=== PATIENT | female | born 1990 | race Caucasian/White ===

== ENCOUNTER 2024-09-01 20:01 | Outpatient (REF) | payer BC, SELFPAY | END 2024-09-01 20:02 | disposition home or self-care (01) | LOC: LAB 20:01 | PROVIDERS: Visit Provider Physician Assistant | DX: Z01.419 Encounter for gynecological examination (general) (routine) without abnormal findings (principal) | CPT/HCPCS: 87624; 88175 ==

== ENCOUNTER 2024-11-20 11:49 | Outpatient (OUT) | payer BC, SELFPAY ==
--- OUTSIDE RECORDS SUMMARY | 2024-11-18 12:20 | XMS_ITS | CCD ---
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 [address] [place] [address] Dr. Isabel Cornelius Covid-19 PCR ([facility])on 07-28 SARS-CoV-2 (COVID-19) RNA KINSEY+probe Ql (Unsp spec) Not detected Normal NOT DETECTED [facility] Comment on above: Result Comment: This test is not yet approved or cleared by the [place] FDA. When there are no FDA-approved or cleared tests available, and other criteria are met, FDA can make tests available under an emergency access mechanism called an Emergency Use Authorization (EUA). The EUA for this test is supported by the [place] of Health and Human Service's (HHS's) declaration that circumstances exist to justify the emergency use of in vitro diagnostics for the detection and/or diagnosis of the virus that causes COVID-19. This EUA will remain in effect (meaning this test can be used) for the duration of the COVID-19 declaration justifying emergency of IVDs, unless it is terminated or revoked by FDA (after which the test may no longer be used). When diagnostic testing is negative, the possibility of a false negative should be considered in the context of a patient's recent exposures and the presence of clinical signs and symptoms consistent with SARS-CoV-2. Performed By: #### C VDTBH #### [facility] [address] [place] [address] [id number] [address] Isabel Cornelius PREG GROWTHon 08-14-2022 US PREG GROWTH EXAMINATION: US PREG GROWTH HISTORY: Large for gestation age fetus COMPARISON: Ultrasound anatomy 04/16/2022 FINDINGS: Heart Rate: 130.0 bpm Number: 1.0 Position: Cephalic Amniotic Fluid Volume: 15.5 cm Maximum Vertical Pocket: 5.2 cm BIOMETRY: BPD: 9.1 cm cm; 37 weeks 0 days HC: 34.6 cmcm; 40 weeks 1 day AC: 36.0 cm cm; 40 weeks 0 days FL: 7.19 cm cm; 36 weeks 6 days EFW: 3626.2 grams; 93% by LMP, 74% by ultrasound FL/AC: 0.2 FL/BPD: 0.8 HC/AC: 1.0 GESTATIONAL AGE: Age by EDC: 37 weeks 1 day DREW by EDC: 09/03/2022 Age by US: 37 weeks 1 day DREW by US: 08/24/2022 IMPRESSION: 1. Single live intrauterine with growth detailed above. 2. Abdominal circumference is greater than 98th percentile Electronically authenticated by: ERMA GARCIA Date: 2022-08-14 19:49 Normal [facility] GROUP B STREP CULTUREon 07-27 S. agalactiae Ag Ql (Unsp spec) Culture Observations: NEGATIVE FOR GROUP B STREPTOCOCCUS. Normal [facility] Comment on above: Performed By: #### G BSCX #### [facility] [address] [place] [address] [id number] [address] Isabel Cornelius GTT 3 HR PREGon 06-22-2022 Glucose [Mass/Vol] 95 mg/dL Normal 74-106 [facility] Comment on above: Performed By: #### G LU1HR #### [facility] [address] [address] [address] Isabel Cornelius Glucose [Mass/Vol] 183 mg/dL Normal [facility] Comment on above: Performed By: #### G LU1HR #### [facility] [address] [place] [address] Dr. Isabel Corneilus Glucose [Mass/Vol] 124 mg/dL Normal [facility] Comment on above: Performed By: #### G LU1HR #### [facility] [address] [place] [address] Dr. Isabel Cornelius Glucose [Mass/Vol] 141 mg/dL Normal [facility] Comment on above: Performed By: #### G LU1HR #### [facility] [address] [place] [address] Dr. Isabel Cornelius GLUCOSE - 1HRon 06-08-2022 Glucose [Mass/Vol] 144 mg/dL Critically high 74-106 [facility] Comment on above: Performed By: #### G LU1HR #### [facility] [address] [place] [address] Dr. Isabel Cornelius HEMOGRAM AND PLATELon 2021 Hematocrit (Bld) [Volume fraction] 35.3 % Critically low 36.0-48.0 [facility] Comment on above: Performed By: #### G LU1HR #### [facility] [address] [place] [address] Dr. Isabel Cornelius Hemoglobin (Bld) [Mass/Vol] 11.0 g/dL Critically low 12.0-16.0 [facility] Comment on above: Performed By: #### G LU1HR #### [facility] [address] [place] [address] Dr. Isabel Cornelius MCH (RBC) [Entitic mass] 27.0 pg Normal 26.7-34.0 [facility] Comment on above: Performed By: #### G LU1HR #### [facility] [address] [place] [address] Dr. Isabel Cornelius MCHC (RBC) [Mass/Vol] 31.2 g/dL Normal 29.9-35.2 [facility] Comment on above: Performed By: #### G LU1HR #### [facility] [address] [place] [address] Dr. Isabel Cornelius MCV (RBC) [Entitic vol] 86.7 fL Normal 81.0-99.0 [facility] Comment on above: Performed By: #### G LU1HR #### [facility] [address] [place] [address] Dr. Isabel Cornelius PLT 297 103/ul Normal 150-450 [facility] Comment on above: Performed By: #### G LU1HR #### [facility] [address] [place] [address] Dr. Isabel Cornelius RBC 4.07 106/ul Critically low 4.20-5.40 [facility] Comment on above: Performed By: #### G LU1HR #### [facility] [address] [place] [address] Dr. Isabel Cornelius WBC 10.2 103/ul Normal 4.0-11.0 [facility] Comment on above: Performed By: #### G LU1HR #### [facility] [address] [place] [address] Dr. Isabel Cornelius CULTURE URINEon 05-24-2022 CULTURE URINE Isolate 1 Escherichia coli >100,000 cfu/mL of ORGANISM 1 Escherichia coli ANTIBIOTIC M.I.C RX STATUS Ampicillin >=32 R F Ampicillin/Sulbactam 16 I F Piperacillin/Tazobactam <=4 S F Cefazolin <=4 S F Ceftazidime <=1 S F Ceftriaxone <=1 S F Ertapenem <=0.5 S F Imipenem <=0.25 S F Amikacin <=2 S F Gentamicin <=1 S F Tobramycin <=1 S F Ciprofloxacin <=0.25 S F Levofloxacin <=0.12 S F Nitrofurantoin <=16 S F Trimethoprim/Sulfametho xazole <=20 S F Normal [facility] Comment on above: Performed By: #### U RCX #### [facility] [address] [place] [address] Dr. Isabel Cornelius UA RANDOM W/MICROSCOPICon BACTERIA LARGE Abnormal NONE SEEN [facility] Comment on above: Performed By: #### A 1C #### [facility] [address] [place] [address] Dr. Isabel Cornelius Bilirubin Ql (U) Negative Normal NEGATIVE [facility] Comment on above: Performed By: #### A 1C #### [facility] [address] [place] [address] Dr. Isabel Cornelius CAST NONE SEEN Normal NONE SEEN [facility] Comment on above: Performed By: #### A 1C #### [facility] [address] [place] [address] Dr. Isabel Cornelius Clarity (U) CLEAR Normal CLEAR [facility] Comment on above: Performed By: #### A 1C #### [facility] [address] [place] [address] Dr. Isabel Cornelius Color (U) LT. YELLOW Normal YELLOW [facility] Comment on above: Performed By: #### A 1C #### [facility] [address] [place] [address] Dr. Isabel Cornelius Crystals LM Nom (Urine sed) NONE SEEN Normal NONE SEEN [facility] Comment on above: Performed By: #### A 1C #### [facility] [address] [place] [address] Dr. Isabel Cornelius Epithelial cells LM Ql (Urine sed) FEW Abnormal NONE SEEN /RARE [facility] Comment on above: Performed By: #### A 1C #### [facility] [address] [place] [address] Dr. Isabel Cornelius Glucose Ql (U) Negative Normal NEGATIVE [facility] Comment on above: Performed By: #### A 1C #### [facility] [address] [place] [address] Dr. Isabel Cornelius Hemoglobin Ql (U) TRACE-INTACT Abnormal NEGATIVE [facility] Comment on above: Performed By: #### A 1C #### [facility] [address] [place] [address] Dr. Isabel Cornelius Ketones Ql (U) Negative Normal NEGATIVE [facility] Comment on above: Performed By: #### A 1C #### [facility] [address] [place] [address] Dr. Isabel Cornelius LEUKOCYTES SMALL Abnormal NEGATIVE [facility] Comment on above: Performed By: #### A 1C #### [facility] [address] [place] [address] Dr. Isabel Cornelius MUCOUS TRACE Abnormal NONE SEEN [facility] Comment on above: Performed By: #### A 1C #### [facility] [address] [place] [address] Dr. Isabel Cornelius Nitrite Ql (U) Positive Abnormal NEGATIVE [facility] Comment on above: Performed By: #### A 1C #### [facility] [address] [place] [address] Dr. Isabel Cornelius pH (U) 6.5 [pH] Normal 5-9 [facility] Comment on above: Performed By: #### A 1C #### [facility] [address] [place] [address] Dr. Isabel Cornelius RBC 2-5 Abnormal 0-2 [facility] Comment on above: Performed By: #### A 1C #### [facility] [address] [place] [address] Dr. Isabel Cornelius SPEC GRAVITY 1.015 Normal 1.005-<=1.025 [facility] Comment on above: Performed By: #### A 1C #### [facility] [address] [place] [address] Dr. Isabel Cornelius UA PROTEIN Negative Normal NEGATIVE/ TRACE [facility] Comment on above: Performed By: #### A 1C #### [facility] [address] [place] [address] Dr. Isabel Cornelius Urobilinogen Qn (U) 0.2 {Radha'U}/dL Normal 0.2 - 1. 0 [facility] Comment on above: Performed By: #### A 1C #### [facility] [address] [place] [address] Dr. Isabel Cornelius WBC 10-20 Abnormal NONE SEEN [facility] Comment on above: Performed By: #### A 1C #### [facility] [address] [place], [place] [address] Dr. Isabel Cornelius PREG INCOMPLETE ANATOMYon 05-15-2022 US PREG INCOMPLETE ANATOMY EXAMINATION: US PREG INCOMPLETE ANATOMY HISTORY: screening COMPARISON: Ultrasound anatomy 04/16/2022 FINDINGS: Heart rate: 133 bpm Anatomy: Spine, cardiac outflow tracts, nose-lips visualized. GA: 24 weeks, 0 days DREW: 09/03/2022 IMPRESSION: 1. Single live intrauterine . 2. No appreciable abnormality of the spine, cardiac outflow tracts, and hard palate. Examination is limited by patient body evidence. Electronically authenticated by: ERMA GARCIA Date: 2022-05-14 22:11 Normal [facility] AFP MATERNAL FOR SPINA BIFID Aon 04-25-2022 AFP MoM 1.28 Normal [facility] Comment on above: Performed By: #### G LU1HR #### [facility] [address] [address] [address] Isabel Cornelius AFP Value 43.3 ng/mL Normal [facility] Comment on above: Performed By: #### G LU1HR #### [facility] [address] [address] [address] Isabel Cornelius AFP, Serum for Spina Bifida Report Normal [facility] Comment on above: Performed By: #### G LU1HR #### [facility] [address] [place], [place] [address] Dr. Isabel Cornelius Comment Comment Normal [facility] Comment on above: Result Comment: Ela Deras, Ph.D., [facility] Director . References: Available Upon Request. . Multiples Of Median Cutoffs For AFP Elevations Reyes 2.5 Black 2.8 IDD 2.0 Twins 4.5 Abbreviation Definitions IDD - Insulin Dep Diabetes OSBR - Open Spina Bifida Risk . For further inquiries contact [facility] at [phone]. Performed By: #### G LU1HR #### [facility] [address] [address] [address] Isabel Cornelius Gest Age Collection Date 18.4 weeks Normal [facility] Comment on above: Performed By: #### G LU1HR #### [facility] [address] [address] [address] Isabel Cornelius Gestat, Age Based on DREW Normal [facility] Comment on above: Result Comment: 05/2022 Recalculations are not recommended when gestational dating by LMP and ultrasound are within 10 days. Performed By: #### G LU1HR #### [facility] [address] [address] [address] Isabel Cornelius Insulin Dep Diabetes No Normal [facility] Comment on above: Performed By: #### G LU1HR #### [facility] [address] [address] [address] Isabel Cornelius Interpretation Comment Normal [facility] Comment on above: Result Comment: Inte rpretation: Screen Negative . This result is screen negative for OSB. The AFP MoM calculated is based on the gestational age provided. MS-AFP can identify up to 80% of open neural tube defects. Closed neural tube defects and some open defects may not be detected by this test. This test does not screen for Down Syndrome or Trisomy 18. If screening for Down Syndrome or Trisomy 18 is desired, contact [facility] to discuss available options. The [employer] recommends amniocentesis be offered to women age 35 and older. Performed By: #### G LU1HR #### [facility] [address] [place] [address] Dr. Isabel Cornelius [age] Normal [facility] Comment on above: Performed By: #### G LU1HR #### [facility] [address] [place] [address] Dr. Isabel Cornelius Multiple Gestation No Normal [facility] Comment on above: Performed By: #### G LU1HR #### [facility] [address] [place] [address] Dr. Isabel Cornelius OSBR Risk 1 IN 5096 Normal [facility] Comment on above: Performed By: #### G LU1HR #### [facility] [address] [place] [address] Dr. Isabel Cornelius PDF . Normal [facility] Comment on above: Performed By: #### G LU1HR #### [facility] [address] [address] [address] Isabel Cornelius Race Normal [facility] Comment on above: Performed By: #### G LU1HR #### [facility] [address] [address] [address] Isabel Cornelius Test Results: Negative Normal [facility] Comment on above: Performed By: #### G LU1HR #### [facility] [address] [address] [address] Isabel Cornelius US PREG ANATOMY SINGLEon US PREG ANATOMY SINGLE EXAMINATION: US PREG ANATOMY SINGLE HISTORY: anatomy study COMPARISON: No relevant comparison available. TECHNIQUE: Transabdominal sonographic examination was performed for obstetrical and evaluation. FINDINGS: Number: 1 Heart Rate: 138.0 bpm H.B. /min Amniotic Fluid Volume: Subjectively normal position: Cephalic presentation, longitudinal lie Placental Location: Anterior, grade 0. Placental edge 5 cm from the cervical os Cervix Length: 4.7 cm. Minimal amount of fluid in the endocervical canal measuring up to 2 mm Normal structures: Cerebellum. Choroid plexus. Cisterna magna. Lateral cerebral ventricles. Orbits. Midline falx. 4-chamber heart. Stomach. Kidneys. Bladder. Umbilical cord insertion into abdomen. 3 vessel cord. Right upper extremity. Left upper extremity. Right lower extremity. Left lower extremity. Suboptimally seen: Nose, lips, ventricular outflow tracts, spine. Abnormalities/Other: None BIOMETRY: BPD: 4.8 cm 20 weeks 3 days , 69% HC: 18.1 cm 20 weeks 4 days, 67% AC: 15.2 cm 20 weeks 3 days, 58% FL: 3.5 cm 21 weeks 0 days, 78% EFW:369.3 grams; 13 ounces, 82% FL/AC: 23.1 FL/BPD: 73.2 HC/AC: 1.2 GESTATIONAL AGE: Age by EDC: 20 weeks 0 days DREW by EDC: 09/03/2022 Age by current US: 20 weeks 4 days DREW by current US: 08/30/2022 IMPRESSION: Limited visualization as detailed above Minimal dilation of the endocervical canal *Reference: AIUM Practice Guideline for the performance of Obstetric Ultrasound Examinations, July 27, 2007. Electronically authenticated by: HELEN VERA Date: 2022-04-16 16:21 Normal [facility] PAP ACOG PANEL 2: 21 to 29on 04-03-2022 . . Normal [facility] Comment on above: Performed By: #### G LU1HR #### [facility] [address] [place] [address] Dr. Isabel Cornelius Age Gdln ACOG Testing - [facility] Comment on above: Performed By: #### G LU1HR #### [facility] [address] [place] [address] Dr. Isabel Cornelius DIAGNOSIS: Comment [facility] Comment on above: Result Comment: NEGA TIVE FOR INTRAEPITHELIAL LESION OR MALIGNANCY. THIS SPECIMEN WAS RESCREENED PART OF OUR FREIGHT DISPATCHER PROGRAM. Performed By: #### G LU1HR #### [facility] [address] [place] [address] Dr. Isabel Cornelius Methodology: Comment [facility] Comment on above: Result Comment: This liquid based ThinPrep(R) pap test was screened with the use of an image guided system. Performed By: #### G LU1HR #### [facility] [address] [place] [address] Dr. Isabel Cornelius Note: Comment [facility] Comment on above: Result Comment: The Pap smear is a screening test designed to aid in the detection of premalignant and malignant conditions of the uterine cervix. It is not a diagnostic procedure and should not be used as the sole means of detecting cervical cancer. Both false-positive and false-negative reports do occur. . Performed By: #### G LU1HR #### [facility] [address] [place] [address] Dr. Isabel Cornelius Performed by: Comment Normal [facility] Comment on above: Result Comment: Zheng Lacey, Plan Rep (ASCP) Performed By: #### G LU1HR #### [facility] [address] [place] [address] Dr. Isabel Cornelius QC reviewed by: Comment Normal [facility] Comment on above: Result Comment: Dai Wooten, Supervisory Plan Rep (ASCP) Performed By: #### G LU1HR #### [facility] [address] [place] [address] Dr. Isabel Cornelius Reflex Criteria: Comment Normal [facility] Comment on above: Result Comment: The HPV DNA reflex criteria were not met with this specimen result therefore, no HPV testing was performed. . Performed By: #### G LU1HR #### [facility] [address] [address] [address] Isabel Cornelius Specimen adequacy: Comment Normal [facility] Comment on above: Result Comment: Sati sfactory for evaluation. Endocervical and/or squamous metaplastic cells (endocervical component) are present. Performed By: #### G LU1HR #### [facility] [address] [place] [address] Dr. Isabel Cornelius CHLAMYDIA/GONOCOCCUS KINSEY ( AB/URINE/PAPon 03-31-2022 Chlamydia trachomatis, KINSEY Negative Normal Negative [facility] Comment on above: Performed By: #### A 1C #### [facility] [address] [place] [address] Dr. Isabel Cornelius Neisseria gonorrhoeae, KINSEY Negative Normal Negative [facility] Comment on above: Performed By: #### A 1C #### [facility] [address] [place] [address] Dr. Isabel Cornelius CULTURE URINEon 03-15-2022 CULTURE URINE Isolate 1 Escherichia coli >100,000 cfu/mL of ORGANISM 1 Escherichia coli ANTIBIOTIC M.I.C RX STATUS Ampicillin >=32 R F Ampicillin/Sulbactam 16 I F Piperacillin/Tazobactam <=4 S F Cefazolin <=4 S F Ceftazidime <=1 S F Ceftriaxone <=1 S F Ertapenem <=0.5 S F Imipenem <=0.25 S F Amikacin <=2 S F Gentamicin <=1 S F Tobramycin <=1 S F Ciprofloxacin <=0.25 S F Levofloxacin <=0.12 S F Nitrofurantoin <=16 S F Trimethoprim/Sulfametho xazole <=20 S F Normal [facility] Comment on above: Performed By: #### U RCX #### [facility] [address] [place] [address] Dr. Isabel Cornelius CULTURE URINEon 02-28-2022 CULTURE URINE Isolate 1 Escherichia coli >100,000 cfu/ml of ORGANISM 1 Escherichia coli ANTIBIOTIC M.I.C RX STATUS Ampicillin >=32 R F Ampicillin/Sulbactam >=32 R F Piperacillin/Tazobactam 8 S F Cefazolin 8 S F Ceftazidime <=1 S F Ceftriaxone <=1 S F Ertapenem <=0.5 S F Imipenem <=0.25 S F Amikacin <=2 S F Gentamicin <=1 S F Tobramycin <=1 S F Ciprofloxacin <=0.25 S F Levofloxacin <=0.12 S F Nitrofurantoin <=16 S F Trimethoprim/Sulfametho xazole <=20 S F Normal [facility] Comment on above: Performed By: #### A 1C #### [facility] [address] [place] [address] Dr. Isabel Cornelius HEP B SURFACE ANTIGEN SCREEN on 02-27-2022 HBsAg Screen Negative Normal Negative [facility] Comment on above: Performed By: #### G LU1HR #### [facility] [address] [place] [address] Dr. Isabel Cornelius HEPATITIS C VIRUS AB W/ REFL EX QUANTon 02-27-2022 HCV AB 0.1 s/co ratio Normal 0.0-0.9 [facility] Comment on above: Performed By: #### G LU1HR #### [facility] [address] [place] [address] Dr. Isabel Cornelius Interpretation: Comment Normal [facility] Comment on above: Result Comment: Nega tive Not infected with HCV, unless recent infection is suspected or other evidence exists to indicate HCV infection. Performed By: #### G LU1HR #### [facility] [address] [place] [address] Dr. Isabel Cornelius HIV 1 AND 2 WITH REFLEXon HIV Screen 4th Generation wRfx Non-Reactive Normal Non Reactive [facility] Comment on above: Result Comment: HIV Negative HIV-1/HIV-2 antibodies and HIV-1 p24 antigen were NOT detected. There is no laboratory evidence of HIV infection. Performed By: #### G LU1HR #### [facility] [address] [place] [address] Dr. Isabel Cornelius RPR QUANTon 02-27-2022 Rapid Plasma Reagin, Quant Non-Reactive Normal NonRea<1:1 [facility] Comment on above: Result Comment: Plea se Note: This test does not meet current guidelines for screening and diagnosis of syphilis. This test is intended for following treatment response in patients being treated for syphilis infection. To screen for syphilis infection, a reflex cascade that includes both RPR and a treponema-specific assay should be utilized, such as Treponema pallidum (Syphilis) Screening Christine (115847) or Rapid Plasma Reagin (RPR) Test With Reflex to Quantitative RPR and Confirmatory Treponema pallidum Antibodies (220667). Performed By: #### A 1C #### [facility] [address] [place] [address] Dr. Isabel Cornelius RUBELLA AB IGGon 02-27-2022 Rubella Antibodies, IgG 14.20 index Normal Immune >0.99 [facility] Comment on above: Result Comment: Non- immune <0.90 Equivocal 0.90 - 0.99 Immune >0.99 Performed By: #### G LU1HR #### [facility] [address] [place] [address] Dr. Isabel Cornelius CBC AUTO DIFFon 02-26-2022 BASO # 0.1 103/ul Normal 0.0-0.1 [facility] Comment on above: Performed By: #### C BC #### [facility] [address] [place] [address] Dr. Isabel Cornelius Basophils/100 WBC (Bld) 0.5 % Normal 0.2-2.0 [facility] Comment on above: Performed By: #### C BC #### [facility] [address] [place] [address] Dr. Isabel Cornelius EO # 0.1 103/ul Normal 0.0-0.7 [facility] Comment on above: Performed By: #### C BC #### [facility] [address] [place] [address] Dr. Isabel Cornelius Eosinophils/100 WBC (Bld) 0.8 % Critically low 0.9-7.0 [facility] Comment on above: Performed By: #### C BC #### [facility] [address] [place] [address] Dr. Isabel Cornelius Erythrocyte distribution width (RBC) [Ratio] 14.2 % Normal 11.0-15.0 [facility] Comment on above: Performed By: #### C BC #### [facility] [address] [place] [address] Dr. Isabel Cornelius Hematocrit (Bld) [Volume fraction] 41.7 % Normal 36.0-48.0 [facility] Comment on above: Performed By: #### C BC #### [facility] [address] [place] [address] Dr. Isabel Cornelius Hemoglobin (Bld) [Mass/Vol] 13.5 g/dL Normal 12.0-16.0 [facility] Comment on above: Performed By: #### C BC #### [facility] [address] [place] [address] Dr. Isabel Cornelius IG # 0.09 10e3/ul Critically high 0.00-0.03 [facility] Comment on above: Performed By: #### C BC #### [facility] [address] [place] [address] Dr. Isabel Cornelius IG % 0.7 % Critically high 0.0-0.5 [facility] Comment on above: Performed By: #### C BC #### [facility] [address] [place] [address] Dr. Isabel Cornelius LYMPH # 2.0 103/ul Normal 1.2-3.8 [facility] Comment on above: Performed By: #### C BC #### [facility] [address] [place] [address] Dr. Isabel Cornelius Lymphocytes/100 WBC (Bld) 14.8 % Critically low 20.5-60.0 [facility] Comment on above: Performed By: #### C BC #### [facility] [address] [place] [address] Dr. Isabel Cornelius MANUAL DIFF REQ NO Normal [facility] Comment on above: Performed By: #### C BC #### [facility] [address] [place] [address] Dr. Isabel Cornelius MCH (RBC) [Entitic mass] 27.0 pg Normal 26.7-34.0 [facility] Comment on above: Performed By: #### C BC #### [facility] [address] [place] [address] Dr. Isabel Cornelius MCHC (RBC) [Mass/Vol] 32.4 g/dL Normal 29.9-35.2 [facility] Comment on above: Performed By: #### C BC #### [facility] [address] [place] [address] Dr. Isabel Cornelius MCV (RBC) [Entitic vol] 83.4 fL Normal 81.0-99.0 [facility] Comment on above: Performed By: #### C BC #### [facility] [address] [place] [address] Dr. Isabel Cornelius MONO # 0.6 103/ul Normal 0.3-0.8 [facility] Comment on above: Performed By: #### C BC #### [facility] [address] [place] [address] Dr. Isabel Cornelius Monocytes/100 WBC (Bld) 4.6 % Normal 1.7-12.0 [facility] Comment on above: Performed By: #### C BC #### [facility] [address] [place] [address] Dr. Isabel Cornelius NEUT # 10.4 103/ul Critically high 1.4-6.5 [facility] Comment on above: Performed By: #### C BC #### [facility] [address] [place] [address] Dr. Isabel Cornelius Neutrophils/100 WBC (Bld) 78.6 % Critically high 43.0-75.0 [facility] Comment on above: Performed By: #### C BC #### [facility] [address] [address] [address] Isabel Cornelius Platelet mean volume (Bld) [Entitic vol] 9.7 fL Normal 9.5-13.5 [facility] Comment on above: Performed By: #### C BC #### [facility] [address] [address] [address] Isabel Cornelius PLT 395 103/ul Normal 150-450 [facility] Comment on above: Performed By: #### C BC #### [facility] [address] [place] [address] Dr. Isabel Cornelius RBC 5.00 106/ul Normal 4.20-5.40 [facility] Comment on above: Performed By: #### C BC #### [facility] [address] [place] [address] Dr. Isabel Cornelius WBC 13.2 103/ul Critically high 4.0-11.0 [facility] Comment on above: Performed By: #### C BC #### [facility] [address] [place] [address] Dr. Isabel Cornelius GLYCOHEMOGLOBIN A1Con 2021 ADA RECOMMENDATION SEE BELOW Normal [facility] Comment on above: Result Comment: ADA RECOMMENDED LIMIT 4.0 - 6.0 ADA THERAPEUTIC TARGET < 7.0 ACTION SUGGESTED > 7.0 Performed By: #### A 1C #### [facility] [address] [place] [address] Dr. Isabel Cornelius Glucose [Mass/Vol] 105 mg/dL Normal [facility] Comment on above: Performed By: #### A 1C #### [facility] [address] [place] [address] Dr. Isabel Cornelius HbA1c (Bld) [Mass fraction] 5.3 % Normal 4.5-6.2 [facility] Comment on above: Performed By: #### A 1C #### [facility] [address] [place] [address] Dr. Isabel Cornelius DYAN BOX TEST PT SEND OUTo n 02-26-2022 SENT TO REF LAB 02/26/2022 Normal [facility] Comment on above: Performed By: #### G LU1HR #### [facility] [address] [address] [address] Isabel Cornelius TYPE AND SCREENon 02-26-2022 TYPE AND SCREEN Negative Normal [facility] Comment on above: Performed By: #### A 1C #### [facility] [address] [place], [place] [address] Dr. Isabel Cornelius US PREG TVon 02-25-2022 US PREG TV EXAMINATION: US PREG TV HISTORY: Missed period COMPARISON: No relevant comparison available. FINDINGS: GESTATIONAL SAC: Present and normal appearing. POLE: Present and normal appearing. YOLK SAC: Present. CARDIAC: Present. UTERUS: Normal size and appearance. OVARIES: Right: Not seen. Left: Not seen. CERVIX: 4.9 cm in length and closed. CUL-DE-SAC: Normal. OTHER: None. AGE BY LMP: Unknown. DREW BY LMP: AGE BY US CRL: 12 weeks, 6 days DREW BY US CRL: 09/03/2022 IMPRESSION: 1. Single live intrauterine 12 weeks, 6 days. Electronically authenticated by: ERMA GARCIA Date: 2022-02-25 11:58 Normal [facility] CBC with Diffon 01-05-2019 Abs. Basophil 0.04 k/uL Normal 0.00-0.20 [facility] Comment on above: Performed By: #### C DP #### [facility] [employer] [facility] [place] [address] Bar Staff: Og Rothman MD Abs.Imm.Granulocyte 0.07 k/uL Normal 0.00-0.30 [facility] Comment on above: Performed By: #### C DP #### [facility] [employer] [address] [place] [address] Bar Staff: Og Rothman MD Abs.Neutrophil (Seg) 7.45 k/uL Normal 1.50-8.10 [facility] Comment on above: Performed By: #### C DP #### [facility] [address] [place] [address] Bar Staff: Og Rothman MD Basophils/100 WBC (Bld) 0 % Normal 0-2 [facility] Comment on above: Performed By: #### C DP #### [address] [address] Bar Staff: Og Rothman MD Eosinophils #/vol (Bld) 0.14 10*3/uL Normal 0.00-0.44 [facility] Comment on above: Performed By: #### C DP #### [address] [address] Bar Staff: Og Rothman MD Eosinophils/100 WBC (Bld) 1 % Normal 1-4 [facility] Comment on above: Performed By: #### C DP #### [place] [address] Bar Staff: Og Rothman MD Erythrocyte distribution width Ratio (RBC) 15.1 % High 11.8-14.4 [facility] Comment on above: Performed By: #### C DP #### [address] [address] Bar Staff: Og Rothman MD Hematocrit Volume Fraction (Bld) 29.9 % Low 36.3-47.1 [facility] Comment on above: Performed By: #### C DP #### [address] [address] Bar Staff: Og Rothman MD Hemoglobin mass conc (Bld) 9.3 g/dL Low 11.9-15.1 [facility] Comment on above: Performed By: #### C DP #### [address] [address] Bar Staff: Og Rothman MD Immature granulocytes #/vol (Bld) 1 % High 0 [facility] Comment on above: Performed By: #### C DP #### [address] [address] Bar Staff: Og Rothman MD Lymphocytes #/vol (Bld) 1.37 10*3/uL Normal 1.10-3.70 [facility] Comment on above: Performed By: #### C DP #### [address] [address] Bar Staff: Og Rothman MD Lymphocytes/100 WBC (Bld) 14 % Low 24-43 [facility] Comment on above: Performed By: #### C DP #### [address] [address] Bar Staff: Og Rothman MD MCH Entitic mass (RBC) 27.8 pg Normal 25.2-33.5 [facility] Comment on above: Performed By: #### C DP #### [address] [address] Bar Staff: Og Rothman MD MCHC mass conc (RBC) 31.1 g/dL Normal 28.4-34.8 [facility] Comment on above: Performed By: #### C DP #### [address] [address] Bar Staff: Og Rothman MD MCV Entitic volume (RBC) 89.3 fL Normal 82.6-102.9 [facility] Comment on above: Performed By: #### C DP #### [address] [address] Bar Staff: Og Rothman MD Monocytes #/vol (Bld) 0.91 10*3/uL Normal 0.10-1.20 [facility] Comment on above: Performed By: #### C DP #### [address] [address] Bar Staff: Og Rothman MD Monocytes/100 WBC (Bld) 9 % Normal 3-12 [facility] Comment on above: Performed By: #### C DP #### [address] [address] Bar Staff: Og Rothman MD Neutrophil (Seg) 75 % High 36-65 [facility] Comment on above: Performed By: #### C DP #### [address] [address] Bar Staff: Og Rtohman MD NRBC Automated 0.0 per 100 WBC Normal 0.0 [facility] Comment on above: Performed By: #### C DP #### [address] [address] Bar Staff: Og Rothman MD Platelet mean volume Entitic volume (Bld) 11.0 fL Normal 8.1-13.5 [facility] Comment on above: Performed By: #### C DP #### [address] [address] Bar Staff: Og Rothman MD Platelets #/vol (Bld) 218 10*3/uL Normal 138-453 [facility] Comment on above: Performed By: #### C DP #### [address] [address] Bar Staff: Og Rothman MD RBC #/vol (Bld) 3.35 10*6/uL Low 3.95-5.11 [facility] Comment on above: Performed By: #### C DP #### [address] [address] Bar Staff: Og Rothman MD RBC morphology finding Nom (Bld) ANISOCYTOSIS PRESENT Normal [facility] Comment on above: Performed By: #### C DP #### [address] [address] Bar Staff: Og Rothman MD WBC #/vol (Bld) 10.0 10*3/uL Normal 3.5-11.3 [facility] Comment on above: Performed By: #### C DP #### [address] [address] Bar Staff: Og Rothman MD Auto Diff Performed NOT REPORTED Normal [facility] Comment on above: Performed By: #### C DP #### [address] [address] Bar Staff: Og Rothman MD Platelets #/vol (Bld) NOT REPORTED Normal [facility] Comment on above: Performed By: #### C DP #### [address] [address] Bar Staff: Og Rothman MD WBC Morphology NOT REPORTED Normal [facility] Comment on above: Performed By: #### C DP #### [address] [address] Bar Staff: Og Rothman MD Surgical Pathologyon 019 Surgical Pathology (NOTE) [id number] [facility] CONSULTING PATHOLOGISTS [facility] ANATOMIC PATHOLOG[facility] [address] [place] [id number] SURGICAL PATHOLOGY CONSULTATION Patient Name: FLORA RICHARDSON [facility] Rec: [id number] Path Number: [id number] Collected: 01/04/2019 Received: 01/05/2019 Reported: 01/06/2019 17:00 -- Diagnosis -- PLACENTA, 39 1/7 WEEKS: TERM PLACENTA WITH UNREMARKABLE MEMBRANES AND THREE-VESSEL UMBILICAL CORD. Yonas Kaur Electronically Signed Out reji/01/06/2019 Clinical Information Pre-op Diagnosis: 28 Y/O, IUP @ 39 W, 1 D, NON-REASSURING FHT'S, PROTEINURIA, POLYHYDRAMNIOS, MARGINAL PLACENTA, FHX CONGENITAL HEART DEFECT, FHX T2DM, BMI 51.7 Operative Findings: PLTCS, M, AP/9, WT: 6#, 7 OZ, PLACENTA, CORD AND MEMBRANES Source of Specimen 1: PLACENTA, CORD AND MEMBRANES Gross Description FLORA RICHARDSON, PLACENTA Placenta with attached membranes and umbilical cord. UMBILICAL CORD Length: 17.5 cm Diameter: 1.4 cm True knots: No Number of vessels: 3 Spiraling: Hypospiraled Insertion into surface: Eccentric, 1.5 cm from the margin MEMBRANES Color: Alvarado-price, focally opacified Meconium staining: No SURFACE Color: Purple-alvarado, with a normal array of surface vessels Subchorionic fibrin: Patchy and marginal and involves approximately 10% of the disc MATERNAL SURFACE Cotyledons: -All present and intact: Yes -Focal lesions: No Placental size: 16.5 x 15.5 x 3.0 cm Shape: Ovoid Weight: 376 grams Number of cassettes: 3cs tm Microscopic Description Umbilical cord: Negative for funisitis Membranes: Negative for chorioamnionitis Meconium staining: No Infarcts: No Intervillous thrombi: No Subchorionic fibrin: Slight increase Villous maturation: Mature Nucleated erythrocytes in villous capillaries: Rare Other: Few microcalcifications Normal [facility] Comment on above: Performed By: #### P PPVS #### [email or web address] [address] [place] [address] Bar Staff: Og Rothman MD CBC with Diffon 01-03-2019 Abs. Basophil 0.04 k/uL Normal 0.00-0.20 [facility] Comment on above: Performed By: #### C DP, TREP #### [email or web address] [address] [place] [address] Bar Staff: Og Rothman MD Abs.Imm.Granulocyte 0.11 k/uL Normal 0.00-0.30 [facility] Comment on above: Performed By: #### C DP, TREP #### [email or web address] [address] [place] [address] Bar Staff: Og Rothman MD Abs.Neutrophil (Seg) 8.13 k/uL High 1.50-8.10 [facility] Comment on above: Performed By: #### C DP, TREP #### [facility] [employer] [address] [place] [address] Bar Staff: Og Rothman MD Basophils/100 WBC (Bld) 0 % Normal 0-2 [facility] Comment on above: Performed By: #### C DP, TREP #### [facility] [employer] [address] [place] [address] Bar Staff: Og Rothman MD Eosinophils #/vol (Bld) 0.13 10*3/uL Normal 0.00-0.44 [facility] Comment on above: Performed By: #### C DP, TREP #### [facility] [employer] [address] [place] [address] Bar Staff: Og Rothman MD Eosinophils/100 WBC (Bld) 1 % Normal 1-4 [facility] Comment on above: Performed By: #### C DP, TREP #### [place] [address] Bar Staff: Og Rothman MD Erythrocyte distribution width Ratio (RBC) 15.0 % High 11.8-14.4 [facility] Comment on above: Performed By: #### C DP, TREP #### [facility] [employer] [address] [place] [address] Bar Staff: Og Rothman MD Hematocrit Volume Fraction (Bld) 36.5 % Normal 36.3-47.1 [facility] Comment on above: Performed By: #### C DP, TREP #### [facility] [address] [place] [address] Bar Staff: Og Rothman MD Hemoglobin mass conc (Bld) 11.6 g/dL Low 11.9-15.1 [facility] Comment on above: Performed By: #### C DP, TREP #### [address] [address] Bar Staff: Og Rothman MD Immature granulocytes #/vol (Bld) 1 % High 0 [facility] Comment on above: Performed By: #### C DP, TREP #### [address] [address] Bar Staff: Og Rothman MD Lymphocytes #/vol (Bld) 1.40 10*3/uL Normal 1.10-3.70 [facility] Comment on above: Performed By: #### C DP, TREP #### [address] [address] Bar Staff: Og Rothman MD Lymphocytes/100 WBC (Bld) 13 % Low 24-43 [facility] Comment on above: Performed By: #### C DP, TREP #### [address] [address] Bar Staff: Og Rothman MD MCH Entitic mass (RBC) 27.5 pg Normal 25.2-33.5 [facility] Comment on above: Performed By: #### C DP, TREP #### [address] [address] Bar Staff: Og Rothman MD MCHC mass conc (RBC) 31.8 g/dL Normal 28.4-34.8 [facility] Comment on above: Performed By: #### C DP, TREP #### [address] [address] Bar Staff: Og Rothman MD MCV Entitic volume (RBC) 86.5 fL Normal 82.6-102.9 [facility] Comment on above: Performed By: #### C DP, TREP #### [address] [address] Bar Staff: Og Rothman MD Monocytes #/vol (Bld) 0.80 10*3/uL Normal 0.10-1.20 [facility] Comment on above: Performed By: #### C DP, TREP #### [address] [address] Bar Staff: Og Rothman MD Monocytes/100 WBC (Bld) 8 % Normal 3-12 [facility] Comment on above: Performed By: #### C DP, TREP #### [address] [address] Bar Staff: Og Rothman MD Neutrophil (Seg) 77 % High 36-65 [facility] Comment on above: Performed By: #### C DP, TREP #### [address] [address] Bar Staff: Og Rothman MD NRBC Automated 0.0 per 100 WBC Normal 0.0 [facility] Comment on above: Performed By: #### C DP, TREP #### [address] [address] Bar Staff: Og Rothman MD Platelet mean volume Entitic volume (Bld) 10.5 fL Normal 8.1-13.5 [facility] Comment on above: Performed By: #### C DP, TREP #### [address] [address] Bar Staff: Og Rothman MD Platelets #/vol (Bld) 301 10*3/uL Normal 138-453 [facility] Comment on above: Performed By: #### C DP, TREP #### [address] [address] Bar Staff: Og Rothman MD RBC #/vol (Bld) 4.22 10*6/uL Normal 3.95-5.11 [facility] Comment on above: Performed By: #### C DP, TREP #### [address] [address] Bar Staff: Og Rothman MD RBC morphology finding Nom (Bld) ANISOCYTOSIS PRESENT Normal [facility] Comment on above: Performed By: #### C DP, TREP #### [address] [address] Bar Staff: Og Rothman MD WBC #/vol (Bld) 10.6 10*3/uL Normal 3.5-11.3 [facility] Comment on above: Performed By: #### C DP, TREP #### [address] [address] Bar Staff: Og Rothman MD Auto Diff Performed NOT REPORTED Normal [facility] Comment on above: Performed By: #### C DP, TREP #### [address] [address] Bar Staff: Og Rothman MD Platelets #/vol (Bld) NOT REPORTED Normal [facility] Comment on above: Performed By: #### C DP, TREP #### [address] [address] Bar Staff: Og Rothman MD WBC Morphology NOT REPORTED Normal [facility] Comment on above: Performed By: #### C DP, TREP #### [address] [address] Bar Staff: Og Rothman MD Drug Scr, Abuse, Uron 2018 Amphetamine(s),Ur Negative Normal NEG [facility] Comment on above: Result Comment: (Positive cutoff 1000 ng/mL) Performed By: #### D AU #### [address] [address] Bar Staff: Og Rothman MD Barbiturate(s),Ur Negative Normal NEG [facility] Comment on above: Result Comment: (Positive cutoff 200 ng/mL) Performed By: #### D AU #### [address] [address] Bar Staff: Og Rothman MD Base excess Calculated molar conc (Bld) Negative Normal NEG [facility] Comment on above: Result Comment: (Positive cutoff 300 ng/mL) Performed By: #### D AU #### [address] [address] Bar Staff: Og Rothman MD Benzodiazepine(s) Negative Normal NEG [facility] Comment on above: Result Comment: (Positive cutoff 200 ng/mL) Performed By: #### D AU #### [address] [address] Bar Staff: Og Rothman MD Cannabinoid(s),Ur Negative Normal NEG [facility] Comment on above: Result Comment: (Positive cutoff 50 ng/mL) Performed By: #### D AU #### [address] [address] Bar Staff: Og Rothman MD Interpretive Info Assay provides medic al screening only. The absence of expected drug(s) and/or Normal [facility] Comment on above: Result Comment: meta bolite(s) may indicate diluted or adulterated urine, limitations of testing or timing of collection. Testing for legal purposes should be confirmed by another method. To request confirmation of test result, please call the lab within 7 days of sample submission. Performed By: #### D AU #### [address] [address] Bar Staff: Og Rothman MD Methadone Ql (U) Negative Normal NEG [facility] Comment on above: Result Comment: (Positive cutoff 300 ng/mL) Performed By: #### D AU #### [address] [place] [address] Bar Staff: Og Rothman MD Opiate(s), Ur Negative Normal NEG [facility] Comment on above: Result Comment: (Positive cutoff 300 ng/mL) Performed By: #### D AU #### [address] [address] Bar Staff: Og Rothman MD Oxycodone, Urine Negative Normal NEG [facility] Comment on above: Result Comment: (Positive cutoff 100 ng/mL) Performed By: #### D AU #### [address] [address] Bar Staff: Og Rothman MD Phencyclidine, Ur Negative Normal NEG [facility] Comment on above: Result Comment: (Positive cutoff 25 ng/mL) Performed By: #### D AU #### [address] [address] Bar Staff: Og Rothman MD Buprenorphrine, Ur NOT REPORTED Normal NEG [facility] Comment on above: Performed By: #### D AU #### [address] [address] Bar Staff: Og Rothman MD MDMA, Urine NOT REPORTED Normal NEG [facility] Comment on above: Performed By: #### D AU #### [facility] [employer] [address] [place] [id number] Bar Staff: Og Rothman MD Methamphetamine, Ur NOT REPORTED Normal NEG [facility] Comment on above: Performed By: #### D AU #### [facility] [employer] [address] [place] [id number] Bar Staff: Og Rothman MD Protein mass conc (U) NOT REPORTED Normal NEG [facility] Comment on above: Performed By: #### D AU #### [facility] [employer] [address] [place] [address] [id number] Bar Staff: Og Rothman MD Tricyclic antidepressants Screen Ql (U) NOT REPORTED Normal NEG [facility] Comment on above: Performed By: #### D AU #### [facility] [employer] [address] [place] [address] [phone] Bar Staff: Og Rothman MD T.pallidum Ab Screenon 01-03 T.pallidum Ab Screen NONREACTIVE Normal NR [facility] Comment on above: Result Comment: T. pallidum antibodies are not detected. There is no serological evidence of infection with T. pallidum (early primary syphilis cannot be excluded). Retest in 2-4 weeks if syphilis is clinically suspect. Performed By: #### C DP, TREP #### [facility] [employer] [address] [place] [address] [phone] Bar Staff: Og Rothman MD Type + Screenon 01-03-2019 Type + Screen Sample Expiration 01/06/2019 Arm Band Number [id number] ABO/Rh(D) A POSITIVE Antibody Screen NEGATIVE Normal [facility] Comment on above: Performed By: #### T YS #### [facility] [employer] [address] [place] [address] [phone] Bar Staff: Og Rothman MD Vital Signs Date Time Vital Sign Value Performing Clinician Facility 10-26-2024 09:37-0500 Body mass index (BMI) [Ratio] 46.41 kg/m2 [facility] Nurse [facility] 10-26-2024 09:37-0500 Body weight 118.84 kg [facility] Nurse [facility] 10-26-2024 09:37-0500 Diastolic blood pressure 74 mm[Hg] [facility] Nurse [facility] 10-26-2024 09:37-0500 Systolic blood pressure 122 mm[Hg] [facility] Nurse [facility] 09-01-2024 10:07-0500 Body height 160 cm Cristina ALVARENGA Work Phone: [facility] 09-01-2024 10:07-0500 Body mass index (BMI) [Ratio] 46.08 kg/m2 Cristina ALVARENGA Work Phone: [facility] 09-01-2024 10:07-0500 Body weight 117.99 kg Cristina ALVARENGA Work Phone: [facility] 09-01-2024 10:07-0500 Diastolic blood pressure 70 mm[Hg] Cristina ALVARENGA Work Phone: [facility] 09-01-2024 10:07-0500 Systolic blood pressure 120 mm[Hg] Cristina ALVARENGA Work Phone: [facility] 04-25-2022 18:08-0400 Body weight 125.[address] EVAN CASTRO [facility] Comment on above: Performed By: #### [id number] #### [facility] [address] [place] [address] Dr. Isabel Cornelius Encounters Encounter Date Encounter Type Care Provider Facility Start: 10-26-2024 End: 10-26-2024 [facility]ulatory [facility] Nurse [facility] Comment on above: GA: 11w2d Start: 09-01-2024 End: 09-01-2024 Bamboo flowsheet Cristina ALVARENGA Work Phone: [facility] Start: 09-01-2024 End: 09-13-2024 Bamboo flowsheet Cristina ALVARENGA Work Phone: [facility] Start: 09-01-2024 End: 09-13-2024 Clinisync Result Encounter Cristina ALVARENGA Work Phone: [facility] External Department Unsolicited Start: 09-01-2024 End: 09-01-2024 Patient encounter procedure Cristina ALVARENGA Work Phone: [facility] Work Phone: Start: 09-01-2024 End: 09-01-2024 Periodic preventive med est patient 18-39 yrs Cristina ALVARENGA Work Phone: [facility] Comment on above: Well woman exam with routine gynecological exam Start: 09-01-2024 End: 09-01-2024 ambulatory CRISTINA ONEILL Not Available Start: 09-03-2022 End: 09-03-[address] GRACIELA STANFORD Facility:[facility] Start: 08-27-2022 End: 08-30-2022 Evaluation and management of inpatient DR EVAN CASTRO Facility:[facility] Start: 08-24-2022 End: 08-25-[address] EVAN CASTRO Facility:[facility] Start: 08-14-2022 End: 08-15-[address] EVAN CASTRO Facility:[facility] Start: 08-10-2022 End: 08-10-[address] EVAN CASTRO Facility:[facility] Start: 08-06-2022 End: 08-06-[address] EVAN CASTRO Facility:[facility] Start: 06-22-2022 End: 06-23-[address] EVAN CASTRO Facility:[facility] Start: 06-08-2022 End: 06-09-[address] EVAN CASTRO Facility:[facility] Start: 05-21-2022 End: 05-21-[address] EVAN CASTRO Facility:[facility] Start: 05-14-2022 End: 05-15-[address] EVAN CASTRO Facility:[facility] Start: 04-16-2022 End: 04-17-[address] EVAN CASTRO Facility:[facility] Start: 04-05-2022 End: 04-06-[address] EVAN CASTRO Facility:[facility] Start: 03-28-2022 End: 03-28-[address] EVAN CASTRO Facility:[facility] Start: 03-12-2022 End: 03-12-[address] EVAN CASTRO Facility:[facility] Start: 02-26-2022 End: 02-27-[address] EVAN CASTRO Facility:[facility] Start: 02-25-2022 End: 02-26-[address] EVAN CASTRO Facility:[facility] Start: 01-03-2019 End: 01-08-2019 Evaluation and management of inpatient ANDREW Cart[facility]a [facility] Procedures Date Procedure Procedure Detail Performing Clinician Start: 10-26-2024 End: 10-26-2024 Urnls dip stick/tablet rgnt non-auto w/o micrscp Parker Viji DO Work Phone: Start: 09-01-2024 IGP,APTIMA HPV,AGE GDLN Cristina ALVARENGA Work Phone: Start: 09-01-2024 Microscopic observat ion [Identifier] in Cervix by Cyto stain Cristina ALVARENGA Work Phone: Start: 08-27-2022 Extraction of Produc ts of Conception, Low Cervical, Open Approach DR EVAN CASTRO Start: 01-08-2019 INCENTIVE SPIROMETRY RT ANDREW JUSTINO Start: 01-08-2019 INCENTIVE SPIROMETRY RT ANDREW JUSTINO Start: 01-08-2019 INITIATE OXYGEN THER APY PROTOCOL ANDREW JUSTINO Start: 01-08-2019 DISCHARGE PATIENT PABLO BADILLO Start: 01-08-2019 INCENTIVE SPIROMETRY RT ANDREW JUSTINO Start: 01-08-2019 INCENTIVE SPIROMETRY RT ANDREW JUSTINO Start: 01-07-2019 INCENTIVE SPIROMETRY RT ANDREW JUSTINO Start: 01-07-2019 INCENTIVE SPIROMETRY RT ANDREW JUSTINO Start: 01-07-2019 INCENTIVE SPIROMETRY RT ANDREW JUSTINO Start: 01-07-2019 INCENTIVE SPIROMETRY RT ANDREW JUSTINO Start: 01-07-2019 INCENTIVE SPIROMETRY RT ANDREW JUSTINO Start: 01-07-2019 INCENTIVE SPIROMETRY RT ANDREW JUSTINO Start: 01-07-2019 INCENTIVE SPIROMETRY RT ANDREW JUSTINO Start: 01-07-2019 INITIATE OXYGEN THER APY PROTOCOL ANDREW JUSTINO Start: 01-07-2019 INCENTIVE SPIROMETRY RT ANDREW JUSTINO Start: 01-07-2019 INCENTIVE SPIROMETRY RT ANDREW JUSTINO Start: 01-06-2019 INCENTIVE SPIROMETRY RT ANDREW JUSTINO Start: 01-06-2019 INCENTIVE SPIROMETRY RT ANDREW JUSTINO Start: 01-06-2019 INCENTIVE SPIROMETRY RT ANDREW JUSTINO Start: 01-06-2019 INCENTIVE SPIROMETRY RT ANDREW JUSTINO Start: 01-06-2019 INCENTIVE SPIROMETRY RT ANDREW JUSTINO Start: 01-06-2019 INCENTIVE SPIROMETRY RT ANDREW JUSTINO Start: 01-06-2019 INCENTIVE SPIROMETRY RT ANDREW JUSTINO Start: 01-06-2019 INITIATE OXYGEN THER APY PROTOCOL ANDREW JUSTINO Start: 01-06-2019 INCENTIVE SPIROMETRY RT ANDREW JUSTINO Start: 01-06-2019 INCENTIVE SPIROMETRY RT ANDREW JUSTINO Start: 01-05-2019 INCENTIVE SPIROMETRY RT ANDREW JUSTINO Start: 01-05-2019 INCENTIVE SPIROMETRY RT ANDREW JUSTINO Start: 01-05-2019 INCENTIVE SPIROMETRY RT ANDREW JUSTINO Start: 01-05-2019 INCENTIVE SPIROMETRY RT ANDREW JUSTINO Start: 01-05-2019 INCENTIVE SPIROMETRY RT ANDREW BADILLO Start: 01-05-2019 INCENTIVE SPIROMETRY RT ANDREW BADILLO Start: 01-05-2019 INCENTIVE SPIROMETRY RT ANDREW BADILLO Start: 01-05-2019 INITIATE OXYGEN THER APY PROTOCOL ANDREW BADILLO Start: 01-05-2019 Blood count complete auto&auto difrntl wbc ANDREW BADILLO Start: 01-05-2019 INCENTIVE SPIROMETRY RT ANDREW BADILLO Start: 01-05-2019 CATHETER REMOVAL ANDREW BADILLO Start: 01-05-2019 SALINE LOCK IV ANDREW Alexander JAMIR Start: 01-05-2019 INCENTIVE SPIROMETRY RT ANDREW BADILLO Start: 01-04-2019 INCENTIVE SPIROMETRY RT ANDREW BADILLO Start: 01-04-2019 INCENTIVE SPIROMETRY RT ANDREW BADILLO Start: 01-04-2019 INCENTIVE SPIROMETRY RT ANDREW BADILLO Start: 01-04-2019 CATHETER REMOVAL ANDREW BADILLO Start: 01-04-2019 INCENTIVE SPIROMETRY RT ANDREW BADILLO Start: 01-04-2019 INITIATE OXYGEN THER APY PROTOCOL ANDREW BADILLO Start: 01-04-2019 INTAKE AND OUTPUT PABLO BADILLO Start: 01-04-2019 IP CONSULT TO ANDREW BADILLO Start: 01-04-2019 MISCELLANEOUS NURSIN G CARE ORDER (SPECIFY) ANDREW BADILLO Start: 01-04-2019 REASON FOR NO CHEMIC AL VTE PROPHYLAXIS ANDREW BADILLO Start: 01-04-2019 STRAIGHT CATH ANDREW AL ANNA Start: 01-04-2019 WOUND CARE ANDREW ALL EN Start: 01-04-2019 AMBULATE PATIENT ANDREW BADILLO Start: 01-04-2019 TRANSFER PATIENT ANDREW BADILLO Start: 01-04-2019 VITAL SIGNS ANDREWARCELIA BURROUGHS EN Start: 01-04-2019 Level iv surg pathol ogy gross&microscopic exam ANDREW BADILLO Start: 01-04-2019 DIET GENERAL ANDREW ALL EN Start: 01-04-2019 FULL CODE ANDREW ALL EN Start: 01-04-2019 NOTIFY PHYSICIAN (SPECIFY) ANDREW BADILLO Start: 01-04-2019 PLACE INTERMITTENT PNEUMATIC COMPRESSION DEVICE ANDREW BADILLO Start: 01-03-2019 Drug screen class list a ANDREW BADILLO Start: 01-03-2019 Glucose blood reagent strip ANDREW BADILLO Start: 01-03-2019 Antibody treponema pallidum ANDREW BADILLO Start: 01-03-2019 Blood count complete auto&auto difrntl wbc ANDREW BADILLO Start: 01-03-2019 TYPE AND SCREEN ANDREW BADILLO Start: 01-03-2019 PATIENT STATUS (DIRECT) ANDREW BADILLO Plan of Treatment Date Care Activity Detail Author Start: 09-01-2029 Screening for malign ant neoplasm of cervix [facility] Start: 11-25-2024 End: 11-25-2024 Patient encounter procedure 11/25/2024 10:20 AM EST Routine [facility] [address] [place] [phone] Parker Hallman DO [address] [place] [address] [facility] Start: 10-26-2024 End: 10-26-2025 ABO/Rh ABO/Rh Lab Routine Missed menses , unspecified gestational age Expected: 10/26/2024 (Approximate), Expires: 10/26/2025 [facility] Comment on above: Expected: 10/26/2024 (Approximate), Expires: 10/26/2025 Start: 10-26-2024 End: 10-26-2025 Blood type and Indirect antibody screen panel - Blood Type and screen Lab Routine Missed menses , unspecified gestational age Expected: 10/26/2024 (Approximate), Expires: 10/26/2025 [facility] Work Phone: Comment on above: Expected: 10/26/2024 (Approximate), Expires: 10/26/2025 Start: 10-26-2024 End: 10-26-2025 Drugs of abuse panel - Urine by Screen method Rapid drug screen, urine Lab Routine , unspecified gestational age Encounter for supervision of normal first in first trimester Expected: 10/26/2024 (Approximate), Expires: 10/26/2025 [facility] Comment on above: Expected: 10/26/2024 (Approximate), Expires: 10/26/2025 Start: 09-01-2024 End: 09-01-2024 Patient encounter procedure 09/01/2024 10:00 AM EST Office Visit [facility] [address] [place] [phone] Cristina Oneill PA [address] [place] [address] Arrived [facility] Comment on above: Arrived Start: 06-27-2024 Influenza vaccination Influenza Vacc ine (#1) [facility] Start: 2022 Screening for malign ant neoplasm of cervix [facility] Start: 2013 Screening for malign ant neoplasm of cervix Pap Smear [facility] Bacteria identified in Urine by Culture Urine culture Microbiology Routine Missed menses Ordered: 10/26/2024 [facility] Comment on above: Ordered: 10/26/2024 CBC W Auto Different ial panel - Blood CBC and differential Lab Routine Missed menses , unspecified gestational age Ordered: 10/26/2024 [facility] Comment on above: Ordered: 10/26/2024 Cytology Cervical or vaginal smear or scraping study Pap Smear Pathology and Cytology Routine Well woman exam with routine gynecological exam Ordered: 09/01/2024 [facility] Work Phone: Comment on above: Ordered: 09/01/2024 Hemoglobin A1c/Hemoglobin.total in Blood Hemoglobin A1c Lab Routine Missed menses , unspecified gestational age Ordered: 10/26/2024 [facility] Comment on above: Ordered: 10/26/2024 Hepatitis B virus surface Ag [Presence] in Serum or Plasma by Immunoassay Hepatitis B surface antigen Lab Routine Missed menses , unspecified gestational age Ordered: 10/26/2024 [facility] Comment on above: Ordered: 10/26/2024 Hepatitis C virus Ab [Presence] in Serum or Plasma by Immunoassay Hepatitis C antibody Lab Routine Missed menses , unspecified gestational age Ordered: 10/26/2024 [facility] Comment on above: Ordered: 10/26/2024 HIV-1/HIV-2 antigen/antibody combination immunoassay HIV-1 and HIV-2 antibodies Lab Routine Missed menses , unspecified gestational age Ordered: 10/26/2024 [facility] Comment on above: Ordered: 10/26/2024 Human papilloma viru s DNA [Presence] in Unspecified specimen by Probe with amplification HPV DNA probe, amplified Microbiology Routine Well woman exam with routine gynecological exam Ordered: 09/01/2024 [facility] Comment on above: Ordered: 09/01/2024 Reagin Ab [Presence] in Serum by RPR RPR Lab Routine Missed menses , unspecified gestational age Ordered: 10/26/2024 [facility] Comment on above: Ordered: 10/26/2024 Rubella antibody, IgG Rubella an tibody, IgG Lab Routine Missed menses , unspecified gestational age Ordered: 10/26/2024 [facility] Comment on above: Ordered: 10/26/2024 Immunizations Immunization Date Immunization Notes Care Provider Caroline lorenzo 08-30-2022 influenza virus vacc ine, unspecified formulation Cristina ALVARENGA Work Phone: [facility] Payers Date Payer Category Payer [facility] [id number] 2023 Unknown [id number] 2018 Medicaid [id number] 1992 Unknown [id number] 2.840.1.279347.3.579. 2.175 1992 Unknown [id number] 2.840.1.425885.3.579. 2.593 1992 Unknown [id number] 2.840.1.432259.3.579. 2.593 1992 Unknown [id number] 2.16840.1.827492.3.579. 2.593 1992 Unknown [id number] 2.16840.1.159152.3.579. 2.593 1992 Unknown [id number] 2.16840.1.924451.3.579. 2.593 1992 Unknown [id number] 2.16.840.1.117469.3.579. 2.593 1992 Unknown [id number] 2.16.840.1.831403.3.579. 2.593 1992 Unknown [id number] 2.16.840.1.018632.3.579. 2.593 1992 Unknown [id number] 2.16.840.1.164602.3.579. 2.59 1992 Unknown [id number] 2.16.840.1.267586.3.579. 2.593 1992 Unknown [id number] 2.16.840.1.974174.3.579. 2.59 1992 Unknown [id number] 2.16.840.1.222825.3.579. 2.59 1992 Unknown [id number] 2.16.840.1.744923.3.579. 2.59 1992 Unknown [id number] 2.16.840.1.889107.3.579. 2.593 1992 Unknown [id number] 2.16.840.1.483253.3.579. 2.593 1992 Unknown [id number] 2.16.840.1.193461.3.579. 2.593 1992 Unknown [id number] 2.16.840.1.237695.3.579. 2.593 1992 Unknown [id number] 2.16.840.1.464734.3.579. 2.1259 1992 Unknown [id number] 2.16.840.1.826473.3.579. 2.1259 1992 Unknown [id number] 2.16.840.1.330385.3.579. 2.1259 1959 Unknown [id number] Unknown Unknown [id number] 2.16.840.1.279341.3.579. 2.593 Social History Date Type Detail Facility Start[facility] Start: 03-31-2023 End: 10-26-2024 Alcoholic beverage intake Lifetime non-drinker (finding) [facility] Start: 03-31-2023 End: 09-01-2024 History of Social function [facility] Start: 03-31-2023 End: 09-01-2024 Tobacco use panel [facility] Start: 1990 Sex assigned at Not on file [facility] Start: 08-22-2024 [facility] History of Present illness Narrative 10-26-2024 Suzy Garcia MA - 10/26/2024 9:00 AM EST Note Date & Type Note Facility 10-26-2024 History of Presen t illness Narrative Reason for Appointment: Patient ID: Flora Bunch is a 34 y.o. female who presents for Amenorrhea Patient presents today for a Nurse OB Intake appointment. Patient is 11w2d with a Estimated Date of Delivery: 05/15/25 OB History Para Term AB Living 1 SAB IAB Ectopic Multiple Live Births # Outcome Date GA Lbr Anna/2nd Weight Sex Type Anes PTL Lv 1 Current Current Medications: currently has no medications in their medication list. Medical History: Active Ambulatory Problems Diagnosis Date Noted No Active Ambulatory Problems Resolved Ambulatory Problems Diagnosis Date Noted No Resolved Ambulatory Problems Past Medical History: Diagnosis Date Acid reflux History of History of gestational diabetes Nonsmoker Family History Problem Relation Name Age of Onset Asthma Father Clotting disorder Father Bleedign disorder Hypertension Father Diabetes Father Thyroid disease Other Diabetes Other Hypertension Other Social History Tobacco Use Smoking status: Never Smokeless tobacco: Not on file Substance Use Topics Alcohol use: Never Drug use: Never Past Surgical History: Procedure Laterality Date SECTION, CLASSIC 01/04/2019 SECTION, CLASSIC DILATION AND CURETTAGE 08/28/2021 due to missed AB WISDOM TOOTH EXTRACTION No Known Allergies Vitals: Estimated body mass index is 46.41 kg/m as calculated from the following: Height as of 09/01/24: 5' 3 . Weight as of this encounter: 262 lb. BP: 122/74 Patient's last menstrual period was 08/08/2024. Assessment/Plan Diagnoses and all orders for this visit: Missed menses - Type and screen; Future - ABO/Rh; Future - CBC and differential - Hemoglobin A1c - RPR - Rubella antibody, IgG - Hepatitis B surface antigen - Hepatitis C antibody - HIV-1 and HIV-2 antibodies - Urine culture - POCT , urine manually resulted - POCT urinalysis dipstick manually resulted 11 weeks gestation of , unspecified gestational age - Type and screen; Future - ABO/Rh; Future - CBC and differential - Hemoglobin A1c - RPR - Rubella antibody, IgG - Hepatitis B surface antigen - Hepatitis C antibody - HIV-1 and HIV-2 antibodies - Rapid drug screen, urine; Future Encounter for supervision of normal first in first trimester - Rapid drug screen, urine; Future Nurse Note: OB Intake: Patient presents today for first OB visit. Patients history has been reviewed in great detail including any potential risks. Patient signed consent forms and patient desires testing in both trimesters. Patient currently has no complaints and has been advised to drink 6-8 glasses of water a day, eat no raw or undercooked meat, and stay away from [facility]. Patient has also been advised to not change litter boxes and eat 6 small meals a day. Patient has been consulted regarding the do's and don'ts of . Patient was given labs and all questions and concerns were answered. Follow Up: Patient is to return in 4 weeks for routine OB appointment. Follow Up: Patient is to have labs drawn at directed and return to office for initial OB appointment with provider. Patient may call office as needed with any concerns or questions. Nurse Visit Completed by: Suzy Garcia MA documented in this encounter [facility] History of Present illness Narrative 09-01-2024 LYLE Jones - 09/01/2024 10:00 AM EST Note Date & Type Note Facility 09-01-2024 History of Presen t illness Narrative Reason for Appointment: Patient ID: Flora Bunch is a 34 y.o. female who presents for Well Women Visit Patient presents today for Annual Exam. MEDICATIONS No current outpatient medications ALLERGIES No Known Allergies PROBLEMS Active Ambulatory Problems Diagnosis Date Noted No Active Ambulatory Problems Resolved Ambulatory Problems Diagnosis Date Noted No Resolved Ambulatory Problems Past Medical History: Diagnosis Date Acid reflux History of History of gestational diabetes Nonsmoker HISTORY PAST MEDICAL HISTORY SOCIAL HISTORY Past Medical History: Diagnosis Date Acid reflux History of History of gestational diabetes Nonsmoker Social History Tobacco Use Smoking status: Never Smokeless tobacco: Not on file Substance Use Topics Alcohol use: Never Drug use: Never FAMILY HISTORY Family History Problem Relation Name Age of Onset Asthma Father Clotting disorder Father Bleedign disorder Hypertension Father Diabetes Father Thyroid disease Other Diabetes Other Hypertension Other SURGICAL HISTORY Past Surgical History: Procedure Laterality Date SECTION, CLASSIC 01/04/2019 SECTION, CLASSIC DILATION AND CURETTAGE 08/28/2021 due to missed AB WISDOM TOOTH EXTRACTION REVIEW OF SYSTEMS Review of Systems: Review of Systems Constitutional: Negative. HENT: Negative. Eyes: Negative. Respiratory: Negative. Cardiovascular: Negative. Gastrointestinal: Negative. Genitourinary: Negative. Musculoskeletal: Negative. Skin: Negative. Neurological: Negative. All other systems reviewed and are negative. Hematological: Negative. Endocrine: Negative. Allergic/Immunologic: Negative. OBJECTIVE Objective: Physical Exam Constitutional: Appearance: Normal appearance. Genitourinary: Right Adnexa: not tender and no mass present. Left Adnexa: not tender and no mass present. No cervical discharge. Breasts: Breasts are soft. Right: Normal. Left: Normal. HENT: Head: Normocephalic. Nose: Nose normal. Mouth/Throat: Mouth: Mucous membranes are moist. Cardiovascular: Rate and Rhythm: Normal rate. Pulmonary: Effort: Pulmonary effort is normal. Abdominal: General: Bowel sounds are normal. Palpations: Abdomen is soft. Musculoskeletal: General: Normal range of motion. Cervical back: Normal range of motion. Neurological: General: No focal deficit present. Mental Status: She is alert. Skin: General: Skin is warm and dry. Psychiatric: Mood and Affect: Mood normal. Vitals and nursing note reviewed. Exam conducted with a forensic toxicologist present. Vitals: Estimated body mass index is 46.08 kg/m as calculated from the following: Height as of this encounter: 5' 3 . Weight as of this encounter: 260 lb 1.9 oz. BP: 120/70 Patient's last menstrual period was 08/07/2024. ASSESSMENT & PLAN ICD-10-CM 1. Well woman exam with routine gynecological exam Z01.419 Pap Smear HPV DNA probe, amplified Annual Exam: Patient presents today for an annual exam. Patient states she is doing well and has no complaints. Pap was obtained without difficulty. Orders Placed This Encounter Procedures HPV DNA probe, amplified Follow Up: Patient is to return in one year for annual unless needed otherwise. Documented by LYLE Jones on behalf of: LYLE Jones documented in this encounter [facility] Evaluation note Note Date & Type Note Facility Evaluation note Diagnosis Well woman exam with routine gynecological exam Routine gynecological examination documented in this encounter [facility] Evaluation note Note Date & Type Note Facility Evaluation note Diagnosis Missed menses 11 weeks gestation of , unspecified gestational age Encounter for supervision of normal first in first trimester documented in this encounter [facility] Healthcare Summary Purpose Family History No Family History Records FoundNo Family History Records FoundNo Family History Records Found Advance Directives No Advanced Directives Records FoundNo Advanced Directives Records FoundNo Advanced Directives Records Found Additional Source Comments INFORMATION SOURCE (unrecogn ized section and content) DATE CREATED AUTHOR 01/12/2019 [facility] DATE CREATED AUTHOR AUTHOR'S ORGANIZ ATION 09/16/2022 [facility] DATE CREATED AUTHOR AUTHOR'S ORGANIZ ATION 11/04/2024 [facility] EPIC Reason for Visit (unrecogniz ed section and content) Reason Comments Well Women Visit Reason Comments Amenorrhea FOR RECORDS PERTAINING TO PATIENTS WHO ARE OR HAVE BEEN ENROLLED IN A CHEMICAL DEPENDENCY/SUBSTANCEABUSE PROGRAM, SOME INFORMATION MAY BE OMITTED. This clinical summary was aggregated from multiple sources. Caution should be exercised in using it in the provision of clinical care. This summary normalizes information from multiple sources, and as a consequence, information in this document may materially change the coding, format and clinical context of patient data. In addition, data may be omitted in some cases. CLINICAL DECISIONS SHOULD BE BASED ON THE PRIMARY CLINICAL RECORDS. [facility] [employer] provides no warranty or guarantee of the accuracy or completeness of information in this document.
--- OUTSIDE RECORDS SUMMARY | 2024-11-20 11:51 | XMS_ITS | CCD ---
Author Organization [facility] CliniSyde Care Team Providers Care Ordained Minister Name Role Phone ANDREW BADILLO Admitting Unavailable [...] KARASIK, DR GORDON Admitting Unavailable KARASIK, DR OGRDON Consulting Unavailable REQUEST, DR NONE LISTED Primary [...] Attending Unavailable KARASIK, DR GORDON Admitting Unavailable Unavailable Primary Care Provider UnavailCRISTINA [...] [facility] Preg Test, Ur Positive Negative [facility] OB TRANSVAGINALon 024 US OB TRANSVAGINAL TITLE [...] x 6.4 cm (10 weeks, 1 day). [place] rump length is 3.9 to 4.0 cm [...] UA Negative Negative - 4(70) +++ mg/dL [facility] Blood, UA Negative Negative - 50 Carlos/mcL [facility] Clarity, UA Clear [facility] Color, UA Yellow [facility] Glucose, UA Negative Negative - 1999(110) ++++ mg/dL [facility] Interpretation and review of laboratory results Normal [facility] Ketones, UA Negative Negative - 160(16) ++++ mg/dL [facility] Leukocytes, UA Negative Negative - 500+++ Katie/mcL [facility] Nitrite, UA Negative Negative - Positive [facility] pH, UA 6 5 - 9 [facility] Protein, UA Negative Negative - 1999(20) ++++ mg/dL [facility] Spec Grav, UA 1.025 1 - 1.03 [facility] Urobilinogen, UA 0.2 0.2 - 12 mg/dL [facility] IGP,APTIMA HPV,AGE GDLNon AGE GDLN ACOG TESTING Note . [facility] Comment on above: TESTS RESULT FLAG UN ITS REF RANGE LAB Clinician Provided Cytology Information Source.............Cervix;Endocervix No. of containers..01 ThinPrep Vial Age Algo ACOG Zita... FLAG LEGEND: L-Low Normal,H-High Normal,LL-Alert Low,HH-Alert High <-Panic Low,>-Panic High,A-Abnormal,AA-Critical Abnormal Performed at: 01 =[address] [id number] Cheri Randhawa MD, HPV APTIMA Negative Negative [facility] Comment on above: This nucleic acid am plification test detects fourteen high- risk HPV types (16,18,31,33,35,39,45,51,52,56,58,59,66,68) without differentiation. Performed at: =[address] [id number] Cloth Measurer: Cheri Randhawa MD, Phone: [phone] Performed at: [address] [id number] Cloth Measurer: Cheri Randhawa MD, Phone: [phone] IGP, APTIMA HPV, RFX 16/18,45 Note . [facility] Comment on above: TESTS RESULT FLAG UN ITS REF RANGE LAB DIAGNOSIS: 02 NEGATIVE FOR INTRAEPITHELIAL LESION OR MALIGNANCY. THIS SPECIMEN WAS RESCREENED PART OF OUR CYCLE COUNTER PROGRAM. Specimen adequacy: 02 Satisfactory for evaluation. No endocervical component is identified. Performed by: Nasir Humphrey, Fuel Cell Battery Technician (ASC) QC reviewed by: Nasir Wheat, Fuel Cell Battery Technician (ASCP) . 02 Note: Note 02 The [...] Low,>-Panic High,A-Abnormal,AA-Critical Abnormal Performed at: [address] [address] Cheri Randhawa MD, BRUSH-SPATULA CERVIX ENDOCERVIX [facility] CBC AUTO DIFFon 08-28-2022 BASO # 0.0 103/ul Normal 0.0-0.1 [facility] Comment on above: Performed By: #### G LU1HR #### [facility] [address] [place] [address] Dr. Isabel Cornelius Basophils/100 WBC (Bld) 0.3 % Normal 0.2-2.0 [facility] Comment on above: Performed By: #### G LU1HR #### [facility] [address] [address] [address] Isabel Cornelius EO # 0.0 103/ul Normal 0.0-0.7 [facility] Comment on above: Performed By: #### G LU1HR #### [facility] [address] [place] [address] Dr. Isabel Cornelius Eosinophils/100 WBC (Bld) 0.2 % Critically low 0.9-7.0 [facility] Comment on above: Performed By: #### G LU1HR #### [facility] [address] [place] [address] Dr. Isabel Cornelius Erythrocyte distribution width (RBC) [Ratio] 14.6 % Normal 11.0-15.0 [facility] Comment on above: Performed By: #### G LU1HR #### [facility] [address] [place] [address] Dr. Isabel Cornelius Hematocrit (Bld) [Volume fraction] 25.3 % Critically low 36.0-48.0 [facility] Comment on above: Performed By: #### G LU1HR #### [facility] [address] [place] [address] Dr. Isabel Cornelius Hemoglobin (Bld) [Mass/Vol] 8.1 g/dL Critically low 12.0-16.0 [facility] Comment on above: Performed By: #### G LU1HR #### [facility] [address] [place] [address] Dr. Isabel Cornelius IG # 0.06 10e3/ul Critically high 0.00-0.03 [facility] Comment on above: Performed By: #### G LU1HR #### [facility] [address] [place] [address] Dr. Isabel Cornelius IG % 0.6 % Critically high 0.0-0.5 [facility] Comment on above: Performed By: #### G LU1HR #### [facility] [address] [place] [address] Dr. Isabel Cornelius LYMPH # 1.6 103/ul Normal 1.2-3.8 [facility] Comment on above: Performed By: #### G LU1HR #### [facility] [address] [place] [address] Dr. Isabel Cornelius Lymphocytes/100 WBC (Bld) 16.5 % Critically low 20.5-60.0 [facility] Comment on above: Performed By: #### G LU1HR #### [facility] [address] [place] [address] Dr. Isabel Cornelius MANUAL DIFF REQ NO Normal [facility] Comment on above: Performed By: #### G LU1HR #### [facility] [address] [place] [address] Dr. Isabel Cornelius MCH (RBC) [Entitic mass] 26.3 pg Critically low 26.7-34.0 [facility] Comment on above: Performed By: #### G LU1HR #### [facility] [address] [place] [address] Dr. Isabel Cornelius MCHC (RBC) [Mass/Vol] 32.0 g/dL Normal 29.9-35.2 [facility] Comment on above: Performed By: #### G LU1HR #### [facility] [address] [place] [address] Dr. Isabel Cornelius MCV (RBC) [Entitic vol] 82.1 fL Normal 81.0-99.0 [facility] Comment on above: Performed By: #### G LU1HR #### [facility] [address] [place] [address] Dr. Isabel Cornelius MONO # 0.6 103/ul Normal 0.3-0.8 [facility] Comment on above: Performed By: #### G LU1HR #### [facility] [address] [place] [address] Dr. Isabel Cornelius Monocytes/100 WBC (Bld) 6.4 % Normal 1.7-12.0 [facility] Comment on above: Performed By: #### G LU1HR #### [facility] [address] [place] [address] Dr. Isabel Cornelius NEUT # 7.3 103/ul Critically high 1.4-6.5 [facility] Comment on above: Performed By: #### G LU1HR #### [facility] [address] [place] [address] Dr. Isabel Cornelius Neutrophils/100 WBC (Bld) 76.0 % Critically high 43.0-75.0 [facility] Comment on above: Performed By: #### G LU1HR #### [facility] [address] [place] [address] Dr. Isabel Cornelius Platelet mean volume (Bld) [Entitic vol] 9.8 fL Normal 9.5-13.5 [facility] Comment on above: Performed By: #### G LU1HR #### [facility] [address] [place] [address] Dr. Isabel Cornelius PLT 253 103/ul Normal 150-450 [facility] Comment on above: Performed By: #### G LU1HR #### [facility] [address] [place] [address] Dr. Isabel Cornelius RBC 3.08 106/ul Critically low 4.20-5.40 [facility] Comment on above: Performed By: #### G LU1HR #### [facility] [address] [place] [address] Dr. Isabel Cornelius WBC 9.6 103/ul Normal 4.0-11.0 [facility] Comment on above: Performed By: #### G LU1HR #### [facility] [address] [place] [address] Dr. Isabel Cornelius CBC AUTO DIFFon 08-27-2022 BASO # 0.0 103/ul Normal 0.0-0.1 [facility] Comment on above: Performed By: #### C BC #### [facility] [address] [place] [address] Dr. Isabel Cornelius Basophils/100 WBC (Bld) 0.4 % Normal 0.2-2.0 [facility] Comment on above: Performed By: #### C BC #### [facility] [address] [place] [address] Dr. Isabel Cornelius EO # 0.1 103/ul Normal 0.0-0.7 [facility] Comment on above: Performed By: #### C BC #### [facility] [address] [place] [address] Dr. Isabel Cornelius Eosinophils/100 WBC (Bld) 0.8 % Critically low 0.9-7.0 [facility] Comment on above: Performed By: #### C BC #### [facility] [address] [place] [address] Dr. Isabel Cornelius Erythrocyte distribution width (RBC) [Ratio] 14.3 % Normal 11.0-15.0 [facility] Comment on above: Performed By: #### C BC #### [facility] [address] [place] [address] Dr. Isabel Cornelius Hematocrit (Bld) [Volume fraction] 32.6 % Critically low 36.0-48.0 [facility] Comment on above: Performed By: #### C BC #### [facility] [address] [place] [address] Dr. Isabel Cornelius Hemoglobin (Bld) [Mass/Vol] 10.5 g/dL Critically low 12.0-16.0 [facility] Comment on above: Performed By: #### C BC #### [facility] [address] [place] [address] Dr. Isabel Cornelius IG # 0.07 10e3/ul Critically high 0.00-0.03 [facility] Comment on above: Performed By: #### C BC #### [facility] [address] [place] [address] Dr. Isabel Cornelius IG % 0.7 % Critically high 0.0-0.5 [facility] Comment on above: Performed By: #### C BC #### [facility] [address] [place] [address] Dr. Isabel Cornelius LYMPH # 1.6 103/ul Normal 1.2-3.8 [facility] Comment on above: Performed By: #### C BC #### [facility] [address] [place] [address] Dr. Isabel Cornelius Lymphocytes/100 WBC (Bld) 15.7 % Critically low 20.5-60.0 [facility] Comment on above: Performed By: #### C BC #### [facility] [address] [place] [address] Dr. Isabel Cornelius MANUAL DIFF REQ NO Normal [facility] Comment on above: Performed By: #### C BC #### [facility] [address] [place] [address] Dr. Isabel Cornelius MCH (RBC) [Entitic mass] 26.0 pg Critically low 26.7-34.0 [facility] Comment on above: Performed By: #### C BC #### [facility] [address] [place] [address] Dr. Isabel Cornelius MCHC (RBC) [Mass/Vol] 32.2 g/dL Normal 29.9-35.2 [facility] Comment on above: Performed By: #### C BC #### [facility] [address] [place] [address] Dr. Isabel Cornelius MCV (RBC) [Entitic vol] 80.7 fL Critically low 81.0-99.0 [facility] Comment on above: Performed By: #### C BC #### [facility] [address] [place] [address] Dr. Isabel Cornelius MONO # 0.7 103/ul Normal 0.3-0.8 [facility] Comment on above: Performed By: #### C BC #### [facility] [address] [place] [address] Dr. Isabel Cornelius Monocytes/100 WBC (Bld) 6.6 % Normal 1.7-12.0 [facility] Comment on above: Performed By: #### C BC #### [facility] [address] [place] [address] Dr. Isabel Cornelius NEUT # 7.5 103/ul Critically high 1.4-6.5 [facility] Comment on above: Performed By: #### C BC #### [facility] [address] [place] [address] Dr. Isabel Cornelius Neutrophils/100 WBC (Bld) 75.8 % Critically high 43.0-75.0 [facility] Comment on above: Performed By: #### C BC #### [facility] [address] [place] [address] Dr. Isabel Cornelius Platelet mean volume (Bld) [Entitic vol] 10.3 fL Normal 9.5-13.5 [facility] Comment on above: Performed By: #### C BC #### [facility] [address] [place] [address] Dr. Isabel Cornelius PLT 327 103/ul Normal 150-450 [facility] Comment on above: Performed By: #### C BC #### [facility] [address] [address] [address] Isabel Cornelius RBC 4.04 106/ul Critically low 4.20-5.40 [facility] Comment on above: Performed By: #### C BC #### [facility] [address] [place] [address] Dr. Isabel Cornelius WBC 9.9 103/ul Normal 4.0-11.0 [facility] Comment on above: Performed By: #### C BC #### [facility] [address] [place] [address] Dr. Isabel Cornelius DRUG SCREEN RAPID (URINE)on 08-27-2022 AMP Negative Normal NEGATIVE [facility] Comment on above: Performed By: #### A 1C #### [facility] [address] [place] [address] Dr. Isabel Cornelius BAR Negative Normal NEGATIVE [facility] Comment on above: Performed By: #### A 1C #### [facility] [address] [place] [address] Dr. Isabel Cornelius BUP Negative Normal NEGATIVE [facility] Comment on above: Performed By: #### A 1C #### [facility] [address] [place] [address] Dr. Isabel Cornelius BZO Negative Normal NEGATIVE [facility] Comment on above: Performed By: #### A 1C #### [facility] [address] [place] [address] Dr. Isabel Cornelius DORENE Negative Normal NEGATIVE [facility] Comment on above: Performed By: #### A 1C #### [facility] [address] [place] [address] Dr. Isabel Cornelius CUT-OFFS SEE BELOW Normal [facility] Comment on above: Result Comment: AMP (Amphetamine): 500ng/mL, BAR (Barbituates): 200 ng/mL, BZO (Benzodiazepines): 150 ng/mL, BUP (Buprenorphine): 10 ng/mL, DORENE (Cocaine): 150 ng/mL, mAMP (Methamphetamine): 500 ng/mL, MTD (Methadone): 200 ng/mL, OPI (Opiates): 100 ng/mL, OXY (Oxycodone): 100 ng/mL, PCP (Phencyclidine): 25 ng/mL, PPX (Propoxyphene): 300 ng/mL, THC (Cannabinoids): 50 ng/mL, TCA (Trycyclic Antidepressants): 300 ng/mL Performed By: #### A 1C #### [facility] [address] [place] [address] Dr. Isabel Cornelius DRUG CUT HEADER DRUG CLASS TEST SYST EM CUT-OFF CONCENTRATIONS ARE FOLLOWS: Normal [facility] Comment on above: Performed By: #### A 1C #### [facility] [address] [place] [address] Dr. Isabel Cornelius mAMP Negative Normal NEGATIVE [facility] Comment on above: Performed By: #### A 1C #### [facility] [address] [place] [address] Dr. Isabel Cornelius MTD Negative Normal NEGATIVE [facility] Comment on above: Performed By: #### A 1C #### [facility] [address] [place] [address] Dr. Isabel Cornelius OPI Negative Normal NEGATIVE [facility] Comment on above: Performed By: #### A 1C #### [facility] [address] [place] [address] Dr. Isabel Cornelius OXY Negative Normal NEGATIVE [facility] Comment on above: Performed By: #### A 1C #### [facility] [address] [place] [address] Dr. Isabel Cornelius PCP Negative Normal NEGATIVE [facility] Comment on above: Performed By: #### A 1C #### [facility] [address] [place] [address] Dr. Isabel Cornelius PPX Negative Normal NEGATIVE [facility] Comment on above: Performed By: #### A 1C #### [facility] [address] [place] [address] Dr. Isabel Cornelius TCA Negative Normal NEGATIVE [facility] Comment on above: Performed By: #### A 1C #### [facility] [address] [place] [address] Dr. Isabel Cornelius THC Negative Normal NEGATIVE [facility] Comment on above: Performed By: #### A 1C #### [facility] [address] [place] [address] Dr. Isabel Cornelius TYPE AND SCREENon 08-27-2022 TYPE AND SCREEN Negative Normal [facility] Comment on above: Performed By: #### T NS #### [facility] [address] [place] [address] Dr. Isabel Cornelius UA (CLEAN/CATCH) SIZING SPRAYER/MICRO I F IND.on 08-27-2022 Bilirubin Ql (U) Negative Normal NEGATIVE [facility] Comment on above: Performed By: #### U ACSIND #### [facility] [address] [place] [address] Dr. Isabel Cornelius Clarity (U) CLEAR Normal CLEAR [facility] Comment on above: Performed By: #### U ACSIND #### [facility] [address] [place] [address] Dr. Isabel Cornelius Color (U) YELLOW Normal YELLOW [facility] Comment on above: Performed By: #### U ACSIND #### [facility] [address] [place] [address] Dr. Isabel Cornelius Glucose Ql (U) Negative Normal NEGATIVE [facility] Comment on above: Performed By: #### U ACSIND #### [facility] [address] [place] [address] Dr. Isabel Cornelius Hemoglobin Ql (U) Negative Normal NEGATIVE [facility] Comment on above: Performed By: #### U ACSIND #### [facility] [address] [place] [address] Dr. Isabel Cornelius Ketones Ql (U) Negative Normal NEGATIVE [facility] Comment on above: Performed By: #### U ACSIND #### [facility] [address] [place] [address] Dr. Isabel Cornelius LEUKOCYTES Negative Normal NEGATIVE [facility] Comment on above: Performed By: #### U ACSIND #### [facility] [address] [place] [address] Dr. Isabel Cornelius Nitrite Ql (U) Negative Normal NEGATIVE [facility] Comment on above: Performed By: #### U ACSIND #### [facility] [address] [place] [address] Dr. Isabel Cornelius pH (U) 6.0 [pH] Normal 5-9 [facility] Comment on above: Performed By: #### U ACSIND #### [facility] [address] [place] [address] Dr. Isabel Cornelius SPEC GRAVITY >=1.030 Abnormal 1.005-<=1.025 [facility] Comment on above: Performed By: #### U ACSIND #### [facility] [address] [place] [address] Dr. Isabel Cornelius UA PROTEIN TRACE Normal NEGATIVE/ TRACE [facility] Comment on above: Performed By: #### U ACSIND #### [facility] [address] [place] [address] Dr. Isabel Cornelius UR MICRO IND NOT INDICATED Normal [facility] Comment on above: Performed By: #### U ACSIND #### [facility] [address] [place] [address] Dr. Isabel Cornelius Urobilinogen Qn (U) 0.2 {Radha'U}/dL Normal 0.2 - 1. 0 [facility] Comment on above: Performed By: #### U ACSIND #### [facility] [address] [place] [address] Dr. Isabel Cornelius Covid-19 PCR ([facility])on 07-28 SARS-CoV-2 (COVID-19) RNA KINSEY+probe Ql (Unsp spec) Not detected Normal NOT DETECTED [facility] Comment on above: Result Comment: This test is not yet approved or cleared by the [place] FDA. When there are no FDA-approved or cleared tests available, and other criteria are met, FDA can make tests available under an emergency access mechanism called an Emergency Use Authorization (EUA). The EUA for this test is supported by the [place] of Health and Human Service's (HHS's) declaration [...] SARS-CoV-2. Performed By: #### C VDTBH #### [facility] [address] [place] [address] [id number] [address] Isabel Cornelius PREG GROWTHon 08-14-2022 [place] [...] ERMA GARCIA Date: 2022-08-14 19:49 Normal [facility] GROUP B STREP CULTUREon 07-27 S. agalactiae Ag Ql (Unsp spec) Culture Observations: NEGATIVE FOR GROUP B STREPTOCOCCUS. Normal [facility] Comment on above: Performed By: #### G BSCX #### [facility] [address] [place] [address] [address] [address] Isabel Cornelius GTT 3 HR PREGon 06-22-2022 Glucose [Mass/Vol] 95 mg/dL Normal 74-106 [facility] Comment on above: Performed By: #### G LU1HR #### [facility] [address] [address] [address] Isabel Cornelius Glucose [Mass/Vol] 183 mg/dL Normal [facility] Comment on above: Performed By: #### G LU1HR #### [facility] [address] [place] [address] Dr. Isabel Cornelius Glucose [Mass/Vol] 124 mg/dL Normal [facility] Comment on above: Performed By: #### G LU1HR #### [facility] [address] [place] [address] Dr. Isabel Cornelius Glucose [Mass/Vol] 141 mg/dL Normal [facility] Comment on above: Performed By: #### G LU1HR #### [facility] [address] [place] [address] Dr. Isabel Cornelius GLUCOSE - 1HRon 06-08-2022 Glucose [Mass/Vol] 144 mg/dL Critically high 74-106 [facility] Comment on above: Performed By: #### G LU1HR #### [facility] [address] [place] [address] Dr. Isabel Cornelius HEMOGRAM AND PLATELon 2021 Hematocrit (Bld) [Volume fraction] 35.3 % Critically low 36.0-48.0 [facility] Comment on above: Performed By: #### G LU1HR #### [facility] [address] [place] [address] Dr. Isabel Cornelius Hemoglobin (Bld) [Mass/Vol] 11.0 g/dL Critically low 12.0-16.0 [facility] Comment on above: Performed By: #### G LU1HR #### [facility] [address] [place] [address] Dr. Isabel Cornelius MCH (RBC) [Entitic mass] 27.0 pg Normal 26.7-34.0 [facility] Comment on above: Performed By: #### G LU1HR #### [facility] [address] [place] [address] Dr. Isabel Cornelius MCHC (RBC) [Mass/Vol] 31.2 g/dL Normal 29.9-35.2 [facility] Comment on above: Performed By: #### G LU1HR #### [facility] [address] [place] [address] Dr. Isabel Cornelius MCV (RBC) [Entitic vol] 86.7 fL Normal 81.0-99.0 [facility] Comment on above: Performed By: #### G LU1HR #### [facility] [address] [place] [address] Dr. Isabel Cornelius PLT 297 103/ul Normal 150-450 [facility] Comment on above: Performed By: #### G LU1HR #### [facility] [address] [place] [address] Dr. Isabel Cornelius RBC 4.07 106/ul Critically low 4.20-5.40 [facility] System Comment on above: Performed By: #### G LU1HR #### [facility] [address] [place] [address] Dr. Isabel Cornelius WBC 10.2 103/ul Normal 4.0-11.0 [facility] Comment on above: Performed By: #### G LU1HR #### [facility] [address] [place] [address] Dr. Isabel Cornelius CULTURE URINEon 05-24-2022 CULTURE [...] Trimethoprim/Sulfametho xazole <=20 S F Normal [facility] Comment on above: Performed By: #### U RCX #### [facility] [address] [place] [address] Dr. Isabel Cornelius UA RANDOM W/MICROSCOPICon BACTERIA LARGE Abnormal NONE SEEN [facility] Comment on above: Performed By: #### A 1C #### [facility] [address] [place] [address] Dr. Isabel Cornelius Bilirubin Ql (U) Negative Normal NEGATIVE [facility] Comment on above: Performed By: #### A 1C #### [facility] [address] [place] [address] Dr. Isabel Cornelius CAST NONE SEEN Normal NONE SEEN [facility] Comment on above: Performed By: #### A 1C #### [facility] [address] [place] [address] Dr. Isabel Cornelius Clarity (U) CLEAR Normal CLEAR [facility] Comment on above: Performed By: #### A 1C #### [facility] [address] [place] [address] Dr. Isabel Cornelius Color (U) LT. YELLOW Normal YELLOW [facility] Comment on above: Performed By: #### A 1C #### [facility] [address] [place] [address] Dr. Isabel Cornelius Crystals LM Nom (Urine sed) NONE SEEN Normal NONE SEEN [facility] Comment on above: Performed By: #### A 1C #### [facility] [address] [place] [address] Dr. Isabel Cornelius Epithelial cells LM Ql (Urine sed) FEW Abnormal NONE SEEN /RARE [facility] Comment on above: Performed By: #### A 1C #### [facility] [address] [place] [address] Dr. Isabel Cornelius Glucose Ql (U) Negative Normal NEGATIVE The [facility] Comment on above: Performed By: #### A 1C #### [facility] [address] [place] [address] Dr. Isabel Cornelius Hemoglobin Ql (U) TRACE-INTACT Abnormal NEGATIVE [facility] Comment on above: Performed By: #### A 1C #### [facility] [address] [place] [address] Dr. Isabel Cornelius Ketones Ql (U) Negative Normal NEGATIVE [facility] Comment on above: Performed By: #### A 1C #### [facility] [address] [place] [address] Dr. Isabel Cornelius LEUKOCYTES SMALL Abnormal NEGATIVE [facility] Comment on above: Performed By: #### A 1C #### [facility] [address] [place] [address] Dr. Isabel Cornelius MUCOUS TRACE Abnormal NONE SEEN [facility] Comment on above: Performed By: #### A 1C #### [facility] [address] [place] [address] Dr. Isabel Cornelius Nitrite Ql (U) Positive Abnormal NEGATIVE The [facility] Comment on above: Performed By: #### A 1C #### [facility] [address] [place] [address] Dr. Isabel Cornelius pH (U) 6.5 [pH] Normal 5-9 [facility] Comment on above: Performed By: #### A 1C #### [facility] [address] [place] [address] Dr. Isabel Cornelius RBC 2-5 Abnormal 0-2 [facility] Comment on above: Performed By: #### A 1C #### [facility] [address] [place] [address] Dr. Isabel Cornelius SPEC GRAVITY 1.015 Normal 1.005-<=1.025 [facility] Comment on above: Performed By: #### A 1C #### [facility] [address] [place] [address] Dr. Isabel Cornelius UA PROTEIN Negative Normal NEGATIVE/ TRACE [facility] Comment on above: Performed By: #### A 1C #### [facility] [address] [place] [address] Dr. Isabel Cornelius Urobilinogen Qn (U) 0.2 {Radha'U}/dL Normal 0.2 - 1. 0 [facility] Comment on above: Performed By: #### A 1C #### [facility] [address] [place] [address] Dr. Isabel Cornelius WBC 10-20 Abnormal NONE SEEN [facility] Comment on above: Performed By: #### A 1C #### [facility] [address] [place], [place] [address] Dr. Isabel Cornelius PREG INCOMPLETE ANATOMYon 05-15-2022 [...] ERMA GARCIA Date: 2022-05-14 22:11 Normal [facility] AFP MATERNAL FOR SPINA BIFID Aon 04-25-2022 AFP MoM 1.28 Normal [facility] Comment on above: Performed By: #### G LU1HR #### [facility] [address] [place] [address] [address] Isabel Cornelius AFP Value 43.3 ng/mL Normal [facility] Comment on above: Performed By: #### G LU1HR #### [facility] [address] [address] [address] Isabel Cornelius AFP, Serum for Spina Bifida Report Normal [facility] Comment on above: Performed By: #### G LU1HR #### [facility] [address] [place], [place] [address] Dr. Isabel Cornelius Comment Comment Normal [facility] Comment on above: Result Comment: Ela Deras, Ph.D., [facility] Director . References: Available Upon Request. . Multiples Of Median Cutoffs For AFP Elevations Reyes 2.5 Black 2.8 IDD 2.0 Twins 4.5 Abbreviation Definitions IDD - Insulin Dep Diabetes OSBR - Open Spina Bifida Risk . For further inquiries contact [employer] [facility] at [phone]. Performed By: #### G LU1HR #### [facility] [address] [address] [address] Isabel Cornelius Gest Age Collection Date 18.4 weeks Normal [facility] Comment on above: Performed By: #### G LU1HR #### [facility] [address] [address] [address] Isabel Cornelius Gestat, Age Based on DREW Normal [facility] Comment on above: Result Comment: 05/2022 Recalculations are not recommended when gestational dating by LMP and ultrasound are within 10 days. Performed By: #### G LU1HR #### [facility] [address] [address] [address] Isabel Cornelius Insulin Dep Diabetes No Normal [facility] Comment on above: Performed By: #### G LU1HR #### [facility] [address] [address] [address] Isabel Cornelius Interpretation Comment Normal [facility] Comment on above: Result Comment: Inte rpretation: [...] Customer Services to discuss available options. The [employer] recommends amniocentesis be offered to women age 35 and older. Performed By: #### G LU1HR #### [facility] [address] [place] [address] Dr. Isabel Cornelius [age] Normal [facility] Comment on above: Performed By: #### G LU1HR #### [facility] [address] [place] [address] Dr. Isabel Cornelius Multiple Gestation No Normal [facility] Comment on above: Performed By: #### G LU1HR #### [facility] [address] [place] [address] Dr. Isabel Cornelius OSBR Risk 1 [place] 5096 Normal [facility] Comment on above: Performed By: #### G LU1HR #### [facility] [address] [place] [address] Dr. Isabel Cornelius PDF . Normal [facility] Comment on above: Performed By: #### G LU1HR #### [facility] [address] [address] [address] Isabel Cornelius Race Normal [facility] Comment on above: Performed By: #### G LU1HR #### [facility] [address] [address] [address] Isabel Cornelius Test Results: Negative Normal [facility] Comment on above: Performed By: #### G LU1HR #### [facility] [address] [address] [address] Isabel Cornelius US PREG ANATOMY SINGLEon [...] by: HELEN VERA Date: 2022-04-16 16:21 Normal [facility] PAP ACOG PANEL 2: 21 to 29on 04-03-2022 . . Normal [facility] Comment on above: Performed By: #### G LU1HR #### [facility] [address] [place] [address] Dr. Isabel Cornelius Age Gdln ACOG Testing - [facility] Comment on above: Performed By: #### G LU1HR #### [facility] [address] [place] [address] Dr. Isabel Cornelius DIAGNOSIS: Comment [facility] Comment on above: Result Comment: NEGA TIVE FOR INTRAEPITHELIAL LESION OR MALIGNANCY. THIS SPECIMEN WAS RESCREENED PART OF OUR CYCLE COUNTER PROGRAM. Performed By: #### G LU1HR #### [facility] [address] [place] [address] Dr. Isabel Cornelius Methodology: Comment [facility] Comment on above: Result Comment: This liquid based ThinPrep(R) pap test was screened with the use of an image guided system. Performed By: #### G LU1HR #### [facility] [address] [place] [address] Dr. Isabel Cornelius Note: Comment [facility] Comment on above: Result Comment: The Pap smear is a screening test designed to aid in the detection of premalignant and malignant conditions of the uterine cervix. It is not a diagnostic procedure and should not be used as the sole means of detecting cervical cancer. Both false-positive and false-negative reports do occur. . Performed By: #### G LU1HR #### [facility] [address] [place] [address] Dr. Isabel Cornelius Performed by: Comment Normal [facility] Comment on above: Result Comment: Zheng Lacey, [employer] Technician (ASCP) Performed By: #### G LU1HR #### [facility] [address] [place] [address] Dr. Isabel Cornelius QC reviewed by: Comment Normal [facility] Comment on above: Result Comment: Dai Wooten, Supervisory [employer] Technician (ASCP) Performed By: #### G LU1HR #### [facility] [address] [place] [address] Dr. Isabel Cornelius Reflex Criteria: Comment Normal [facility] Comment on above: Result Comment: The HPV DNA reflex criteria were not met with this specimen result therefore, no HPV testing was performed. . Performed By: #### G LU1HR #### [facility] [address] [address] [address] Isabel Cornelius Specimen adequacy: Comment Normal [facility] Comment on above: Result Comment: Sati sfactory for evaluation. Endocervical and/or squamous metaplastic cells (endocervical component) are present. Performed By: #### G LU1HR #### [facility] [address] [place] [address] Dr. Isabel Cornelius CHLAMYDIA/GONOCOCCUS KINSEY ( AB/URINE/PAPon 03-31-2022 Chlamydia trachomatis, KINSEY Negative Normal Negative [facility] Comment on above: Performed By: #### A 1C #### [facility] [address] [place] [address] Dr. Isabel Cornelius Neisseria gonorrhoeae, KINSEY Negative Normal Negative [facility] Comment on above: Performed By: #### A 1C #### [facility] [address] [place] [address] Dr. Isabel Cornelius CULTURE URINEon 03-15-2022 CULTURE [...] F Trimethoprim/Sulfametho xazole <=20 S F Normal [facility] Comment on above: Performed By: #### U RCX #### [facility] [address] [place] [address] Dr. Isabel Cornelius CULTURE URINEon 02-28-2022 CULTURE [...] F Trimethoprim/Sulfametho xazole <=20 S F Normal [facility] Comment on above: Performed By: #### A 1C #### [facility] [address] [place] [address] Dr. Isabel Cornelius HEP B SURFACE ANTIGEN SCREEN on 02-27-2022 HBsAg Screen Negative Normal Negative [facility] Comment on above: Performed By: #### G LU1HR #### [facility] [address] [place] [address] Dr. Isabel Cornelius HEPATITIS C VIRUS AB W/ REFL EX QUANTon 02-27-2022 HCV AB 0.1 s/co ratio Normal 0.0-0.9 [facility] Comment on above: Performed By: #### G LU1HR #### [facility] [address] [place] [address] Dr. Isabel Cornelius Interpretation: Comment Normal [facility] Comment on above: Result Comment: Nega tive Not infected with HCV, unless recent infection is suspected or other evidence exists to indicate HCV infection. Performed By: #### G LU1HR #### [facility] [address] [place] [address] Dr. Isabel Cornelius HIV 1 AND 2 WITH REFLEXon HIV Screen 4th Generation wRfx Non-Reactive Normal Non Reactive [facility] Comment on above: Result Comment: HIV Negative HIV-1/HIV-2 antibodies and HIV-1 p24 antigen were NOT detected. There is no laboratory evidence of HIV infection. Performed By: #### G LU1HR #### [facility] [address] [place] [address] Dr. Isabel Cornelius RPR QUANTon 02-27-2022 Rapid Plasma Reagin, Quant Non-Reactive Normal NonRea<1:1 [facility] Comment on above: Result Comment: Plea se Note: This test does not meet current guidelines for screening and diagnosis of syphilis. This test is intended for following treatment response in patients being treated for syphilis infection. To screen for syphilis infection, a reflex cascade that includes both RPR and a treponema-specific assay should be utilized, such as Treponema pallidum (Syphilis) Screening [place] (971191) or Rapid Plasma Reagin (RPR) Test With Reflex to Quantitative RPR and Confirmatory Treponema pallidum Antibodies (736353). Performed By: #### A 1C #### [facility] [address] [place] [address] Dr. Isabel Cornelius RUBELLA AB IGGon 02-27-2022 Rubella Antibodies, IgG 14.20 index Normal Immune >0.99 [facility] Comment on above: Result Comment: Non- immune <0.90 Equivocal 0.90 - 0.99 Immune >0.99 Performed By: #### G LU1HR #### [facility] [address] [place] [address] Dr. Isabel Cornelius CBC AUTO DIFFon 02-26-2022 BASO # 0.1 103/ul Normal 0.0-0.1 [facility] Comment on above: Performed By: #### C BC #### [facility] [address] [place] [address] Dr. Isabel Cornelius Basophils/100 WBC (Bld) 0.5 % Normal 0.2-2.0 [facility] Comment on above: Performed By: #### C BC #### [facility] [address] [place] [address] Dr. Isabel Cornelius EO # 0.1 103/ul Normal 0.0-0.7 [facility] Comment on above: Performed By: #### C BC #### [facility] [address] [place] [address] Dr. Isabel Cornelius Eosinophils/100 WBC (Bld) 0.8 % Critically low 0.9-7.0 [facility] Comment on above: Performed By: #### C BC #### [facility] [address] [place] [address] Dr. Isabel Cornelius Erythrocyte distribution width (RBC) [Ratio] 14.2 % Normal 11.0-15.0 [facility] Comment on above: Performed By: #### C BC #### [facility] [address] [place] [address] Dr. Isabel Cornelius Hematocrit (Bld) [Volume fraction] 41.7 % Normal 36.0-48.0 [facility] Comment on above: Performed By: #### C BC #### [facility] [address] [place] [address] Dr. Isabel Cornelius Hemoglobin (Bld) [Mass/Vol] 13.5 g/dL Normal 12.0-16.0 [facility] Comment on above: Performed By: #### C BC #### [facility] [address] [place] [address] Dr. Isabel Cornelius IG # 0.09 10e3/ul Critically high 0.00-0.03 [facility] Comment on above: Performed By: #### C BC #### [facility] [address] [place] [address] Dr. Isabel Cornelius IG % 0.7 % Critically high 0.0-0.5 [facility] Comment on above: Performed By: #### C BC #### [facility] [address] [place] [address] Dr. Isabel Cornelius LYMPH # 2.0 103/ul Normal 1.2-3.8 [facility] Comment on above: Performed By: #### C BC #### [facility] [address] [place] [address] Dr. Isabel Cornelius Lymphocytes/100 WBC (Bld) 14.8 % Critically low 20.5-60.0 [facility] Comment on above: Performed By: #### C BC #### [facility] [address] [place] [address] Dr. Isabel Cornelius MANUAL DIFF REQ NO Normal [facility] Comment on above: Performed By: #### C BC #### [facility] [address] [place] [address] Dr. Isabel Cornelius MCH (RBC) [Entitic mass] 27.0 pg Normal 26.7-34.0 [facility] Comment on above: Performed By: #### C BC #### [facility] [address] [place] [address] Dr. Isabel Cornelius MCHC (RBC) [Mass/Vol] 32.4 g/dL Normal 29.9-35.2 [facility] Comment on above: Performed By: #### C BC #### [facility] [address] [place] [address] Dr. Isabel Cornleius MCV (RBC) [Entitic vol] 83.4 fL Normal 81.0-99.0 [facility] Comment on above: Performed By: #### C BC #### [facility] [address] [place] [address] Dr. Isabel Cornelius MONO # 0.6 103/ul Normal 0.3-0.8 [facility] Comment on above: Performed By: #### C BC #### [facility] [address] [place] [address] Dr. Isabel Cornelius Monocytes/100 WBC (Bld) 4.6 % Normal 1.7-12.0 [facility] Comment on above: Performed By: #### C BC #### [facility] [address] [place] [address] Dr. Isabel Cornelius NEUT # 10.4 103/ul Critically high 1.4-6.5 [facility] Comment on above: Performed By: #### C BC #### [facility] [address] [place] [address] Dr. Isabel Cornelius Neutrophils/100 WBC (Bld) 78.6 % Critically high 43.0-75.0 [facility] Comment on above: Performed By: #### C BC #### [facility] [address] [address] [address] Isabel Cornelius Platelet mean volume (Bld) [Entitic vol] 9.7 fL Normal 9.5-13.5 [facility] Comment on above: Performed By: #### C BC #### [facility] [address] [address] [address] Isabel Cornelius PLT 395 103/ul Normal 150-450 [facility] Comment on above: Performed By: #### C BC #### [facility] [address] [place] [address] Dr. Isabel Cornelius RBC 5.00 106/ul Normal 4.20-5.40 [facility] Comment on above: Performed By: #### C BC #### [facility] [address] [place] [address] Dr. Isabel Cornelius WBC 13.2 103/ul Critically high 4.0-11.0 [facility] Comment on above: Performed By: #### C BC #### [facility] [address] [place] [address] Dr. Isabel Cornelius GLYCOHEMOGLOBIN A1Con 2021 ADA RECOMMENDATION SEE BELOW Normal [facility] Comment on above: Result Comment: ADA RECOMMENDED LIMIT 4.0 - 6.0 ADA THERAPEUTIC TARGET < 7.0 ACTION SUGGESTED > 7.0 Performed By: #### A 1C #### [facility] [address] [place] [address] Dr. Isabel Cornelius Glucose [Mass/Vol] 105 mg/dL Normal [facility] Comment on above: Performed By: #### A 1C #### [facility] [address] [place] [address] Dr. Isabel Cornelius HbA1c (Bld) [Mass fraction] 5.3 % Normal 4.5-6.2 [facility] Comment on above: Performed By: #### A 1C #### [facility] [address] [place] [address] Dr. Isabel Cornelius DYAN BOX TEST PT SEND OUTo n 02-26-2022 SENT TO REF LAB 02/26/2022 Normal [facility] [place] Comment on above: Performed By: #### G LU1HR #### [facility] [address] [address] [address] Isabel Cornelius TYPE AND SCREENon 02-26-2022 TYPE AND SCREEN Negative Normal [facility] [place] Comment on above: Performed By: #### A 1C #### [facility] [address] [place], [place] [address] Dr. Isabel Cornelius US PREG TVon 02-25-2022 [...] ERMA GARCIA Date: 2022-02-25 11:58 Normal [facility] CBC with Diffon 01-05-2019 Abs. Basophil 0.04 k/uL Normal 0.00-0.20 [facility] Comment on above: Performed By: #### C DP #### [facility] [employer] [facility] [place] [address] Cloth Measurer: Og Rothman MD Abs.Imm.Granulocyte 0.07 k/uL Normal 0.00-0.30 [facility] Comment on above: Performed By: #### C DP #### [facility] [employer] [address] [place] [address] [employer] Measurer: Og Rothman MD Abs.Neutrophil (Seg) 7.45 k/uL Normal 1.50-8.10 [facility] Comment on above: Performed By: #### C DP #### [facility] [employer] [address] [place] [id number] [employer] Measurer: Og Rothman MD Basophils/100 WBC (Bld) 0 % Normal 0-2 [facility] Comment on above: Performed By: #### C DP #### [address] [address] [employer] Measurer: Og Rothman MD Eosinophils #/vol (Bld) 0.14 10*3/uL Normal 0.00-0.44 [facility] Comment on above: Performed By: #### C DP #### [address] [address] [employer] Measurer: Og Rothman MD Eosinophils/100 WBC (Bld) 1 % Normal 1-4 [facility] Comment on above: Performed By: #### C DP #### [place] [address] [employer] Measurer: Og Rothman MD Erythrocyte distribution width Ratio (RBC) 15.1 % High 11.8-14.4 [facility] Comment on above: Performed By: #### C DP #### [address] [address] [employer]r: Og Rothman MD Hematocrit Volume Fraction (Bld) 29.9 % Low 36.3-47.1 [facility] Comment on above: Performed By: #### C DP #### [address] [address] [employer] Measurer: Og Rothman MD Hemoglobin mass conc (Bld) 9.3 g/dL Low 11.9-15.1 [facility] Comment on above: Performed By: #### C DP #### [address] [address] [employer] Measurer: Og Rothman MD Immature granulocytes #/vol (Bld) 1 % High 0 [facility] Comment on above: Performed By: #### C DP #### [address] [address] [employer] Measurer: Og Rothman MD Lymphocytes #/vol (Bld) 1.37 10*3/uL Normal 1.10-3.70 [facility] Comment on above: Performed By: #### C DP #### [address] [address] [employer] Measurer: Og Rothman MD Lymphocytes/100 WBC (Bld) 14 % Low 24-43 [facility] Comment on above: Performed By: #### C DP #### [address] [address] [employer] Measurer: Og Rothman MD MCH Entitic mass (RBC) 27.8 pg Normal 25.2-33.5 [facility] Comment on above: Performed By: #### C DP #### [address] [address] [employer] Measurer: Og Rothman MD MCHC mass conc (RBC) 31.1 g/dL Normal 28.4-34.8 [facility] Comment on above: Performed By: #### C DP #### [address] [address] [employer] Measurer: Og Rothman MD MCV Entitic volume (RBC) 89.3 fL Normal 82.6-102.9 [facility] Comment on above: Performed By: #### C DP #### [address] [address] Cloth Measurer: Og Rothman MD Monocytes #/vol (Bld) 0.91 10*3/uL Normal 0.10-1.20 [facility] Comment on above: Performed By: #### C DP #### [address] [address] Cloth Measurer: Og Rothman MD Monocytes/100 WBC (Bld) 9 % Normal 3-12 [facility] Comment on above: Performed By: #### C DP #### [address] [address] Cloth Measurer: Og Rothman MD Neutrophil (Seg) 75 % High 36-65 [facility] Comment on above: Performed By: #### C DP #### [address] [address] Cloth Measurer: Og Rothman MD NRBC Automated 0.0 per 100 WBC Normal 0.0 [facility] Comment on above: Performed By: #### C DP #### [address] [address] Cloth Measurer: Og Rothman MD Platelet mean volume Entitic volume (Bld) 11.0 fL Normal 8.1-13.5 [facility] Comment on above: Performed By: #### C DP #### [address] [address] Cloth Measurer: Og Rothman MD Platelets #/vol (Bld) 218 10*3/uL Normal 138-453 [facility] Comment on above: Performed By: #### C DP #### [address] [address] Cloth Measurer: Og Rothman MD RBC #/vol (Bld) 3.35 10*6/uL Low 3.95-5.11 [facility] Comment on above: Performed By: #### C DP #### [address] [address] Cloth Measurer: Og Rothman MD RBC morphology finding Nom (Bld) ANISOCYTOSIS PRESENT Normal [facility] Comment on above: Performed By: #### C DP #### [address] [address] Cloth Measurer: Og Rothman MD WBC #/vol (Bld) 10.0 10*3/uL Normal 3.5-11.3 [facility] Comment on above: Performed By: #### C DP #### [address] [address] Cloth Measurer: Og Rothman MD Auto Diff Performed NOT REPORTED Normal [facility] Comment on above: Performed By: #### C DP #### [address] [address] Cloth Measurer: Og Rothman MD Platelets #/vol (Bld) NOT REPORTED Normal [facility] Comment on above: Performed By: #### C DP #### [address] [address] Cloth Measurer: Og Rothman MD WBC Morphology NOT REPORTED Normal [facility] Comment on above: Performed By: #### C DP #### [address] [address] Cloth Measurer: Og Rothman MD Surgical Pathologyon 019 Surgical Pathology (NOTE) [id number] [facility] CONSULTING PATHOLOGISTS [facility] ANATOMIC PATHOLOGY [address] [place] [id number] SURGICAL PATHOLOGY CONSULTATION Patient Name: FLORA RICHARDSON [facility] Rec: [id number] Path Number: [id number] Collected: 01/04/2019 Received: 01/05/2019 Reported: 01/06/2019 17:00 [...] villous capillaries: Rare Other: Few microcalcifications Normal [facility] Comment on above: Performed By: #### P PPVS #### [address] [place] [address] Cloth Measurer: Og Rothman MD CBC with Diffon 01-03-2019 Abs. Basophil 0.04 k/uL Normal 0.00-0.20 [facility] Comment on above: Performed By: #### C DP, TREP #### [address] [place] [address] Cloth Measurer: Og Rothman MD Abs.Imm.Granulocyte 0.11 k/uL Normal 0.00-0.30 [facility] Comment on above: Performed By: #### C DP, TREP #### [address] [place] [address] Cloth Measurer: Og Rothman MD Abs.Neutrophil (Seg) 8.13 k/uL High 1.50-8.10 [facility] Comment on above: Performed By: #### C DP, TREP #### [facility] [employer] [address] [place] [address] Cloth Measurer: Og Rothman MD Basophils/100 WBC (Bld) 0 % Normal 0-2 [facility] Comment on above: Performed By: #### C DP, TREP #### [facility] [employer] [address] [place] [address] Cloth Measurer: Og Rothman MD Eosinophils #/vol (Bld) 0.13 10*3/uL Normal 0.00-0.44 [facility] Comment on above: Performed By: #### C DP, TREP #### [facility] [employer] [address] [place] [address] Cloth Measurer: Og Rothman MD Eosinophils/100 WBC (Bld) 1 % Normal 1-4 [facility] Comment on above: Performed By: #### C DP, TREP #### [place] [address] Cloth Measurer: Og Rothman MD Erythrocyte distribution width Ratio (RBC) 15.0 % High 11.8-14.4 [facility] Comment on above: Performed By: #### C DP, TREP #### [facility] [employer] [address] [place] [address] Cloth Measurer: Og Rothman MD Hematocrit Volume Fraction (Bld) 36.5 % Normal 36.3-47.1 [facility] Comment on above: Performed By: #### C DP, TREP #### [facility] [employer] [address] [place] [address] Cloth Measurer: Og Rothman MD Hemoglobin mass conc (Bld) 11.6 g/dL Low 11.9-15.1 [facility] Comment on above: Performed By: #### C DP, TREP #### [address] [address] Cloth Measurer: Og Rothman MD Immature granulocytes #/vol (Bld) 1 % High 0 [facility] Comment on above: Performed By: #### C DP, TREP #### [address] [address] Cloth Measurer: Og Rothman MD Lymphocytes #/vol (Bld) 1.40 10*3/uL Normal 1.10-3.70 [facility] Comment on above: Performed By: #### C DP, TREP #### [address] [address] Cloth Measurer: Og Rothman MD Lymphocytes/100 WBC (Bld) 13 % Low 24-43 [facility] Comment on above: Performed By: #### C DP, TREP #### [address] [address] Cloth Measurer: Og Rothman MD MCH Entitic mass (RBC) 27.5 pg Normal 25.2-33.5 [facility] Comment on above: Performed By: #### C DP, TREP #### [address] [address] Cloth Measurer: Og Rothman MD MCHC mass conc (RBC) 31.8 g/dL Normal 28.4-34.8 [facility] Comment on above: Performed By: #### C DP, TREP #### [address] [address] Cloth Measurer: Og Rothmna MD MCV Entitic volume (RBC) 86.5 fL Normal 82.6-102.9 [facility] Comment on above: Performed By: #### C DP, TREP #### [address] [address] Cloth Measurer: Og Rothman MD Monocytes #/vol (Bld) 0.80 10*3/uL Normal 0.10-1.20 [facility] Comment on above: Performed By: #### C DP, TREP #### [address] [address] Cloth Measurer: Og Rothman MD Monocytes/100 WBC (Bld) 8 % Normal 3-12 [facility] Comment on above: Performed By: #### C DP, TREP #### [address] [address] Cloth Measurer: Og Rothman MD Neutrophil (Seg) 77 % High 36-65 [facility] Comment on above: Performed By: #### C DP, TREP #### [address] [address] Cloth Measurer: Og Rothman MD NRBC Automated 0.0 per 100 WBC Normal 0.0 [facility] Comment on above: Performed By: #### C DP, TREP #### [address] [address] Cloth Measurer: Og Rothman MD Platelet mean volume Entitic volume (Bld) 10.5 fL Normal 8.1-13.5 [facility] Comment on above: Performed By: #### C DP, TREP #### [address] [address] Cloth Measurer: Og Rothman MD Platelets #/vol (Bld) 301 10*3/uL Normal 138-453 [facility] Comment on above: Performed By: #### C DP, TREP #### [address] [address] Cloth Measurer: Og Rothman MD RBC #/vol (Bld) 4.22 10*6/uL Normal 3.95-5.11 [facility] Comment on above: Performed By: #### C DP, TREP #### [address] [address] Cloth Measurer: Og Rothman MD RBC morphology finding Nom (Bld) ANISOCYTOSIS PRESENT Normal [facility] Comment on above: Performed By: #### C DP, TREP #### [address] [address] Cloth Measurer: Og Rothman MD WBC #/vol (Bld) 10.6 10*3/uL Normal 3.5-11.3 [facility] Comment on above: Performed By: #### C DP, TREP #### [address] [address] Cloth Measurer: Og Rothman MD Auto Diff Performed NOT REPORTED Normal [facility] Comment on above: Performed By: #### C DP, TREP #### [address] [address] Cloth Measurer: Og Rothman MD Platelets #/vol (Bld) NOT REPORTED Normal [facility] Comment on above: Performed By: #### C DP, TREP #### [address] [address] Cloth Measurer: Og Rothman MD WBC Morphology NOT REPORTED Normal [facility] Comment on above: Performed By: #### C DP, TREP #### [address] [address] Cloth Measurer: Og Rothman MD Drug Scr, Abuse, Uron 2018 Amphetamine(s),Ur Negative Normal NEG [facility] Comment on above: Result Comment: (Positive cutoff 1000 ng/mL) Performed By: #### D AU #### [address] [address] Cloth Measurer: Og Rothman MD Barbiturate(s),Ur Negative Normal NEG [facility] Comment on above: Result Comment: (Positive cutoff 200 ng/mL) Performed By: #### D AU #### [address] [address] Cloth Measurer: Og Rothman MD Base excess Calculated molar conc (Bld) Negative Normal NEG [facility] Comment on above: Result Comment: (Positive cutoff 300 ng/mL) Performed By: #### D AU #### [address] [address] Cloth Measurer: Og Rothman MD Benzodiazepine(s) Negative Normal NEG [facility] Comment on above: Result Comment: (Positive cutoff 200 ng/mL) Performed By: #### D AU #### [address] [address] Cloth Measurer: Og Rothman MD Cannabinoid(s),Ur Negative Normal [facility]G [facility] Comment on above: Result Comment: (Positive cutoff 50 ng/mL) Performed By: #### D AU #### [address] [address] Cloth Measurer: Og Rothman MD Interpretive Info Assay provides medic al screening only. The absence of expected drug(s) and/or Normal [facility] Comment on above: Result Comment: meta bolite(s) may indicate diluted or adulterated urine, limitations of testing or timing of collection. Testing for legal purposes should be confirmed by another method. To request confirmation of test result, please call the lab within 7 days of sample submission. Performed By: #### D AU #### [address] [address] Cloth Measurer: Og Rothman MD Methadone Ql (U) Negative Normal NEG [facility] Comment on above: Result Comment: (Positive cutoff 300 ng/mL) Performed By: #### D AU #### [address] [place] [address] Cloth Measurer: Og Rothman MD Opiate(s), Ur Negative Normal NEG [facility] Comment on above: Result Comment: (Positive cutoff 300 ng/mL) Performed By: #### D AU #### [address] [address] Cloth Measurer: Og Rothman MD Oxycodone, Urine Negative Normal NEG [facility] Comment on above: Result Comment: (Positive cutoff 100 ng/mL) Performed By: #### D AU #### [address] [address] Cloth Measurer: Og Rothman MD Phencyclidine, Ur Negative Normal [facility]G [facility] Comment on above: Result Comment: (Positive cutoff 25 ng/mL) Performed By: #### D AU #### [address] [address] Cloth Measurer: Og Rothman MD Buprenorphrine, Ur NOT REPORTED Normal NEG [facility] Comment on above: Performed By: #### D AU #### [address] [address] Cloth Measurer: Og Rothman MD MDMA, Urine NOT REPORTED Normal NEG [facility] Comment on above: Performed By: #### D AU #### [facility] [employer] [address] [place] [address] Cloth Measurer: Og Rothman MD Methamphetamine, Ur NOT REPORTED Normal NEG [facility] Comment on above: Performed By: #### D AU #### [facility] [employer] [address] [place] [address] Cloth Measurer: Og Rothman MD Protein mass conc (U) NOT REPORTED Normal NEG [facility] Comment on above: Performed By: #### D AU #### [facility] [employer] [address] [place] [phone] Cloth Measurer: Og Rothman MD Tricyclic antidepressants Screen Ql (U) NOT REPORTED Normal NEG [facility] Comment on above: Performed By: #### D AU #### [facility] [employer] [address] [place] [phone] Cloth Measurer: Og Rothman MD T.pallidum Ab Screenon 01-03 T.pallidum Ab Screen NONREACTIVE Normal NR [facility] Comment on above: Result Comment: T. pallidum antibodies are not detected. There is no serological evidence of infection with T. pallidum (early primary syphilis cannot be excluded). Retest in 2-4 weeks if syphilis is clinically suspect. Performed By: #### C DP, TREP #### [facility] [employer] [address] [place] [phone] Cloth Measurer: Og Rothman MD Type + Screenon 01-03-2019 Type + Screen Sample Expiration 01/06/2019 Arm Band Number [id number] ABO/Rh(D) A POSITIVE Antibody Screen NEGATIVE Normal [facility] Comment on above: Performed By: #### T YS #### [facility] [employer] [address] [place] [phone] Cloth Measurer: Og Rothman MD Vital Signs Date Time Vital Sign Value Performing Clinician Facility 10-26-2024 09:37-0500 Body mass index (BMI) [Ratio] 46.41 kg/m2 [facility] Nurse [facility] 10-26-2024 09:37-0500 Body weight 118.84 kg [facility] Nurse [facility] 10-26-2024 09:37-0500 Diastolic blood pressure 74 mm[Hg] [facility] Nurse [facility] 10-26-2024 09:37-0500 Systolic blood pressure 122 mm[Hg] [facility] Nurse [facility] 09-01-2024 10:07-0500 Body height 160 cm Cristina ALVARENGA Work Phone: [facility] 09-01-2024 10:07-0500 Body mass index (BMI) [Ratio] 46.08 kg/m2 Cristina ALVARENGA Work Phone: [facility] 09-01-2024 10:07-0500 Body weight 117.99 kg Cristina ALVARENGA Work Phone: [facility] 09-01-2024 10:07-0500 Diastolic blood pressure 70 mm[Hg] Cristina ALVARENGA Work Phone: [facility] 09-01-2024 10:07-0500 Systolic blood pressure 120 mm[Hg] Cristina ALVARENGA Work Phone: [facility] 04-25-2022 18:08-0400 Body weight 125.[address] EVAN CASTRO [facility] Comment on above: Performed By: #### [id number] #### [facility] [address] [place] [address] Dr. Isabel Cornelius Encounters Encounter Date Encounter [...] Clinisync Result Encounter Cristina ALVARENGA Work Phone: [facility] External Department Unsolicited Start: 09-01-2024 End: 09-01-2024 Patient encounter procedure Cristina ALVARENGA Work Phone: [facility] Healthcare Work Phone: Start: 09-01-2024 End: 09-01-2024 [...] Evaluation and management of inpatient ANDREW [facility] Procedures Date Procedure Procedure Detail Performing [...] Screening for malign ant neoplasm of cervix [facility] Healthcare Start: 11-25-2024 End: 11-25-2024 Patient encounter procedure 11/25/2024 10:20 AM EST Routine [facility] [address] [id number] Parker Hallman DO [address] [place] [address] [facility] Start: 10-26-2024 End: 10-26-2025 ABO/Rh ABO/Rh Lab Routine Missed menses , unspecified gestational age Expected: 10/26/2024 (Approximate), Expires: 10/26/2025 [facility] Comment on above: Expected: 10/26/2024 (Approximate), Expires: 10/26/2025 Start: 10-26-2024 End: 10-26-2025 Blood type and Indirect antibody screen panel - Blood Type and screen Lab Routine Missed menses , unspecified gestational age Expected: 10/26/2024 (Approximate), Expires: 10/26/2025 [facility] Healthcare Work Phone: Comment on above: Expected: 10/26/2024 (Approximate), Expires: 10/26/2025 Start: 10-26-2024 End: 10-26-2025 Drugs of abuse panel - Urine by Screen method Rapid drug screen, urine Lab Routine , unspecified gestational age Encounter for supervision of normal first in first trimester Expected: 10/26/2024 (Approximate), Expires: 10/26/2025 [facility] Comment on above: Expected: 10/26/2024 (Approximate), Expires: 10/26/2025 Start: 09-01-2024 End: 09-01-2024 Patient encounter procedure 09/01/2024 10:00 AM EST Office Visit [facility] [address] [place] [id number] Cristina Oneill PA [address] [address] Arrived [facility] Comment on above: Arrived Start: 06-27-2024 Influenza vaccination Influenza Vacc ine (#1) [facility] Start: 2022 Screening for malign ant neoplasm of cervix [facility] Start: 2013 Screening for malign ant neoplasm of cervix Pap Smear [facility] Bacteria identified in Urine by Culture Urine culture Microbiology Routine Missed menses Ordered: 10/26/2024 [facility] Comment on above: Ordered: 10/26/2024 CBC W Auto Different ial panel - Blood CBC and differential Lab Routine Missed menses , unspecified gestational age Ordered: 10/26/2024 [facility] Comment on above: Ordered: 10/26/2024 Cytology Cervical or vaginal smear or scraping study Pap Smear Pathology and Cytology Routine Well woman exam with routine gynecological exam Ordered: 09/01/2024 [facility] Work Phone: Comment on above: Ordered: 09/01/2024 Hemoglobin A1c/Hemoglobin.total in Blood Hemoglobin A1c Lab Routine Missed menses , unspecified gestational age Ordered: 10/26/2024 [facility] Comment on above: Ordered: 10/26/2024 Hepatitis B virus surface Ag [Presence] in Serum or Plasma by Immunoassay Hepatitis B surface antigen Lab Routine Missed menses , unspecified gestational age Ordered: 10/26/2024 [facility] Comment on above: Ordered: 10/26/2024 Hepatitis C virus Ab [Presence] in Serum or Plasma by Immunoassay Hepatitis C antibody Lab Routine Missed menses , unspecified gestational age Ordered: 10/26/2024 [facility] Comment on above: Ordered: 10/26/2024 HIV-1/HIV-2 antigen/antibody combination immunoassay HIV-1 and HIV-2 antibodies Lab Routine Missed menses , unspecified gestational age Ordered: 10/26/2024 [facility] Comment on above: Ordered: 10/26/2024 Human papilloma viru s DNA [Presence] in Unspecified specimen by Probe with amplification HPV DNA probe, amplified Microbiology Routine Well woman exam with routine gynecological exam Ordered: 09/01/2024 [facility] Comment on above: Ordered: 09/01/2024 Reagin Ab [Presence] in Serum by RPR RPR Lab Routine Missed menses , unspecified gestational age Ordered: 10/26/2024 [facility] Comment on above: Ordered: 10/26/2024 Rubella antibody, IgG Rubella an tibody, IgG Lab Routine Missed menses , unspecified gestational age Ordered: 10/26/2024 [facility] Healthcare Comment on above: Ordered: 10/26/2024 Immunizations Immunization Date Immunization Notes Care Provider Caroline lorenzo 08-30-2022 influenza virus vacc ine, unspecified formulation Cristina ALVARENGA Work Phone: [facility] Healthcare Payers Date Payer Category Payer [facility] [id number] 2023 Unknown [id number] 2018 Medicaid [id number] 1992 Unknown [id number] 2.840.1.231873.3.579. 2.175 1992 Unknown [id number] 2.840.1.192766.3.579. 2.593 1992 Unknown [id number] 2.840.1.574736.3.579. 2.593 1992 Unknown [id number] 2.16840.1.898629.3.579. 2.593 1992 Unknown [id number] 2.16840.1.477865.3.579. 2.593 1992 Unknown [id number] 2.16840.1.204711.3.579. 2.593 1992 Unknown [id number] 2.16.840.1.289095.3.579. 2.593 1992 Unknown [id number] 2.16.840.1.548410.3.579. 2.593 1992 Unknown [id number] 2.16.840.1.585040.3.579. 2.593 1992 Unknown [id number] 2.16.840.1.288616.3.579. 2.59 1992 Unknown [id number] 2.16.840.1.725481.3.579. 2.593 1992 Unknown [id number] 2.16.840.1.000030.3.579. 2.59 1992 Unknown [id number] 2.16.840.1.579643.3.579. 2.59 1992 Unknown [id number] 2.16.840.1.798179.3.579. 2.59 1992 Unknown [id number] 2.16.840.1.086573.3.579. 2.593 1992 Unknown [id number] 2.16.840.1.272926.3.579. 2.593 1992 Unknown [id number] 2.16.840.1.610667.3.579. 2.593 1992 Unknown [id number] 2.16.840.1.626765.3.579. 2.593 1992 Unknown [id number] 2.16.840.1.693356.3.579. 2.1259 1992 Unknown [id number] 2.16.840.1.418589.3.579. 2.1259 1992 Unknown [id number] 2.16.840.1.468131.3.579. 2.1259 1959 Unknown [id number] Unknown Unknown [id number] 2.16.840.1.362694.3.579. 2.593 Social History Date Type Detail Facility [facility]: [facility]23 [facility] Start: [...] or undercooked meat, and stay away from [facility]. Patient has also been advised to [...] nursing note reviewed. Exam conducted with a advertising sales manager present. Vitals: Estimated body mass index is [...] of: LYLE Jones documented in this encounter [facility] Healthcare Evaluation note Note Date & Type Note Facility Evaluation note Diagnosis Well woman exam with routine gynecological exam Routine gynecological examination documented in this encounter [facility] Evaluation note Note Date & Type Note Facility Evaluation note Diagnosis Missed menses 11 weeks gestation of , unspecified gestational age Encounter for supervision of normal first in first trimester documented in this encounter [facility] Healthcare Summary Purpose Family History No Family History Records FoundNo Family History Records FoundNo Family History Records Found Advance Directives No Advanced Directives Records FoundNo Advanced Directives Records FoundNo Advanced Directives Records Found Additional Source Comments INFORMATION SOURCE (unrecogn ized section and content) DATE CREATED AUTHOR 01/12/2019 [facility] DATE CREATED AUTHOR AUTHOR'S ORGANIZ ATION 09/16/2022 [facility] DATE CREATED AUTHOR AUTHOR'S ORGANIZ ATION 11/04/2024 [facility] EPIC Reason for Visit (unrecogniz ed [...] BE BASED ON THE PRIMARY CLINICAL RECORDS. [facility] [employer] provides no warranty or guarantee of the accuracy or completeness of information in this document.
[2024-11-20 12:38] LABS: Basophils Absolute Auto 0.1 10^3/uL (0.0-0.1); Basophils Percent Auto 0.5 % (0.2-2.0); Eosinophils Absolute Auto 0.3 10^3/uL (0.0-0.7); Eosinophils Percent Auto 3.1 % (0.9-7.0); Hematocrit 41.5 % (36.0-48.0); Hemoglobin 13.7 g/dL (12.0-16.0); Immature Granulocytes Abs Auto 0.04 10^3/uL (0.00-0.03); Immature Granulocytes Pct Auto 0.4 % (0.0-0.5); Lymphocytes Absolute Auto 1.6 10^3/uL (1.2-3.8); Lymphocytes Percent Auto 16.7 % (20.5-60.0); Mean Corpuscular Hemoglobin 27.4 pg (26.7-34.0); Mean Platelet Volume 9.6 fL (9.5-13.5); Monocytes Absolute Auto 0.4 10^3/uL (0.3-0.8); Monocytes Percent Auto 4.6 % (1.7-12.0); Neutrophils Absolute Auto 7.2 10^3/uL (1.4-6.5); Neutrophils Percent Auto 74.7 % (43.0-75.0); Platelet Count 351 10^3/uL (150-450); Red Cell Distribution Width 13.7 % (11.0-15.0); White Blood Count 9.6 10^3/uL (4.0-11.0)
[2024-11-20 13:55] LABS: BOX Test Reference Lab UNITY; BOX Test Sent Out UNITY
[2024-11-20 14:43] LABS: Amphetamine Screen Urine NEGATIVE (NEGATIVE); Barbiturates Screen Urine NEGATIVE (NEGATIVE); Benzodiazepines Screen Urine NEGATIVE (NEGATIVE); Buprenorphine Screen Urine NEGATIVE (NEGATIVE); Cannabinoid Screen Urine NEGATIVE (NEGATIVE); Cocaine Screen Urine NEGATIVE (NEGATIVE); Methadone Screen Urine NEGATIVE (NEGATIVE); Methamphetamines Screen Urine NEGATIVE (NEGATIVE); Opiate Screen Urine NEGATIVE (NEGATIVE); Oxycodone Screen Urine NEGATIVE (NEGATIVE); Phencyclidine Screen Urine NEGATIVE (NEGATIVE); Tricyclic Antidepressant Urine NEGATIVE (NEGATIVE)
[2024-11-20 17:35] LABS: Estimated Average Glucose 100 mg/dL; Glycohemoglobin A1C 5.1 % (4.5-6.2)
[2024-11-22 08:07] LABS: Rubella Antibodies, IgG 5.76 index (Immune >0.99)
[2024-11-22 11:08] LABS: HBsAg Screen Negative (Negative); HCV Ab Non Reactive (Non Reactive); HIV Ab/p24 Ag Screen Non Reactive (Non Reactive)
[2024-11-23 12:08] LABS: Rapid Plasma Reagin, Quant Non Reactive titer (NonRea<1:1)
== END 2024-11-20 11:50 | disposition home or self-care (01) ==
LOC: LAB 11:49
PROVIDERS: Visit Provider Obstetrics & Gynecology
DX: Z34.01 Encounter for supervision of normal first pregnancy, first trimester (principal); Z36.0 Encounter for antenatal screening for chromosomal anomalies; N92.6 Irregular menstruation, unspecified
CPT/HCPCS: 36415; 80307; 83036; 85025; 86592; 86762; 86803; 86850; 86900; 86901; 87086; 87150; 87186; 87340; 87389

== ENCOUNTER 2024-12-04 10:44 | Outpatient (OUT) | payer BC, SELFPAY ==
--- OUTSIDE RECORDS SUMMARY | 2024-12-04 10:47 | XMS_ITS | CCD ---
Author Organization [facility] CliniSyct Care Team Providers Care Strategy Analyst Name Role Phone ANDREW BADILLO Admitting Unavailable [...] KARASIK, DR GORDON Attending Unavailable KARASIK, DR GODRON Admitting Unavailable JULIANNSHAWN Consulting Unavailable KARASIK, DR [...] Admitting Unavailable FAWAD, DAYSI Consulting Unavailable REQUEST, NONE LISTED Primary Care Unavaila ble FAWAD, [...] GORDON Admitting Unavailable Unavailable Primary Care Provider UnavailTYLER Hearn Attending Unavailable NINOCRISTINA Attending Unavailable Medications Current Medications Medication Drug Class(es) Dates Sig (Normalized) Sig (Original) nitrofurantoin, macrocrystals 25 mg / nitrofurantoin, monohydrate 75 mg oral capsule (2 sources) Nitrofuran Antibacterial Start: 11-25-2024 End: 12-02-2024 take 1 capsule by mouth in the morning nitrofurantoin, macrocrystal-mono hydrate, (Macrobid) 100 MG capsule Indications: Urinary tract infection without hematuria, site unspecified Take 1 capsule (100 mg) by mouth in the morning and 1 capsule (100 mg) before bedtime. Do all this for 7 days. 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, unspecified [...] 09-16-2022 Chronic Other and delivery including normal (20 sources) Encounter for routine follow-up; Translations: [Single [...] [11 weeks gestation of ] 10-26-2024 Episodic Residual codes; unclassified (2 sources) Gestation period, 15 weeks; Translations: [15 weeks gestation of ] 11-25-2024 Episodic Unclassified (3 sources) CONTACT W/AND (SUSP) EXPOS COVID-19; Translations: [CONTACT W/AND (SUSP) EXPOS COVID-19] Onset: 09-02-2022 Urinary tract infections (2 sources) Urinary tract infectious disease; Translations: [Urinary tract infection, site not specified] 11-25-2024 Episodic Past or Other Problems Problem Classification Problem [...] Test Name Value Interpretation Reference Range Facility Urinalysis macro (dipstick) panel (U)on 11-25-2024 Bilirubin, UA Negative Negative - 4(70) +++ mg/dL [facility] Blood, UA Positive Negative - 50 Carlos/mcL [facility] Comment on above: trace-intact Clarity, UA Clear [facility] Color, UA Yellow [facility] Glucose, UA Negative Negative - 1999(110) ++++ mg/dL [facility] Interpretation and review of laboratory results Abnormal [facility] Ketones, UA Negative Negative - 160(16) ++++ mg/dL [facility] Leukocytes, UA Positive Negative - 500+++ Katie/mcL [facility] Comment on above: small Nitrite, UA Negative Negative - Positive [facility] pH, UA 5.5 5 - 9 [facility] Protein, UA Negative Negative - 2000(20) ++++ mg/dL [facility] Spec Grav, UA 1.03 1 - 1.03 [facility] Urobilinogen, UA 0.2 0.2 - 12 mg/dL [facility] HCG ( test) Ql (U)o n 10-26-2024 Interpretation and review of laboratory results Abnormal [facility] Preg Test, Ur Positive Negative [facility] US OB TRANSVAGINALon 024 US OB TRANSVAGINAL TITLE [...] x 6.4 cm (10 weeks, 1 day). Camanche rump length is 3.9 to 4.0 cm [...] UA Negative Negative - 4(70) +++ mg/dL [facility] Blood, UA Negative Negative - 50 Carlos/mcL [facility] Clarity, UA Clear [facility] Color, UA Yellow [facility] Glucose, UA Negative Negative - 1999(110) ++++ mg/dL [facility] Interpretation and review of laboratory results Normal [facility] Ketones, UA Negative Negative - 160(16) ++++ mg/dL [facility] Leukocytes, UA Negative Negative - 500+++ Katie/mcL [facility] Nitrite, UA Negative Negative - Positive [facility] pH, UA 6 5 - 9 [facility] Protein, UA Negative Negative - 1999(20) ++++ mg/dL [facility] Spec Grav, UA 1.025 1 - 1.03 [facility] Urobilinogen, UA 0.2 0.2 - 12 mg/dL [facility] IGP,APTIMA HPV,AGE GDLNon AGE GDLN ACOG TESTING Note . [facility] Comment on above: TESTS RESULT FLAG UN ITS REF RANGE LAB Clinician Provided Cytology Information Source.............Cervix;Endocervix No. of containers..01 ThinPrep Vial Age Algo ACOG Zita... FLAG LEGEND: L-Low Normal,H-High Normal,LL-Alert Low,HH-Alert High <-Panic Low,>-Panic High,A-Abnormal,AA-Critical Abnormal Performed at: 01 =[address] [id number] Cheri Randhawa MD, HPV APTIMA Negative Negative [facility] Comment on above: This nucleic acid am plification test detects fourteen high- risk HPV types (16,18,31,33,35,39,45,51,52,56,58,59,66,68) without differentiation. Performed at: =[address] [id number] Roof Bolter: Cheri Randhawa MD, Phone: [phone] Performed at: [address] [id number] Roof Bolter: Cheri Randhawa MD, Phone: [phone] IGP, APTIMA HPV, RFX 16/18,45 Note . [facility] Comment on above: TESTS RESULT FLAG UN ITS REF RANGE LAB DIAGNOSIS: 02 NEGATIVE FOR INTRAEPITHELIAL LESION OR MALIGNANCY. THIS SPECIMEN WAS RESCREENED PART OF OUR IMMIGRATION CONSULTANT PROGRAM. Specimen adequacy: 02 Satisfactory for evaluation. No endocervical component is identified. Performed by: 02 Clay Humphrey, Health Coordinator ([facility]) QC reviewed by: 02 Delmy Wheat, Health Coordinator ([facility]) . 02 Note: Note 02 The Pap [...] Low,>-Panic High,A-Abnormal,AA-Critical Abnormal Performed at: 02 [address] [facility] [address] [id number] Cheri Randhawa MD, BRUSH-SPATULA [facility] AUTO DIFFon 08-28-2022 BASO # 0.0 103/ul Normal 0.0-0.1 [facility] Comment on above: Performed By: #### G LU1HR #### [facility] [address] [place] [address] Dr. Isabel Cornelius Basophils/100 WBC (Bld) 0.3 % Normal 0.2-2.0 [facility] Comment on above: Performed By: #### G LU1HR #### [facility] [address] [address] [address] Isabel Cornelius EO # 0.0 103/ul Normal 0.0-0.7 [facility] Comment on above: Performed By: #### G LU1HR #### [facility] [address] [address] [address] Isabel Cornelius Eosinophils/100 WBC (Bld) 0.2 % Critically low 0.9-7.0 [facility] Comment on above: Performed By: #### G LU1HR #### [facility] [address] [address] [address] Isabel Cornelius Erythrocyte distribution width (RBC) [Ratio] 14.6 % Normal 11.0-15.0 [facility] Comment on above: Performed By: #### G LU1HR #### [facility] [address] [place] [address] Dr. Isabel Cornelius Hematocrit (Bld) [Volume fraction] 25.3 % Critically low 36.0-48.0 [facility] Comment on above: Performed By: #### G LU1HR #### [facility] [address] [place] [address] Dr. Isabel Cornelius Hemoglobin (Bld) [Mass/Vol] 8.1 g/dL Critically low 12.0-16.0 [facility] Comment on above: Performed By: #### G LU1HR #### [facility] [address] [place] [address] Dr. Isabel Cornelius IG # 0.06 10e3/ul Critically high 0.00-0.03 [facility] Comment on above: Performed By: #### G LU1HR #### [facility] [address] [place] [address] Dr. Isabel Cornelius IG % 0.6 % Critically high 0.0-0.5 [facility] Comment on above: Performed By: #### G LU1HR #### [facility] [address] [place] [address] Dr. Isabel Cornelius LYMPH # 1.6 103/ul Normal 1.2-3.8 [facility] Comment on above: Performed By: #### G LU1HR #### [facility] [address] [place] [address] Dr. Isabel Cornelius Lymphocytes/100 WBC (Bld) 16.5 % Critically low 20.5-60.0 [facility] Comment on above: Performed By: #### G LU1HR #### [facility] [address] [place] [address] Dr. Isabel Cornelius MANUAL DIFF REQ NO Normal [facility] Comment on above: Performed By: #### G LU1HR #### [facility] [address] [address] [address] Isabel Cornelius MCH (RBC) [Entitic mass] 26.3 pg Critically low 26.7-34.0 [facility] Comment on above: Performed By: #### G LU1HR #### [facility] [address] [place] [address] Dr. Isabel Cornelius MCHC (RBC) [Mass/Vol] 32.0 g/dL Normal 29.9-35.2 [facility] Comment on above: Performed By: #### G LU1HR #### [facility] [address] [place] [address] Dr. Isabel Cornelius MCV (RBC) [Entitic vol] 82.1 fL Normal 81.0-99.0 [facility] Comment on above: Performed By: #### G LU1HR #### [facility] [address] [place] [address] Dr. Isabel Cornelius MONO # 0.6 103/ul Normal 0.3-0.8 [facility] Comment on above: Performed By: #### G LU1HR #### [facility] [address] [place] [address] Dr. Isabel Cornelius Monocytes/100 WBC (Bld) 6.4 % Normal 1.7-12.0 [facility] Comment on above: Performed By: #### G LU1HR #### [facility] [address] [place] [address] Dr. Isabel Cornelius NEUT # 7.3 103/ul Critically high 1.4-6.5 [facility] Comment on above: Performed By: #### G LU1HR #### [facility] [address] [place] [address] Dr. Isabel Cornelius Neutrophils/100 WBC (Bld) 76.0 % Critically high 43.0-75.0 [facility] Comment on above: Performed By: #### G LU1HR #### [facility] [address] [place] [address] Dr. Isabel Cornelius Platelet mean volume (Bld) [Entitic vol] 9.8 fL Normal 9.5-13.5 [facility] Comment on above: Performed By: #### G LU1HR #### [facility] [address] [place] [address] Dr. Isabel Cornelius PLT 253 103/ul Normal 150-450 [facility] Comment on above: Performed By: #### G LU1HR #### [facility] [address] [place] [address] Dr. Isabel Cornelius RBC 3.08 106/ul Critically low 4.20-5.40 [facility] Comment on above: Performed By: #### G LU1HR #### [facility] [address] [place] [address] Dr. Isabel Cornelius WBC 9.6 103/ul Normal 4.0-11.0 [facility] Comment on above: Performed By: #### G LU1HR #### [facility] [address] [place] [address] Dr. Isabel Cornelius CBC AUTO DIFFon 08-27-2022 BASO # 0.0 103/ul Normal 0.0-0.1 [facility] Comment on above: Performed By: #### C BC #### [facility] [address] [place] [address] Dr. Isabel Cornelius Basophils/100 WBC (Bld) 0.4 % Normal 0.2-2.0 [facility] Comment on above: Performed By: #### C BC #### [facility] [address] [place] [address] Dr. Isabel Cornelius EO # 0.1 103/ul Normal 0.0-0.7 [facility] Comment on above: Performed By: #### C BC #### [facility] [address] [place] [address] Dr. Isabel Cornelius Eosinophils/100 WBC (Bld) 0.8 % Critically low 0.9-7.0 [facility] Comment on above: Performed By: #### C BC #### [facility] [address] [place] [address] Dr. Isabel Cornelius Erythrocyte distribution width (RBC) [Ratio] 14.3 % Normal 11.0-15.0 [facility] Comment on above: Performed By: #### C BC #### [facility] [address] [place] [address] Dr. Isabel Cornelius Hematocrit (Bld) [Volume fraction] 32.6 % Critically low 36.0-48.0 [facility] Comment on above: Performed By: #### C BC #### [facility] [address] [place] [address] Dr. Isabel Cornelius Hemoglobin (Bld) [Mass/Vol] 10.5 g/dL Critically low 12.0-16.0 [facility] Comment on above: Performed By: #### C BC #### [facility] [address] [place] [address] Dr. Isabel Conrelius IG # 0.07 10e3/ul Critically high 0.00-0.03 [facility] Comment on above: Performed By: #### C BC #### [facility] [address] [place] [address] Dr. Isabel Cornelius IG % 0.7 % Critically high 0.0-0.5 [facility] Comment on above: Performed By: #### C BC #### [facility] [address] [place] [address] Dr. Isabel Cornelius LYMPH # 1.6 103/ul Normal 1.2-3.8 [facility] Comment on above: Performed By: #### C BC #### [facility] [address] [place] [address] Dr. Isabel Cornelius Lymphocytes/100 WBC (Bld) 15.7 % Critically low 20.5-60.0 [facility] Comment on above: Performed By: #### C BC #### [facility] [address] [place] [address] Dr. Isabel Cornelius MANUAL DIFF REQ NO Normal [facility] Comment on above: Performed By: #### C BC #### [facility] [address] [place] [address] Dr. Isabel Cornelius MCH (RBC) [Entitic mass] 26.0 pg Critically low 26.7-34.0 [facility] Comment on above: Performed By: #### C BC #### [facility] [address] [address] [address] Isabel Cornelius MCHC (RBC) [Mass/Vol] 32.2 g/dL Normal 29.9-35.2 [facility] Comment on above: Performed By: #### C BC #### [facility] [address] [address] [address] Isabel Cornelius MCV (RBC) [Entitic vol] 80.7 fL Critically low 81.0-99.0 [facility] Comment on above: Performed By: #### C BC #### [facility] [address] [address] [address] Isabel Cornelius MONO # 0.7 103/ul Normal 0.3-0.8 [facility] Comment on above: Performed By: #### C BC #### [facility] [address] [address] [address] Isabel Cornelius Monocytes/100 WBC (Bld) 6.6 % Normal 1.7-12.0 [facility] Comment on above: Performed By: #### C BC #### [facility] [address] [address] [address] Isabel Cornelius NEUT # 7.5 103/ul Critically high 1.4-6.5 [facility] Comment on above: Performed By: #### C BC #### [facility] [address] [address] [address] Isabel Cornelius Neutrophils/100 WBC (Bld) 75.8 % Critically high 43.0-75.0 [facility] Comment on above: Performed By: #### C BC #### [facility] [address] [address] [address] Isabel Cornelius Platelet mean volume (Bld) [Entitic vol] 10.3 fL Normal 9.5-13.5 [facility] Comment on above: Performed By: #### C BC #### [facility] [address] [address] [address] Isabel Cornelius PLT 327 103/ul Normal 150-450 [facility] Comment on above: Performed By: #### C BC #### [facility] [address] [place] [address] Dr. Isabel Cornelius RBC 4.04 106/ul Critically low 4.20-5.40 [facility] Comment on above: Performed By: #### C BC #### [facility] [address] [place] [address] Dr. Isabel Cornelius WBC 9.9 103/ul Normal 4.0-11.0 [facility] Comment on above: Performed By: #### C BC #### [facility] [address] [place] [address] Dr. Isabel Cornelius DRUG SCREEN RAPID (URINE)on 08-27-2022 AMP Negative Normal NEGATIVE [facility] Comment on above: Performed By: #### A 1C #### [facility] [address] [place] [address] Dr. Isabel Cornelius BAR Negative Normal NEGATIVE [facility] Comment on above: Performed By: #### A 1C #### [facility] [address] [place] [address] Dr. Isabel Cornelius BUP Negative Normal NEGATIVE [facility] Comment on above: Performed By: #### A 1C #### [facility] [address] [place] [address] Dr. Isabel Cornelius BZO Negative Normal NEGATIVE [facility] Comment on above: Performed By: #### A 1C #### [facility] [address] [place] [address] Dr. Isabel Cornelius DORENE Negative Normal NEGATIVE [facility] Comment on above: Performed By: #### A 1C #### [facility] [address] [place] [address] Dr. Isabel Cornelius CUT-OFFS SEE BELOW Normal [facility] Comment on above: Result Comment: AMP (Amphetamine): 500ng/mL, BAR (Barbituates): 200 ng/mL, BZO (Benzodiazepines): 150 ng/mL, BUP (Buprenorphine): 10 ng/mL, DORENE (Cocaine): 150 ng/mL, mAMP (Methamphetamine): 500 ng/mL, MTD (Methadone): 200 ng/mL, OPI (Opiates): 100 ng/mL, OXY (Oxycodone): 100 ng/mL, PCP (Phencyclidine): 25 ng/mL, PPX (Propoxyphene): 300 ng/mL, THC (Cannabinoids): 50 ng/mL, TCA (Trycyclic Antidepressants): 300 ng/mL Performed By: #### A 1C #### [facility] [address] [place] [address] Dr. Isabel Cornelius DRUG CUT HEADER DRUG CLASS TEST SYST EM CUT-OFF CONCENTRATIONS ARE FOLLOWS: Normal [facility] Comment on above: Performed By: #### A 1C #### [facility] [address] [place] [address] Dr. Isabel Cornelius mAMP Negative Normal NEGATIVE [facility] Comment on above: Performed By: #### A 1C #### [facility] [address] [place] [address] Dr. Isabel Cornelius MTD Negative Normal NEGATIVE [facility] Comment on above: Performed By: #### A 1C #### [facility] [address] [place] [address] Dr. Isabel Cornelius OPI Negative Normal NEGATIVE [facility] Comment on above: Performed By: #### A 1C #### [facility] [address] [place] [address] Dr. Isabel Cornelius OXY Negative Normal NEGATIVE [facility] Comment on above: Performed By: #### A 1C #### [facility] [address] [place] [address] Dr. Isabel Cornelius PCP Negative Normal NEGATIVE [facility] Comment on above: Performed By: #### A 1C #### [facility] [address] [place] [address] Dr. Isabel Cornelius PPX Negative Normal NEGATIVE [facility] Comment on above: Performed By: #### A 1C #### [facility] [address] [place] [address] Dr. Isabel Cornelius TCA Negative Normal NEGATIVE [facility] Comment on above: Performed By: #### A 1C #### [facility] [address] [place] [address] Dr. Isabel Cornelius THC Negative Normal NEGATIVE [facility] Comment on above: Performed By: #### A 1C #### [facility] [address] [address] [address] Isabel Cornelius TYPE AND SCREENon 08-27-2022 TYPE AND SCREEN Negative Normal [facility] Comment on above: Performed By: #### T NS #### [facility] [address] [place] [address] Dr. Isabel Cornelius UA (CLEAN/CATCH) GROUT MACHINE OPERATOR/MICRO I F IND.on 08-27-2022 Bilirubin Ql (U) Negative Normal NEGATIVE [facility] Comment on above: Performed By: #### U ACSIND #### [facility] [address] [address] [address] Isabel Cornelius Clarity (U) CLEAR Normal CLEAR [facility] Comment on above: Performed By: #### U ACSIND #### [facility] [address] [place] [address] Dr. Isabel Cornelius Color (U) YELLOW Normal YELLOW [facility] Comment on above: Performed By: #### U ACSIND #### [facility] [address] [address] [address] Isabel Cornelius Glucose Ql (U) Negative Normal NEGATIVE [facility] Comment on above: Performed By: #### U ACSIND #### [facility] [address] [address] [address] Isabel Cornelius Hemoglobin Ql (U) Negative Normal NEGATIVE [facility] Comment on above: Performed By: #### U ACSIND #### [facility] [address] [address] [address] Isabel Cornelius Ketones Ql (U) Negative Normal NEGATIVE [facility] Comment on above: Performed By: #### U ACSIND #### [facility] [address] [address] [address] Isabel Cornelius LEUKOCYTES Negative Normal NEGATIVE [facility] Comment on above: Performed By: #### U ACSIND #### [facility] [address] [place] [address] Dr. Isabel Cornelius Nitrite Ql (U) Negative Normal NEGATIVE [facility] Comment on above: Performed By: #### U ACSIND #### [facility] [address] [address] [address] Isabel Cornelius pH (U) 6.0 [pH] Normal 5-9 [facility] Comment on above: Performed By: #### U ACSIND #### [facility] [address] [place] [address] Dr. Isabel Cornelius SPEC GRAVITY >=1.030 Abnormal 1.005-<=1.025 [facility] Comment on above: Performed By: #### U ACSIND #### [facility] [address] [place] [address] Dr. Isabel Cornelius UA PROTEIN TRACE Normal NEGATIVE/ TRACE [facility] Comment on above: Performed By: #### U ACSIND #### [facility] [address] [place] [address] Dr. Isabel Cornelius UR MICRO IND NOT INDICATED Normal [facility] Comment on above: Performed By: #### U ACSIND #### [facility] [address] [place] [address] Dr. Isabel Cornelius Urobilinogen Qn (U) 0.2 {Radha'U}/dL Normal 0.2 - 1. 0 [facility] Comment on above: Performed By: #### U ACSIND #### [facility] [address] [place] [address] Dr. Isabel Cornelius [facility]on 07-28 SARS-CoV-2 (COVID-19) RNA KINSEY+probe Ql (Unsp spec) Not detected Normal NOT DETECTED [facility] Comment on above: Result Comment: This test is not yet approved or cleared by the [place] FDA. When there are no FDA-approved or cleared tests available, and other criteria are met, FDA can make tests available under an emergency access mechanism called an Emergency Use Authorization (EUA). The EUA for this test is supported by the [place] of Health and Human Service's (HHS's) declaration [...] SARS-CoV-2. Performed By: #### C VDTBH #### [facility] [address] [place] [address] Dr. Isabel Cornelius PREG GROWTHon 08-14-2022 [place] [...] ERMA GARCIA Date: 2022-08-14 19:49 Normal [facility] GROUP B STREP CULTUREon 07-27 S. agalactiae Ag Ql (Unsp spec) Culture Observations: NEGATIVE FOR GROUP B STREPTOCOCCUS. Normal [facility] Comment on above: Performed By: #### G BSCX #### [facility] [address] [place] [address] [id number] [address] Isabel Cornelius GTT 3 HR PREGon 06-22-2022 Glucose [Mass/Vol] 95 mg/dL Normal 74-106 [facility] Comment on above: Performed By: #### G LU1HR #### [facility] [address] [address] [address] Isabel Cornelius Glucose [Mass/Vol] 183 mg/dL Normal [facility] Comment on above: Performed By: #### G LU1HR #### [facility] [address] [address] [address] Isbael Cornelius Glucose [Mass/Vol] 124 mg/dL Normal [facility] Comment on above: Performed By: #### G LU1HR #### [facility] [address] [place] [address] Dr. Isabel Cornelius Glucose [Mass/Vol] 141 mg/dL Normal [facility] Comment on above: Performed By: #### G LU1HR #### [facility] [address] [place] [address] Dr. Isabel Cornelius GLUCOSE - 1HRon 06-08-2022 Glucose [Mass/Vol] 144 mg/dL Critically high 74-106 [facility] Comment on above: Performed By: #### G LU1HR #### [facility] [address] [place] [address] Dr. Isabel Cornelius HEMOGRAM AND PLATELon 2021 Hematocrit (Bld) [Volume fraction] 35.3 % Critically low 36.0-48.0 [facility] Comment on above: Performed By: #### G LU1HR #### [facility] [address] [place] [address] Dr. Isabel Cornelius Hemoglobin (Bld) [Mass/Vol] 11.0 g/dL Critically low 12.0-16.0 [facility] Comment on above: Performed By: #### G LU1HR #### [facility] [address] [place] [address] Dr. Isabel Cornelius MCH (RBC) [Entitic mass] 27.0 pg Normal 26.7-34.0 [facility] Comment on above: Performed By: #### G LU1HR #### [facility] [address] [place] [address] Dr. Isabel Cornelius MCHC (RBC) [Mass/Vol] 31.2 g/dL Normal 29.9-35.2 [facility] Comment on above: Performed By: #### G LU1HR #### [facility] [address] [place] [address] Dr. Isabel Cornelius MCV (RBC) [Entitic vol] 86.7 fL Normal 81.0-99.0 [facility] Comment on above: Performed By: #### G LU1HR #### [facility] [address] [place] [address] Dr. Isabel Cornelius PLT 297 103/ul Normal 150-450 [facility] Comment on above: Performed By: #### G LU1HR #### [facility] [address] [place] [address] Dr. Isabel Cornelius RBC 4.07 106/ul Critically low 4.20-5.40 [facility] Comment on above: Performed By: #### G LU1HR #### [facility] [address] [place] [address] Dr. Isabel Cornelius WBC 10.2 103/ul Normal 4.0-11.0 [facility] Comment on above: Performed By: #### G LU1HR #### [facility] [address] [place] [address] Dr. Isabel Cornelius CULTURE URINEon 05-24-2022 CULTURE [...] Trimethoprim/Sulfametho xazole <=20 S F Normal [facility] Comment on above: Performed By: #### U RCX #### [facility] [address] [place] [address] Dr. Isabel Cornelius UA RANDOM W/MICROSCOPICon BACTERIA LARGE Abnormal NONE SEEN [facility] Comment on above: Performed By: #### A 1C #### [facility] [address] [place] [address] Dr. Isabel Cornelius Bilirubin Ql (U) Negative Normal NEGATIVE [facility] Comment on above: Performed By: #### A 1C #### [facility] [address] [place] [address] Dr. Isabel Cornelius CAST NONE SEEN Normal NONE SEEN [facility] Comment on above: Performed By: #### A 1C #### [facility] [address] [place] [address] Dr. Isabel Cornelius Clarity (U) CLEAR Normal CLEAR [facility] Comment on above: Performed By: #### A 1C #### [facility] [address] [place] [address] Dr. Isabel Cornelius Color (U) LT. YELLOW Normal YELLOW [facility] Comment on above: Performed By: #### A 1C #### [facility] [address] [place] [address] Dr. Isabel Cornelius Crystals LM Nom (Urine sed) NONE SEEN Normal NONE SEEN [facility] Comment on above: Performed By: #### A 1C #### [facility] [address] [place] [address] Dr. Isabel Cornelius Epithelial cells LM Ql (Urine sed) FEW Abnormal NONE SEEN /RARE [facility] Comment on above: Performed By: #### A 1C #### [facility] [address] [place] [address] Dr. Isabel Cornelius Glucose Ql (U) Negative Normal NEGATIVE [facility] Comment on above: Performed By: #### A 1C #### [facility] [address] [place] [address] Dr. Isabel Cornelius Hemoglobin Ql (U) TRACE-INTACT Abnormal NEGATIVE [facility] Comment on above: Performed By: #### A 1C #### [facility] [address] [place] [address] Dr. Isabel Cornelius Ketones Ql (U) Negative Normal NEGATIVE [facility] Comment on above: Performed By: #### A 1C #### [facility] [address] [place] [address] Dr. Isabel Cornelius LEUKOCYTES SMALL Abnormal NEGATIVE [facility] Comment on above: Performed By: #### A 1C #### [facility] [address] [place] [address] Dr. Isabel Cornelius MUCOUS TRACE Abnormal NONE SEEN [facility] Comment on above: Performed By: #### A 1C #### [facility] [address] [place] [address] Dr. Isabel Cornelius Nitrite Ql (U) Positive Abnormal NEGATIVE [facility] Comment on above: Performed By: #### A 1C #### [facility] [address] [place] [address] Dr. Isabel Cornelius pH (U) 6.5 [pH] Normal 5-9 [facility] Comment on above: Performed By: #### A 1C #### [facility] [address] [place] [address] Dr. Isabel Cornelius RBC 2-5 Abnormal 0-2 [facility] Comment on above: Performed By: #### A 1C #### [facility] [address] [place] [address] Dr. Isabel Cornelius SPEC GRAVITY 1.015 Normal 1.005-<=1.025 [facility] Comment on above: Performed By: #### A 1C #### [facility] [address] [place] [address] Dr. Isabel Cornelius UA PROTEIN Negative Normal NEGATIVE/ TRACE [facility] Comment on above: Performed By: #### A 1C #### [facility] [address] [place] [address] Dr. Isabel Cornelius Urobilinogen Qn (U) 0.2 {Radha'U}/dL Normal 0.2 - 1. 0 [facility] Comment on above: Performed By: #### A 1C #### [facility] [address] [place] [address] Dr. Isabel Cornelius WBC 10-20 Abnormal NONE SEEN [facility] Comment on above: Performed By: #### A 1C #### [facility] [address] [address] [address] Isabel Cornelius US PREG INCOMPLETE ANATOMYon 05-15-2022 US PREG INCOMPLETE [...] ERMA GARCIA Date: 2022-05-14 22:11 Normal [facility] AFP MATERNAL FOR SPINA BIFID Aon 04-25-2022 AFP MoM 1.28 Normal [facility] Comment on above: Performed By: #### G LU1HR #### [facility] [address] [address] [address] Isabel Cornelius AFP Value 43.3 ng/mL Normal [facility] Comment on above: Performed By: #### G LU1HR #### [facility] [address] [address] [address] Isabel Cornelius AFP, Serum for Spina Bifida Report Normal [facility] Comment on above: Performed By: #### G LU1HR #### [facility] [address] [address] [address] Isabel Cornelius Comment Comment Normal [facility] Comment on above: Result Comment: Ela Deras, Ph.D., [facility] Director . References: Available Upon Request. . Multiples Of Median Cutoffs For AFP Elevations Reyes 2.5 Black 2.8 IDD 2.0 Twins 4.5 Abbreviation Definitions IDD - Insulin Dep Diabetes OSBR - Open Spina Bifida Risk . For further inquiries contact [facility] at [phone]. Performed By: #### G LU1HR #### [facility] [address] [address] [address] Isabel Cornelius Gest Age Collection Date 18.4 weeks Normal [facility] Comment on above: Performed By: #### G LU1HR #### [facility] [address] [address] [address] Isabel Cornelius Gestat, Age Based on DREW Normal [facility] Comment on above: Result Comment: 05/2022 Recalculations are not recommended when gestational dating by LMP and ultrasound are within 10 days. Performed By: #### G LU1HR #### [facility] [address] [address] [address] Isabel Cornelius Insulin Dep Diabetes No Normal [facility] Comment on above: Performed By: #### G LU1HR #### [facility] [address] [address] [address] Isabel Cornelius Interpretation Comment Normal [facility] Comment on above: Result Comment: Inte rpretation: [...] Customer Services to discuss available options. The [employer] recommends amniocentesis be offered to women age 35 and older. Performed By: #### G LU1HR #### [facility] [address] [place] [address] Dr. Isabel Cornelius [age] Normal [facility] Comment on above: Performed By: #### G LU1HR #### [facility] [address] [place] [address] Dr. Isabel Cornelius Multiple Gestation No Normal [facility] Comment on above: Performed By: #### G LU1HR #### [facility] [address] [place] [address] Dr. Isabel Cornelius OSBR Risk 1 [place] 5096 Normal [facility] Comment on above: Performed By: #### G LU1HR #### [facility] [address] [place] [address] Dr. Isabel Cornelius PDF . Normal [facility] Comment on above: Performed By: #### G LU1HR #### [facility] [address] [place], [place] [address] Dr. Isabel Cornelius Race Normal [facility] Comment on above: Performed By: #### G LU1HR #### [facility] [address] [place], [place] [address] Dr. Isabel Cornelius Test Results: Negative Normal [facility] Comment on above: Performed By: #### G LU1HR #### [facility] [address] [address] [address] Isabel Cornelius US PREG ANATOMY SINGLEon [...] by: HELEN VERA Date: 2022-04-16 16:21 Normal [facility] PAP ACOG PANEL 2: 21 to 29on 04-03-2022 . . Normal [facility] Comment on above: Performed By: #### G LU1HR #### [facility] [address] [place] [address] Dr. Isabel Cornelius Age Gdln ACOG Testing 23- [facility] Comment on above: Performed By: #### G LU1HR #### [facility] [address] [address] [address] Isabel Cornelius DIAGNOSIS: Comment [facility] Comment on above: Result Comment: NEGA TIVE FOR INTRAEPITHELIAL LESION OR MALIGNANCY. THIS SPECIMEN WAS RESCREENED PART OF OUR IMMIGRATION CONSULTANT PROGRAM. Performed By: #### G LU1HR #### [facility] [address] [place] [address] Dr. Isabel Cornelius Methodology: Comment [facility] Comment on above: Result Comment: This liquid based ThinPrep(R) pap test was screened with the use of an image guided system. Performed By: #### G LU1HR #### [facility] [address] [place] [address] Dr. Isabel Cornelius Note: Comment [facility] Comment on above: Result Comment: The Pap smear is a screening test designed to aid in the detection of premalignant and malignant conditions of the uterine cervix. It is not a diagnostic procedure and should not be used as the sole means of detecting cervical cancer. Both false-positive and false-negative reports do occur. . Performed By: #### G LU1HR #### [facility] [address] [place] [address] Dr. Isabel Cornelius Performed by: Comment Normal [facility] Comment on above: Result Comment: Zheng Lacey, Health Coordinator (ASCP) Performed By: #### G LU1HR #### [facility] [address] [place] [address] Dr. Isabel Cornelius QC reviewed by: Comment Normal [facility] Comment on above: Result Comment: Tamm y Sugar, Supervisory Health Coordinator (ASCP) Performed By: #### G LU1HR #### [facility] [address] [place] [address] Dr. Isabel Cornelius Reflex Criteria: Comment Normal [facility] Comment on above: Result Comment: The HPV DNA reflex criteria were not met with this specimen result therefore, no HPV testing was performed. . Performed By: #### G LU1HR #### [facility] [address] [place] [address] Dr. Isabel Cornelius Specimen adequacy: Comment Normal [facility] Comment on above: Result Comment: Sati sfactory for evaluation. Endocervical and/or squamous metaplastic cells (endocervical component) are present. Performed By: #### G LU1HR #### [facility] [address] [place] [address] Dr. Isabel Cornelius CHLAMYDIA/GONOCOCCUS KINSEY (SW AB/URINE/PAPon 03-31-2022 Chlamydia trachomatis, KINSEY Negative Normal Negative [facility] Comment on above: Performed By: #### A 1C #### [facility] [address] [place] [address] Dr. Isabel Cornelius Neisseria gonorrhoeae, KINSEY Negative Normal Negative [facility] Comment on above: Performed By: #### A 1C #### [facility] [address] [place] [address] Dr. Isabel Cornelius CULTURE URINEon 03-15-2022 CULTURE [...] F Trimethoprim/Sulfametho xazole <=20 S F Normal [facility] Comment on above: Performed By: #### U RCX #### [facility] [address] [address] [address] Isabel Cornelius CULTURE URINEon 02-28-2022 CULTURE [...] F Trimethoprim/Sulfametho xazole <=20 S F Normal [facility] Comment on above: Performed By: #### A 1C #### [facility] [address] [place] [address] Dr. Isabel Cornelius HEP B SURFACE ANTIGEN SCREEN on 02-27-2022 HBsAg Screen Negative Normal Negative [facility] Comment on above: Performed By: #### G LU1HR #### [facility] [address] [place] [address] Dr. Isabel Cornelius HEPATITIS C VIRUS AB W/ REFL EX QUANTon 02-27-2022 HCV AB 0.1 s/co ratio Normal 0.0-0.9 [facility] Comment on above: Performed By: #### G LU1HR #### [facility] [address] [place] [address] Dr. Isabel Cornelius Interpretation: Comment Normal [facility] Comment on above: Result Comment: Nega tive Not infected with HCV, unless recent infection is suspected or other evidence exists to indicate HCV infection. Performed By: #### G LU1HR #### [facility] [address] [place] [address] Dr. Isabel Cornelius HIV 1 AND 2 WITH REFLEXon HIV Screen 4th Generation wRfx Non-Reactive Normal Non Reactive [facility] Comment on above: Result Comment: HIV Negative HIV-1/HIV-2 antibodies and HIV-1 p24 antigen were NOT detected. There is no laboratory evidence of HIV infection. Performed By: #### G LU1HR #### [facility] [address] [place] [address] Dr. Isabel Cornelius RPR QUANTon 02-27-2022 Rapid Plasma Reagin, Quant Non-Reactive Normal NonRea<1:1 [facility] Comment on above: Result Comment: Plea se Note: This test does not meet current guidelines for screening and diagnosis of syphilis. This test is intended for following treatment response in patients being treated for syphilis infection. To screen for syphilis infection, a reflex cascade that includes both RPR and a treponema-specific assay should be utilized, such as Treponema pallidum (Syphilis) Screening Hardy (072109) or Rapid Plasma Reagin (RPR) Test With Reflex to Quantitative RPR and Confirmatory Treponema pallidum Antibodies (621879). Performed By: #### A 1C #### [facility] [address] [place] [address] Dr. Isabel Cornelius RUBELLA AB IGGon 02-27-2022 Rubella Antibodies, IgG 14.20 index Normal Immune >0.99 [facility] Comment on above: Result Comment: Non- immune <0.90 Equivocal 0.90 - 0.99 Immune >0.99 Performed By: #### G LU1HR #### [facility] [address] [place] [address] Dr. Iasbel Cornelius CBC AUTO DIFFon 02-26-2022 BASO # 0.1 103/ul Normal 0.0-0.1 [facility] Comment on above: Performed By: #### C BC #### [facility] [address] [place] [address] Dr. Isabel Cornelius Basophils/100 WBC (Bld) 0.5 % Normal 0.2-2.0 [facility] Comment on above: Performed By: #### C BC #### [facility] [address] [place] [address] Dr. Isabel Cornelius EO # 0.1 103/ul Normal 0.0-0.7 [facility] Comment on above: Performed By: #### C BC #### [facility] [address] [address] [address] Isabel Cornelius Eosinophils/100 WBC (Bld) 0.8 % Critically low 0.9-7.0 [facility] Comment on above: Performed By: #### C BC #### [facility] [address] [place] [address] Dr. Isabel Cornelius Erythrocyte distribution width (RBC) [Ratio] 14.2 % Normal 11.0-15.0 [facility] Comment on above: Performed By: #### C BC #### [facility] [address] [place] [address] Dr. Isabel Cornelius Hematocrit (Bld) [Volume fraction] 41.7 % Normal 36.0-48.0 [facility] Comment on above: Performed By: #### C BC #### [facility] [address] [place] [address] Dr. Isabel Cornelius Hemoglobin (Bld) [Mass/Vol] 13.5 g/dL Normal 12.0-16.0 [facility] Comment on above: Performed By: #### C BC #### [facility] [address] [place] [address] Dr. Isabel Cornelius IG # 0.09 10e3/ul Critically high 0.00-0.03 [facility] Comment on above: Performed By: #### C BC #### [facility] [address] [place] [address] Dr. Isabel Cornelius IG % 0.7 % Critically high 0.0-0.5 [facility] Comment on above: Performed By: #### C BC #### [facility] [address] [place] [address] Dr. Isabel Cornelius LYMPH # 2.0 103/ul Normal 1.2-3.8 [facility] Comment on above: Performed By: #### C BC #### [facility] [address] [place] [address] Dr. Isabel Cornelius Lymphocytes/100 WBC (Bld) 14.8 % Critically low 20.5-60.0 [facility] Comment on above: Performed By: #### C BC #### [facility] [address] [place] [address] Dr. Isabel Cornelius MANUAL DIFF REQ NO Normal [facility] Comment on above: Performed By: #### C BC #### [facility] [address] [place] [address] Dr. Isabel Cornelius MCH (RBC) [Entitic mass] 27.0 pg Normal 26.7-34.0 [facility] Comment on above: Performed By: #### C BC #### [facility] [address] [place] [address] Dr. Isabel Cornelius MCHC (RBC) [Mass/Vol] 32.4 g/dL Normal 29.9-35.2 [facility] Comment on above: Performed By: #### C BC #### [facility] [address] [place] [address] Dr. Isabel Cornelius MCV (RBC) [Entitic vol] 83.4 fL Normal 81.0-99.0 [facility] Comment on above: Performed By: #### C BC #### [facility] [address] [place] [address] Dr. Isabel Cornelius MONO # 0.6 103/ul Normal 0.3-0.8 [facility] Comment on above: Performed By: #### C BC #### [facility] [address] [place] [address] Dr. Isabel Cornelius Monocytes/100 WBC (Bld) 4.6 % Normal 1.7-12.0 [facility] Comment on above: Performed By: #### C BC #### [facility] [address] [place] [address] Dr. Isabel Cornelius NEUT # 10.4 103/ul Critically high 1.4-6.5 [facility] Comment on above: Performed By: #### C BC #### [facility] [address] [place] [address] Dr. Isabel Cornelius Neutrophils/100 WBC (Bld) 78.6 % Critically high 43.0-75.0 [facility] Comment on above: Performed By: #### C BC #### [facility] [address] [address] [address] Isabel Cornelius Platelet mean volume (Bld) [Entitic vol] 9.7 fL Normal 9.5-13.5 [facility] Comment on above: Performed By: #### C BC #### [facility] [address] [place] [address] Dr. Isabel Cornelius PLT 395 103/ul Normal 150-450 [facility] Comment on above: Performed By: #### C BC #### [facility] [address] [address] [address] Isabel Cornelius RBC 5.00 106/ul Normal 4.20-5.40 [facility] Comment on above: Performed By: #### C BC #### [facility] [address] [place] [address] Dr. Isabel Cornelius WBC 13.2 103/ul Critically high 4.0-11.0 [facility] Comment on above: Performed By: #### C BC #### [facility] [address] [place] [address] Dr. Isabel Cornelius GLYCOHEMOGLOBIN A1Con 2021 ADA RECOMMENDATION SEE BELOW Normal [facility] Comment on above: Result Comment: ADA RECOMMENDED LIMIT 4.0 - 6.0 ADA THERAPEUTIC TARGET < 7.0 ACTION SUGGESTED > 7.0 Performed By: #### A 1C #### [facility] [address] [place] [address] Dr. Isabel Cornelius Glucose [Mass/Vol] 105 mg/dL Normal [facility] Comment on above: Performed By: #### A 1C #### [facility] [address] [place] [address] Dr. Isabel Cornelius HbA1c (Bld) [Mass fraction] 5.3 % Normal 4.5-6.2 [facility] Comment on above: Performed By: #### A 1C #### [facility] [address] [place] [address] Dr. Isabel Cornelius DYAN BOX TEST PT SEND OUTo n 02-26-2022 SENT TO REF LAB 02/26/2022 Normal [facility] Comment on above: Performed By: #### G LU1HR #### [facility] [address] [place], [place] [address] Dr. Isabel Cornelius TYPE AND SCREENon 02-26-2022 TYPE AND SCREEN Negative Normal [facility] Comment on above: Performed By: #### A 1C #### [facility] [address] [place], [place] [address] Dr. Isabel Cornelius US PREG TVon 02-25-2022 [...] ERMA GARCIA Date: 2022-02-25 11:58 Normal [facility] CBC with Diffon 01-05-2019 Abs. Basophil 0.04 k/uL Normal 0.00-0.20 [facility] Comment on above: Performed By: #### C DP #### [facility] [employer] [address] [place] [id number] Roof Bolter: Og Rothman MD Abs.Imm.Granulocyte 0.07 k/uL Normal 0.00-0.30 [facility] Comment on above: Performed By: #### C DP #### [facility] [employer] [address] [place] [id number] Roof Bolter: Og Rothman MD Abs.Neutrophil (Seg) 7.45 k/uL Normal 1.50-8.10 [facility] Comment on above: Performed By: #### C DP #### [facility] [employer] [address] [place] [address] Roof Bolter: Og Rothman MD Basophils/100 WBC (Bld) 0 % Normal 0-2 [facility] Comment on above: Performed By: #### C DP #### [address] [address] Roof Bolter: Og Rothman MD Eosinophils #/vol (Bld) 0.14 10*3/uL Normal 0.00-0.44 [facility] Comment on above: Performed By: #### C DP #### [address] [address] Roof Bolter: Og Rothman MD Eosinophils/100 WBC (Bld) 1 % Normal 1-4 [facility] Comment on above: Performed By: #### C DP #### [address] [address] Roof Bolter: Og Rothman MD Erythrocyte distribution width Ratio (RBC) 15.1 % High 11.8-14.4 [facility] Comment on above: Performed By: #### C DP #### [address] [address] Roof Bolter: Og Rothman MD Hematocrit Volume Fraction (Bld) 29.9 % Low 36.3-47.1 [facility] Comment on above: Performed By: #### C DP #### [address] [address] Roof Bolter: Og Rothman MD Hemoglobin mass conc (Bld) 9.3 g/dL Low 11.9-15.1 [facility] Comment on above: Performed By: #### C DP #### [address] [address] Roof Bolter: Og Rothman MD Immature granulocytes #/vol (Bld) 1 % High 0 [facility] Comment on above: Performed By: #### C DP #### [address] [address] Roof Bolter: Og Rothman MD Lymphocytes #/vol (Bld) 1.37 10*3/uL Normal 1.10-3.70 [facility] Comment on above: Performed By: #### C DP #### [address] [address] Roof Bolter: Og Rothman MD Lymphocytes/100 WBC (Bld) 14 % Low 24-43 [facility] Comment on above: Performed By: #### C DP #### [address] [address] Roof Bolter: Og Rothman MD MCH Entitic mass (RBC) 27.8 pg Normal 25.2-33.5 [facility] Comment on above: Performed By: #### C DP #### [address] [address] Roof Bolter: Og Rothman MD MCHC mass conc (RBC) 31.1 g/dL Normal 28.4-34.8 [facility] Comment on above: Performed By: #### C DP #### [address] [address] Roof Bolter: Og Rothman MD MCV Entitic volume (RBC) 89.3 fL Normal 82.6-102.9 [facility] Comment on above: Performed By: #### C DP #### [address] [address] Roof Bolter: Og Rothman MD Monocytes #/vol (Bld) 0.91 10*3/uL Normal 0.10-1.20 [facility] Comment on above: Performed By: #### C DP #### [address] [address] Roof Bolter: Og Rothman MD Monocytes/100 WBC (Bld) 9 % Normal 3-12 [facility] Comment on above: Performed By: #### C DP #### [address] [address] Roof Bolter: Og Rothman MD Neutrophil (Seg) 75 % High 36-65 [facility] Comment on above: Performed By: #### C DP #### [address] [address] Roof Bolter: Og Rothman MD NRBC Automated 0.0 per 100 WBC Normal 0.0 [facility] Comment on above: Performed By: #### C DP #### [address] [address] Roof Bolter: Og Rothman MD Platelet mean volume Entitic volume (Bld) 11.0 fL Normal 8.1-13.5 [facility] Comment on above: Performed By: #### C DP #### [address] [address] Roof Bolter: Og Rothman MD Platelets #/vol (Bld) 218 10*3/uL Normal 138-453 [facility] Comment on above: Performed By: #### C DP #### [address] [address] Roof Bolter: Og Rothman MD RBC #/vol (Bld) 3.35 10*6/uL Low 3.95-5.11 [facility] Comment on above: Performed By: #### C DP #### [address] [address] Roof Bolter: Og Rothman MD RBC morphology finding Nom (Bld) ANISOCYTOSIS PRESENT Normal [facility] Comment on above: Performed By: #### C DP #### [address] [address] Roof Bolter: Og Rothman MD WBC #/vol (Bld) 10.0 10*3/uL Normal 3.5-11.3 [facility] Comment on above: Performed By: #### C DP #### [address] [address] Roof Bolter: Og Rothman MD Auto Diff Performed NOT REPORTED Normal [facility] Comment on above: Performed By: #### C DP #### [address] [id number] Roof Bolter: Og Rothman MD Platelets #/vol (Bld) NOT REPORTED Normal [facility] Comment on above: Performed By: #### C DP #### [address] [address] Roof Bolter: Og Rothman MD WBC Morphology NOT REPORTED Normal [facility] Comment on above: Performed By: #### C DP #### [address] [id number] Roof Bolter: Og Rothman MD Surgical Pathologyon 019 Surgical Pathology (NOTE) [id number] [facility] CONSULTING PATHOLOGISTS [facility] ANATOMIC PATHOLOGY [address] [place] [phone] SURGICAL PATHOLOGY CONSULTATION Patient Name: FLORA RICHARDSON [facility] Rec: [id number] Path Number: [id number] Collected: 01/04/2019 Received: 01/05/2019 Reported: 01/06/2019 17:00 -- Diagnosis -- PLACENTA, 39 1/7 WEEKS: TERM PLACENTA WITH UNREMARKABLE MEMBRANES AND THREE-VESSEL UMBILICAL CORD. Yonas Kaur Electronically Signed Out reji/01/06/2019 Clinical Information Pre-op Diagnosis: 28 Y/O, IUP @ 39 W, 1 D, NON-REASSURING FHT'S, PROTEINURIA, POLYHYDRAMNIOS, MARGINAL PLACENTA, FHX CONGENITAL HEART DEFECT, FHX T2DM, BMI 51.7 Operative Findings: Yonas GREENE, AP/9, WT: 6#, 7 OZ, PLACENTA, CORD [...] villous capillaries: Rare Other: Few microcalcifications Normal [facility] Comment on above: Performed By: #### P PPVS #### [place] [address] Roof Bolter: Og Rothman MD CBC with Diffon 01-03-2019 Abs. Basophil 0.04 k/uL Normal 0.00-0.20 [facility] Comment on above: Performed By: #### C DP TREP #### [facility] [address] [place] [address] Roof Bolter: Og Rothman MD Abs.Imm.Granulocyte 0.11 k/uL Normal 0.00-0.30 [facility] Comment on above: Performed By: #### C PRECIOUS TREP #### [facility] [address] [place] [address] Roof Bolter: Og Rothmna MD Abs.Neutrophil (Seg) 8.13 k/uL High 1.50-8.10 [facility] Comment on above: Performed By: #### C DP, TREP #### [address] [address] Roof Bolter: Og Rothman MD Basophils/100 WBC (Bld) 0 % Normal 0-2 [facility] Comment on above: Performed By: #### C DP, TREP #### [address] [address] Roof Bolter: Og Rothman MD Eosinophils #/vol (Bld) 0.13 10*3/uL Normal 0.00-0.44 [facility] Comment on above: Performed By: #### C DP, TREP #### [address] [address] Roof Bolter: Og Rothman MD Eosinophils/100 WBC (Bld) 1 % Normal 1-4 [facility] Comment on above: Performed By: #### C DP, TREP #### [place] [address] Roof Bolter: Og Rothman MD Erythrocyte distribution width Ratio (RBC) 15.0 % High 11.8-14.4 [facility] Comment on above: Performed By: #### C DP, TREP #### [address] [address] Roof Bolter: Og Rothman MD Hematocrit Volume Fraction (Bld) 36.5 % Normal 36.3-47.1 [facility] Comment on above: Performed By: #### C DP, TREP #### [place] [address] Roof Bolter: gO Rothman MD Hemoglobin mass conc (Bld) 11.6 g/dL Low 11.9-15.1 [facility] Comment on above: Performed By: #### C DP, TREP #### [address] [place] [address] Roof Bolter: Og Rothman MD Immature granulocytes #/vol (Bld) 1 % High 0 [facility] Comment on above: Performed By: #### C DP, TREP #### [address] [address] Roof Bolter: Og Rothman MD Lymphocytes #/vol (Bld) 1.40 10*3/uL Normal 1.10-3.70 [facility] Comment on above: Performed By: #### C DP, TREP #### [address] [address] Roof Bolter: Og Rothman MD Lymphocytes/100 WBC (Bld) 13 % Low 24-43 [facility] Comment on above: Performed By: #### C DP, TREP #### [address] [address] Roof Bolter: Og Rothman MD MCH Entitic mass (RBC) 27.5 pg Normal 25.2-33.5 [facility] Comment on above: Performed By: #### C DP, TREP #### [address] [address] Roof Bolter: Og Rothman MD MCHC mass conc (RBC) 31.8 g/dL Normal 28.4-34.8 [facility] Comment on above: Performed By: #### C DP, TREP #### [address] [address] Roof Bolter: Og Rothman MD MCV Entitic volume (RBC) 86.5 fL Normal 82.6-102.9 [facility] Comment on above: Performed By: #### C DP, TREP #### [address] [address] Roof Bolter: Og Rothman MD Monocytes #/vol (Bld) 0.80 10*3/uL Normal 0.10-1.20 [facility] Comment on above: Performed By: #### C DP, TREP #### [address] [address] Roof Bolter: Og Rothman MD Monocytes/100 WBC (Bld) 8 % Normal 3-12 [facility] Comment on above: Performed By: #### C DP, TREP #### [address] [address] Roof Bolter: Og Rothman MD Neutrophil (Seg) 77 % High 36-65 [facility] Comment on above: Performed By: #### C DP, TREP #### [address] [address] Roof Bolter: Og Rothman MD NRBC Automated 0.0 per 100 WBC Normal 0.0 [facility] Comment on above: Performed By: #### C DP, TREP #### [address] [address] Roof Bolter: Og Rothman MD Platelet mean volume Entitic volume (Bld) 10.5 fL Normal 8.1-13.5 [facility] Comment on above: Performed By: #### C DP, TREP #### [address] [address] Roof Bolter: Og Rtohman MD Platelets #/vol (Bld) 301 10*3/uL Normal 138-453 [facility] Comment on above: Performed By: #### C DP, TREP #### [address] [address] Roof Bolter: Og Rothman MD RBC #/vol (Bld) 4.22 10*6/uL Normal 3.95-5.11 [facility] Comment on above: Performed By: #### C DP, TREP #### [address] [address] Roof Bolter: Og Rothman MD RBC morphology finding Nom (Bld) ANISOCYTOSIS PRESENT Normal [facility] Comment on above: Performed By: #### C DP, TREP #### [address] [address] Roof Bolter: Og Rothman MD WBC #/vol (Bld) 10.6 10*3/uL Normal 3.5-11.3 [facility] Comment on above: Performed By: #### C DP, TREP #### [address] [address] Roof Bolter: Og Rothman MD Auto Diff Performed NOT REPORTED Normal [facility] Comment on above: Performed By: #### C DP, TREP #### [address] [address] Roof Bolter: Og Rothman MD Platelets #/vol (Bld) NOT REPORTED Normal [facility] Comment on above: Performed By: #### C DP, TREP #### [address] [address] Roof Bolter: Og Rothman MD WBC Morphology NOT REPORTED Normal [facility] Comment on above: Performed By: #### C DP, TREP #### [address] [address] Roof Bolter: Og Rothman MD Drug Scr, Abuse, Uron 2018 Amphetamine(s),Ur Negative Normal NEG [facility] Comment on above: Result Comment: (Positive cutoff 1000 ng/mL) Performed By: #### D AU #### [address] [address] Roof Bolter: Og Rothman MD Barbiturate(s),Ur Negative Normal NEG [facility] Comment on above: Result Comment: (Positive cutoff 200 ng/mL) Performed By: #### D AU #### [address] [address] Roof Bolter: Og Rothman MD Base excess Calculated molar conc (Bld) Negative Normal NEG [facility] Comment on above: Result Comment: (Positive cutoff 300 ng/mL) Performed By: #### D AU #### [facility] [address] [place] [address] Roof Bolter: Og Rothman MD Benzodiazepine(s) Negative Normal NEG [facility] Comment on above: Result Comment: (Positive cutoff 200 ng/mL) Performed By: #### D AU #### [address] [address] Roof Bolter: Og Rothman MD Cannabinoid(s),Ur Negative Normal NEG [facility] Comment on above: Result Comment: (Positive cutoff 50 ng/mL) Performed By: #### D AU #### [address] [address] Roof Bolter: Og Rothman MD Interpretive Info Assay provides medic al screening only. The absence of expected drug(s) and/or Normal [facility] Comment on above: Result Comment: meta bolite(s) may indicate diluted or adulterated urine, limitations of testing or timing of collection. Testing for legal purposes should be confirmed by another method. To request confirmation of test result, please call the lab within 7 days of sample submission. Performed By: #### D AU #### [facility] [address] [place] [address] Roof Bolter: Og Rothman MD Methadone Ql (U) Negative Normal NEG [facility] Comment on above: Result Comment: (Positive cutoff 300 ng/mL) Performed By: #### D AU #### [facility] [employer] [address] [address] Roof Bolter: Og Rothmna MD Opiate(s), Ur Negative Normal NEG [facility] Comment on above: Result Comment: (Positive cutoff 300 ng/mL) Performed By: #### D AU #### [address] [address] Roof Bolter: Og Rothman MD Oxycodone, Urine Negative Normal NEG [facility] Comment on above: Result Comment: (Positive cutoff 100 ng/mL) Performed By: #### D AU #### [address] [address] Roof Bolter: Og Rothman MD Phencyclidine, Ur Negative Normal NEG [facility] Comment on above: Result Comment: (Positive cutoff 25 ng/mL) Performed By: #### D AU #### [address] [address] Roof Bolter: Og Rothman MD Buprenorphrine, Ur NOT REPORTED Normal NEG [facility] Comment on above: Performed By: #### D AU #### [address] [address] Roof Bolter: Og Rothman MD MDMA, Urine NOT REPORTED Normal NEG [facility] Comment on above: Performed By: #### D AU #### [address] [address] Roof Bolter: Og Rothman MD Methamphetamine, Ur NOT REPORTED Normal NEG [facility] Comment on above: Performed By: #### D AU #### [address] [address] Roof Bolter: Og Rothman MD Protein mass conc (U) NOT REPORTED Normal NEG [facility] Comment on above: Performed By: #### D AU #### [address] [address] Roof Bolter: Og Rothman MD Tricyclic antidepressants Screen Ql (U) NOT REPORTED Normal NEG [facility] Comment on above: Performed By: #### D AU #### [facility] [address] [place] [phone] Roof Bolter: Og Rothman MD T.pallidum Ab Screenon 01-03 T.pallidum Ab Screen NONREACTIVE Normal NR [facility] Comment on above: Result Comment: T. pallidum antibodies are not detected. There is no serological evidence of infection with T. pallidum (early primary syphilis cannot be excluded). Retest in 2-4 weeks if syphilis is clinically suspect. Performed By: #### C DP, TREP #### [facility] [address] [place] [phone] Roof Bolter: Og Rothman MD Type + Screenon 01-03-2019 Type + Screen Sample Expiration 01/06/2019 Arm Band Number [id number] ABO/Rh(D) A POSITIVE Antibody Screen NEGATIVE Normal [facility] Comment on above: Performed By: #### T YS #### [facility] [address] [place] [id number] Roof Bolter: Og Rothman MD Vital Signs Date Time Vital Sign Value Performing Clinician Facility 11-25-2024 10:30-0500 Body mass index (BMI) [Ratio] 46.73 kg/m2 Tyler Viji DO Work Phone: [facility] 11-25-2024 10:30-0500 Body weight 119.66 kg Tyler Viji DO Work Phone: [facility] 11-25-2024 10:30-0500 Diastolic blood pressure 80 mm[Hg] Tyler Viji DO Work Phone: [facility] 11-25-2024 10:30-0500 Systolic blood pressure 120 mm[Hg] Tyler Viji DO Work Phone: [facility] 10-26-2024 09:37-0500 Body mass index (BMI) [Ratio] 46.41 kg/m2 [facility] Nurse [facility] 10-26-2024 09:37-0500 Body weight 118.84 kg [facility] Nurse [facility] 10-26-2024 09:37-0500 Diastolic blood pressure 74 mm[Hg] [facility] Nurse [facility] 10-26-2024 09:37-0500 Systolic blood pressure 122 mm[Hg] [facility] Nurse [facility] 09-01-2024 10:07-0500 Body height 160 cm Cristina Oneill PA Work Phone: [facility] 09-01-2024 10:07-0500 Body mass index (BMI) [Ratio] 46.08 kg/m2 Cristina Nino PA Work Phone: [facility] 09-01-2024 10:07-0500 Body weight 117.99 kg Cristina Oneill PA Work Phone: [facility] 09-01-2024 10:07-0500 Diastolic blood pressure 70 mm[Hg] Cristina Oneill PA Work Phone: [facility] 09-01-2024 10:07-0500 Systolic blood pressure 120 mm[Hg] Cristina Nino PA Work Phone: [facility] 04-25-2022 18:08-0400 Body weight 125.[address] EVAN CASTRO [facility] Comment on above: Performed By: #### GLU1HR #### [facility] [address] [place] [address] Dr. Isabel Cornelius Encounters Encounter Date Encounter Type Care Provider Facility Start: 11-25-2024 End: 11-25-2024 Bamboo flowsheet Tyler Viji DO Work Phone: [facility] Start: 11-25-2024 End: 11-25-2024 Bamboo flowsheet Tyler Viji DO Work Phone: [facility] Start: 11-25-2024 End: 11-25-2024 flow sheet Tyler Viji DO Work Phone: [facility] Comment on above: 15 weeks gestation o f ; Second trimester ; Urinary tract infection without hematuria, site unspecified; History of gestational diabetes Start: 11-25-2024 End: 11-25-2024 ambulatory TYLER HALLMAN Not Available Start: 10-26-2024 End: 10-26-2024 ambulatory [facility] Nurse [facility] Comment on above: GA: 11w2d Start: 09-01-2024 End: 09-01-2024 Bamboo flowsheet Cristina ALVARENGA Work Phone: [facility] Start: 09-01-2024 End: 09-13-2024 Bamboo flowsheet Cristina ALVARENGA Work Phone: [facility] Start: 09-01-2024 End: 09-13-2024 Clinisync Result Encounter Cristina ALVARENGA Work Phone: [facility] External Department Unsolicited Start: 09-01-2024 End: 09-01-2024 Patient encounter procedure Cristina ALVARENGA Work Phone: [facility] Healthcare Work Phone: Start: 09-01-2024 End: 09-01-2024 Periodic preventive med est patient 18-39 yrs Cristina ALVARENGA Work Phone: [facility] Comment on above: Well woman exam with routine gynecological exam Start: 09-01-2024 End: 09-01-2024 ambulatory CRISTINA ONEILL Not Available Start: 09-03-2022 End: 09-03-[address] OWENS LISTED REQUEST Facility:[facility] Start: 08-27-2022 End: 08-30-2022 Evaluation and [...] 01-08-2019 Evaluation and management of inpatient ANDREW BADILLO [facility] Procedures Date Procedure Procedure Detail Performing Clinician Start: 11-25-2024 Urnls dip stick/tabl et rgnt non-auto w/o micrscp Tyler Viji DO Work Phone: Start: 10-26-2024 End: 10-26-2024 Urnls dip stick/tablet rgnt non-auto w/o micrscp Tyler Viji DO Work Phone: Start: 09-01-2024 IGP,APTIMA HPV,AGE GDLN Cristina ALVARENGA Work Phone: Start: 09-01-2024 Microscopic observat ion [Identifier] in Cervix by Cyto stain Cristina ALVARENGA Work Phone: Start: 08-27-2022 Extraction of Produc ts of Conception, Low Cervical, Open Approach DR EVAN CASTRO Start: 01-08-2019 INCENTIVE SPIROMETRY RT ANDREW BADILLO Start: 01-08-2019 INCENTIVE SPIROMETRY RT ANDREW BADILLO Start: 01-08-2019 INITIATE OXYGEN THER APY PROTOCOL ANDREW BADILLO Start: 01-08-2019 DISCHARGE PATIENT PABLO BADILLO Start: 01-08-2019 INCENTIVE SPIROMETRY RT ANDREW BADILLO Start: 01-08-2019 INCENTIVE SPIROMETRY RT ANDREW BADILLO Start: 01-07-2019 INCENTIVE SPIROMETRY RT ANDREW BADILLO Start: 01-07-2019 INCENTIVE SPIROMETRY RT ANDREW BADILLO Start: 01-07-2019 INCENTIVE SPIROMETRY RT ANDREW BADILLO Start: 01-07-2019 INCENTIVE SPIROMETRY RT ANDREW BADILLO Start: 01-07-2019 INCENTIVE SPIROMETRY RT ANDREW JUSTINO Start: 01-07-2019 INCENTIVE SPIROMETRY RT ANDREW BADILLO Start: 01-07-2019 INCENTIVE SPIROMETRY RT ANDREW BADILLO Start: 01-07-2019 INITIATE OXYGEN THER APY PROTOCOL ANDREW BADILLO Start: 01-07-2019 INCENTIVE SPIROMETRY RT ANDREW BADILLO Start: 01-07-2019 INCENTIVE SPIROMETRY RT ANDREW BADILLO Start: 01-06-2019 INCENTIVE SPIROMETRY RT ANDREW BADILLO Start: 01-06-2019 INCENTIVE SPIROMETRY RT ANDREW BADILLO Start: 01-06-2019 INCENTIVE SPIROMETRY RT ANDREW BADILLO Start: 01-06-2019 INCENTIVE SPIROMETRY RT ANDREW BADILLO Start: 01-06-2019 INCENTIVE SPIROMETRY RT ANDREW BADILLO Start: 01-06-2019 INCENTIVE SPIROMETRY RT ANDREW BADILLO Start: 01-06-2019 INCENTIVE SPIROMETRY RT ANDREW BADILLO Start: 01-06-2019 INITIATE OXYGEN THER APY PROTOCOL ANDREW BADILLO Start: 01-06-2019 INCENTIVE SPIROMETRY RT ANDREW BADILLO Start: 01-06-2019 INCENTIVE SPIROMETRY RT ANDREW BADILLO Start: 01-05-2019 [...] BADILLO Start: 01-05-2019 SALINE LOCK IV ANDREW Catherine BOWIE Start: 01-05-2019 INCENTIVE SPIROMETRY RT ANDREW BADILLO [...] AL ANNA Start: 01-04-2019 WOUND CARE ANDREW BURROUGHS EN Start: 01-04-2019 AMBULATE PATIENT ANDREW BADILLO Start: 01-04-2019 TRANSFER PATIENT ANDREW BADILLO Start: 01-04-2019 VITAL SIGNS ANDREWARCELIA BURROUGHS EN Start: 01-04-2019 Level iv surg pathol ogy gross&microscopic exam ANDREW BADILLO Start: 01-04-2019 DIET GENERAL ANDREW BURROUGHS EN Start: 01-04-2019 FULL CODE ANDREW ALL [...] Screening for malign ant neoplasm of cervix [facility] Start: 12-28-2024 End: 12-28-2024 Patient encounter procedure 12/28/2024 10:30 AM EST Routine [facility] [address] [place] [place] [address] Cristina Oneill PA [address] [place] [address] [facility] Start: 11-25-2024 End: 11-25-2024 Patient encounter procedure [facility] Comment on above: Arrived Start: 10-26-2024 End: 10-26-2025 ABO/Rh ABO/Rh Lab Routine Missed menses , unspecified gestational age Expected: 10/26/2024 (Approximate), Expires: 10/26/2025 [facility] Comment on above: Expected: 10/26/2024 (Approximate), Expires: 10/26/2025 Start: 10-26-2024 End: 10-26-2025 Blood type and Indirect antibody screen panel - Blood Type and screen Lab Routine Missed menses , unspecified gestational age Expected: 10/26/2024 (Approximate), Expires: 10/26/2025 [facility] Work Phone: Comment on above: Expected: 10/26/2024 (Approximate), Expires: 10/26/2025 Start: 10-26-2024 End: 10-26-2025 Drugs of abuse panel - Urine by Screen method Rapid drug screen, urine Lab Routine , unspecified gestational age Encounter for supervision of normal first in first trimester Expected: 10/26/2024 (Approximate), Expires: 10/26/2025 [facility] Comment on above: Expected: 10/26/2024 (Approximate), Expires: 10/26/2025 Start: 09-01-2024 End: 09-01-2024 Patient encounter procedure 09/01/2024 10:00 AM EST Office Visit [facility] [address] [place] [id number] Cristina Oneill PA [address] [place] [address] Arrived [facility] Comment on above: Arrived Start: 06-27-2024 Influenza vaccination Influenza Vacc ine (#1) [facility] Start: 2022 Screening for malign ant neoplasm of cervix [facility] Start: 2013 Screening for malign ant neoplasm of cervix Pap Smear [facility] Bacteria identified in Urine by Culture Urine culture Microbiology Routine Missed menses Ordered: 10/26/2024 [facility] Comment on above: Ordered: 10/26/2024 CBC W Auto Different ial panel - Blood CBC and differential Lab Routine Missed menses , unspecified gestational age Ordered: 10/26/2024 [facility] Comment on above: Ordered: 10/26/2024 Cytology Cervical or vaginal smear or scraping study Pap Smear Pathology and Cytology Routine Well woman exam with routine gynecological exam Ordered: 09/01/2024 [facility] Work Phone: Comment on above: Ordered: 09/01/2024 Hemoglobin A1c/Hemoglobin.total in Blood Hemoglobin A1c Lab Routine Missed menses , unspecified gestational age Ordered: 10/26/2024 [facility] Comment on above: Ordered: 10/26/2024 Hepatitis B virus surface Ag [Presence] in Serum or Plasma by Immunoassay Hepatitis B surface antigen Lab Routine Missed menses , unspecified gestational age Ordered: 10/26/2024 [facility] Comment on above: Ordered: 10/26/2024 Hepatitis C virus Ab [Presence] in Serum or Plasma by Immunoassay Hepatitis C antibody Lab Routine Missed menses , unspecified gestational age Ordered: 10/26/2024 [facility] Comment on above: Ordered: 10/26/2024 HIV-1/HIV-2 antigen/antibody combination immunoassay HIV-1 and HIV-2 antibodies Lab Routine Missed menses , unspecified gestational age Ordered: 10/26/2024 [facility] Comment on above: Ordered: 10/26/2024 Human papilloma viru s DNA [Presence] in Unspecified specimen by Probe with amplification HPV DNA probe, amplified Microbiology Routine Well woman exam with routine gynecological exam Ordered: 09/01/2024 [facility] Comment on above: Ordered: 09/01/2024 Measurement of gluco se 1 hour after glucose challenge for glucose tolerance test GTT, 1 hour Lab Routine Urinary tract infection without hematuria, site unspecified History of gestational diabetes Ordered: 11/25/2024 [facility] Work Phone: Comment on above: Ordered: 11/25/2024 Reagin Ab [Presence] in Serum by RPR RPR Lab Routine Missed menses , unspecified gestational age Ordered: 10/26/2024 [facility] Comment on above: Ordered: 10/26/2024 Rubella antibody, IgG Rubella an tibody, IgG Lab Routine Missed menses , unspecified gestational age Ordered: 10/26/2024 [facility] Comment on above: Ordered: 10/26/2024 Immunizations Immunization Date Immunization Notes Care Provider Caroline mattgaston 08-30-2022 influenza virus vacc ine, unspecified formulation Cristina ALVARENGA Work Phone: [facility] Payers Date Payer Category Payer [facility] [id number] 2023 Unknown [id number] 2018 Medicaid [id number] 1992 Unknown [id number] 1992 Unknown [id number] 1992 Unknown [id number] 1992 Unknown [id number] 2.16840.1.601857.3.579. 2.593 1992 Unknown [id number] 2.16840.1.654621.3.579. 2.593 1992 Unknown [id number] 2.16840.1.976994.3.579. 2.593 1992 Unknown [id number] 2.16840.1.619740.3.579. 2.593 1992 Unknown [id number] 2.16.840.1.345820.3.579. 2.593 1992 Unknown [id number] 2.16.840.1.923779.3.579. 2.59 1992 Unknown [id number] 2.16.840.1.900967.3.579. 2.59 1992 Unknown [id number] 2.16.840.1.259507.3.579. 2.59 1992 Unknown [id number] 2.16.840.1.493545.3.579. 2.59 1992 Unknown [id number] 2.16.840.1.616626.3.579. 259 1992 Unknown [id number] 2.16.840.1.071741.3.579. 2.59 1992 Unknown [id number] 2.16.840.1.733906.3.579. 259 1992 Unknown [id number] 2.16.840.1.379786.3.579. 2.59 1992 Unknown [id number] 2.16.840.1.688570.3.579. 259 1992 Unknown [id number] 2.16.840.1.093437.3.579. 2.59 1992 Unknown [id number] 2.16.840.1.686038.3.579. 2.1258 1992 Unknown [id number] 2.16.840.1.746803.3.579. 2.125 1992 Unknown [id number] 2.16.840.1.081784.3.579. 2.1258 1992 Unknown [id number] 2.16.840.1.006503.3.579. 2.1259 1959 Unknown [id number] Unknown Unknown [id number] 2.16.840.1.129474.3.579. 2.593 Social History Date Type Detail Facility Start: 03-31-2023 Tobacco smoking stat [facility] Never smoked tobacco [facility] Start: 03-31-2023 End: 11-25-2024 Alcoholic beverage intake Lifetime non-drinker (finding) [facility] Start: 03-31-2023 End: 09-01-2024 History of Social function [facility] Start: 03-31-2023 End: 09-01-2024 Tobacco use panel [facility] Start: 1990 Sex assigned at Not on file [facility] Start: 08-22-2024 [facility] History of Present illness Narrative 11-25-2024 Di Fofana LPN - 11/25/2024 10:20 AM EST Note Date & Type Note Facility 11-25-2024 History of Presen t illness Narrative Reason for Appointment: Patient ID: Flora Bunch is a 34 y.o. female who presents for Routine Visit Patient presents today for Return OB appointment. MEDICATIONS Current Outpatient Medications Medication Instructions MV-Min-Fe Fum-FA-DHA ( 1 PO) 1 each, Daily ALLERGIES No Known Allergies PROBLEMS Active Ambulatory [...] SYSTEMS Review of Systems: Review of Systems All other systems reviewed and are negative. OBJECTIVE Objective: Physical Exam Constitutional: Appearance: Normal appearance. She is well-developed. Cardiovascular: Rate and Rhythm: Normal rate and regular rhythm. Pulmonary: Effort: Pulmonary effort is normal. Breath sounds: Normal breath sounds. Abdominal: General: Bowel sounds are normal. There is no distension. Palpations: Abdomen is soft. Tenderness: There is no abdominal tenderness. There is no guarding or rebound. Musculoskeletal: General: No swelling. Normal range of motion. Right lower leg: No edema. Left lower leg: No edema. Neurological: Mental Status: She is alert and oriented to person, place, and time. Skin: General: Skin is warm and dry. Psychiatric: Mood and Affect: Mood normal. Behavior: Behavior normal. Vitals and nursing note reviewed. Exam conducted with a manager wealth management present. Vitals: Estimated body mass index is 46.73 kg/m as calculated from the following: Height as of 24: 5' 3 . Weight as of this encounter: 263 lb 12.8 oz. BP: 120/80 Patient's last menstrual period was 08/08/2024. ASSESSMENT & PLAN ICD-10-CM 1. 15 weeks gestation of Z3A.15 POCT urinalysis dipstick manually resulted 2. Second trimester Z34.92 POCT urinalysis dipstick manually resulted New OB: Patient presents today for 1st time obstetrics appointment with provider. Patient is currently 15w4d . Patients history has been reviewed in great detail including any potential risks. Patient stated she currently has no complaints. Expectations throughout regarding labs, ultrasounds, and appointments have been discussed with the patient in detail. It was reiterated that the patient is to drink 6-8 glasses of water a day, eat 6 small meals a day, do not consume raw or undercooked meat, and stay away from [facility]. Patient has been consulted regarding any further do's and don'ts of . Patient voiced understanding and all questions and concerns were answered. Patient to start 81mg daily due to history, Patient given 1 hr gtt due to history of GDM. Orders Placed This Encounter Procedures POCT urinalysis dipstick manually resulted Follow Up: Patient is to return in 4 weeks for routine OB appointment. Documented by Di Fofana LPN on behalf of: Tyler Hallman DO documented in this encounter [facility] History of Present illness Narrative 10-26-2024 Suzy [...] calculated from the following: Height as of 24: 5' 3 . Weight as of this [...] or undercooked meat, and stay away from [facility]. Patient has also been advised to not [...] nursing note reviewed. Exam conducted with a manager wealth management present. Vitals: Estimated body mass index is [...] of: LYLE Jones documented in this encounter [facility] Evaluation note Note Date & Type Note Facility Evaluation note Diagnosis Well woman exam with routine gynecological exam Routine gynecological examination documented in this encounter [facility] Evaluation note Note Date & Type Note Facility Evaluation note Diagnosis Missed menses 11 weeks gestation of , unspecified gestational age Encounter for supervision of normal first in first trimester documented in this encounter [facility] Evaluation note Note Date & Type Note Facility Evaluation note Diagnosis 15 weeks gestation of Second trimester state, incidental Urinary tract infection without hematuria, site unspecified History of gestational diabetes Personal history of other genital system and obstetric disorders documented in this encounter [facility] Summary Purpose Family History No Family History Records FoundNo Family History Records FoundNo Family History Records Found Advance Directives No Advanced Directives Records FoundNo Advanced Directives Records FoundNo Advanced Directives Records Found Additional Source Comments INFORMATION SOURCE (unrecogn ized section and content) DATE CREATED AUTHOR 01/12/2019 [facility] DATE CREATED AUTHOR AUTHOR'S ORGANIZ ATION 09/16/2022 [facility] DATE CREATED AUTHOR AUTHOR'S ORGANIZ ATION 11/27/2024 [facility] EPIC Reason for Visit (unrecogniz ed section and content) Reason Comments Well Women Visit Reason Comments Amenorrhea Reason Comments Routine Visit FOR RECORDS PERTAINING TO PATIENTS WHO ARE [...] BE BASED ON THE PRIMARY CLINICAL RECORDS. [facility] [email or web address] [facility]. provides no warranty or guarantee of the accuracy or completeness of information in this document.
[2024-12-04 12:18] LABS: Glucose 1 Hour 124 mg/dL (<130)
== END 2024-12-04 10:45 | disposition home or self-care (01) ==
LOC: LAB 10:44
PROVIDERS: Visit Provider Obstetrics & Gynecology
DX: N39.0 Urinary tract infection, site not specified (principal); Z86.32 Personal history of gestational diabetes
CPT/HCPCS: 36415; 82950

== ENCOUNTER 2024-12-29 09:01 | Outpatient (OUT) | payer BC, SELFPAY ==
--- NOTE | 2024-12-29 09:03 | US_ITS ---
The [address] [address] Patient Name: FLORA GASCA MRN: [id number] date: 1990 Sex: F Assigned Patient Location: US Current Patient Location: US Accession/Order Number: [id number] Exam Date: 12/29/2024 22:39 Report Date: 12/29/2024 22:46 At the request of: DAVID ONEILL Procedure: US OB anatomy Growth ultrasound. Cervical length ultrasound. Reason for exam: Anatomy screening. COMPARISON: None. TECHNIQUE: Transabdominal and transvaginal imaging of the gravid uterus was obtained. FINDINGS: Single live uterine is noted measuring 20 weeks 0 days by anatomic measurements, appropriate growth per dating. heart rate 1 52 bpm. Placenta is anterior in location without evidence of placenta previa. Cervical length measures 4.2 cm without evidence of funneling. Amniotic fluid is subjectively normal. Anatomic survey demonstrates no focal abnormality involving the cranial structures. Nasal bone is present. No gross spinal abnormality is noted. Three-vessel cord is noted without abnormality. Four-chamber heart is noted. Outflow tracts appear grossly unremarkable. Kidneys are grossly unremarkable. 4 extremities are noted. US/US OB anatomy IMPRESSION: Normal anatomic survey. Single live intrauterine 20 weeks 0 days by anatomic measurements. Normal cervical length without evidence of funneling. Impression dictated by: Fadi De Luna Jr., D.O.12/29/2024 10:46 PM Dictation Location: [place] [address] Electronically authenticated by: [id number] Y Date: 12/29/2024 22:46
--- NOTE | 2024-12-29 09:04 | US_ITS ---
The [address] [address] Patient Name: FLORA GASCA MRN: [id number] date: 1990 Sex: F Assigned Patient Location: US Current Patient Location: Accession/Order Number: [id number] Exam Date: 12/29/2024 22:39 Report Date: 12/29/2024 22:46 At the request of: DAVID ONEILL Procedure: US OB anatomy Growth ultrasound. Cervical length ultrasound. Reason for exam: Anatomy screening. COMPARISON: None. TECHNIQUE: Transabdominal and transvaginal imaging of the gravid uterus was obtained. FINDINGS: Single live uterine is noted measuring 20 weeks 0 days by anatomic measurements, appropriate growth per dating. heart rate 1 52 bpm. Placenta is anterior in location without evidence of placenta previa. Cervical length measures 4.2 cm without evidence of funneling. Amniotic fluid is subjectively normal. Anatomic survey demonstrates no focal abnormality involving the cranial structures. Nasal bone is present. No gross spinal abnormality is noted. Three-vessel cord is noted without abnormality. Four-chamber heart is noted. Outflow tracts appear grossly unremarkable. Kidneys are grossly unremarkable. 4 extremities are noted. US/US OB cervical length IMPRESSION: Normal anatomic survey. Single live intrauterine 20 weeks 0 days by anatomic measurements. Normal cervical length without evidence of funneling. Impression dictated by: Fadi De Luna Jr., D.O.12/29/2024 10:46 PM Dictation Location: [place] [address] Electronically authenticated by: [id number] Y Date: 12/29/2024 22:46
--- OUTSIDE RECORDS SUMMARY | 2024-12-29 09:27 | XMS_ITS | CCD ---
Author Organization [facility] CliniSyvt Care Team Providers Care Non Destructive Testing Supervisor Name Role Phone ANDREW BADILLO Admitting Unavailable [...] Attending Unavailable KARASIK, DR GODRON Admitting Unavailable ZIEBER, DR ERMA Tang Consulting [...] DR ERMA Tang Consulting Unavailable KARASIK, DR OGRDON Consulting Unavailable MISC, DR HERNÁNDEZ Primary Care Unavailable KARASIK, DR GORDON Attending Unavailable KARASIK, DR GORDON Admitting Unavailable Unavailable Primary Care Provider UnavailTYLER Hearn Attending Unavailable NINOCRISTINA Attending Unavailable Medications Current Medications Medication Drug Class(es) Dates Sig (Normalized) Sig (Original) diphenhydrAMINE hydrochloride 25 mg oral tablet (3 sources) Histamine-1 Receptor Antagonist diphenhydrAMINE (Benadryl Allergy) 25 MG tablet 1 (one) time each day at the same time Active nitrofurantoin, macrocrystals 25 mg / nitrofurantoin, monohydrate 75 mg oral capsule (2 sources) Nitrofuran Antibacterial Start: 11-25-2024 End: 12-02-2024 take 1 capsule by mouth in the morning nitrofurantoin, macrocrystal-monohyd rate, (Macrobid) 100 MG capsule Indications: Urinary tract infection without hematuria, site unspecified Take 1 capsule (100 mg) by mouth in the morning and 1 capsule (100 mg) before bedtime. Do all this for 7 days. 14 capsule 11/25/2024 12/02/2024 Active omeprazole 40 mg delayed release oral capsule (3 sources) Proton Pump Inhibitor omeprazole (PriLOSEC) [address] capsule 1 (one) time each day at the same time Active MV-Min-Fe Fum-FA-DHA ( 1 PO) (7 sources) MV-Min- Fe Fum-FA-DHA ( 1 PO) Take 1 each by mouth Daily Active Vit w/Hd-Iszzkinia-JP (PNV-Select) 27-0.6-0.4 MG tablet (3 sources) Vit w/Gb-Lffrtatjc-RX (PNV-Select) 27-0.6-0.4 MG tablet 1 (one) time each day at the same time Active Problems Active Problems Problem Classification Problem [...] [15 weeks gestation of ] 11-25-2024 Episodic Residual codes; unclassified (2 sources) Gestation period, 20 weeks; Translations: [20 weeks gestation of ] 12-28-2024 Episodic Unclassified (3 sources) CONTACT W/AND (SUSP) EXPOS COVID-19; Translations: [CONTACT W/AND (SUSP) EXPOS COVID-19] Onset: 09-02-2022 Urinary tract infections (2 sources) Urinary tract infectious disease; Translations: [Urinary tract infection, site not specified] 01-30-2025 Episodic Past or Other Problems Problem Classification [...] Test Name Value Interpretation Reference Range Facility RECURRENT VAGINITIS (HTRX)on 12-29-2024 ATOPOBIUM VAGINAE 0 [facility] ATOPOBIUM VAGINAE Not detected [facility] BVAB 2,3 (BACTERIAL VAGINOSIS ASSOCIATED BACTERIA 2, 3); MOBILUNCUS SPP 24.786 Abnormal [facility] BVAB 2,3 (BACTERIAL VAGINOSIS ASSOCIATED BACTERIA 2, 3); MOBILUNCUS SPP Detected Abnormal [facility] COURTNEY ALBICANS, PARAPSILOSIS, TROPICALIS 0 [facility] COURTNEY ALBICANS, PARAPSILOSIS, TROPICALIS Not detected [facility] COURTNEY GLABRATA 0 [facility] COURTNEY GLABRATA Not detected [facility] COURTNEY KRUSEI 0 [facility] COURTNEY KRUSEI Not detected [facility] CHLAMYDIA TRACHOMATIS 0 [facility] CHLAMYDIA TRACHOMATIS Not detected [facility] GARDNERELLA VAGINALIS 0 [facility] GARDNERELLA VAGINALIS Not detected [facility] Interpretation and review of laboratory results Abnormal [facility] MEGASPHAERA (TYPES 1, 2) 0 [facility] MEGASPHAERA (TYPES 1, 2) Not detected [facility] MYCOPLASMA GENITALIUM 0 [facility] MYCOPLASMA GENITALIUM Not detected [facility] NEISSERIA GONORRHOEAE 0 [facility] NEISSERIA GONORRHOEAE Not detected [facility] TRICHOMONAS VAGINALIS 0 [facility] TRICHOMONAS VAGINALIS Not detected [facility] Urinalysis macro (dipstick) panel (U)on 12-28-2024 Bilirubin, UA Negative Negative - 4(70) +++ mg/dL [facility] Blood, UA Negative Negative - 50 Carlos/mcL [facility] Clarity, UA Clear [facility] Color, UA Yellow [facility] Glucose, UA Negative Negative - 1999(110) ++++ mg/dL [facility] Interpretation and review of laboratory results Normal [facility] Ketones, UA Negative Negative - 160(16) ++++ mg/dL [facility] Leukocytes, UA Negative Negative - 500+++ Katie/mcL [facility] Nitrite, UA Negative Negative - Positive [facility] pH, UA 6 5 - 9 [facility] Protein, UA Negative Negative - 1999(20) ++++ mg/dL [facility] Spec Grav, UA 1.025 1 - 1.03 [facility] Urobilinogen, UA 0.2 0.2 - 12 mg/dL [facility] GLUCOSE 1 HOURon 12-04-2024 Glucose [Mass/Vol] 124 mg/dL NINF - 13 0 mg/dL [facility] Urinalysis macro (dipstick) panel (U)on 11-25-2024 Bilirubin, UA Negative Negative - 4(70) +++ mg/dL [facility] Blood, UA Positive Negative - 50 Carlos/mcL [facility] Comment on above: trace-intact Clarity, UA Clear [facility] Color, UA Yellow [facility] Glucose, UA Negative Negative - 1999(110) ++++ mg/dL [facility] Interpretation and review of laboratory results Abnormal [facility] Ketones, UA Negative Negative - 160(16) ++++ mg/dL [facility] Leukocytes, UA Positive Negative - 500+++ Kaite/mcL [facility] Comment on above: small Nitrite, UA Negative Negative - Positive [facility] pH, UA 5.5 5 - 9 [facility] Protein, UA Negative Negative - 1999(20) ++++ mg/dL [facility] Spec Grav, UA 1.03 1 - 1.03 [facility] Urobilinogen, UA 0.2 0.2 - 12 mg/dL [facility] HCG ( test) Ql (U)o n 10-26-2024 Interpretation and review of laboratory results Abnormal [facility] Preg Test, Ur Positive Negative [facility] US OB TRANSVAGINALon 024 US OB TRANSVAGINAL [...] x 6.4 cm (10 weeks, 1 day). [place] rump length is 3.9 to 4.0 cm [...] UA Negative Negative - 4(70) +++ mg/dL [facility] Blood, UA Negative Negative - 50 Carlos/mcL [facility] Clarity, UA Clear [facility] Color, UA Yellow [facility] Glucose, UA Negative Negative - 1999(110) ++++ mg/dL [facility] Interpretation and review of laboratory results Normal [facility] Ketones, UA Negative Negative - 160(16) ++++ mg/dL [facility] Leukocytes, UA Negative Negative - 500+++ Katie/mcL [facility] Nitrite, UA Negative Negative - Positive [facility] pH, UA 6 5 - 9 [facility] Protein, UA Negative Negative - 1999(20) ++++ mg/dL [facility] Spec Grav, UA 1.025 1 - 1.03 [facility] Urobilinogen, UA 0.2 0.2 - 12 mg/dL [facility] IGP,APTIMA HPV,AGE GDLNon 11 -18-2024 AGE GDLN ACOG TESTING Note . [facility] Comment on above: TESTS RESULT FLAG UN ITS REF RANGE LAB Clinician Provided Cytology Information Source.............Cervix;Endocervix No. of containers..01 ThinPrep Vial Age Algo ACOG Zita... FLAG LEGEND: L-Low Normal,H-High Normal,LL-Alert Low,HH-Alert High <-Panic Low,>-Panic High,A-Abnormal,AA-Critical Abnormal Performed at: 01 =G [address] [place] [id number] Cheri Randhawa MD, HPV APTIMA Negative Negative [facility] Comment on above: This nucleic acid am plification test detects fourteen high- risk HPV types (16,18,31,33,35,39,45,51,52,56,58,59,66,68) without differentiation. Performed at: =[address] [id number] Blind Stitch Machine Operator: Cheri Randhawa MD, Phone: [phone] Performed at: [address] [id number] Blind Stitch Machine Operator: Cheri Randhawa MD, Phone: [phone] IGP, APTIMA HPV, RFX 16/18,45 Note . [facility] Comment on above: TESTS RESULT FLAG UN ITS REF RANGE LAB DIAGNOSIS: 02 NEGATIVE FOR INTRAEPITHELIAL LESION OR MALIGNANCY. THIS SPECIMEN WAS RESCREENED PART OF OUR UTILITY AIDE PROGRAM. Specimen adequacy: 02 Satisfactory for evaluation. No endocervical component is identified. Performed by: 02 Clay Humphrey, Career Counselor (ASC) QC reviewed by: 02 Delmy Wheat, Career Counselor (ASC) . 02 Note: Note 02 The [...] High,A-Abnormal,AA-Critical Abnormal Performed at: 02 [facility] [address] [place] [id number] Cheri Randhawa MD, BRUSH-SPATULA CERVIX ENDOCERVIX [facility] CBC AUTO DIFFon 08-28-2022 BASO # 0.0 103/ul Normal 0.0-0.1 [facility] Comment on above: Performed By: #### G LU1HR #### [facility] [address] [place] [address] Dr. Isabel Cornelius Basophils/100 WBC (Bld) 0.3 % Normal 0.2-2.0 [facility] Comment on above: Performed By: #### G LU1HR #### [facility] [address] [place] [address] Dr. Isabel Cornelius EO # 0.0 103/ul Normal 0.0-0.7 [facility] Comment on above: Performed By: #### G LU1HR #### [facility] [address] [place] [address] Dr. Isabel Cornelius Eosinophils/100 WBC (Bld) 0.2 % Critically low 0.9-7.0 [facility] Comment on above: Performed By: #### G LU1HR #### [facility] [address] [place] [address] Dr. Isabel Cornelius Erythrocyte distribution width (RBC) [Ratio] 14.6 % Normal 11.0-15.0 [facility] Comment on above: Performed By: #### G LU1HR #### [facility] [address] [place] [address] Dr. Isabel Cornelius Hematocrit (Bld) [Volume fraction] 25.3 % Critically low 36.0-48.0 [facility] Comment on above: Performed By: #### G LU1HR #### [facility] [address] [place] [address] Dr. Isabel Cornelius Hemoglobin (Bld) [Mass/Vol] 8.1 g/dL Critically low 12.0-16.0 [facility] Comment on above: Performed By: #### G LU1HR #### [facility] [address] [place] [address] Dr. Isabel Cornelius IG # 0.06 10e3/ul Critically high 0.00-0.03 [facility] Comment on above: Performed By: #### G LU1HR #### [facility] [address] [place] [address] Dr. Isabel Cornelius IG % 0.6 % Critically high 0.0-0.5 [facility] Comment on above: Performed By: #### G LU1HR #### [facility] [address] [place] [address] Dr. Isabel Cornelius LYMPH # 1.6 103/ul Normal 1.2-3.8 [facility] Comment on above: Performed By: #### G LU1HR #### [facility] [address] [place] [address] Dr. Isabel Cornelius Lymphocytes/100 WBC (Bld) 16.5 % Critically low 20.5-60.0 [facility] Comment on above: Performed By: #### G LU1HR #### [facility] [address] [place] [address] Dr. Isabel Cornelius MANUAL DIFF REQ NO Normal [facility] Comment on above: Performed By: #### G LU1HR #### [facility] [address] [place] [address] Dr. Isabel Cornelius MCH (RBC) [Entitic mass] 26.3 pg Critically low 26.7-34.0 [facility] Comment on above: Performed By: #### G LU1HR #### [facility] [address] [place] [address] Dr. Isbael Cornelius MCHC (RBC) [Mass/Vol] 32.0 g/dL Normal 29.9-35.2 [facility] Comment on above: Performed By: #### G LU1HR #### [facility] [address] [place] [address] Dr. Isabel Cornelius MCV (RBC) [Entitic vol] 82.1 fL Normal 81.0-99.0 [facility] Comment on above: Performed By: #### G LU1HR #### [facility] [address] [place] [address] Dr. Isabel Cornelius MONO # 0.6 103/ul Normal 0.3-0.8 [facility] Comment on above: Performed By: #### G LU1HR #### [facility] [address] [place] [address] Dr. Isabel Cornelius Monocytes/100 WBC (Bld) 6.4 % Normal 1.7-12.0 [facility] Comment on above: Performed By: #### G LU1HR #### [facility] [address] [place] [address] Dr. Isabel Cornelius NEUT # 7.3 103/ul Critically high 1.4-6.[address] [facility] Comment on above: Performed By: #### G LU1HR #### [facility] [address] [place] [address] Dr. Isabel Cornelius Neutrophils/100 WBC (Bld) 76.0 % Critically high 43.0-75.0 [facility] Comment on above: Performed By: #### G LU1HR #### [facility] [address] [place] [address] Dr. Isabel Cornelius Platelet mean volume (Bld) [Entitic vol] 9.8 fL Normal 9.5-13.5 [facility] Comment on above: Performed By: #### G LU1HR #### [facility] [address] [place] [address] Dr. Isabel Cornelius PLT 253 103/ul Normal 150-450 [facility] Comment on above: Performed By: #### G LU1HR #### [facility] [address] [place] [address] Dr. Isabel Cornelius RBC 3.08 106/ul Critically low 4.20-5.[address] [facility] Comment on above: Performed By: #### G LU1HR #### [facility] [address] [place] [address] Dr. Isabel Cornelius WBC 9.6 103/ul Normal 4.0-11.0 [facility] Comment on above: Performed By: #### G LU1HR #### [facility] [address] [place] [address] Dr. Isabel Cornelius CBC AUTO DIFFon 08-27-2022 BASO # 0.0 103/ul Normal 0.0-0.1 [facility] Comment on above: Performed By: #### C BC #### [facility] [address] [place], [place] [id number] Dr. Isabel Cornelius Basophils/100 WBC (Bld) 0.4 % Normal 0.2-2.0 [facility] Comment on above: Performed By: #### C BC #### [facility] [address] [place] [address] Dr. Isabel Cornelius EO # 0.1 103/ul Normal 0.0-0.7 [facility] Comment on above: Performed By: #### C BC #### [facility] [address] [address] [address] Isabel Cornelius Eosinophils/100 WBC (Bld) 0.8 % Critically low 0.9-7.0 [facility] Comment on above: Performed By: #### C BC #### [facility] [address] [place] [address] Dr. Isabel Cornelius Erythrocyte distribution width (RBC) [Ratio] 14.3 % Normal 11.0-15.0 [facility] Comment on above: Performed By: #### C BC #### [facility] [address] [place] [address] Dr. Isabel Cornelius Hematocrit (Bld) [Volume fraction] 32.6 % Critically low 36.0-48.0 [facility] Comment on above: Performed By: #### C BC #### [facility] [address] [place] [address] Dr. Isabel Cornelius Hemoglobin (Bld) [Mass/Vol] 10.5 g/dL Critically low 12.0-16.0 [facility] Comment on above: Performed By: #### C BC #### [facility] [address] [place] [address] Dr. Isabel Cornelius IG # 0.07 10e3/ul Critically high 0.00-0.03 [facility] Comment on above: Performed By: #### C BC #### [facility] [address] [place] [address] Dr. Isabel Cornelius IG % 0.7 % Critically high 0.0-0.[address] [facility] Comment on above: Performed By: #### C BC #### [facility] [address] [address] [address] Isabel Cornelius LYMPH # 1.6 103/ul Normal 1.2-3.8 [facility] Comment on above: Performed By: #### C BC #### [facility] [address] [place] [address] Dr. Isabel Cornelius Lymphocytes/100 WBC (Bld) 15.7 % Critically low 20.5-60.0 [facility] Comment on above: Performed By: #### C BC #### [facility] [address] [place] [address] Dr. Isabel Cornelius MANUAL DIFF REQ NO Normal [facility] Comment on above: Performed By: #### C BC #### [facility] [address] [place] [address] Dr. Isabel Cornelius MCH (RBC) [Entitic mass] 26.0 pg Critically low 26.7-34.0 [facility] Comment on above: Performed By: #### C BC #### [facility] [address] [place] [address] Dr. Isabel Cornelius MCHC (RBC) [Mass/Vol] 32.2 g/dL Normal 29.9-35.2 [facility] Comment on above: Performed By: #### C BC #### [facility] [address] [place] [address] Dr. Isabel Cornelius MCV (RBC) [Entitic vol] 80.7 fL Critically low 81.0-99.0 [facility] Comment on above: Performed By: #### C BC #### [facility] [address] [place] [address] Dr. Isabel Cornelius MONO # 0.7 103/ul Normal 0.3-0.8 [facility] Comment on above: Performed By: #### C BC #### [facility] [address] [place] [address] Dr. Isabel Cornelius Monocytes/100 WBC (Bld) 6.6 % Normal 1.7-12.0 [facility] Comment on above: Performed By: #### C BC #### [facility] [address] [place] [address] Dr. Isabel Cornelius NEUT # 7.5 103/ul Critically high 1.4-6.5 [facility] Comment on above: Performed By: #### C BC #### [facility] [address] [place] [address] Dr. Isabel Cornelius Neutrophils/100 WBC (Bld) 75.8 % Critically high 43.0-75.0 [facility] Comment on above: Performed By: #### C BC #### [facility] [address] [place] [address] Dr. Isabel Cornelius Platelet mean volume (Bld) [Entitic vol] 10.3 fL Normal 9.5-13.5 [facility] Comment on above: Performed By: #### C BC #### [facility] [address] [place] [address] Dr. Isabel Cornelius PLT 327 103/ul Normal 150-450 [facility] Comment on above: Performed By: #### C BC #### [facility] [address] [place] [address] Dr. Isabel Cornelius RBC 4.04 106/ul Critically low 4.20-5.[address] [facility] Comment on above: Performed By: #### C BC #### [facility] [address] [place] [address] Dr. Isabel Cornelius WBC 9.9 103/ul Normal 4.0-11.0 [facility] Comment on above: Performed By: #### C BC #### [facility] [address] [place] [address] Dr. Isabel Cornelius DRUG SCREEN RAPID (URINE)on 08-27-2022 AMP Negative Normal NEGATIVE [facility] Comment on above: Performed By: #### A 1C #### [facility] [address] [place] [address] Dr. Isabel Cornelius BAR Negative Normal NEGATIVE [facility] Comment on above: Performed By: #### A 1C #### [facility] [address] [place] [address] Dr. Isabel Cornelius BUP Negative Normal NEGATIVE [facility] Comment on above: Performed By: #### A 1C #### [facility] [address] [place] [address] Dr. Isabel Cornelius BZO Negative Normal NEGATIVE [facility] Comment on above: Performed By: #### A 1C #### [facility] [address] [place] [address] Dr. Isabel Cornelisu DORENE Negative Normal NEGATIVE [facility] Comment on above: Performed By: #### A 1C #### [facility] [address] [place] [address] Dr. Isabel Cornelius CUT-OFFS SEE BELOW Normal [facility] Comment on above: Result Comment: AMP [...] ng/mL Performed By: #### A 1C #### [facility] [address] [place] [address] Dr. Isabel Cornelius DRUG CUT HEADER DRUG CLASS TEST SYST EM CUT-OFF CONCENTRATIONS ARE FOLLOWS: Normal [facility] Comment on above: Performed By: #### A 1C #### [facility] [address] [place] [address] Dr. Isabel Cornelius mAMP Negative Normal NEGATIVE [facility] Comment on above: Performed By: #### A 1C #### [facility] [address] [place] [address] Dr. Isabel Cornelius MTD Negative Normal NEGATIVE [facility] Comment on above: Performed By: #### A 1C #### [facility] [address] [place] [address] Dr. Isabel Cornelius OPI Negative Normal NEGATIVE [facility] Comment on above: Performed By: #### A 1C #### [facility] [address] [place] [address] Dr. Isabel Cornelius OXY Negative Normal NEGATIVE [facility] Comment on above: Performed By: #### A 1C #### [facility] [address] [place] [address] Dr. Isabel Cornelius PCP Negative Normal NEGATIVE [facility] Comment on above: Performed By: #### A 1C #### [facility] [address] [place] [address] Dr. Isabel Cornelius PPX Negative Normal NEGATIVE [facility] Comment on above: Performed By: #### A 1C #### [facility] [address] [place] [address] Dr. Isabel Cornelius TCA Negative Normal NEGATIVE [facility] Comment on above: Performed By: #### A 1C #### [facility] [address] [place] [address] Dr. Isabel Cornelius THC Negative Normal NEGATIVE [facility] Comment on above: Performed By: #### A 1C #### [facility] [address] [place] [address] Dr. Isabel Cornelius TYPE AND SCREENon 08-27-2022 TYPE AND SCREEN Negative Normal [facility] Comment on above: Performed By: #### T NS #### [facility] [address] [place] [address] Dr. Isabel Cornelius UA (CLEAN/CATCH) HYDRAULIC AND PLUMBING INSTALLER/MICRO I F IND.on 08-27-2022 Bilirubin Ql (U) Negative Normal NEGATIVE [facility] Comment on above: Performed By: #### U ACSIND #### [facility] [address] [place] [address] Dr. Isabel Cornelius Clarity (U) CLEAR Normal CLEAR [facility] Comment on above: Performed By: #### U ACSIND #### [facility] [address] [place] [address] Dr. Isabel Cornelius Color (U) YELLOW Normal YELLOW [facility] Comment on above: Performed By: #### U ACSIND #### [facility] [address] [place] [address] Dr. Isabel Cornelius Glucose Ql (U) Negative Normal NEGATIVE [facility] Comment on above: Performed By: #### U ACSIND #### [facility] [address] [address] [address] Isabel Cornelius Hemoglobin Ql (U) Negative Normal NEGATIVE [facility] Comment on above: Performed By: #### U ACSIND #### [facility] [address] [address] [address] Isabel Cornelius Ketones Ql (U) Negative Normal NEGATIVE [facility] Comment on above: Performed By: #### U ACSIND #### [facility] [address] [address] [address] Isabel Cornelius LEUKOCYTES Negative Normal NEGATIVE [facility] Comment on above: Performed By: #### U ACSIND #### [facility] [address] [address] [address] Isabel Cornelius Nitrite Ql (U) Negative Normal NEGATIVE [facility] Comment on above: Performed By: #### U ACSIND #### [facility] [address] [address] [address] Isabel Cornelius pH (U) 6.0 [pH] Normal 5-9 [facility] Comment on above: Performed By: #### U ACSIND #### [facility] [address] [address] [address] Isabel Cornelius SPEC GRAVITY >=1.030 Abnormal 1.005-<=1.025 [facility] Comment on above: Performed By: #### U ACSIND #### [facility] [address] [address] [address] Isabel Cornelius UA PROTEIN TRACE Normal NEGATIVE/ TRACE [facility] Comment on above: Performed By: #### U ACSIND #### [facility] [address] [address] [address] Isabel Cornelius UR MICRO IND NOT INDICATED Normal [facility] Comment on above: Performed By: #### U ACSIND #### [facility] [address] [place] [address] Dr. Isabel Cornelius Urobilinogen Qn (U) 0.2 {Radha'U}/dL Normal 0.2 - 1. 0 [facility] Comment on above: Performed By: #### U ACSIND #### [facility] [address] [place], [place] [address] Dr. Isabel Cornelius Covid-19 PCR ([facility])on 07-28 SARS-CoV-2 (COVID-19) RNA KINSEY+probe Ql (Unsp spec) Not detected Normal NOT DETECTED [facility] Comment on above: Result Comment: This test is not yet approved or cleared by the [place] FDA. When there are no FDA-approved or cleared tests available, and other criteria are met, FDA can make tests available under an emergency access mechanism called an Emergency Use Authorization (EUA). The EUA for this test is supported by the [place] of Health and Human Service's (HHS's) declaration [...] SARS-CoV-2. Performed By: #### C VDTBH #### [facility] [address] [place], [place] [address] Dr. Isabel Cornelius US PREG GROWTHon 08-14-2022 US PREG GROWTH EXAMINATION: [...] ERMA GARCIA Date: 2022-08-14 19:49 Normal [facility] GROUP B STREP CULTUREon 07-27 S. agalactiae Ag Ql (Unsp spec) Culture Observations: NEGATIVE FOR GROUP B STREPTOCOCCUS. Normal [facility] Comment on above: Performed By: #### G BSCX #### [facility] [address] [address] [address] Isabel Cornelius GTT 3 HR PREGon 06-22-2022 Glucose [Mass/Vol] 95 mg/dL Normal 74-106 [facility] Comment on above: Performed By: #### G LU1HR #### [facility] [address] [address] [address] Isabel Cornelius Glucose [Mass/Vol] 183 mg/dL Normal [facility] Comment on above: Performed By: #### G LU1HR #### [facility] [address] [address] [address] Isabel Cornelius Glucose [Mass/Vol] 124 mg/dL Normal [facility] Comment on above: Performed By: #### G LU1HR #### [facility] [address] [address] [address] Isabel Cornelius Glucose [Mass/Vol] 141 mg/dL Normal [facility] Comment on above: Performed By: #### G LU1HR #### [facility] [address] [address] [address] Isabel Cornelius GLUCOSE - 1HRon 06-08-2022 Glucose [Mass/Vol] 144 mg/dL Critically high 74-106 [facility] Comment on above: Performed By: #### G LU1HR #### [facility] [address] [place] [address] Dr. Isabel Cornelius HEMOGRAM AND PLATELon 2021 Hematocrit (Bld) [Volume fraction] 35.3 % Critically low 36.0-48.0 [facility] Comment on above: Performed By: #### G LU1HR #### [facility] [address] [place] [address] Dr. Isabel Cornelius Hemoglobin (Bld) [Mass/Vol] 11.0 g/dL Critically low 12.0-16.0 [facility] Comment on above: Performed By: #### G LU1HR #### [facility] [address] [place] [address] Dr. Isabel Cornelius MCH (RBC) [Entitic mass] 27.0 pg Normal 26.7-34.0 [facility] Comment on above: Performed By: #### G LU1HR #### [facility] [address] [place] [address] Dr. Isabel Cornelius MCHC (RBC) [Mass/Vol] 31.2 g/dL Normal 29.9-35.2 [facility] Comment on above: Performed By: #### G LU1HR #### [facility] [address] [place] [address] Dr. Isabel Cornelius MCV (RBC) [Entitic vol] 86.7 fL Normal 81.0-99.0 [facility] Comment on above: Performed By: #### G LU1HR #### [facility] [address] [place] [address] Dr. Isabel Cornelius PLT 297 103/ul Normal 150-450 [facility] Comment on above: Performed By: #### G LU1HR #### [facility] [address] [place] [address] Dr. Isabel Cornelius RBC 4.07 106/ul Critically low 4.20-5.[address] [facility] Comment on above: Performed By: #### G LU1HR #### [facility] [address] [place] [address] Dr. Isabel Cornelius WBC 10.2 103/ul Normal 4.0-11.0 [facility] Comment on above: Performed By: #### G LU1HR #### [facility] [address] [place] [address] Dr. Isabel Cornelius CULTURE URINEon 05-24-2022 CULTURE [...] Trimethoprim/Sulfametho xazole <=20 S F Normal [facility] Comment on above: Performed By: #### U RCX #### [facility] [address] [place] [address] Dr. Isabel Cornelius UA RANDOM W/MICROSCOPICon BACTERIA LARGE Abnormal NONE SEEN [facility] Comment on above: Performed By: #### A 1C #### [facility] [address] [place] [address] Dr. Isabel Cornelius Bilirubin Ql (U) Negative Normal NEGATIVE [facility] Comment on above: Performed By: #### A 1C #### [facility] [address] [place] [address] Dr. Isabel Cornelius CAST NONE SEEN Normal NONE SEEN [facility] Comment on above: Performed By: #### A 1C #### [facility] [address] [place] [address] Dr. Isabel Cornelius Clarity (U) CLEAR Normal CLEAR [facility] Comment on above: Performed By: #### A 1C #### [facility] [address] [place] [address] Dr. Isabel Cornelius Color (U) LT. YELLOW Normal YELLOW [facility] Comment on above: Performed By: #### A 1C #### [facility] [address] [place] [address] Dr. Isabel Cornelius Crystals LM Nom (Urine sed) NONE SEEN Normal NONE SEEN [facility] Comment on above: Performed By: #### A 1C #### [facility] [address] [place] [address] Dr. Isabel Cornelius Epithelial cells LM Ql (Urine sed) FEW Abnormal NONE SEEN /RARE [facility] Comment on above: Performed By: #### A 1C #### [facility] [address] [place] [address] Dr. Isabel Cornelisu Glucose Ql (U) Negative Normal NEGATIVE [facility] Comment on above: Performed By: #### A 1C #### [facility] [address] [place] [address] Dr. Isabel Cornelius Hemoglobin Ql (U) TRACE-INTACT Abnormal NEGATIVE [facility] Comment on above: Performed By: #### A 1C #### [facility] [address] [place] [address] Dr. Isabel Cornelius Ketones Ql (U) Negative Normal NEGATIVE [facility] Comment on above: Performed By: #### A 1C #### [facility] [address] [place] [address] Dr. Isabel Cornelius LEUKOCYTES SMALL Abnormal NEGATIVE [facility] Comment on above: Performed By: #### A 1C #### [facility] [address] [place] [address] Dr. Isabel Cornelius MUCOUS TRACE Abnormal NONE SEEN [facility] Comment on above: Performed By: #### A 1C #### [facility] [address] [place] [address] Dr. Isabel Cornelius Nitrite Ql (U) Positive Abnormal NEGATIVE [facility] Comment on above: Performed By: #### A 1C #### [facility] [address] [place] [address] Dr. Isabel Cornelius pH (U) 6.5 [pH] Normal 5-9 [facility] Comment on above: Performed By: #### A 1C #### [facility] [address] [place] [address] Dr. Isabel Cornelius RBC 2-5 Abnormal 0-2 [facility] Comment on above: Performed By: #### A 1C #### [facility] [address] [place] [address] Dr. Isabel Cornelius SPEC GRAVITY 1.015 Normal 1.005-<=1.[address] [facility] Comment on above: Performed By: #### A 1C #### [facility] [address] [place] [address] Dr. Isabel Cornelius UA PROTEIN Negative Normal NEGATIVE/ TRACE [facility] Comment on above: Performed By: #### A 1C #### [facility] [address] [address] [address] Isabel Cornelius Urobilinogen Qn (U) 0.2 {Radha'U}/dL Normal 0.2 - 1. 0 [facility] Comment on above: Performed By: #### A 1C #### [facility] [address] [place] [address] Dr. Isabel Cornelius WBC 10-20 Abnormal NONE SEEN [facility] Comment on above: Performed By: #### A 1C #### [facility] [address] [place] [address] Dr. Isabel Cornelius US PREG INCOMPLETE ANATOMYon [...] ERMA GARCIA Date: 2022-05-14 22:11 Normal [facility] AFP MATERNAL FOR SPINA BIFID Aon 04-25-2022 AFP MoM 1.28 Normal [facility] Comment on above: Performed By: #### G LU1HR #### [facility] [address] [place] [address] Dr. Isabel Cornelius AFP Value 43.3 ng/mL Normal [facility] Comment on above: Performed By: #### G LU1HR #### [facility] [address] [address] [address] Isabel Cornelius AFP, Serum for Spina Bifida Report Normal [facility] Comment on above: Performed By: #### G LU1HR #### [facility] [address] [address] [address] Isabel Cornelius Comment Comment Normal [facility] Comment on above: Result Comment: Ela Deras, Ph.D., [facility] Director . References: Available Upon Request. . Multiples Of Median Cutoffs For AFP Elevations Reyes 2.5 Black 2.8 IDD 2.0 Twins 4.5 Abbreviation Definitions IDD - Insulin Dep Diabetes OSBR - Open Spina Bifida Risk . For further inquiries contact [employer] at [phone]. Performed By: #### G LU1HR #### [facility] [address] [address] [address] Isabel Cornelius Gest Age Collection Date 18.4 weeks Normal [facility] Comment on above: Performed By: #### G LU1HR #### [facility] [address] [place] [address] Dr. Isabel Cornelius Gestat, Age Based on DREW Normal [facility] Comment on above: Result Comment: 05/2022 Recalculations are not recommended when gestational dating by LMP and ultrasound are within 10 days. Performed By: #### G LU1HR #### [facility] [address] [place] [address] Dr. Isabel Cornelius Insulin Dep Diabetes No Normal [facility] Comment on above: Performed By: #### G LU1HR #### [facility] [address] [place] [address] Dr. Isabel Cornelius Interpretation Comment Normal [facility] Comment on above: Result Comment: Inte rpretation: [...] Customer Services to discuss available options. The [employer] recommends amniocentesis be offered to women age 35 and older. Performed By: #### G LU1HR #### [facility] [address] [address] [address] Isabel Cornelius [age] Normal [facility] Comment on above: Performed By: #### G LU1HR #### [facility] [address] [address] [address] Isabel Cornelius Multiple Gestation No Normal [facility] Comment on above: Performed By: #### G LU1HR #### [facility] [address] [address] [address] Isabel Cornelius OSBR Risk 1 IN 5096 Normal [facility] Comment on above: Performed By: #### G LU1HR #### [facility] [address] [address] [address] Isabel Cornelius PDF . [facility] Comment on above: Performed By: #### G LU1HR #### [facility] [address] [address] [address] Isabel Cornelius Race Normal [facility] Comment on above: Performed By: #### G LU1HR #### [facility] [address] [address] [address] Isabel Cornelius Test Results: Negative [facility] Comment on above: Performed By: #### G LU1HR #### [facility] [address] [place] [address] Dr. Isabel Cornelius PREG ANATOMY SINGLEon US PREG ANATOMY SINGLE [...] by: HELEN VERA Date: 2022-04-16 16:21 Normal [facility] PAP ACOG PANEL 2: 21 to 29on 04-03-2022 . . Normal [facility] Comment on above: Performed By: #### G LU1HR #### [facility] [address] [place] [address] Dr. Isabel Cornelius Age Gdln ACOG Testing 21-29 [facility] Comment on above: Performed By: #### G LU1HR #### [facility] [address] [place] [address] Dr. Isabel Cornelius DIAGNOSIS: Comment Normal [facility] Comment on above: Result Comment: NEGA TIVE FOR INTRAEPITHELIAL LESION OR MALIGNANCY. THIS SPECIMEN WAS RESCREENED PART OF OUR UTILITY AIDE PROGRAM. Performed By: #### G LU1HR #### [facility] [address] [place] [address] Dr. Isabel Cornelius Methodology: Comment [facility] Comment on above: Result Comment: This liquid based ThinPrep(R) pap test was screened with the use of an image guided system. Performed By: #### G LU1HR #### [facility] [address] [address] [address] Isabel Cornelius Note: Comment Normal [facility] Comment on above: Result Comment: The Pap smear is a screening test designed to aid in the detection of premalignant and malignant conditions of the uterine cervix. It is not a diagnostic procedure and should not be used as the sole means of detecting cervical cancer. Both false-positive and false-negative reports do occur. . Performed By: #### G LU1HR #### [facility] [address] [address] [address] Isabel Cornelius Performed by: Comment Normal [facility] Comment on above: Result Comment: Zheng Lacey, Career Counselor (ASCP) Performed By: #### G LU1HR #### [facility] [address] [place] [address] Dr. Isabel Cornelius QC reviewed by: Comment Normal [facility] Comment on above: Result Comment: Dai Wooten, Supervisory Career Counselor (ASCP) Performed By: #### G LU1HR #### [facility] [address] [place] [address] Dr. Isabel Cornelius Reflex Criteria: Comment Normal [facility] [place] Comment on above: Result Comment: The HPV DNA reflex criteria were not met with this specimen result therefore, no HPV testing was performed. . Performed By: #### G LU1HR #### [facility] [address] [place] [address] Dr. Isabel Cornelius Specimen adequacy: Comment Normal [facility] Comment on above: Result Comment: Sati sfactory for evaluation. Endocervical and/or squamous metaplastic cells (endocervical component) are present. Performed By: #### G LU1HR #### [facility] [address] [address] [address] Isabel Cornelius CHLAMYDIA/GONOCOCCUS KINSEY (SW AB/URINE/PAPon 03-31-2022 Chlamydia trachomatis, KINSEY Negative Normal Negative [facility] Comment on above: Performed By: #### A 1C #### [facility] [address] [place] [address] Dr. Isabel Cornelius Neisseria gonorrhoeae, KINSEY Negative Normal Negative [facility] Comment on above: Performed By: #### A 1C #### [facility] [address] [place] [address] Dr. Isabel Cornelius CULTURE URINEon 03-15-2022 CULTURE [...] F Trimethoprim/Sulfametho xazole <=20 S F Normal [facility] Comment on above: Performed By: #### U RCX #### [facility] [address] [place] [address] Dr. Isabel Cornelius CULTURE URINEon 02-28-2022 CULTURE [...] F Trimethoprim/Sulfametho xazole <=20 S F Normal [facility] Comment on above: Performed By: #### A 1C #### [facility] [address] [place] [address] Dr. Isabel Cornelius HEP B SURFACE ANTIGEN SCREEN on 02-27-2022 HBsAg Screen Negative Normal Negative [facility] Comment on above: Performed By: #### G LU1HR #### [facility] [address] [address] [address] Isabel Cornelius HEPATITIS C VIRUS AB W/ REFL EX QUANTon 02-27-2022 HCV AB 0.1 s/co ratio Normal 0.0-0.9 [facility] Comment on above: Performed By: #### G LU1HR #### [facility] [address] [place] [address] Dr. Isabel Cornelius Interpretation: Comment Normal [facility] Comment on above: Result Comment: Nega tive Not infected with HCV, unless recent infection is suspected or other evidence exists to indicate HCV infection. Performed By: #### G LU1HR #### [facility] [address] [place] [address] Dr. Isabel Cornelius HIV 1 AND 2 WITH REFLEXon HIV Screen 4th Generation wRfx Non-Reactive Normal Non Reactive [facility] Comment on above: Result Comment: HIV Negative HIV-1/HIV-2 antibodies and HIV-1 p24 antigen were NOT detected. There is no laboratory evidence of HIV infection. Performed By: #### G LU1HR #### [facility] [address] [place] [address] Dr. Isabel Cornelius RPR QUANTon 02-27-2022 Rapid Plasma Reagin, Quant Non-Reactive Normal NonRea<1:1 [facility] Comment on above: Result Comment: Plea se Note: This test does not meet current guidelines for screening and diagnosis of syphilis. This test is intended for following treatment response in patients being treated for syphilis infection. To screen for syphilis infection, a reflex cascade that includes both RPR and a treponema-specific assay should be utilized, such as Treponema pallidum (Syphilis) Screening [place] (594773) or Rapid Plasma Reagin (RPR) Test With Reflex to Quantitative RPR and Confirmatory Treponema pallidum Antibodies (830516). Performed By: #### A 1C #### [facility] [address] [place] [address] Dr. Isabel Cornelius RUBELLA AB IGGon 02-27-2022 Rubella Antibodies, IgG 14.20 index Normal Immune >0.99 [facility] Comment on above: Result Comment: Non- immune <0.90 Equivocal 0.90 - 0.99 Immune >0.99 Performed By: #### G LU1HR #### [facility] [address] [place] [address] Dr. Isabel Cornelius CBC AUTO DIFFon 02-26-2022 BASO # 0.1 103/ul Normal 0.0-0.1 [facility] Comment on above: Performed By: #### C BC #### [facility] [address] [place] [address] Dr. Isabel Cornelius Basophils/100 WBC (Bld) 0.5 % Normal 0.2-2.0 [facility] Comment on above: Performed By: #### C BC #### [facility] [address] [place] [address] Dr. Isabel Cornelius EO # 0.1 103/ul Normal 0.0-0.7 [facility] Comment on above: Performed By: #### C BC #### [facility] [address] [place] [address] Dr. Isabel Cornelius Eosinophils/100 WBC (Bld) 0.8 % Critically low 0.9-7.0 [facility] Comment on above: Performed By: #### C BC #### [facility] [address] [place] [address] Dr. Isabel Cornelius Erythrocyte distribution width (RBC) [Ratio] 14.2 % Normal 11.0-15.0 [facility] Comment on above: Performed By: #### C BC #### [facility] [address] [place] [address] Dr. Isabel Cornelius Hematocrit (Bld) [Volume fraction] 41.7 % Normal 36.0-48.0 [facility] Comment on above: Performed By: #### C BC #### [facility] [address] [place] [address] Dr. Isabel Cornelius Hemoglobin (Bld) [Mass/Vol] 13.5 g/dL Normal 12.0-16.0 [facility] Comment on above: Performed By: #### C BC #### [facility] [address] [place] [address] Dr. Isabel Cornelius IG # 0.09 10e3/ul Critically high 0.00-0.03 [facility] Comment on above: Performed By: #### C BC #### [facility] [address] [place] [address] Dr. Isabel Cornelius IG % 0.7 % Critically high 0.0-0.5 [facility] Comment on above: Performed By: #### C BC #### [facility] [address] [place] [address] Dr. Isabel Cornelius LYMPH # 2.0 103/ul Normal 1.2-3.8 [facility] Comment on above: Performed By: #### C BC #### [facility] [address] [place] [address] Dr. Isabel Cornelius Lymphocytes/100 WBC (Bld) 14.8 % Critically low 20.5-60.0 [facility] Comment on above: Performed By: #### C BC #### [facility] [address] [place] [address] Dr. Isabel Cornelius MANUAL DIFF REQ NO Normal [facility] Comment on above: Performed By: #### C BC #### [facility] [address] [place] [address] Dr. Isabel Cornelius MCH (RBC) [Entitic mass] 27.0 pg Normal 26.7-34.0 [facility] Comment on above: Performed By: #### C BC #### [facility] [address] [place] [address] Dr. Isabel Cornelius MCHC (RBC) [Mass/Vol] 32.4 g/dL Normal 29.9-35.2 [facility] Comment on above: Performed By: #### C BC #### [facility] [address] [place] [address] Dr. Isabel Cornelius MCV (RBC) [Entitic vol] 83.4 fL Normal 81.0-99.0 [facility] Comment on above: Performed By: #### C BC #### [facility] [address] [place] [address] Dr. Isabel Cornelius MONO # 0.6 103/ul Normal 0.3-0.8 [facility] Comment on above: Performed By: #### C BC #### [facility] [address] [place] [address] Dr. Isabel Cornelius Monocytes/100 WBC (Bld) 4.6 % Normal 1.7-12.0 [facility] Comment on above: Performed By: #### C BC #### [facility] [address] [place] [address] Dr. Isabel Cornelius NEUT # 10.4 103/ul Critically high 1.4-6.5 [facility] [place] Comment on above: Performed By: #### C BC #### [facility] [address] [place] [address] Dr. Isabel Cornelius Neutrophils/100 WBC (Bld) 78.6 % Critically high 43.0-75.0 [facility] Comment on above: Performed By: #### C BC #### [facility] [address] [place] [address] Dr. Isabel Cornelius Platelet mean volume (Bld) [Entitic vol] 9.7 fL Normal 9.5-13.5 [facility] Comment on above: Performed By: #### C BC #### [facility] [address] [place] [address] Dr. Isabel Cornelius PLT 395 103/ul Normal 150-450 [facility] Comment on above: Performed By: #### C BC #### [facility] [address] [place] [address] Dr. Isabel Cornelius RBC 5.00 106/ul Normal 4.20-5.40 [facility] Comment on above: Performed By: #### C BC #### [facility] [address] [place] [address] Dr. Isabel Cornelius WBC 13.2 103/ul Critically high 4.0-11.0 [facility] [place] Comment on above: Performed By: #### C BC #### [facility] [address] [place] [address] Dr. Isabel Cornelius GLYCOHEMOGLOBIN A1Con 2021 ADA RECOMMENDATION SEE BELOW Normal [facility] Comment on above: Result Comment: ADA RECOMMENDED LIMIT 4.0 - 6.0 ADA THERAPEUTIC TARGET < 7.0 ACTION SUGGESTED > 7.0 Performed By: #### A 1C #### [facility] [address] [place] [address] Dr. Isabel Cornelius Glucose [Mass/Vol] 105 mg/dL Normal [facility] Comment on above: Performed By: #### A 1C #### [facility] [address] [place] [address] Dr. Isabel Cornelius HbA1c (Bld) [Mass fraction] 5.3 % Normal 4.5-6.2 [facility] Comment on above: Performed By: #### A 1C #### [facility] [address] [place] [address] Dr. Isabel Cornelius DYAN BOX TEST PT SEND OUTo n 02-26-2022 SENT TO REF LAB 02/26/2022 Normal [facility] Comment on above: Performed By: #### G LU1HR #### [facility] [address] [place] [address] Dr. Isabel Cornelius TYPE AND SCREENon 02-26-2022 TYPE AND SCREEN Negative Normal [facility] Comment on above: Performed By: #### A 1C #### [facility] [address] [place] [address] Dr. Isabel Cornelius US PREG TVon 02-25-2022 [...] ERMA GARCIA Date: 2022-02-25 11:58 Normal [facility] CBC with Diffon 01-05-2019 Abs. Basophil 0.04 k/uL Normal 0.00-0.20 [facility] Comment on above: Performed By: #### C DP #### [address] [address] Blind Stitch Machine Operator: Og Rothman MD Abs.Imm.Granulocyte 0.07 k/uL Normal 0.00-0.30 [facility] Comment on above: Performed By: #### C DP #### [place] [address] Blind Stitch Machine Operator: Og Rothman MD Abs.Neutrophil (Seg) 7.45 k/uL Normal 1.50-8.10 [facility] Comment on above: Performed By: #### C DP #### [place] [address] [employer] St[employer] Machine Operator: Og Rothman MD Basophils/100 WBC (Bld) 0 % Normal 0-2 [facility] Comment on above: Performed By: #### C DP #### [place] [address] [employer] St[employer] Machine Operator: Og Rothman MD Eosinophils #/vol (Bld) 0.14 10*3/uL Normal 0.00-0.44 [facility] Comment on above: Performed By: #### C DP #### [address] [address] Blind Stitch Machine Operator: Og Rothman MD Eosinophils/100 WBC (Bld) 1 % Normal 1-4 [facility] Comment on above: Performed By: #### C DP #### [place] [address] Blind St[employer] Machine Operator: Og Rothman MD Erythrocyte distribution width Ratio (RBC) 15.1 % High 11.8-14.4 [facility] Comment on above: Performed By: #### C DP #### [place] [address] Blind Stitch Machine Operator: Og Rothman MD Hematocrit Volume Fraction (Bld) 29.9 % Low 36.3-47.1 [facility] Comment on above: Performed By: #### C DP #### [address] [address] Blind Stitch Machine Operator: Og Rothman MD Hemoglobin mass conc (Bld) 9.3 g/dL Low 11.9-15.1 [facility] Comment on above: Performed By: #### C DP #### [address] [address] Blind St[employer] Machine Operator: Og Rothman MD Immature granulocytes #/vol (Bld) 1 % High 0 [facility] Comment on above: Performed By: #### C DP #### [address] [address] Blind Stitch Machine Operator: Og Rothman MD Lymphocytes #/vol (Bld) 1.37 10*3/uL Normal 1.10-3.70 [facility] Comment on above: Performed By: #### C DP #### [address] [address] Blind Stitch Machine Operator: Og Rothman MD Lymphocytes/100 WBC (Bld) 14 % Low 24-43 [facility] Comment on above: Performed By: #### C DP #### [address] [address] Blind Stitch Machine Operator: Og Rothman MD MCH Entitic mass (RBC) 27.8 pg Normal 25.2-33.5 [facility] Comment on above: Performed By: #### C DP #### [address] [address] Blind Stitch Machine Operator: Og Rothman MD MCHC mass conc (RBC) 31.1 g/dL Normal 28.4-34.8 [facility] Comment on above: Performed By: #### C DP #### [address] [address] Blind Stitch Machine Operator: Og Rothman MD MCV Entitic volume (RBC) 89.3 fL Normal 82.6-102.9 [facility] Comment on above: Performed By: #### C DP #### [address] [address] Blind Stitch Machine Operator: Og Rothman MD Monocytes #/vol (Bld) 0.91 10*3/uL Normal 0.10-1.20 [facility] Comment on above: Performed By: #### C DP #### [address] [address] Blind Stitch Machine Operator: Og Rothman MD Monocytes/100 WBC (Bld) 9 % Normal 3-12 [facility] Comment on above: Performed By: #### C DP #### [address] [address] Blind Stitch Machine Operator: Og Rothman MD Neutrophil (Seg) 75 % High 36-65 [facility] Comment on above: Performed By: #### C DP #### [address] [address] Blind St[employer] Machine Operator: Og Rothman MD NRBC Automated 0.0 per 100 WBC Normal 0.0 [facility] Comment on above: Performed By: #### C DP #### [address] [address] Blind St[employer] Machine Operator: Og Rothman MD Platelet mean volume Entitic volume (Bld) 11.0 fL Normal 8.1-13.5 [facility] Comment on above: Performed By: #### C DP #### [address] [address] Blind St[employer] Machine Operator: Og Rothman MD Platelets #/vol (Bld) 218 10*3/uL Normal 138-453 [facility] Comment on above: Performed By: #### C DP #### [address] [address] Blind St[employer] Machine Operator: Og Rothman MD RBC #/vol (Bld) 3.35 10*6/uL Low 3.95-5.11 [facility] Comment on above: Performed By: #### C DP #### [address] [address] Blind Stitch Machine Operator: Og Rothman MD RBC morphology finding Nom (Bld) ANISOCYTOSIS PRESENT Normal [facility] Comment on above: Performed By: #### C DP #### [address] [address] Blind Stitch Machine Operator: Og Rothman MD WBC #/vol (Bld) 10.0 10*3/uL Normal 3.5-11.3 [facility] Comment on above: Performed By: #### C DP #### [address] [address] Blind Stitch Machine Operator: Og Rothman MD Auto Diff Performed NOT REPORTED Normal [facility] Comment on above: Performed By: #### C DP #### [address] [address] Blind Stitch Machine Operator: Og Rothman MD Platelets #/vol (Bld) NOT REPORTED Normal [facility] Comment on above: Performed By: #### C DP #### [address] [address] Blind Stitch Machine Operator: Og Rothman MD WBC Morphology NOT REPORTED Normal [facility] Comment on above: Performed By: #### C DP #### [address] [address] Blind Stitch Machine Operator: Og Rothman MD Surgical Pathologyon 019 Surgical Pathology (NOTE) [id number] [facility] [address] [place] [phone] SURGICAL PATHOLOGY CONSULTATION Patient Name: FLORA RICHARDSON [facility] Rec: [id number] Path Number: [id number] Collected: 01/04/2019 Received: 01/05/2019 Reported: 01/06/2019 17:00 -- Diagnosis -- PLACENTA, 39 1/7 WEEKS: TERM PLACENTA WITH UNREMARKABLE MEMBRANES AND THREE-VESSEL UMBILICAL CORD. Yonas Kaur Electronically Signed Out ajb/01/06/2019 Clinical Information Pre-op Diagnosis: 28 Y/O, IUP [...] Rare Other: Few microcalcifications Normal [facility] Comment on above: Performed By: #### P PPVS #### [employer] [address] [place] [address] Blind St[employer] Machine Operator: Og Rothman MD CBC with Diffon 01-03-2019 Abs. Basophil 0.04 k/uL Normal 0.00-0.20 [facility] Comment on above: Performed By: #### C DP, TREP #### [address] [address] Blind Stitch Machine Operator: Og Rothman MD Abs.Imm.Granulocyte 0.11 k/uL Normal 0.00-0.30 [facility] Comment on above: Performed By: #### C DP, TREP #### [place] [address] Blind Stitch Machine Operator: Og Rothman MD Abs.Neutrophil (Seg) 8.13 k/uL High 1.50-8.10 [facility] Comment on above: Performed By: #### C DP, TREP #### [place] [address] Blind St[employer] Machine Operator: Og Rothman MD Basophils/100 WBC (Bld) 0 % Normal 0-2 [facility] Comment on above: Performed By: #### C DP, TREP #### [address] [address] Blind Stitch Machine Operator: Og Rothman MD Eosinophils #/vol (Bld) 0.13 10*3/uL Normal 0.00-0.44 [facility] Comment on above: Performed By: #### C DP, TREP #### [address] [address] Blind Stitch Machine Operator: Og Rothman MD Eosinophils/100 WBC (Bld) 1 % Normal 1-4 [facility] Comment on above: Performed By: #### C DP, TREP #### [facility] [address] [place] [address] Blind St[employer] Machine Operator: Og Rothman MD Erythrocyte distribution width Ratio (RBC) 15.0 % High 11.8-14.4 [facility] Comment on above: Performed By: #### C DP, TREP #### [address] [address] Blind Stitch Machine Operator: Og Rothman MD Hematocrit Volume Fraction (Bld) 36.5 % Normal 36.3-47.1 [facility] Comment on above: Performed By: #### C DP, TREP #### [address] [address] Blind Stitch Machine Operator: Og Rothman MD Hemoglobin mass conc (Bld) 11.6 g/dL Low 11.9-15.1 [facility] Comment on above: Performed By: #### C DP, TREP #### [address] [address] Blind Stitch Machine Operator: Og Rothman MD Immature granulocytes #/vol (Bld) 1 % High 0 [facility] Comment on above: Performed By: #### C DP, TREP #### [address] [address] Blind Stitch Machine Operator: Og Rothman MD Lymphocytes #/vol (Bld) 1.40 10*3/uL Normal 1.10-3.70 [facility] Comment on above: Performed By: #### C DP, TREP #### [address] [address] Blind Stitch Machine Operator: Og Rothman MD Lymphocytes/100 WBC (Bld) 13 % Low 24-43 [facility] Comment on above: Performed By: #### C DP, TREP #### [address] [address] Blind Stitch Machine Operator: Og Rothman MD MCH Entitic mass (RBC) 27.5 pg Normal 25.2-33.5 [facility] Comment on above: Performed By: #### C DP, TREP #### [address] [address] Blind Stitch Machine Operator: Og Rothman MD MCHC mass conc (RBC) 31.8 g/dL Normal 28.4-34.8 [facility] Comment on above: Performed By: #### C DP, TREP #### [address] [address] Blind Stitch Machine Operator: Og Rothman MD MCV Entitic volume (RBC) 86.5 fL Normal 82.6-102.9 [facility] Comment on above: Performed By: #### C DP, TREP #### [address] [address] Blind Stitch Machine Operator: Og Rothman MD Monocytes #/vol (Bld) 0.80 10*3/uL Normal 0.10-1.20 [facility] Comment on above: Performed By: #### C DP, TREP #### [address] [address] Blind Stitch Machine Operator: Og Rothman MD Monocytes/100 WBC (Bld) 8 % Normal 3-12 [facility] Comment on above: Performed By: #### C DP, TREP #### [address] [address] Blind Stitch Machine Operator: Og Rothman MD Neutrophil (Seg) 77 % High 36-65 [facility] Comment on above: Performed By: #### C DP, TREP #### [address] [address] Blind Stitch Machine Operator: Og Rothman MD NRBC Automated 0.0 per 100 WBC Normal 0.0 [facility] Comment on above: Performed By: #### C DP, TREP #### [address] [address] Blind Stitch Machine Operator: Og Rothman MD Platelet mean volume Entitic volume (Bld) 10.5 fL Normal 8.1-13.5 [facility] Comment on above: Performed By: #### C DP, TREP #### [address] [address] Blind Stitch Machine Operator: Og Rothman MD Platelets #/vol (Bld) 301 10*3/uL Normal 138-453 [facility] Comment on above: Performed By: #### C DP, TREP #### [address] [address] Blind Stitch Machine Operator: Og Rothman MD RBC #/vol (Bld) 4.22 10*6/uL Normal 3.95-5.11 [facility] Comment on above: Performed By: #### C DP, TREP #### [address] [address] Blind Stitch Machine Operator: Og Rothman MD RBC morphology finding Nom (Bld) ANISOCYTOSIS PRESENT Normal [facility] Comment on above: Performed By: #### C DP, TREP #### [address] [address] Blind Stitch Machine Operator: Og Rothman MD WBC #/vol (Bld) 10.6 10*3/uL Normal 3.5-11.3 [facility] Comment on above: Performed By: #### C DP, TREP #### [address] [address] Blind Stitch Machine Operator: Og Rothman MD Auto Diff Performed NOT REPORTED Normal [facility] Comment on above: Performed By: #### C DP, TREP #### [address] [address] Blind Stitch Machine Operator: Og Rothman MD Platelets #/vol (Bld) NOT REPORTED Normal [facility] Comment on above: Performed By: #### C DP, TREP #### [address] [address] Blind Stitch Machine Operator: Og Rothman MD WBC Morphology NOT REPORTED Normal [facility] Comment on above: Performed By: #### C DP, TREP #### [address] [address] Blind Stitch Machine Operator: Og Rothman MD Drug Scr, Abuse, Uron 2018 Amphetamine(s),Ur Negative Normal NEG [facility] Comment on above: Result Comment: (Positive cutoff 1000 ng/mL) Performed By: #### D AU #### [address] [address] Blind Stitch Machine Operator: Og Rothman MD Barbiturate(s),Ur Negative Normal NEG [facility] Comment on above: Result Comment: (Positive cutoff 200 ng/mL) Performed By: #### D AU #### [address] [address] Blind Stitch Machine Operator: Og Rothman MD Base excess Calculated molar conc (Bld) Negative Normal NEG [facility] Comment on above: Result Comment: (Positive cutoff 300 ng/mL) Performed By: #### D AU #### [address] [address] Blind Stitch Machine Operator: Og Rothman MD Benzodiazepine(s) Negative Normal NEG [facility] Comment on above: Result Comment: (Positive cutoff 200 ng/mL) Performed By: #### D AU #### [facility] [address] [place] [address] Blind Stitch Machine Operator: Og Rothman MD Cannabinoid(s),Ur Negative Normal NEG [facility] Comment on above: Result Comment: (Positive cutoff 50 ng/mL) Performed By: #### D AU #### [address] [address] Blind Stitch Machine Operator: Og Rothman MD Interpretive Info Assay provides medic al screening only. The absence of expected drug(s) and/or Normal [facility] Comment on above: Result Comment: meta bolite(s) may indicate diluted or adulterated urine, limitations of testing or timing of collection. Testing for legal purposes should be confirmed by another method. To request confirmation of test result, please call the lab within 7 days of sample submission. Performed By: #### D AU #### [address] [address] Blind Stitch Machine Operator: Og Rothman MD Methadone Ql (U) Negative Normal NEG [facility] Comment on above: Result Comment: (Positive cutoff 300 ng/mL) Performed By: #### D AU #### [address] [address] Blind Stitch Machine Operator: Og Rothman MD Opiate(s), Ur Negative Normal NEG [facility] Comment on above: Result Comment: (Positive cutoff 300 ng/mL) Performed By: #### D AU #### [address] [address] Blind Stitch Machine Operator: Og Rothman MD Oxycodone, Urine Negative Normal NEG [facility] Comment on above: Result Comment: (Positive cutoff 100 ng/mL) Performed By: #### D AU #### [address] [address] Blind Stitch Machine Operator: Og Rothman MD Phencyclidine, Ur Negative Normal NEG [facility] Comment on above: Result Comment: (Positive cutoff 25 ng/mL) Performed By: #### D AU #### [address] [address] Blind Stitch Machine Operator: Og Rothman MD Buprenorphrine, Ur NOT REPORTED Normal NEG [facility] Comment on above: Performed By: #### D AU #### [facility] [address] [address] Blind Stitch Machine Operator: Og Rothman MD MDMA, Urine NOT REPORTED Normal NEG [facility] Comment on above: Performed By: #### D AU #### [facility] [address] [place] [address] Blind Stitch Machine Operator: Og Rothman MD Methamphetamine, Ur NOT REPORTED Normal NEG [facility] Comment on above: Performed By: #### D AU #### [facility] [address] [place] [address] Blind Stitch Machine Operator: Og Rothman MD Protein mass conc (U) NOT REPORTED Normal NEG [facility] Comment on above: Performed By: #### D AU #### [facility] [address] [place] [address] Blind Stitch Machine Operator: Og Rothman MD Tricyclic antidepressants Screen Ql (U) NOT REPORTED Normal NEG [facility] Comment on above: Performed By: #### D AU #### [address] [address] Blind Stitch Machine Operator: Og Rothman MD T.pallidum Ab Screenon 01-03 T.pallidum Ab Screen NONREACTIVE Normal NR [facility] Comment on above: Result Comment: T. pallidum antibodies are not detected. There is no serological evidence of infection with T. pallidum (early primary syphilis cannot be excluded). Retest in 2-4 weeks if syphilis is clinically suspect. Performed By: #### C DP, TREP #### [facility] [address] [place] [address] Blind Stitch Machine Operator: Og Rothman MD Type + Screenon 01-03-2019 Type + Screen Sample Expiration 01/06/2019 Arm Band Number [id number] ABO/Rh(D) A POSITIVE Antibody Screen NEGATIVE Normal [facility] Comment on above: Performed By: #### T YS #### [address] [id number] Blind Stitch Machine Operator: Og Rothman MD Vital Signs Date Time Vital Sign Value Performing Clinician Facility 11-25-2024 10:30-0500 Body mass index (BMI) [Ratio] 46.73 kg/m2 Tyler Viji DO Work Phone: [facility] 11-25-2024 10:30-0500 Body weight 119.66 kg Tyler Viji DO Work Phone: [facility] 11-25-2024 10:30-0500 Diastolic blood pressure 80 mm[Hg] Tyler Viji DO Work Phone: [facility] 11-25-2024 10:30-0500 Systolic blood pressure 120 mm[Hg] Tyler Viji DO Work Phone: [facility] 10-26-2024 09:37-0500 Body mass index (BMI) [Ratio] 46.41 kg/m2 [facility] Nurse [facility] 10-26-2024 09:37-0500 Body weight 118.84 kg [facility] Nurse [facility] 10-26-2024 09:37-0500 Diastolic blood pressure 74 mm[Hg] [facility] Nurse [facility] 10-26-2024 09:37-0500 Systolic blood pressure 122 mm[Hg] [facility] Nurse [facility] 09-01-2024 10:07-0500 Body height 160 cm Cristina ALVARENGA Work Phone: [facility] 09-01-2024 10:07-0500 Body mass index (BMI) [Ratio] 46.08 kg/m2 Cristina ALVARENGA Work Phone: [facility] 09-01-2024 10:07-0500 Body weight 117.99 kg Cristina ALVARENGA Work Phone: [facility] 09-01-2024 10:07-0500 Diastolic blood pressure 70 mm[Hg] Cristina ALVARENGA Work Phone: [facility] 09-01-2024 10:07-0500 Systolic blood pressure 120 mm[Hg] Cristina ALVARENGA Work Phone: [facility] 04-25-2022 18:08-0400 Body weight 125.[address] EVAN CASTOR [facility] Comment on above: Performed By: #### [id number] #### [facility] [address] [place], [place] [address] Dr. Isabel Cornelius Encounters Encounter Date Encounter Type Care Provider Facility Start: 12-28-2024 End: 12-28-2024 Bamboo flowsheet Cristina ALVARENGA Work Phone: [facility] Start: 12-28-2024 End: 12-29-2024 Bamboo flowsheet Cristina ALVARENGA Work Phone: [facility] Start: 12-28-2024 End: 12-29-2024 External Result Encounter Cristina ALVARENGA Work Phone: [facility] Unsolicited Start: 12-28-2024 End: 12-28-2024 flow sheet Cristina ALVARENGA Work Phone: [facility] Comment on above: Second trimester pre gnancy; 20 weeks gestation of ; Screening, , for anatomic survey Start: 12-04-2024 End: 12-04-2024 Clinisync Result Encounter Tyler Viji DO Work Phone: [facility] Unsolicited Start: 12-04-2024 End: 12-04-2024 Clinisync Result Encounter Tyler Viji DO Work Phone: [facility] Unsolicited Start: 11-25-2024 End: 11-25-2024 Bamboo flowsheet Tyler Viji DO Work Phone: [facility] Start: 11-25-2024 End: 11-25-2024 Bamboo flowsheet Tyler Viji DO Work Phone: [facility] Start: 11-25-2024 End: 11-25-2024 flow sheet Tyler Viji DO Work Phone: [facility] Comment on above: 15 weeks gestation o f ; Second trimester ; Urinary tract infection without hematuria, site unspecified; History of gestational diabetes Start: 11-25-2024 End: 11-25-2024 ambulatory TYLER GARCIAZIO Not Available Start: 10-26-2024 End: 10-26-2024 ambulatory [facility] Viji Nurse [facility] Comment on above: GA: 11w2d Start: 09-01-2024 End: 09-01-2024 Bamboo flowsheet Cristina ALVARENGA Work Phone: [facility] Start: 09-01-2024 End: 09-13-2024 Bamboo flowsheet Cristina ALVARENGA Work Phone: [facility] Start: 09-01-2024 End: 09-13-2024 Clinisync Result Encounter Cristina ALVARENGA Work Phone: [facility] Unsolicited Start: 09-01-2024 End: 09-01-2024 Patient encounter procedure Cristina ALVARENGA Work Phone: [facility] Work Phone: Start: 09-01-2024 End: 09-01-2024 [...] 01-08-2019 Evaluation and management of inpatient ANDREW Gus BADILLO [facility] Procedures Date Procedure Procedure Detail Performing Clinician Start: 12-28-2024 RECURRENT VAGINITIS (HTRX) Cristina ALVARENGA Work Phone: Start: 12-28-2024 Urnls dip stick/tabl et rgnt non-auto w/o micrscp Cristina ALVARENGA Work Phone: Start: 12-04-2024 GLUCOSE 1 HOUR Tyler Fa zio DO Work Phone: Start: 11-25-2024 Urnls dip stick/tabl et rgnt [...] INCENTIVE SPIROMETRY RT ANDREW JUSTINO Start: 01-05-2019 INITIATE OXYGEN THER APY PROTOCOL ANDREW BADILLO Start: 01-05-2019 Blood count complete auto&auto difrntl wbc ANDREW BADILLO Start: 01-05-2019 INCENTIVE SPIROMETRY RT ANDREW BADILLO Start: 01-05-2019 CATHETER REMOVAL ANDREW BADILLO Start: 01-05-2019 SALINE LOCK IV ANDREW BOWIE Start: 01-05-2019 INCENTIVE SPIROMETRY RT ANDREW [...] PATIENT ANDREW BADILLO Start: 01-04-2019 VITAL SIGNS ANDREW ALL EN Start: 01-04-2019 Level iv surg pathol [...] Screening for malign ant neoplasm of cervix [facility] Start: 01-25-2025 End: 01-25-2025 Patient encounter procedure 01/25/2025 11:10 AM EDT Routine [facility] [address] [facility] [place] [id number] Tyler Hallman DO [address] [place] [address] [facility] Start: 12-28-2024 End: 12-28-2025 US for US OB 14+ weeks anatomy scan Imaging Routine Screening, , for anatomic survey Expected: 12/28/2024 (Approximate), Expires: 12/28/2025 [facility] Comment on above: Expected: 12/28/2024 (Approximate), Expires: 12/28/2025 Start: 12-28-2024 End: 12-28-2024 Patient encounter procedure 12/28/2024 10:30 AM EST Routine [facility] [address] [facility] [place] [phone] Cristina Oneill PA [address] [place] [address] [facility] Start: 11-25-2024 End: 11-25-2024 Patient encounter procedure [facility] Comment on above: Arrived Start: 10-26-2024 End: 10-26-2025 ABO/Rh ABO/Rh Lab Routine Missed menses , unspecified gestational age Expected: 10/26/2024 (Approximate), Expires: 10/26/2025 [facility] Comment on above: Expected: 10/26/2024 (Approximate), Expires: 10/26/2025 Start: 10-26-2024 End: 10-26-2025 Blood type and Indirect antibody screen panel - Blood Type and screen Lab Routine Missed menses , unspecified gestational age Expected: 10/26/2024 (Approximate), Expires: 10/26/2025 [facility] Work Phone: Comment on above: Expected: 10/26/2024 (Approximate), Expires: 10/26/2025 Start: 10-26-2024 End: 10-26-2025 Drugs of abuse panel - Urine by Screen method Rapid drug screen, urine Lab Routine , unspecified gestational age Encounter for supervision of normal first in first trimester Expected: 10/26/2024 (Approximate), Expires: 10/26/2025 [facility] Comment on above: Expected: 10/26/2024 (Approximate), Expires: 10/26/2025 Start: 09-01-2024 End: 09-01-2024 Patient encounter procedure 09/01/2024 10:00 AM EST Office Visit [facility] [address] [facility] [place] [phone] Cristina Oneill PA [address] [place] [address] Arrived [facility] Comment on above: Arrived Start: 06-27-2024 Influenza vaccination Influenza Vacc ine (#1) [facility] Start: 2022 Screening for malign ant neoplasm of cervix [facility] Start: 2013 Screening for malign ant neoplasm of cervix Pap Smear [facility] Bacteria identified in Urine by Culture Urine culture Microbiology Routine Missed menses Ordered: 10/26/2024 [facility] Comment on above: Ordered: 10/26/2024 CBC W Auto Different ial panel - Blood CBC and differential Lab Routine Missed menses , unspecified gestational age Ordered: 10/26/2024 [facility] Comment on above: Ordered: 10/26/2024 CHLAMYDIA TRACHOMATI S (GENITO/STI) CHLAMYDIA TRACHOMATIS (GENITO/STI) Lab Routine Second trimester Ordered: 12/28/2024 [facility] Comment on above: Ordered: 12/28/2024 Cytology Cervical or vaginal smear or scraping study Pap Smear Pathology and Cytology Routine Well woman exam with routine gynecological exam Ordered: 09/01/2024 [facility] Work Phone: Comment on above: Ordered: 09/01/2024 Hemoglobin A1c/Hemoglobin.total in Blood Hemoglobin A1c Lab Routine Missed menses , unspecified gestational age Ordered: 10/26/2024 [facility] Comment on above: Ordered: 10/26/2024 Hepatitis B virus surface Ag [Presence] in Serum or Plasma by Immunoassay Hepatitis B surface antigen Lab Routine Missed menses , unspecified gestational age Ordered: 10/26/2024 [facility] Comment on above: Ordered: 10/26/2024 Hepatitis C virus Ab [Presence] in Serum or Plasma by Immunoassay Hepatitis C antibody Lab Routine Missed menses , unspecified gestational age Ordered: 10/26/2024 [facility] Comment on above: Ordered: 10/26/2024 HIV-1/HIV-2 antigen/antibody combination immunoassay HIV-1 and HIV-2 antibodies Lab Routine Missed menses , unspecified gestational age Ordered: 10/26/2024 [facility] Comment on above: Ordered: 10/26/2024 Human papilloma viru s DNA [Presence] in Unspecified specimen by Probe with amplification HPV DNA probe, amplified Microbiology Routine Well woman exam with routine gynecological exam Ordered: 09/01/2024 [facility] Comment on above: Ordered: 09/01/2024 Measurement of gluco se 1 hour after glucose challenge for glucose tolerance test GTT, 1 hour Lab Routine Urinary tract infection without hematuria, site unspecified History of gestational diabetes Ordered: 11/25/2024 [facility] Work Phone: Comment on above: Ordered: 11/25/2024 Neisseria gonorrhoea e DNA [Presence] in Unspecified specimen by KINSEY with probe detection Neisseria gonorrhea DNA probe, direct Lab Routine Second trimester Ordered: 12/28/2024 [facility] Comment on above: Ordered: 12/28/2024 Reagin Ab [Presence] in Serum by RPR RPR Lab Routine Missed menses , unspecified gestational age Ordered: 10/26/2024 [facility] Comment on above: Ordered: 10/26/2024 Rubella antibody, IgG Rubella an tibody, IgG Lab Routine Missed menses , unspecified gestational age Ordered: 10/26/2024 [facility] Comment on above: Ordered: 10/26/2024 SURESWAB(R) ADVANCED VAGINITIS PLUS, TMA SURESWAB(R) ADVANCED VAGINITIS PLUS, TMA Pathology and Cytology Routine Second trimester Ordered: 12/28/2024 [facility] Work Phone: Comment on above: Ordered: 12/28/2024 Immunizations Immunization Date Immunization Notes Care Provider Fa cili 08-30-2022 influenza virus vacc ine, unspecified formulation Cristina ALVARENGA Work Phone: [facility] Payers Date Payer Category Payer [facility] [id number] 2023 Unknown [id number] 2018 Medicaid [id number] 1992 Unknown [id number] 2.16840.1.766126.3.579. 2.175 1992 Unknown [id number] 2.16840.1.518047.3.579. 2.593 1992 Unknown [id number] 2.16840.1.623501.3.579. 2.593 1992 Unknown [id number] 2.16840.1.689136.3.579. 2.593 1992 Unknown [id number] 2.16840.1.539660.3.579. 2.593 1992 Unknown [id number] 2.16.840.1.820534.3.579. 2.593 1992 Unknown [id number] 2.16.840.1.090416.3.579. 2.593 1992 Unknown [id number] 2.16.840.1.691506.3.579. 2.593 1992 Unknown [id number] 2.16840.1.135371.3.579. 2.593 1992 Unknown [id number] 2.16.840.1.396891.3.579. 2.593 1992 Unknown [id number] 2.16.840.1.828279.3.579. 2.593 1992 Unknown [id number] 2.16.840.1.288961.3.579. 2.593 1992 Unknown [id number] 2.16.840.1.606541.3.579. 2.593 1992 Unknown [id number] 2.16.840.1.601551.3.579. 2.593 1992 Unknown [id number] 2.16.840.1.400291.3.579. 2.593 1992 Unknown [id number] 2.16.840.1.292846.3.579. 2.593 1992 Unknown [id number] 2.16.840.1.415300.3.579. 2.593 1992 Unknown [id number] 2.16.840.1.402493.3.579. 2.593 1992 Unknown [id number] 2.16.840.1.219500.3.579. 2.1259 1992 Unknown [id number] 2.16.840.1.924111.3.579. 2.1259 1992 Unknown [id number] 2.16.840.1.647064.3.579. 2.1259 1992 Unknown [id number] 2.16.840.1.720314.3.579. 2.1259 1959 Unknown [id number] Unknown Unknown [id number] 2.16.840.1.698059.3.579. 2.593 Social History Date Type Detail Facility Start: 03-31-2023 Tobacco smoking stat [facility] Never smoked tobacco [facility] Start: 03-31-2023 End: 12-28-2024 Alcoholic beverage intake Lifetime non-drinker (finding) [facility] Start: 03-31-2023 End: 09-01-2024 History of Social function [facility] Start: 03-31-2023 End: 09-01-2024 Tobacco use panel [facility] Start: 1990 Sex assigned at Not on file [facility] Start: 08-22-2024 [facility] History of Present illness Narrative 12-28-2024 LYLE Jones - 12/28/2024 10:30 AM EST Note Date & Type Note Facility 12-28-2024 History of Presen t illness Narrative Reason for Appointment: Patient ID: Flora Bunch is a 34 y.o. female who presents for Routine Visit Patient presents today for STD Check. and Return OB appointment. MEDICATIONS Current Outpatient Medications Medication Instructions diphenhydrAMINE (Benadryl Allergy) 25 MG tablet Every 24 hours omeprazole (PriLOSEC) [address] capsule Every 24 hours MV-Min-Fe Fum-FA-DHA ( 1 PO) 1 each, Daily Vit w/Kx-Jkdxkmhow-HV (PNV-Select) 27-0.6-0.4 MG tablet Every 24 hours ALLERGIES No Known Allergies PROBLEMS Active Ambulatory [...] Exam Constitutional: Appearance: Normal appearance. She is normal weight. Genitourinary: Right Adnexa: not tender and no mass present. Left Adnexa: not tender and no mass present. No cervical discharge. Breasts: Breasts are soft. Right: Normal. Left: Normal. HENT: Head: Normocephalic. Nose: Nose normal. Mouth/Throat: Mouth: Mucous membranes are moist. Cardiovascular: Rate and Rhythm: Normal rate. Pulses: Normal pulses. Pulmonary: Effort: Pulmonary effort is normal. Breath sounds: Normal breath sounds. Abdominal: General: Bowel sounds are normal. Palpations: Abdomen is soft. Musculoskeletal: General: Normal range of motion. Cervical back: Normal range of motion. Neurological: General: No focal deficit present. Mental Status: She is alert and oriented to person, place, and time. Skin: General: Skin is warm and dry. Psychiatric: Mood and Affect: Mood normal. Behavior: Behavior normal. Thought Content: Thought content normal. Judgment: Judgment normal. Vitals and nursing note reviewed. Exam conducted with a gm video present. Vitals: Estimated body mass index is 46.73 kg/m as calculated from the following: Height as of 09/01/24: 5' 3 . Weight as of 11/25/24: 263 lb 12.8 oz. BP: Patient's last menstrual period was 08/08/2024. ASSESSMENT & PLAN ICD-10-CM 1. Second trimester Z34.92 SURESWAB(R) ADVANCED VAGINITIS PLUS, TMA CHLAMYDIA TRACHOMATIS (GENITO/STI) Neisseria gonorrhea DNA probe, direct 2. 20 weeks gestation of Z3A.20 POCT urinalysis dipstick manually resulted 3. Screening, , for anatomic survey Z36.89 US OB 14+ weeks anatomy scan Return OB/Annual Exam: Patient presents today for cx's /routine obstetrics appointment. Patient is currently 20w2d . Patient is doing well and states she has no complaints. Cultures was obtained without difficulty and patient was given anatomy US order to have obtained. Patient declined the MSAFP order. Orders Placed This Encounter Procedures US OB 14+ weeks anatomy scan CHLAMYDIA TRACHOMATIS (GENITO/STI) Neisseria gonorrhea DNA probe, direct POCT urinalysis dipstick manually resulted Follow Up: Patient is to return to our office in 4 weeks for routine OB appointment Documented by Suzy Garcia MA on behalf of: LYLE Jones documented in this encounter [facility] History of Present illness Narrative 11-25-2024 Di Fofana, ASSIGNMENT OFFICER - 11/25/2024 10:20 AM EST Note Date [...] nursing note reviewed. Exam conducted with a gm video present. Vitals: Estimated body mass index is [...] or undercooked meat, and stay away from [facility]. Patient has been consulted regarding any further [...] or undercooked meat, and stay away from [facility]. Patient has also been advised to [...] Suzy Garcia MA documented in this encounter [facility] History of Present illness Narrative 09-01-2024 [...] nursing note reviewed. Exam conducted with a gm video present. Vitals: Estimated body mass index is [...] Documented by LYLE Jones on behalf of: LLYE Jones documented in this encounter [facility] Evaluation note Note Date & Type Note Facility Evaluation note Diagnosis Well woman exam with routine gynecological exam Routine gynecological examination documented in this encounter [facility] Evaluation note Note Date & Type Note Facility Evaluation note Diagnosis Missed menses 11 weeks gestation of , unspecified gestational age Encounter for supervision of normal first in first trimester documented in this encounter [facility] Evaluation note Note Date & Type Note Facility Evaluation note Diagnosis 15 weeks gestation of Second trimester state, incidental Urinary tract infection without hematuria, site unspecified History of gestational diabetes Personal history of other genital system and obstetric disorders documented in this encounter [facility] Evaluation note Note Date & Type Note Facility Evaluation note Diagnosis Second trimester state, incidental 20 weeks gestation of Screening, , for anatomic survey Encounter for anatomic survey documented in this encounter [facility] Summary Purpose Family History No Family History Records FoundNo Family History Records FoundNo Family History Records Found Advance Directives No Advanced Directives Records FoundNo Advanced Directives Records FoundNo Advanced Directives Records Found Additional Source Comments INFORMATION SOURCE (unrecogn ized section and content) DATE CREATED AUTHOR 01/12/2019 [facility] DATE CREATED AUTHOR AUTHOR'S ORGANIZ ATION 09/16/2022 [facility] DATE CREATED AUTHOR AUTHOR'S ORGANIZ ATION 11/27/2024 [facility] EPIC Reason for Visit (unrecogniz ed [...] BE BASED ON THE PRIMARY CLINICAL RECORDS. [facility] [employer] [facility]. provides no warranty or guarantee of the accuracy or completeness of information in this document.
== END 2024-12-29 09:02 | disposition home or self-care (01) ==
LOC: US 09:01
PROVIDERS: Visit Provider Physician Assistant
DX: Z36.89 Encounter for other specified antenatal screening (principal); Z3A.20 20 weeks gestation of pregnancy
CPT/HCPCS: 76805; 76817

== ENCOUNTER 2025-02-15 11:14 | Outpatient (OUT) | payer BC, SELFPAY ==
[2025-02-15 12:29] LABS: Basophils Absolute Auto 0.1 10^3/uL (0.0-0.1); Basophils Percent Auto 0.5 % (0.2-2.0); Eosinophils Absolute Auto 0.2 10^3/uL (0.0-0.7); Eosinophils Percent Auto 1.6 % (0.9-7.0); Hematocrit 35.5 % (36.0-48.0); Hemoglobin 11.6 g/dL (12.0-16.0); Immature Granulocytes Abs Auto 0.05 10^3/uL (0.00-0.03); Immature Granulocytes Pct Auto 0.5 % (0.0-0.5); Lymphocytes Absolute Auto 1.6 10^3/uL (1.2-3.8); Lymphocytes Percent Auto 16.1 % (20.5-60.0); Mean Corpuscular HGB Conc 32.7 g/dL (29.9-35.2); Mean Corpuscular Hemoglobin 28.4 pg (26.7-34.0); Mean Platelet Volume 9.7 fL (9.5-13.5); Monocytes Absolute Auto 0.4 10^3/uL (0.3-0.8); Neutrophils Absolute Auto 7.8 10^3/uL (1.4-6.5); Neutrophils Percent Auto 77.3 % (43.0-75.0); Platelet Count 287 10^3/uL (150-450); Red Blood Count 4.08 10^6/uL (4.20-5.40); Red Cell Distribution Width 13.8 % (11.0-15.0); White Blood Count 10.1 10^3/uL (4.0-11.0)
[2025-02-15 13:02] LABS: Glucose 1 Hour 145 mg/dL (<130)
== END 2025-02-15 11:15 | disposition home or self-care (01) ==
LOC: LAB 11:14
PROVIDERS: Visit Provider Obstetrics & Gynecology
DX: Z13.1 Encounter for screening for diabetes mellitus (principal)
CPT/HCPCS: 36415; 82950; 85025

== ENCOUNTER 2025-02-28 09:16 | Outpatient (OUT) | payer BC, SELFPAY ==
[2025-02-28 10:02] LABS: Glucose Fasting 102 mg/dL (<95)
[2025-02-28 11:17] LABS: Glucose 1 Hour 158 mg/dL (<180)
[2025-02-28 12:13] LABS: Glucose 2 Hour 138 mg/dL (<155)
[2025-02-28 12:51] LABS: Glucose 3 Hour 112 mg/dL (<140)
== END 2025-02-28 09:17 | disposition home or self-care (01) ==
LOC: LAB 09:16
PROVIDERS: Visit Provider Obstetrics & Gynecology
DX: R73.09 Other abnormal glucose (principal)
CPT/HCPCS: 36415; 82951; 82952

== ENCOUNTER 2025-04-18 11:04 | Emergency (ER) | payer OTHER, BC, SELFPAY ==
--- OUTSIDE RECORDS SUMMARY | 2025-04-07 11:30 | XMS_ITS | Encounter Summary ---
Author Organization [facility] Address [address] [place] [address] Care Team Providers Care Clothing Room Supervisor Name Role Phone Unavailable Primary Care Provider Unavailabl e Reason for Visit * Reason Comments Routine Visit Encounter Details Date Type Department Care Team (Late st Contact Info) Description 04/07/2025 11:30 AM EDT Routine [facility] [address] [place] [address] Parker Hallman, DO [address] Yovanny Hobbs, [facility] Third trimester ([facility]); 34 weeks gestation of ([facility]) Social History Tobacco Use Types Packs/Day [...] ( 1 PO) 1 each, Daily Vit w/Ks-Ntcfrlxhs-JX (PNV-Select) 27-0.6-0.4 MG tablet Every 24 hours [...] nursing note reviewed. Exam conducted with a compotype operator present. Vitals: Estimated body mass index is 50.31 kg/m?? as calculated from the following: Height as of 24: 5' 3 . Weight as of this encounter: 284 lb. BP: 122/72 Patient's last menstrual period was 08/08/2024. ASSESSMENT & PLAN ICD-10-CM 1. Third trimester ([facility]) Z34.93 POCT urinalysis dipstick manually resulted 2. 34 weeks gestation of ([facility]) Z3A.34 Return OB: Patient presents today for [...] Care Team (Late st Contact Info) Description 04/21/2025 10:50 AM EDT Routine [facility] [address] [place] [phone] Cristina Chapman PA [address] [place] [address] documented as of this encounter Procedures Procedure Name Priority Date/Time Associated Diagnosis Comments POCT URINALYSIS DIPSTICK Routine 04/07/2025 11:43 AM EDT Third trimester ([facility]) documented in this encounter Results * (ABNORMAL) [...] this encounter Visit Diagnoses Diagnosis Third trimester ([facility]) state, incidental 34 weeks gestation of ([facility]) documented in this encounter
[2025-04-18 11:10] VITALS: BP 124/73; PULSE 93; TEMP 36.8; O2SAT 97; BMI 51.2
--- OUTSIDE RECORDS SUMMARY | 2025-04-18 11:14 | XMS_ITS | Encounter Summary ---
Author Organization [facility] Address [address] [facility] [place] [address] Care Team Providers Care Nitrating Acid Mixer Name Role Phone Unavailable Primary Care Provider Unavailabl e Encounter Details Date Type Department Care Team (Late st Contact Info) Description 11/30/2024 Abstract [facility] [address] [place] [address] Parker Hallman, DO [address] Yovanny Yates, [facility]11 Social History Tobacco Use Types Packs/Day Years [...] on file documented as of this encounter Plan of Treatment Upcoming Encounters Date Type Department Care Team (Late st Contact Info) Description 04/21/2025 10:50 AM EDT Routine [facility] [address] [place] [address] Cristina Chapman PA [address] [place], [facility]11 documented as of this encounter Visit Diagnoses Not on filedocumented in this encounter
--- OUTSIDE RECORDS SUMMARY | 2025-04-18 11:14 | XMS_ITS | Clinical Summary ---
Author Organization [facility] Healthcare Address [address] [place] [address] Care Team Providers Care Muffler Mechanic Name Role Phone Unavailable Primary Care Provider Unavailabl e Allergies No known active allergies Medications MV-Min-Fe Fum-FA-DHA ( 1 PO) Take 1 each by mouth Daily Active Vit w/Ca-Vdfrrmcag-T A (PNV-Select) 27-0.6-0.4 MG tablet 1 (one) time each day at the same time Active valACYclovir (Valtrex) 500 MG tabletIndication s:32 weeks gestation of ([facility]),Third trimester ([facility]) Take 1 tablet (500 mg) by mouth Daily 30 tablet 11 03/24/2025 5 Active Encounters Date Type Department Care Team Description 04/07/2025 11:30 AM EDT Routine [facility] [address] [facility] [place] [address] Parker Hallman DO Third trimester ([facility]); 34 weeks gestation of ([facility]) 04/07/2025 Bamboo flowsheet [facility] OB [address] [facility] [address] Parker Hallman DO 04/06/2025 Travel 03/24/2025 8:50 AM EDT Routine [facility] OB [address] [place] [address] Cristina Chapman, PA 32 weeks gestation of ([facility]); Third trimester ([facility]) 03/24/2025 8:00 AM EDT Ancillary Procedure [facility] OB [address] [facility] [place] [address] size inconsistent with dates ([facility]) 03/23/2025 Travel 03/21/2025 Travel 03/08/2025 11:20 AM EDT Routine [facility] [address] [place] [address] Parker Hallman, Third trimester ([facility]); 29 weeks gestation of ([facility]); Hematuria, unspecified type; size inconsistent with dates ([facility]) 03/08/2025 Bamboo flowsheet [facility] OB [address] [place] [address] [place] [address] Parker Hallman, DO 03/07/2025 Travel 02/28/2025 Clinisync Result Encounter [facility] External Department Unsolicited Parker Hallman, DO 02/22/2025 10:40 AM EDT Routine [facility] OB [address] [place] [address] [place] [address] Parker Hallman, Third trimester ([facility]); 28 weeks gestation of ([facility]); Request for sterilization 02/22/2025 Bamboo flowsheet [facility] OB [address] [place] [address] [place] [address] Parker Hallman, DO 02/21/2025 Travel 02/17/2025 Results Follow-Up [facility] OB [address] [place] [address] [place] [address] Gina Barriga LPN 02/17/2025 Telephone [facility] OB [address] [place] [address] [place] [address] Gina Barriga LPN 02/15/2025 Clinisync Result Encounter [facility] External Department Unsolicited Parker Hallman, DO 01/25/2025 11:10 AM EDT Routine [facility] OB [address] [place] [address] [place] [address] Parker Hallman, DO 24 weeks gestation of ([facility]); Second trimester ([facility]); Diabetes mellitus screening 01/25/2025 Bamboo flowsheet [facility] OB [address] [facility] [place] [phone] Parker Hallman DO 01/25/2025 Travel from Last 3 Months Family History Medical History Relation Name Comments Asthma Father Clotting disorder Father Bleedign d isorder Diabetes Father Hypertension Father Diabetes Other Hypertension Other Thyroid disease Other Relation Name Status Comments Father Other Family history Son 2 sons Social History Tobacco Use Types Packs/Day Years Used Date Smoking Tobacco: Never Tobacco Cessation:Counseling Given: Not Answered Alcohol Use Standard Drinks/Week Comments Never 0 (1 standard drink = 0.6 oz pur e alcohol) Estimated Date of Delivery Comme nts Yes 05/15/2025 Based on last me nstrual period of 08/08/2024 Sex and Gender Information Value Date Recorded Sex Assigned at Not on file Legal Sex Female 11:46 PM EDT Gender Identity Not on file Sexual Orientation Not on file Last Filed Vital Signs Vital Sign Reading Time Taken Comments Blood Pressure 122/72 04/07/2025 11:42 AM EDT Pulse - - Temperature - - Respiratory Rate - - Oxygen Saturation - - Inhaled Oxygen Concentration - - Weight 129 kg (284 lb) 04/07/2025 11:42 AM EDT Height 160 cm (5' 3 ) 09/01/2024 10:07 AM EST Body Mass Index 50.31 09/01/2024 10:07 AM EST Plan of Treatment Upcoming Encounters Date Type Department Care Team (Late st Contact Info) Description 04/21/2025 10:50 AM EDT Routine [facility] OB [address] [facility] [place] [phone] Cristina Chapman PA [address] [place] [address] [place], [place] [id number] Health Maintenance Due Date Last Done Comments Influenza Vaccine (Season Ended) 2025 08/30/20 Cervical Cancer Screening 09/01/2029 HPV/Cotest 09/01/2029 Pap Smear 09/01/2029 09/01/2024 Procedures Procedure Name Priority Date/Time Associated Diagnosis Comments POCT URINALYSIS DIPSTICK Routine 04/07/2025 11:43 AM EDT Third trimester ([facility]) POCT URINALYSIS DIPSTICK Routine 03/24/2025 8:37 AM EDT 32 weeks gestation of ([facility]) Third trimester ([facility]) US OB FOLLOW UP TRANSABDOMINAL APPROACH Routine 03/24/2025 8:28 AM EDT size inconsistent with dates ([facility]) POCT URINALYSIS DIPSTICK Routine 03/08/2025 11:31 AM EDT Third trimester ([facility]) 29 weeks gestation of ([facility]) GLUCOSE TOLERANCE 3 HOUR Routine 02/28/2025 9:37 AM EDT POCT URINALYSIS DIPSTICK Routine 02/22/2025 11:02 AM EDT Third trimester ([facility]) GLUCOSE 1 HOUR Routine 02/15/2025 12:20 PM EDT ALL CBC WITH AUTO DIFF Routine 12:20 PM EDT POCT URINALYSIS DIPSTICK Routine 01/25/2025 11:16 AM EDT 24 weeks gestation of ([facility]) Second trimester ([facility]) PAP SMEAR Routine 09/01/2024 12:00 AM EST from Last 3 Months or Most Recently Relevant to Health Maintenance Results * (ABNORMAL) POCT urinalysis dipstick manually resulted (04/07/2025 11:43 AM EDT) Only the most recent of5 resultswithin the time period is included. Color, UA Yellow Clarity, UA Clear Glucose, [...] Positive Urine 04/07/2025 11:4 3 AM EDT us Parker Hallman DO POINT OF CARE TEST ENTER/EDIT OR DERABLES Final Result * US OB follow up transabdominal approach (03/24/2025 8:28 AM EDT) Anatomical Region Laterality Modality Body Ultrasound 03/25/2025 11:5 1 AM EDT Narrative 03/25/2025 11:51 AM EDT EXAM: US OB FOLLOW UP TRANSABDOMINAL APPROACH HISTORY: Inconsistent size. COMPARISON: Ob ultrasound 10/28/2024. TECHNIQUE: Two-dimensional transabdominal grayscale ultrasound imaging of the pelvis was performed. FINDINGS: Gestation: Single Presentation: Cephalic Cardiac Activity: 146 beats per minute Placental Location: Anterior with no sonographic abnormalities identified. Amniotic Fluid Index: 11.4 cm MEASUREMENTS: BPD: 8.0 cm EGA: 31 weeks 6 days HC: 29.8 cm EGA: 33 weeks 0 days AC: 28.3 cm EGA: 32 weeks 2 days FL: 6.3 cm EGA: 32 weeks 5 days HC/AC Ratio: 1.05 The gestational age by today's ultrasound is 32 weeks 3 days (+/- 16 days gestation). Estimated Weight: 1984 grams, +/- 298 grams ( 4 lb 6 oz). Weight Percentile for gestational age: 37 % IMPRESSION: 1. Single, live intrauterine gestation 32 weeks, 4 days by LMP. Today's ultrasound measurements correlate with a gestational age of 32 weeks 3 days. Estimated weight is 1984 grams, +/- 298 grams ( 4 lb 6 oz) which correlates to 37 %. DREW is 05/16/2025. Interpreted by: Electronically signed by JUAN DAVID VALENZUELA II, MD, PHD at 25-Mar-2025 11:49:54 AM [facility] Procedure Note Juan David Valenzuela MD - 03/25/2025 EXAM: US OB FOLLOW UP TRANSABDOMINAL APPROACH HISTORY: Inconsistent size. COMPARISON: Ob ultrasound 10/28/2024. TECHNIQUE: Two-dimensional transabdominal grayscale ultrasound imaging ofthe pelvis was performed. FINDINGS: Gestation: Single Presentation: Cephalic Cardiac Activity: 146 beats per minute Placental Location: Anterior with no sonographic abnormalitiesidentified. Amniotic Fluid Index: 11.4 cm MEASUREMENTS: BPD: 8.0 cm EGA: 31 weeks 6 days HC: 29.8 cm EGA: 33 weeks 0 days AC: 28.3 cm EGA: 32 weeks 2 days FL: 6.3 cm EGA: 32 weeks 5 days HC/AC Ratio: 1.05 The gestational age by today's ultrasound is 32 weeks 3 days (+/- 16 daysgestation). Estimated Weight: 1984 grams, +/- 298 grams ( 4 lb 6 oz). Weight Percentile for gestational age: 37 % IMPRESSION: 1. Single, live intrauterine gestation 32 weeks, 4 days by LMP. Today'sultrasound measurements correlate with a gestational age of 32 weeks 3days. Estimated weight is 1984 grams, +/- 298 grams ( 4 lb 6 oz)which correlates to 37 %. DREW is 05/16/2025. Interpreted by: Electronically signed by JUAN DAVID VALENZUELA II, MD, PHD [id number] 11:49:54 AM [facility] us Parker Viji DO IMG OB US PROCEDURES Final Resul t * (ABNORMAL) GLUCOSE TOLERANCE 3 HOUR (02/28/2025 9:37 AM EDT) GLUCOSE TOLERANCE 3 HOUR (H) mg/dL TBH Comment: GLU FAST 102H (<95) Col: 02/28/25 0937 GLU 1HR 158 (<180) Col: 02/28/25 1040 GLU 2HR 138 (<155) Col: 02/28/25 1142 GLU 3HR 112 (<140) Col: 02/28/25 1240 02/28/2025 9:37 AM EDT 02/28/2025 9:48 AM EDT Narrative [facility] - 02/28/2025 1:07 PM EDT Parker Viji DO LAB BLOOD ORDERABLES Final [facility]ul t [facility] * (ABNORMAL) GLUCOSE 1 HOUR (02/15/2025 12:20 PM EDT) GLUCOSE 1 HOUR 145(H) <130 mg/dL TB 02/15/2025 12:2 0 PM EDT 02/15/2025 12:25 PM EDT Narrative [facility] - 02/15/2025 1:12 PM EDT [facility] LAB BLOOD ORDERABLES Final Resul t Performing Organization Address City/[facility]/ZIP Co de Phone Number [facility] * (ABNORMAL) ALL CBC WITH AUTO DIFF (02/15/2025 12:20 PM EDT) TB WBC 10.1 4.0 - 11.0 10 3/uL TBH TB RBC 4.08(L) 4.20 - 5.40 10 6/uL TBH TB HGB 11.6(L) 12.0 - 16.0 g/dL TB TB HCT 35.5(L) 36.0 - 48.0 % TBH TB MCV 87.0 81.0 - 99.0 fL TBH TB MCH 28.4 26.7 - 34.0 pg TBH TB MCHC 32.7 29.9 - 35.2 g/dL TB TB RDW 13.8 11.0 - 15.0 % TBH TBH PLT 287 150 - 450 10 3/uL TBH TBH MPV 9.7 9.5 - 13.5 fL TBH NEUTROPHILS PERCENT AUTO 77.3(H) 43.0 - 75.0 % TBH LYMPHOCYTES PERCENT AUTO 16.1(L) 20.5 - 60.0 % TBH MONOCYTES PERCENT AUTO 4.0 1.7 - 12.0 % TBH TBH EO % 1.6 0.9 - 7.0 % TBH BASOPHILS PERCENT AUTO 0.5 0.2 - 2.0 % TBH IMMATURE GRANULOCYTES PCT AUTO 0.5 0.0 - 0.5 % TBH NEUTROPHILS ABSOLUTE AUTO 7.8(H) 1.4 - 6.5 10 3/uL TBH LYMPHOCYTES ABSOLUTE AUTO 1.6 1.2 - 3.8 10 3/uL TBH MONOCYTES ABSOLUTE AUTO 0.4 0.3 - 0.8 10 3/uL TBH TBH EO # 0.2 0.0 - 0.7 10 3/uL TBH BASOPHILS ABSOLUTE AUTO 0.1 0.0 - 0.1 10 3/uL TBH IMMATURE GRANULOCYTES ABS AUTO 0.05(H) 0.00 - 0.03 10 3/uL TBH 02/15/2025 12:2 0 PM EDT 02/15/2025 12:25 PM EDT Narrative [facility] - 02/15/2025 12:30 PM EDT us Parker Viji DO [facility] Final Result [facility] * Pap Smear (09/01/2024 12:00 AM EST) Swab Cervical swab / Unknown us Parker Viji DO LAB CYTOLOGY ORDERABLES Final Re sult EXTERNAL LAB from Last 3 Months or Most Recently Relevant to Health Maintenance Insurance [facility]
--- OUTSIDE RECORDS SUMMARY | 2025-04-18 11:14 | XMS_ITS | Encounter Summary ---
Author Organization [facility] Healthcare Address [address] [place] [address] Care Team Providers Care Film Coater Name Role Phone Unavailable Primary Care Provider Unavailabl e Encounter Details Date Type Department Care Team (Latest Contact Info) Description 04/06/2025 Travel Social History Tobacco Use Types Packs/Day Years [...] AM EDT Routine [facility] OB [address] [facility] [place] [phone] Cristina Chapman PA [address] [facility] [address] [place], [facility]11 documented as of this encounter Visit Diagnoses Not on filedocumented in this encounter
--- OUTSIDE RECORDS SUMMARY | 2025-04-18 11:14 | XMS_ITS | Encounter Summary ---
Author Organization [facility] Address [address] [place] [address] Care Team Providers Care Chemical Plant Technical Director Name Role Phone Unavailable Primary Care Provider Unavailabl e Encounter Details Date Type Department Care Team (Late Contact Info) Description 03/31/2023 Abstract [facility] OB [address] [place] [phone] Tk Izquierdo MD [address] [facility] [place] [id number] Social History Tobacco Use Types Packs/Day Years Used Date Smoking Tobacco: Never Tobacco Cessation:Counseling Given: Not Answered Alcohol Use Standard Drinks/Week Comments Never 0 (1 standard drink = 0.6 oz pur e alcohol) Comments Unknown Sex and Gender Information Value Date Recorded Sex Assigned at Not on file Legal Sex Female 11:46 PM EDT Gender Identity Not on file Sexual Orientation Not on file documented as of this encounter Plan of Treatment Upcoming Encounters Date Type Department Care Team (Late st Contact Info) Description 04/21/2025 10:50 AM EDT Routine [facility] OB [address] [facility] [address] Cristina Chapman PA [address] [place] [address] documented as of this encounter Visit Diagnoses Not on filedocumented in this encounter
--- OUTSIDE RECORDS SUMMARY | 2025-04-18 11:14 | XMS_ITS | Encounter Summary ---
Author Organization [facility] Address [address] [facility] [place] [address] Care Team Providers Care Pneumatic Tester Name Role Phone Unavailable Primary Care Provider Unavailabl e Encounter Details Date Type Department Care Team (Late st Contact Info) Description 12/01/2024 Abstract [facility] OB [address] [place] [address] Parker Hallman, DO [address] [facility] [address] Yovanny Yates, [facility]11 Social History Tobacco Use Types Packs/Day Years [...] AM EDT Routine [facility] OB [address] [facility] [place] [address] Cristina Chapman PA [address] [facility] [address] [place], [facility]11 documented as of this encounter Visit Diagnoses Not on filedocumented in this encounter
--- OUTSIDE RECORDS SUMMARY | 2025-04-18 11:14 | XMS_ITS | Encounter Summary ---
Author Organization [facility] Healthcare Address [address] [facility] [place] [address] Care Team Providers Care Broach Grinder Name Role Phone Unavailable Primary Care Provider Unavailabl e Encounter Details Date Type Department Care Team (Late st Contact Info) Description 09/10/2024 Orders Only [facility] OB [address] [facility] [place] [phone] Suzy Garcia MA [address] [place] [address] [place] [address] Social History Tobacco Use Types Packs/Day Years [...] AM EDT Routine [facility] OB [address] [facility] [place] [phone] Cristina Chapman PA [address] [place] [address] [place], [place] [id number] documented as of this encounter Procedures Procedure Name Priority Date/Time Associated Diagnosis Comments PAP SMEAR Routine 09/01/2024 12:00 AM EST documented in this encounter Results * Pap Smear (09/01/2024 12:00 AM EST) Swab Cervical swab / Unknown us Parker Viji DO LAB CYTOLOGY ORDERABLES Final Re sult EXTERNAL LAB documented in this encounter Visit Diagnoses Not on filedocumented in this encounter
--- OUTSIDE RECORDS SUMMARY | 2025-04-18 11:14 | XMS_ITS | Encounter Summary ---
Author Organization [facility] Address [address] [place] [address] Care Team Providers Care Cloth Checker Name Role Phone Unavailable Primary Care Provider Unavailabl e Encounter Details Date Type Department Care Team (Late st Contact Info) Description 02/17/2025 Results Follow-Up [facility] OB [address] [facility] [place] [address] Gina Barriga LPN [address] [employer] [place] [address] Social History Tobacco Use Types Packs/Day Years [...] on file documented as of this encounter Miscellaneous Notes * Result Encounter Note - Gina Barriga LPN - 02/17/2025 11:18 AM EDT Pt notified and 3 hour order sent to [facility] documented in this encounter Plan of Treatment Upcoming Encounters Date Type Department Care Team (Late st Contact Info) Description 04/21/2025 10:50 AM EDT Routine [facility] OB [address] [place] [address] Cristina Chapman PA [address] [place] [address] [place] [address] documented as of this encounter Visit Diagnoses Not on filedocumented in this encounter
--- NOTE | 2025-04-18 11:29 | PC.NURSE ---
Pt presents to ER for a laceration to the bridge of her nose after walking into a metal garage door at work pt wears glasses, it appears the glasses lacerated the bridge of her nose Small abrasion/bruise noted to forehead as well Pt 9 months Denies loss of consciousness Pt filling out workers comp paperwork
--- NOTE | 2025-04-18 14:20 | ED.GENADUL1 ---
Documented by User: John Mallory MD 04/18/25 16:36 HPI HPI - General Adult General Chief complaint: Wound/Laceration Stated complaint: LACERATION - FACE [facility] Time Seen by Provider: 04/18/25 14:13 Source: patient Mode of arrival: walk-in Limitations: no limitations History of Present Illness HPI narrative: Patient is a 34-year-old female who is presenting to the ER with chief complaint of nasal laceration that is concave, 1.25 cm over the bridge of the nose. Patient has small ecchymosis and swelling to the forehead, middle. Patient walked into a hard object at work. This is a workers comp evaluation. Patient has no headache. No neck pain. No loss of consciousness. No abdominal pain, nausea, vomiting, or any other acute complaints. Patient is 9 months . This will be patient's third living child. Patient does not want any Tylenol or any medication at this time. Patient has no pelvic pain, no vaginal bleeding, no concerns. Patient feels baby moving. There is been lengthy stay secondary to ER volume, blame less apologies have been given, patient's understanding. All systems are negative except as noted/marked. All systems reviewed and otherwise negative. Nurses note and vital signs reviewed and patient is not hypoxic. General: The patient appears well and in no apparent distress. Patient is resting comfortably on cart. Patient is not toxic, lethargic, or listless Skin: Warm, dry, no pallor noted. There is no rash noted. No petechiae, purpura. Patient has a 1.25 cm concave laceration over nasal bridge. Head: Normocephalic, atraumatic; patient has a 1.25 cm concave laceration over the nasal bridge. Patient has minimal ecchymosis noted to the forehead. Patient has no midline or paracervical tenderness to palpation. Patient full range of motion of cervical spine no difficulty. Patient has no tenderness to palpation to bilateral orbital bones. No tenderness to palpation to the forehead. Patient open and close her mouth well no difficulty. No bony tenderness to palpation. Eye: Normal conjunctiva, no drainage, EOMI. PERRL Ears, Nose, Mouth, and Throat: oral mucosa is moist. Nares patent. Mouth without vesicles. Cardiovascular: Regular Rate and Rhythm, no murmur, gallop, rub Respiratory: Patient is in no distress, no accessory muscle use, lungs are clear to auscultation, no wheezing, rales or rhonchi Back: non-tender, no CVA tenderness bilaterally to percussion. No CT LS midline pain GI: Obese, soft no tenderness to palpation, no masses appreciated. No rebound, guarding, or rigidity noted. No distention Musculoskeletal: Patient has full range of motion of all of the extremities, no motor, sensory, or focal neurological deficits Neurological: A&O x4, normal speech Psychiatric: Cooperative Related Data Home Medications ?Medication ?Instructions ?Recorded ?Confirmed valacyclovir 500 mg tablet mg 04/18/25 Allergies Allergy/AdvReac Type Severity Reaction Status Date / Time No Known Drug Allergies Allergy Verified 04/18/25 11:14 Opioid HPI Opioid Management Most Recent Opioid Data: Last Pain Scale 3 Today, 11:23 Last ED Pain Assessment Today, 11:23 Ur Phencyclidine Scrn, (NEGATIVE) Negative 11/20/24, 12:10 PFSH PFSH Social History Little interest or pleasure in doing things: not at all Feeling down, depressed, or hopeless: not at all Exam Constitutional Vital Signs, click to edit/add: Last Vital Signs Temp 98.2 F 04/18/25 11:10 Pulse 93 H 04/18/25 11:10 Resp 18 04/18/25 11:10 BP 124/73 04/18/25 11:10 Pulse Ox 97 04/18/25 11:10 Course Vital Signs Vital signs: Vital Signs Temperature 98.2 F 04/18/25 11:10 Pulse Rate 93 H 04/18/25 11:10 Respiratory Rate 18 04/18/25 11:10 Blood Pressure 124/73 04/18/25 11:10 Pulse Oximetry 97 04/18/25 11:10 Temperature 98.2 F 04/18/25 11:10 Pulse Rate 93 H 04/18/25 11:10 Respiratory Rate 18 04/18/25 11:10 Blood Pressure 124/73 04/18/25 11:10 Pulse Oximetry 97 04/18/25 11:10 Medical Decision Making MDM Narrative Medical decision making narrative: Patient seen and examined: Patient will have tetanus update. Tetanus update was verified with pharmacy, is safe with 9 months of . Patient does not know when her last . Patient will have lidocaine and suture repair. Reevaluation: Patient has been updated multiple times on delay of care secondary ER volume and only 1 provider in the ER. Shared decision making: I discussed with the patient the necessary laboratory findings and radiological findings. Social barriers to healthcare: There are no food insecurities, there is no issue with transportation, there are no insurance barriers. Disposition: I discussed with the patient close head injury, and laceration repair. Cristina Chapman PA-C, came into the ER at approximately 4 PM to help with volume which is very thankful. She was able to help laceration repair. Patient knows her from the [employer] office. 3 sutures were placed. They will be removed in 5 days. Wound care was discussed at bedside and on discharge paperwork. Patient was also given occupational health clinic name and number to follow-up with. Paperwork has been filled. Discharge Plan Discharge Chief Complaint: Wound/Laceration Clinical Impression: Head injury, Laceration of nose, Contusion of nose Patient Disposition: Home, Self-Care Time of Disposition Decision: 16:30 Condition: Fair Prescriptions / Home Meds: No Action valacyclovir 500 mg tablet Print Language: Panamanian Instructions: Laceration (ED), Head Injury (ED), Nasal Contusion (ED) Additional Instructions: Use topical antibiotic ointment 3-4 times a day of Neosporin, bacitracin, triple antibiotic to help prevent infection and help with healing. Use sunblock 30 or more for the next 6 months when you are outside in the sun, regardless of the temperature Education on head injury has been given at bedside and on discharge paperwork. Sutures out in 5 days. You had 3 sutures placed. Use Tylenol if needed for pain every 4 hours. Use ice 20 minutes on, 20 minutes off if needed Follow-up with Worker's Comp./occupational health clinic office. Names and numbers have been provided to you. Referrals: Physician,Non-Staff, MD [Primary Care Provider] - 1 week Documented by User: Cristina Chapman 04/18/25 16:33 HPI HPI - General Adult General Chief complaint: Wound/Laceration Stated complaint: LACERATION - FACE [facility] Time Seen by Provider: 04/18/25 14:13 Related Data Home Medications ?Medication ?Instructions ?Recorded ?Confirmed valacyclovir 500 mg tablet mg 04/18/25 Allergies Allergy/AdvReac Type Severity Reaction Status Date / Time No Known Drug Allergies Allergy Verified 04/18/25 11:14 Opioid HPI Opioid Management Most Recent Opioid Data: Last Pain Scale 3 Today, 11:23 Last ED Pain Assessment Today, 11:23 Ur Phencyclidine Scrn, (NEGATIVE) Negative 11/20/24, 12:10 PFSH PFSH Social History Little interest or pleasure in doing things: not at all Feeling down, depressed, or hopeless: not at all Exam Constitutional Vital Signs, click to edit/add: Last Vital Signs Temp 98.2 F 04/18/25 11:10 Pulse 93 H 04/18/25 11:10 Resp 18 04/18/25 11:10 BP 124/73 04/18/25 11:10 Pulse Ox 97 04/18/25 11:10 Course Vital Signs Vital signs: Vital Signs Temperature 98.2 F 04/18/25 11:10 Pulse Rate 93 H 04/18/25 11:10 Respiratory Rate 18 04/18/25 11:10 Blood Pressure 124/73 04/18/25 11:10 Pulse Oximetry 97 04/18/25 11:10 Temperature 98.2 F 04/18/25 11:10 Pulse Rate 93 H 04/18/25 11:10 Respiratory Rate 18 04/18/25 11:10 Blood Pressure 124/73 04/18/25 11:10 Pulse Oximetry 97 04/18/25 11:10 Discharge Plan Discharge Chief Complaint: Wound/Laceration Clinical Impression: Head injury, Laceration of nose, Contusion of nose Patient Disposition: Home, Self-Care Time of Disposition Decision: 16:30 Condition: Fair Prescriptions / Home Meds: No Action valacyclovir 500 mg tablet Print Language: Panamanian Instructions: Laceration (ED), Head Injury (ED), Nasal Contusion (ED) Additional Instructions: Use topical antibiotic ointment 3-4 times a day of Neosporin, bacitracin, triple antibiotic to help prevent infection and help with healing. Use sunblock 30 or more for the next 6 months when you are outside in the sun, regardless of the temperature Education on head injury has been given at bedside and on discharge paperwork. Sutures out in 5 days. You had 3 sutures placed. Use Tylenol if needed for pain every 4 hours. Use ice 20 minutes on, 20 minutes off if needed Follow-up with Worker's Comp./occupational health clinic office. Names and numbers have been provided to you. Referrals: Physician,Non-Staff, MD [Primary Care Provider] - 1 week Procedures ED Procedure Instructions Procedures Procedures: Patient presenting with chief complaint 1.25 cm laceration across the bridge of her nose. Wound is cleaned and prepped in sterile fashion cleaned irrigated with Hibiclens normal saline. Anesthetized locally with 1% lidocaine solution x 2 cc. 3 simple suture 6-0 Ethilon suture used to reapproximate the wound. Patient tolerated procedure well. Wound care instructions. She will follow-up for suture removal in 5 to 7 days.
[2025-04-18] MEDS: LIDOCAINE HCL 1% 100 MG/10 ML MDV INJ (14:27)
[2025-04-18] MEDS: ADACEL DIPH,PERTUSS(ACELL),TET VAC/PF 0.5 ML ADULT SYRINGE IM (14:27)
== END 2025-04-18 16:48 | disposition home or self-care (01) ==
PROVIDERS: Emergency Provider Emergency Medicine
DX: S01.21XA Laceration without foreign body of nose, initial encounter (principal); S00.33XA Contusion of nose, initial encounter; S09.8XXA Other specified injuries of head, initial encounter; Z23 Encounter for immunization; W22.8XXA Striking against or struck by other objects, initial encounter
CPT/HCPCS: 12011; 90471; 90715; 99284

== ENCOUNTER 2025-04-21 17:55 | Outpatient (REF) | payer BC, SELFPAY ==
--- OUTSIDE RECORDS SUMMARY | 2024-11-04 10:00 | XMS_ITS ---
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 [employer] Name Role Phone AndrésyulissaAkil Primary Care Provider Allergies No Known Allergies REASON FOR VISIT cough, coughing fits at night and then trouble breathing --also , Was sick for a while, wasgetting better Medications Medication SIG (Take, Route, Fr equency, Duration) Notes Start Date End Date Status Azithromycin 250 MG 2 tabs today then 1 tab Orally daily for 5 days 11/04/2024 Active Active Multivitamin Active Social History Tobacco Use: Social History Observation Description Date Details (start date - stop date) Never Smoker NA - NA Tobacco Use/Smoking Question Answer Notes Patient is a nonsmoker Vital Signs Temperature 98.4 degrees Fahrenheit 11/04/19 25 Blood pressure systolic 118 mm Hg 11/04/19 25 Blood pressure diastolic 82 mm Hg 025 Height 63 in 11/04/2024 Weight 246.4 lbs 11/04/2024 BMI 43.64 kg/m2 11/04/2024 Encounters Encounter Location Date Provider Diagnosis [facility] [address] [place] [address] 11/04/2024 Akil Avila Acute non-recurrent sinusitis, unspecified location J01.90 and Nasal congestion R09.81 Assessments Encounter Date Diagnosis (ICD Code) Assessment Notes Treatment Notes Treatment Clinical Notes Section Notes 11/04/2024 Acute non-recurrent sinusitis, unspecified location (ICD-10 - J01.90) Rest and drink more liquids, especially water. You may use a humidifier or vaporizer to help keep the drainage moist. Btir-lih-kdzuylu Nasal Saline may help the stuffy and runny nose. Use Ibuprofen and or Tylenol as needed for fever, chills, body aches or pain. Children 5 years old should not be given ojsc-avp-lawcnxp cough and cold medications such as guaifenesin and dextromethorphan. If you're over age 5, you may try nbqy-whn-mllzgpq cold medications such as guaifenesin and dextromethorphan, or multi-symptom cold reliever such as Dayquil to help reduce the symptoms. Antibiotics have been prescribed. You should take these until completed and follow the directions. Antibiotics can sometimes cause upset stomach, and in rare cases, serious allergic reactions or serious gastrointestinal problems. If you start having severe abdominal pain, severe vomiting, or bloody diarrhea, you should be reevaluated by your physician or urgent care immediately. Follow up with your Primary Care Provider or return to clinic if symptoms do not improve within 3-5 days 11/04/2024 Nasal congestion (ICD-10 - R09.81) Plan Of Treatment Medication Medication Name Sig Start Date Stop Date Notes Azithromycin 250 MG 2 tabs today then 1 tab Orally daily for 5 days 11/04/2024 Treatment Notes Assessment Notes Acute non-recurrent sinusiti s, unspecified location Rest and drink more liquids, especially water. You may use a humidifier or vaporizer to help keep the drainage moist. Hmlw-ujs-kiqizno Nasal Saline may help the stuffy and runny nose. Use Ibuprofen and or Tylenol as needed for fever, chills, body aches or pain. Children 5 years old should not be given uhiw-yjl-isvwiwh cough and cold medications such as guaifenesin and dextromethorphan. If you're over age 5, you may try eajc-awx-ciivupd cold medications such as guaifenesin and dextromethorphan, or multi-symptom cold reliever such as Dayquil to help reduce the symptoms. Antibiotics have been prescribed. You should take these until completed and follow the directions. Antibiotics can sometimes cause upset stomach, and in rare cases, serious allergic reactions or serious gastrointestinal problems. If you start having severe abdominal pain, severe vomiting, or bloody diarrhea, you should be reevaluated by your physician or urgent care immediately. Follow up with your Primary Care Provider or return to clinic if symptoms do not improve within 3-5 days Next Appt Details Follow Up: 3-5 days if not i mproving, Reason: Progress Notes * Gale BUNCH ADOB:1990 (34 yo F)Acc No.[id number]:11/04/2024 Progress Note Patient: Gale RAMIREZ Provider: Isaiah Avila ([facility])MD :1990 A ge:34 Y S ex:Female Date:11/04/2024 Address:[facility] [address], [id number] Check In:01:52 PM ESTCheck O ut:02:20 PM EST Subjective: * Chief Complaints: * C ough, coughing fits at night and then trouble breathing --also Was sick for a while, was getting better * HPI: G eneral: sick for las14 days - was better then in last 2 days is much wors worse iwth laying down. S inusitis: The patient complains of symptoms of sinus infection. The symptoms have been present for 1-2 days. The symptoms are moderate. Symptomatic treatment has included OTC medication. Associated symptoms include headache, facial pain, runny nose, nasal congestion. D epression Screening: PHQ-2 (2015 Edition) L ittle interest or pleasure in doing things??Nearly every day F eeling down, depressed, or hopeless? N ot at all T otal Score 3 D epression Screening: PHQ-9 L ittle interest or pleasure in doing things?Nearly every day F eeling down, depressed, or hopeless N ot at all T rouble falling or staying asleep, or sleeping too much N early every day F eeling tired or having little energy N early every day P oor appetite or overeating S everal days F eeling bad about yourself or that you are a failure, or have let yourself or your family down N ot at all T rouble concentrating on things, such as reading the newspaper or watching television S everal days M oving or speaking so slowly that other people could have noticed; or the opposite, being so fidgety or restless that you have been moving around a lot more than usual N ot at all T houghts that you would be better off or of hurting yourself in some way N ot at all T otal Score 1 1 I nterpretation M oderate Depression * ROS: S kin: Rash d enies. E NT: Comments S [facility] for details. C ardiovascular: Edema d enies. P alpitations d enies. ? R espiratory: Chest pain d enies. C ough d enies. W heezing?denies. G astrointestinal: Abdominal pain d enies. N ausea d enies. V omiting d enies. * Active Problem List Z00.00 Well adult Modified On:03/17/2023W/U Status:confirmed * Medical History: * Surgical History: W isdom Teeth x2 D&C * Hospitalization/Major Diagno stic Procedure: D enies Past Hospitalization * Family History: F ather: alive, diagnosed with Diabetes mellitus without mention of complication, type II or unspecified type, not stated as uncontrolled. M other: alive. B rother(s): alive. S ister(s): alive. S on(s): alive. 1 brother(s) , 1 sister(s) - healthy. 2 son(s) - healthy. .? * Social History: T obacco Use: T obacco Use/Smoking P atient is a n onsmoker * Medications: T akingMultivitamin Medication List reviewed and reconciled with the patientTaking Multivitamin Taking Medication List reviewed and reconciled with the patient * Allergies: N .K.D.A.no[Allergies Verified] Objective: * Vitals: W t:246.4lbs, Ht: 63 in, BP:118/82mm Hg, Temp:98.4F, BMI:43.64Index, Ht-cm: 160.02 cm, Wt-k.77 kg. * Examination: G eneral Examination: GENERAL APPEARANCE: in no acute distress, well developed, well nourished. ENT: ear and nose external appearance normal, tympanic membranes clear bilaterally, facial tenderness to palpation over sinuses. EYES: pupils equal, round, reactive to light and accomodations. ORAL CAVITY: mucosa moist. NECK: n stacie supple, full range of motion, no cervical lymphadenopathy. LUNGS: c lear to auscultation bilaterally. CARDIO: no murmurs, regular rate and rhythm, S1, S2 normal. ABDOMEN: soft, nontender , not distended, bowel sounds are active. SKIN: no suspicious lesions, warm and dry. EXTREMITIES: no clubbing, cyanosis, or edema. NEUROLOGIC: nonfocal, motor strength of upper/lower extremities intact , sensory exam intact. Assessment: * Assessment: 1. A cute non-recurrent sinusitis, unspecified location - J01.90 (Primary) 2 .?Nasal congestion - R09.81 Plan: * Treatment: * Procedure Codes: * Preventive Medicine: Screenings/Counseling: B AR ACTION PLAN Above Normal BMI Follow-up D ietary management education, guidance, and counseling * Follow Up: 3 -5 days if not improving * * Sign off status: Completed Visit Status: C HK (Check Out) true * Provider: Isaiah Avila ([facility])MD Date: 0 11/04/2024 Generated for Shirin leal/Elizabeth/eTransmitting on: 0 04/21/2025 07:41 AM EDT History and Physical Notes * HPI (History of Present Illness) Category Sub-Category Detail Notes Category Not es Depression Screening PHQ-9 Little inte rest or pleasure in doing things: Nearly every day Feeling down, depressed, or hopeless: No t at all Trouble falling or staying asleep, or sl eeping too much: Nearly every day Feeling tired or having little energy: N early every day Poor appetite or overeating: Several day s Feeling bad about yourself o r that you are a failure, or have let yourself or your family down: Not at all Trouble concentrating on thi ngs, such as reading the newspaper or watching television: Several days Moving or speaking so slowly that other people could have noticed; or the opposite, being so fidgety or restless that you have been moving around a lot more than usual: Not at all Thoughts that you would be b slim off or of hurting yourself in some way: Not at all Total Score: 11 Interpretation: Moderate Depression General sick for las14 days - was better then in last 2 days is much wors worse iwth laying down Depression Screening PHQ-2 (2015 Edition) Little interest or pleasure in doing things?: Nearly every day Feeling down, depressed, or hopeless?: N ot at all Total Score: 3 Examination Category Sub-Category Detail Notes Category Not es General Examination GENERAL APPEARANCE: in no ac monica distress, well developed, well nourished ENT: ear and nose externa l appearance normal, tympanic membranes clear bilaterally, facial tenderness to palpation over sinuses EYES: pupils equal, round, reactive to light and accomodations NECK: neck supple, full ra nge of motion, no cervical lymphadenopathy CARDIO: no murmurs, regular rate and rhythm, S1, S2 normal LUNGS: clear to auscultatio n bilaterally ABDOMEN: soft, nontender , no t distended, bowel sounds are active NEUROLOGIC: nonfocal, motor stre ngth of upper/lower extremities intact , sensory exam intact SKIN: no suspicious lesion s, warm and dry EXTREMITIES: no clubbing, cyanosi s, or edema ORAL CAVITY: mucosa moist
--- OUTSIDE RECORDS SUMMARY | 2025-04-07 11:30 | XMS_ITS | Encounter Summary ---
Author Organization [facility] Address [address] [place] [address] Care Team Providers Care Automatic Machines Supervisor Name Role Phone Unavailable Primary Care Provider Unavailabl e Reason for Visit * Reason Comments Routine Visit Encounter Details Date Type Department Care Team (Late st Contact Info) Description 04/07/2025 11:30 AM EDT Routine [facility] [address] [place] [address] Parker Hallman, DO [address] Yovanny Hobbs, [facility] Third trimester ([facility]); 34 weeks gestation of ([facility]) Social History Tobacco Use Types Packs/Day Years Used Date Smoking Tobacco: Never Alcohol Use Standard Drinks/Week Comments Never 0 (1 standard drink = 0.6 oz pur e alcohol) Estimated Date of Delivery Comme nts Yes 05/15/2025 Based on last me nstrual period of 08/08/2024 Sex and Gender Information Value Date Recorded Sex Assigned at Not on file Legal Sex Female 11:46 PM EDT Gender Identity Not on file Sexual Orientation Not on file documented as of this encounter Last Filed Vital Signs Vital Sign Reading Time Taken Comments Blood Pressure 122/72 04/07/2025 11:42 AM EDT Pulse - - Temperature - - Respiratory Rate - - Oxygen Saturation - - Inhaled Oxygen Concentration - - Weight 129 kg (284 lb) 04/07/2025 11:42 AM EDT Height - - Body Mass Index 50.31 09/01/2024 10:07 AM EST documented in this encounter Progress Notes * Suzy Garcia MA - 04/07/2025 11:30 AM EDT Reason for Appointment: Patient ID: Gale Bunch is a 34 y.o. female who presents for Routine Visit Patient presents today for Return OB appointment. MEDICATIONS Current Outpatient Medications Medication Instructions MV-Min-Fe Fum-FA-DHA ( 1 PO) 1 each, Daily Vit w/Lj-Xacyhhrwl-BL (PNV-Select) 27-0.6-0.4 MG tablet Every 24 hours valACYclovir (VALTREX) 500 mg, Oral, Daily ALLERGIES No Known Allergies PROBLEMS Active [...] nursing note reviewed. Exam conducted with a physiotherapist's assistant present. Vitals: Estimated body mass index is 50.31 kg/m?? as calculated from the following: Height as of 24: 5' 3 . Weight as of this encounter: 284 lb. BP: 122/72 Patient's last menstrual period was 08/08/2024. ASSESSMENT & PLAN ICD-10-CM 1. Third trimester ([facility]) Z34.93 POCT urinalysis dipstick manually resulted 2. 34 weeks gestation of ([facility]) Z3A.34 Return OB: Patient presents today for a routine obstetrics appointment. Patient is currently 34w4d . Patient states she is doing well but has complaints of being tired due to current . Patient has verbalizes frequent movement. labor precautions was discussed/given and patient was instructed to perform kick counts three times a day. Orders Placed This Encounter Procedures POCT urinalysis dipstick manually resulted Follow Up: Patient is to return to office in 2 week for routine OB appointment. Documented by Suzy Garcia MA on behalf of: Parker Hallman DO documented in this encounter Plan of Treatment Upcoming Encounters Date Type Department Care Team (Late st Contact Info) Description 04/26/2025 11:10 AM EDT Routine [facility] [address] [place] [id number] Cristina Chapman PA [address] [place] [address] documented as of this encounter Procedures Procedure Name Priority Date/Time Associated Diagnosis Comments POCT URINALYSIS DIPSTICK Routine 04/07/2025 11:43 AM EDT Third trimester ([facility]) documented in this encounter Results * (ABNORMAL) POCT urinalysis dipstick manually resulted (04/07/2025 11:43 AM EDT) Color, UA Yellow Clarity, UA Clear Glucose, UA Negative Negative - 2000(110) ++++ mg/dL Bilirubin, UA Negative Negative - 4(70) +++ mg/dL Ketones, UA Negative Negative - 160(16) ++++ mg/dL Spec Grav, UA 1.030 1 - 1.03 Blood, UA Positive Negative - 50 Carlos/mcL Comment:moderate pH, UA 6.0 5 - 9 Protein, UA Positive Negative - 2000(20) ++++ mg/dL Comment:100 Urobilinogen, UA 0.2 0.2 - 12 mg/dL Leukocytes, UA Negative Negative - 500+++ Katie/mcL Nitrite, UA Negative Negative - Positive Urine 04/07/2025 11:4 3 AM EDT Parker Hallman DO POINT OF CARE TEST ENTER/EDIT OR DERABLES Final Result documented in this encounter Visit Diagnoses Diagnosis Third trimester ([facility]) state, incidental 34 weeks gestation of ([facility]) documented in this encounter
--- OUTSIDE RECORDS SUMMARY | 2025-04-21 10:50 | XMS_ITS | Encounter Summary ---
Author Organization [facility] Address [address] [place] [address] Care Team Providers Care Concrete Batcher Name Role Phone Unavailable Primary Care Provider Unavailabl e Reason for Visit * Reason Comments Routine Visit Encounter Details Date Type Department Care Team (Late st Contact Info) Description 04/21/2025 10:50 AM EDT Routine [facility] [address] [place] [address] Cristina Chapman PA [address] [place], [facility] 36 weeks gestation of ([facility]); Third trimester ([facility]); Hematuria, unspecified type; SGA (small for gestational age) ([facility]); History of gestational diabetes; History of miscarriage; HSV (herpes simplex virus) infection Social History Tobacco Use Types Packs/Day Years [...] Sign Reading Time Taken Comments Blood Pressure 120/70 04/21/2025 11:01 AM EDT Pulse - - Temperature - - Respiratory Rate - - Oxygen Saturation - - Inhaled Oxygen Concentration - - Weight 130 kg (287 lb 6.4 oz) 04/21/2025 11:01 A M EDT Height - - Body Mass Index 50.91 09/01/2024 10:07 AM EST documented in this encounter Progress Notes * LYLE Jones - 04/21/2025 10:50 AM EDT Reason for Appointment: Patient ID: Gale Bunch is a 34 y.o. female who presents for Routine Visit Patient presents today for Return OB appointment. MEDICATIONS Current Outpatient Medications Medication Instructions MV-Min-Fe Fum-FA-DHA ( 1 PO) 1 each, Daily Vit w/Sg-Henzidzvc-VB (PNV-Select) 27-0.6-0.4 MG tablet Every 24 hours [...] nursing note reviewed. Exam conducted with a insulation cutter present. Vitals: Estimated body mass index is 50.91 kg/m?? as calculated from the following: Height as of 24: 5' 3 . Weight as of this encounter: 287 lb 6.4 oz. BP: 120/70 Patient's last menstrual period was 08/08/2024. ASSESSMENT & PLAN ICD-10-CM 1. 36 weeks gestation of ([facility]) Z3A.36 POCT urinalysis dipstick manually resulted 2. Third trimester ([facility]) Z34.93 POCT urinalysis dipstick manually resulted CULTURE, GROUP B STREP WITH SUSCEPTIBLITY CULTURE, GROUP B STREP WITH SUSCEPTIBLITY 3. Hematuria, unspecified type R31.9 4. SGA (small for gestational age) ([facility]) P05.10 5. History of gestational diabetes Z86.32 6. History of miscarriage Z87.59 7. HSV (herpes simplex virus) infection B00.9 Patient is doing well but has complaints of being tired and having maternal discomfort due to . Patient verbalized frequent movement and was instructed to perform kick counts three times per day. labor precautions were given, LARC consent was signed/declined, and GBS was obtained. Orders Placed This Encounter Procedures CULTURE, GROUP B STREP WITH SUSCEPTIBLITY POCT urinalysis dipstick manually resulted Follow Up: Patient is to return to office in 1 week for routine OB appointment Documented by Ankita Cade LPN on behalf of: LYLE Jones documented in this encounter Plan of Treatment Upcoming Encounters Date Type Department Care Team (Late st Contact Info) Description 04/26/2025 11:10 AM EDT Routine [facility] [address] [place] [address] Cristina Chapman PA [address] [place] [address] Scheduled Orders Name Type Priority Associated Diagnoses Orde r Schedule CULTURE, GROUP B STREP WITH SUSCEPTIBLITY Lab Routine Third trimester ([facility]) Expected: 04/21/2025, Expires: 04/21/2026 documented as of this encounter Procedures Procedure Name Priority Date/Time Associated Diagnosis Comments POCT URINALYSIS DIPSTICK Routine 04/21/2025 11:08 AM EDT 36 weeks gestation of ([facility]) Third trimester ([facility]) documented in this encounter Results * (ABNORMAL) POCT urinalysis dipstick manually resulted (04/21/2025 11:08 AM EDT) Color, UA Yellow Clarity, UA Clear Glucose, UA Negative Negative - 2000(110) ++++ mg/dL Bilirubin, UA Negative Negative - 4(70) +++ mg/dL Ketones, UA Negative Negative - 160(16) ++++ mg/dL Spec Grav, UA 1.025 1 - 1.03 Blood, UA Positive Negative - 50 Carlos/mcL Comment:small pH, UA 6.0 5 - 9 Protein, UA Positive Negative - 2000(20) ++++ mg/dL Comment:30 Urobilinogen, UA 0.2 0.2 - 12 mg/dL Leukocytes, UA Negative Negative - 500+++ Katie/mcL Nitrite, UA Negative Negative - Positive Urine 04/21/2025 11:0 8 AM EDT Cristina ALVARENGA POINT OF CARE TEST ENTER/EDIT OR DERABLES Final Result documented in this encounter Visit Diagnoses Diagnosis 36 weeks gestation of ([facility]) Third trimester ([facility]) state, incidental Hematuria, unspecified type SGA (small for gestational age) ([facility]) Spyzb-clh-cjomx without mention of malnutrition, unspecified (weight) History of gestational diabetes Personal history of other genital system and obstetric disorders History of miscarriage Personal history of other genital system and obstetric disorders HSV (herpes simplex virus) infection Herpes simplex without mention of complication documented in this encounter
--- OUTSIDE RECORDS SUMMARY | 2025-04-21 17:58 | XMS_ITS | Encounter Summary ---
Author Organization [facility] Address [address] [place] [address] Care Team Providers Care User Experience Developer Name Role Phone Unavailable Primary Care Provider Unavailabl e Encounter Details Date Type Department Care Team (Late Contact Info) Description 03/31/2023 Abstract [facility] [address] [place] [id number] Tk Izquierdo MD [address] [facility] [place] [id number] Social History Tobacco Use Types Packs/Day Years [...] AM EDT Routine [facility] [address] [place] [phone] Cristina Chapman PA [address] [place], [place] [id number] documented as of this encounter Visit Diagnoses Not on filedocumented in this encounter
--- OUTSIDE RECORDS SUMMARY | 2025-04-21 17:58 | XMS_ITS | Clinical Summary ---
Author Organization [facility] Address [address] [place] [address] Care Team Providers Care Java Lead Developer Name Role Phone Unavailable Primary Care Provider Unavailabl e Allergies No known active allergies Medications MV-Min-Fe Fum-FA-DHA ( 1 PO) Take 1 each by mouth Daily Active Vit w/Yk-Ajcuysxlv-J A (PNV-Select) 27-0.6-0.4 MG tablet 1 (one) time each day at the same time Active valACYclovir (Valtrex) 500 MG tabletIndication s:32 weeks gestation of ([facility]),Third trimester ([facility]) Take 1 tablet (500 mg) by mouth Daily 30 tablet 11 03/24/2025 Active Encounters Date Type Department Care Team Description 04/21/2025 10:50 AM EDT Routine [facility] [address] [place] [address] Cristina Chapman PA 36 weeks gestation of ([facility]); Third trimester ([facility]); Hematuria, unspecified type; SGA (small for gestational age) ([facility]); History of gestational diabetes; History of miscarriage; HSV (herpes simplex virus) infection 04/21/2025 Bamboo flowsheet [address] [place] [address] Cristina Chapman PA 04/20/2025 Travel 04/07/2025 11:30 AM EDT Routine [facility] [address] [place] [address] Parker Hallman, Third trimester ([facility]); 34 weeks gestation of ([facility]) 04/07/2025 Bamboo flowsheet [facility] [address] [place] [address] [place] [address] Parker Hallman, DO 04/06/2025 Travel 03/24/2025 8:50 AM EDT Routine [facility] [address] [place] [address] [place] [address] Cristina Chapman PA 32 weeks gestation of ([facility]); Third trimester ([facility]) 03/24/2025 8:00 AM EDT Ancillary Procedure [facility] [address] [place] [address] [place] [address] size inconsistent with dates ([facility]) 03/23/2025 Travel 03/21/2025 Travel 03/08/2025 11:20 AM EDT Routine [facility] [address] [place] [address] [place] [address] Parker Hallman, Third trimester ([facility]); 29 weeks gestation of ([facility]); Hematuria, unspecified type; size inconsistent with dates ([facility]) 03/08/2025 Bamboo flowsheet [facility] [address] [place] [address] [place] [address] Parker Hallman, DO 03/07/2025 Travel 02/28/2025 Clinisync Result Encounter [facility] External Department Unsolicited Parker Hallman, DO 02/22/2025 10:40 AM EDT Routine [facility] [address] [place] [address] [place] [address] Parker Hallman DO Third trimester ([facility]); 28 weeks gestation of ([facility]); Request for sterilization 02/22/2025 Bamboo flowsheet [facility] [address] [place] [address] [place] [address] VijiParker cuenca DO 02/21/2025 Travel 02/17/2025 Results Follow-Up [facility] [address] [place] [phone] Gina Barriga LPN 02/17/[address] [facility] [address] [place] [phone] Gina Barriga LPN 02/15/2025 Clinisync Result Encounter [facility] External Department Unsolicited Parker Hallman DO 01/25/2025 11:10 AM EDT Routine [facility] [address] [place] [phone] Parker Hallman DO 24 weeks gestation of ([facility]); Second trimester ([facility]); Diabetes mellitus screening 01/25/2025 Bamboo flowsheet [facility] [address] [place] [address] Parker Hallman DO 01/25/2025 Travel from Last [...] oz) 04/21/2025 11:01 A M EDT Height 160 cm (5' 3 ) 09/01/2024 10:07 AM EST Body Mass Index 50.91 09/01/2024 10:07 AM EST Plan of Treatment Upcoming Encounters Date Type Department Care Team (Late st Contact Info) Description 04/26/2025 11:10 AM EDT Routine [facility] [address] [place] [address] Cristina Chapman PA [address] [facility] [address] Health Maintenance Due Date Last Done Comments Influenza Vaccine (Season Ended) 2025 08/30/20 Cervical Cancer Screening 09/01/2029 HPV/Cotest 09/01/2029 Pap Smear 09/01/2029 09/01/2024 Procedures Procedure Name Priority Date/Time Associated Diagnosis Comments POCT URINALYSIS DIPSTICK Routine 04/21/2025 11:08 AM EDT 36 weeks gestation of ([facility]) Third trimester ([facility]) POCT URINALYSIS DIPSTICK Routine 04/07/2025 11:43 AM EDT Third trimester ([facility]) POCT URINALYSIS DIPSTICK Routine 03/24/2025 8:37 AM EDT 32 weeks gestation of ([facility]) Third trimester ([facility]) OB FOLLOW UP TRANSABDOMINAL APPROACH Routine 03/24/2025 8:28 AM EDT size inconsistent with dates ([facility]) POCT URINALYSIS DIPSTICK Routine 03/08/2025 11:31 AM EDT Third trimester ([facility]) 29 weeks gestation of ([facility]) GLUCOSE TOLERANCE 3 HOUR Routine 02/28/2025 9:37 AM EDT POCT URINALYSIS DIPSTICK Routine 02/22/2025 11:02 AM EDT Third trimester ([facility]) GLUCOSE 1 HOUR Routine 02/15/2025 12:20 PM EDT ALL CBC WITH AUTO DIFF Routine 12:20 PM EDT POCT URINALYSIS DIPSTICK Routine 01/25/2025 11:16 AM EDT 24 weeks gestation of ([facility]) Second trimester ([facility]) PAP SMEAR Routine 09/01/2024 12:00 AM EST from Last 3 Months or Most Recently Relevant to Health Maintenance Results * (ABNORMAL) POCT urinalysis dipstick manually resulted (04/21/2025 11:08 AM EDT) Only the most recent of6 resultswithin the time period is included. Color, [...] Positive Urine 04/21/2025 11:0 8 AM EDT us Cristina ALVARENGA POINT OF CARE TEST ENTER/EDIT [...] II, MD, PHD at 25-Mar-2025 11:49:54 AM [facility] Procedure Note Juan David Valenzuela MD [...] by JUAN DAVID VALENZUELA II, MD, PHD [id number] 11:49:54 AM [facility] us Parker Viji DO IMG OB US PROCEDURES Final Resul t * (ABNORMAL) GLUCOSE TOLERANCE 3 HOUR (02/28/2025 9:37 AM EDT) Pathologist [facility] GLUCOSE TOLERANCE 3 HOUR (H) mg/dL [facility] Comment: GLU FAST 102H (<95) Col: 02/28/25 0937 GLU 1HR 158 (<180) Col: 02/28/25 1040 GLU 2HR 138 (<155) Col: 02/28/25 1142 GLU 3HR 112 (<140) Col: 02/28/25 1240 02/28/2025 9:37 AM EDT 02/28/2025 9:48 AM EDT Narrative [facility] - 02/28/2025 1:07 PM EDT Parker Viji DO LAB BLOOD ORDERABLES Final Resul t Performing Organization Address [facility] [employer] Phone Number [facility] * (ABNORMAL) GLUCOSE 1 HOUR (02/15/2025 12:20 PM EDT) Pathologist [facility] GLUCOSE 1 HOUR 145(H) <130 mg/dL TB 02/15/2025 12:2 0 PM EDT 02/15/2025 12:25 PM EDT Narrative [facility] - 02/15/2025 1:12 PM EDT Parker Viji DO LAB BLOOD ORDERABLES Final Resul t Performing Organization Address [facility] [employer] Phone Number [facility] * (ABNORMAL) ALL CBC WITH AUTO DIFF (02/15/2025 12:20 PM EDT) [facility] WBC 10.1 4.0 - 11.0 10 3/uL [facility] RBC 4.08(L) 4.20 - 5.40 10 6/uL [facility] HGB 11.6(L) 12.0 - 16.0 g/dL [facility] HCT 35.5(L) 36.0 - 48.0 % [facility] MCV 87.0 81.0 - 99.0 fL TBH [facility] MCH 28.4 26.7 - 34.0 pg TBH [facility] MCHC 32.7 29.9 - 35.2 g/dL TBH [facility] RDW 13.8 11.0 - 15.0 % TBH [...] Parker Viji DO [facility] Final Result [facility] * Pap Smear (09/01/2024 12:00 AM EST) Swab Cervical swab / Unknown us Parker Hallman DO LAB CYTOLOGY ORDERABLES Final Re sult EXTERNAL LAB from Last 3 Months or Most Recently Relevant to Health Maintenance Insurance [facility]
--- OUTSIDE RECORDS SUMMARY | 2025-04-21 17:58 | XMS_ITS | Encounter Summary ---
Author Organization [facility] Address [address] [facility] [place] [address] Care Team Providers Care Commissary Worker Name Role Phone Unavailable Primary Care Provider Unavailabl e Encounter Details Date Type Department Care Team (Late st Contact Info) Description 04/21/2025 Bamboo flowsheet [facility] [address] [facility] [address] Cristina Chapman PA [address] [place] [address] Dr [place], [facility]11 Social History Tobacco Use Types Packs/Day Years [...] AM EDT Routine [facility] [address] [facility] [place] [address] Cristina Chapman PA [address] [place] [address] Dr [place], [facility]11 documented as of this encounter Visit Diagnoses Not on filedocumented in this encounter
--- OUTSIDE RECORDS SUMMARY | 2025-04-21 17:58 | XMS_ITS | Encounter Summary ---
Author Organization [facility] Healthcare Address [address] [facility] [place] [address] Care Team Providers Care Employee Training Specialist Name Role Phone Unavailable Primary Care Provider Unavailabl e Encounter Details Date Type Department Care Team (Late st Contact Info) Description 09/10/2024 Orders Only [facility] [address] [facility] [place] [phone] Suzy Garcia MA [address] [place] [address] [place] [address] Social History Tobacco Use Types Packs/Day Years [...] AM EDT Routine [facility] [address] [facility] [place] [phone] Cristina Chapman PA [address] [place] [address] Dr [place], [place] [id number] documented as of this encounter Procedures Procedure [...]
--- OUTSIDE RECORDS SUMMARY | 2025-04-21 17:58 | XMS_ITS | Patient Health Record ---
Author Organization [facility] in [place] Address [address] [place] [address] Care Team Providers Care Greenhouse Transplanter Name Role Phone Akil Avila Primary Care Provider Allergies No Known Allergies Reason For Referral No Information Medications Medication SIG (Take, Route, Fr equency, Duration) Notes Start Date End Date Status Azithromycin 250 MG 2 tabs today then 1 tab Orally daily for 5 days 11/04/2024 Active Active Multivitamin Active Social History Tobacco Use: Social History Observation Description Date Details (start date - stop date) Never Smoker NA - NA Tobacco Use/Smoking Question Answer Notes Patient is a nonsmoker Alcohol Screen (Audit-C) Question Answer Notes Did you have a drink containing alcohol in the p ast year? No Points 0 Interpretation Negative Problems Problem Type SNOMED Code ICD Code Onset Dates Problem Status W/U Status Risk Notes Problem Well adult (611728812) Well adult (Z00.00) Active confirmed Vital Signs Temperature 98.4 degrees Fahrenheit 11/04/2024 Blood pressure diastolic 82 mm Hg 11/04/2024 Height 63 in 11/04/2024 Blood pressure systolic 118 mm Hg 11/04/2024 Weight 246.4 lbs 11/04/2024 BMI 43.64 kg/m2 11/04/2024 Encounters Encounter Location Date Provider Diagnosis [facility] [address] [facility] [place] [address] 11/04/2024 Akil Avila Acute non-recurrent sinusitis, unspecified location J01.90 and Nasal congestion R09.81 Assessments Encounter Date Diagnosis (ICD Code) Assessment Notes Treatment Notes Treatment Clinical Notes Section Notes 11/04/2024 Acute non-recurrent sinusitis, unspecified location (ICD-10 - J01.90) Rest and drink more liquids, especially water. You may use a humidifier or vaporizer to help keep the drainage moist. Naru-luf-coyduza Nasal Saline may help the stuffy and runny nose. Use Ibuprofen and or Tylenol as needed for fever, chills, body aches or pain. Children 5 years old should not be given bfts-nql-sbfwclp cough and cold medications such as guaifenesin and dextromethorphan. If you're over age 5, you may try hxtc-hdf-urxijdy cold medications such as guaifenesin and dextromethorphan, [...] congestion (ICD-10 - R09.81) Plan Of Treatment Pending Test Test Name Order Date CMP (COMPLETE METABOLIC PANEL) 3 HEMOGLOBIN A1C (GLYCO) 03/17/2023 IRON, TOTAL 03/17/2023 LIPID PANEL (CHOL/TRIG/HDL/LDL) 03/17/20 23 CBC WITH DIFF 03/17/2023 CULTURE URINE 03/17/2023 UA RANDOM W or MICROSCOPIC 03/17/2023 THYROID PANEL (T4/TSH/FREE T3) 3 Insurance Providers Payer Name Payer Address Payer Phone Subscriber Number Group Number Insured Name Patient Relationship to Insured Coverage Start Date Coverage End Date [facility] PPO [address] [place] [phone] [id number] William Bunch Spouse - patient is the spouse of the insured Medical (General) History Surgical History Surgery Date(Month/Year) D&C x2 [place]
--- OUTSIDE RECORDS SUMMARY | 2025-04-21 17:58 | XMS_ITS ---
Author Organization [facility] Source Produ ction (ClinicalSummary Clone) Address Unknown Care Team Providers Care Inclusion Special Education Teacher Name Role Phone Unavailable Primary Care Physician Unavailab le Results * [UNITY] ANEUPLOIDY NIPT Performed by: [email or web address]. Component Value Range Date Fraction 5.5% 11/30/2024 04 :49 am [place] Sex Chromosome Aneuploidy NOT DETECTED 04:49 am UT Monosomy X LOW RISK <1 in 10,000 2024 04:49 am UT Trisomy 13 LOW RISK <1 in 10,000 2024 04:49 am UT Trisomy 18 LOW RISK <1 in 10,000 2024 04:49 am UT Trisomy 21 LOW RISK <1 in 10,000 2024 04:49 am UT Sex FEMALE 11/30/2024 04:4 9 am UT Gestation CROWELL 11/30/19 04:49 am UT For detailed report, see PDF See PDF 11/30/2024 04:49 am UTC 11/30/2024 04:4 9 am [facility] Social History Observation Value Start Date End Date
--- OUTSIDE RECORDS SUMMARY | 2025-04-21 17:59 | XMS_ITS | Encounter Summary ---
Author Organization [facility] Address [address] [facility] [place] [address] Care Team Providers Care Cellular Biologist Name Role Phone Unavailable Primary Care Provider Unavailabl e Encounter Details Date Type Department Care Team (Late st Contact Info) Description 11/30/2024 Abstract [facility] [address] [place] [address] Parker Hallman, DO [address] [facility] [address] Yovanny Yates, [facility]11 Social History Tobacco Use Types Packs/Day Years [...] AM EDT Routine [facility] OB [address] [facility] [place] [address] Cristina Chapman PA [address] [facility] [address] [place], [facility]11 documented as of this encounter Visit Diagnoses Not on filedocumented in this encounter
--- OUTSIDE RECORDS SUMMARY | 2025-04-21 17:59 | XMS_ITS | Encounter Summary ---
Author Organization [facility] Address [address] [place] [address] Care Team Providers Care Deck Engine Operator Name Role Phone Unavailable Primary Care Provider Unavailabl e Encounter Details Date Type Department Care Team (Late st Contact Info) Description 02/17/2025 Results Follow-Up [facility] [address] [facility] [place] [address] Gina Barriga LPN [address] [place] [address] Social History Tobacco Use Types Packs/Day Years [...] notified and 3 hour order sent to [facility] documented in this encounter Plan of Treatment Upcoming Encounters Date Type Department Care Team (Late st Contact Info) Description 04/26/2025 11:10 AM EDT Routine [facility] [address] [place] [address] Cristina Chapman PA [address] [place] [address] [place] [address] documented as of this encounter Visit Diagnoses Not on filedocumented in this encounter
--- OUTSIDE RECORDS SUMMARY | 2025-04-21 17:59 | XMS_ITS | Encounter Summary ---
Author Organization [facility] Address [address] [facility] [place] [address] Care Team Providers Care Reel Worker Name Role Phone Unavailable Primary Care Provider Unavailabl e Encounter Details Date Type Department Care Team (Late st Contact Info) Description 04/07/2025 Bamboo flowsheet [facility] [address] [facility] [address] Parker Hallman DO [address] [facility] [address] Yovanny Yates, [facility]11 Social History Tobacco Use Types Packs/Day [...] AM EDT Routine [facility] OB [address] [facility] [address] Cristina Chapman PA [address] [facility] [address] [place], [facility]11 documented as of this encounter Visit Diagnoses Not on filedocumented in this encounter
--- OUTSIDE RECORDS SUMMARY | 2025-04-21 17:59 | XMS_ITS | Encounter Summary ---
Author Organization [facility] Address [address] [facility] [place] [address] Care Team Providers Care Plate Washer Name Role Phone Unavailable Primary Care Provider Unavailabl e Encounter Details Date Type Department Care Team (Late st Contact Info) Description 12/01/2024 Abstract [facility] OB [address] [place] [address] Parker Hallman, DO [address] [facility] [address] Yovanny Yates, [facility]11 Social History Tobacco Use Types Packs/Day [...] AM EDT Routine [facility] [address] [place] [address] Cristina Chapman PA [address] [facility] [address] [place], [facility]11 documented as of this encounter Visit Diagnoses Not on filedocumented in this encounter
--- OUTSIDE RECORDS SUMMARY | 2025-04-21 17:59 | XMS_ITS | Encounter Summary ---
Author Organization [facility] Healthcare Address [address] [place] [address] Care Team Providers Care Model Maker Fiberglass Name Role Phone Unavailable Primary Care Provider Unavailabl e Encounter Details Date Type Department Care Team (Latest Contact Info) Description 04/20/2025 Travel Social History Tobacco Use Types Packs/Day [...] EDT Routine [facility] [address] [facility] [place] [phone] Cristina Chapman PA [address] [facility] [address] [place], [facility]11 documented as of this encounter Visit Diagnoses Not on filedocumented in this encounter
== END 2025-04-21 17:56 | disposition home or self-care (01) ==
LOC: LAB 17:55
PROVIDERS: Visit Provider Physician Assistant
DX: Z34.93 Encounter for supervision of normal pregnancy, unspecified, third trimester (principal); Z3A.36 36 weeks gestation of pregnancy
CPT/HCPCS: 87081

== ENCOUNTER 2025-05-09 05:26 | Inpatient (IN) | payer BC, SELFPAY ==
[2025-05-09] VITALS (32 sets, daily range): BP systolic 73–138; BP diastolic 37–109; PULSE 68–88; TEMP 36.5–36.7; O2SAT 92–100
--- OUTSIDE RECORDS SUMMARY | 2025-05-09 05:32 | XMS_ITS | CCD ---
Author Organization [facility]iniSyar Care Team Providers Care Operator Supply Name Role Phone ANDREW BADILLO Admitting Unavailable [...] KARASIK, DR GORDON Attending Unavailable KARASIK, DR GORODN Admitting Unavailable JULIANNSHAWN Consulting Unavailable KARASIK, DR [...] GORDON Admitting Unavailable Unavailable Primary Care Provider Unavailabl e TYLER HALLMAN Attending Unavailable NINO CRISTINA Attending Unavailable VIJI, TYLER Attending Unavailable VIJI, TYLER Attending Unavailable VIJI, TYLER Attending Unavailable NINO, CRISTINA Attending Unavailable NINO, CRISTINA Attending Unavailable VIJI, TYLER Attending Unavailable NINO, CRISTINA Attending Unavailable NINO, CRISTINA Attending Unavailable VIJI, TYLER Attending Unavailable Medications Current Medications Medication Drug Class(es) Dates Sig (Normalized) Sig (Original) diphenhydrAMINE hydrochloride 25 mg oral tablet (8 sources) Histamine-1 Receptor Antagonist End: 01-25-2025 diphenhydrAMINE (Benadryl Allergy) 25 MG tablet 1 (one) time each day at the same time 01/25/2025 Discontinued metroNIDAZOLE 500 mg oral tablet (2 sources) Nitroimidazole Antimicrobial Start: 12-29-2024 End: 01-05-2025 take 1 tablet by mouth in the morning metroNIDAZOLE (Flagyl) 500 MG tablet Indications: BV (bacterial vaginosis) Take 1 tablet (500 mg) by mouth in the morning and 1 tablet (500 mg) before bedtime. Do all this for 7 days. Do not drink alcohol while taking this medication. 14 tablet 12/29/2024 01/05/2025 Active nitrofurantoin, macrocrystals 25 mg / nitrofurantoin, monohydrate 75 mg oral capsule (2 sources) Nitrofuran Antibacterial Start: 11-25-2024 End: 12-02-2024 take 1 capsule by mouth in the morning nitrofurantoin, macrocrystal-monohy drate, (Macrobid) 100 MG capsule Indications: Urinary tract infection without hematuria, site unspecified Take 1 capsule (100 mg) by mouth in the morning and 1 capsule (100 mg) before bedtime. Do all this for 7 days. 14 capsule 11/25/2024 12/02/2024 Active omeprazole 40 mg delayed release oral capsule (8 sources) Proton Pump Inhibitor End: 01-25-2025 omeprazole (PriLOSEC) [address] capsule 1 (one) time each day at the same time 01/25/2025 Discontinued MV-Min-Fe Fum-FA-DHA ( 1 PO) (20 sources) MV-Min- Fe Fum-FA-DHA ( 1 PO) Take 1 each by mouth Daily Active Vit w/Mg-Esnrvaqrf-QV (PNV-Select) 27-0.6-0.4 MG tablet (20 sources) Vit w/Nb-Mpjgqnnki-YC (PNV-Select) 27-0.6-0.4 MG tablet 1 (one) time each day at the same time Active valACYclovir 500 mg oral tablet (8 sources) Herpesvirus Nucleoside Analog DNA Polymerase Inhibitor, Herpes Simplex Virus Nucleoside Analog DNA Polymerase Inhibitor, Herpes Zoster Virus Nucleoside Analog DNA Polymerase Inhibitor Start: 03-24-2025 End: 04-23-2025 take 1 tablet by mouth once daily valACYclovir (Valtrex) 500 MG tablet Indications: 32 weeks gestation of ([facility]) , Third trimester ([facility]) Take 1 tablet (500 mg) by mouth Daily 30 tablet 11 03/24/2025 04/23/2025 Active Problems Active Problems Problem Classification Problem Date Documented Date Episodic/Chronic Contraceptive and procreative management (2 sources) Sterilization requested; Translations: [Encounter for sterilization] 02-22-2025 Episodic Diabetes or abnormal glucose tolerance complicating ; childbirth; or the puerperium (9 sources) Gestational diabetes mellitus in childbirth, unspecified control; Translations: [Abnormal glucose complicating ] Onset: 06-22-2022 Episodic Genitourinary symptoms and ill-defined conditions (5 sources) Personal history of urinary (tract) infections; Translations: [Blood in urine] Onset: 09-16-2022 03-08-2025 Episodic Menstrual disorders (5 sources) Irregular menstruation, [...] 3RD TRI NA/UNS] Onset: 08-10-2022 Episodic Other complications of (2 sources) size does not accord with dates; Translations: [Uterine size-date discrepancy, unspecified trimester] 03-08-2025 Episodic Other injuries and conditions due to [...] [20 weeks gestation of ] 12-28-2024 Episodic Residual codes; unclassified (2 sources) Gestation period, 24 weeks; Translations: [24 weeks gestation of ] 01-25-2025 Episodic Residual codes; unclassified (2 sources) Gestation period, 28 weeks; Translations: [28 weeks gestation of ] 02-22-2025 Episodic Residual codes; unclassified (2 sources) Gestation period, 29 weeks; Translations: [29 weeks gestation of ] 03-08-2025 Episodic Residual codes; unclassified (2 sources) Gestation period, 32 weeks; Translations: [32 weeks gestation of ] 03-24-2025 Episodic Residual codes; unclassified (2 sources) Gestation period, 34 weeks; Translations: [34 weeks gestation of ] 04-07-2025 Episodic Residual codes; unclassified (2 sources) Gestation period, 36 weeks; Translations: [36 weeks gestation of ] 04-21-2025 Episodic Residual codes; unclassified (2 sources) H/O: miscarriage; Translations: [Personal history of other complications of , childbirth and the puerperium] 04-21-2025 Episodic Residual codes; unclassified (2 sources) Gestation period, 37 weeks; Translations: [37 weeks gestation of ] 04-26-2025 Episodic Residual codes; unclassified (2 sources) Gestation period, 38 weeks; Translations: [38 weeks gestation of ] 05-03-2025 Episodic Short gestation; low weight; and growth retardation (2 sources) Apghj-vum-phgyj baby; Translations: [ small for gestational age, unspecified weight] 04-21-2025 Episodic Unclassified (3 sources) CONTACT W/AND (SUSP) EXPOS COVID-19; Translations: [CONTACT W/AND (SUSP) EXPOS COVID-19] Onset: 09-02-2022 Urinary tract infections (2 sources) Urinary tract infectious disease; Translations: [Urinary tract infection, site not specified] 11-25-2024 Episodic Viral infection (2 sources) Herpes simplex; Translations: [Herpesviral infection, unspecified] 04-21-2025 Episodic Past or Other Problems Problem Classification [...] Range Facility Urinalysis macro (dipstick) panel (U)on 05-03-2025 Bilirubin, UA Negative Negative - 4(70) +++ mg/dL [facility] Blood, UA Positive Negative - 50 Carlos/mcL [facility] Clarity, UA Clear [facility] Color, UA Yellow [facility] Glucose, UA Negative Negative - 1999(110) ++++ mg/dL [facility] Interpretation and review of laboratory results Abnormal [facility] Ketones, UA Negative Negative - 160(16) ++++ mg/dL [facility] Leukocytes, UA Negative Negative - 500+++ Katie/mcL [facility] Nitrite, UA Negative Negative - Positive [facility] pH, UA 6.5 5 - 9 [facility] Protein, UA Positive Negative - 1999(20) ++++ mg/dL [facility] Spec Grav, UA 1.025 1 - 1.03 [facility] Urobilinogen, UA 1.0 0.2 - 12 mg/dL [facility] Urinalysis macro (dipstick) panel (U)on 04-26-2025 Bilirubin, UA Negative Negative - 4(70) +++ mg/dL [facility] Blood, UA Negative Negative - 50 Carlos/mcL [facility] Clarity, UA Clear [facility] Color, UA Yellow [facility] Glucose, UA Negative Negative - 1999(110) ++++ mg/dL [facility] Interpretation and review of laboratory results Abnormal [facility] Ketones, UA Negative Negative - 160(16) ++++ mg/dL [facility] Leukocytes, UA Negative Negative - 500+++ Katie/mcL [facility] Nitrite, UA Negative Negative - Positive [facility] pH, UA 6 5 - 9 [facility] Protein, UA Positive Negative - 1999(20) ++++ mg/dL [facility] Comment on above: 30mg/dL Spec Grav, UA 1.025 1 - 1.03 [facility] Urobilinogen, UA 0.2 0.2 - 12 mg/dL [facility] Urinalysis macro (dipstick) panel (U)on 04-21-2025 Bilirubin, UA Negative Negative - 4(70) +++ mg/dL [facility] Blood, UA Positive Negative - 50 Carlos/mcL [facility] Comment on above: small Clarity, UA Clear [facility] Color, UA Yellow [facility] Glucose, UA Negative Negative - 1999(110) ++++ mg/dL [facility] Interpretation and review of laboratory results Abnormal [facility] Ketones, UA Negative Negative - 160(16) ++++ mg/dL [facility] Leukocytes, UA Negative Negative - 500+++ Katie/mcL [facility] Nitrite, UA Negative Negative - Positive [facility] pH, UA 6 5 - 9 [facility] Protein, UA Positive Negative - 1999(20) ++++ mg/dL [facility] Comment on above: 30 Spec Grav, UA 1.025 1 - 1.03 [facility] Urobilinogen, UA 0.2 0.2 - 12 mg/dL [facility] Urinalysis macro (dipstick) panel (U)on 04-07-2025 Bilirubin, UA Negative Negative - 4(70) +++ mg/dL [facility] Blood, UA Positive Negative - 50 Carlos/mcL [facility] Comment on above: moderate Clarity, UA Clear [facility] Color, UA Yellow [facility] Glucose, UA Negative Negative - 1999(110) ++++ mg/dL [facility] Interpretation and review of laboratory results Abnormal [facility] Ketones, UA Negative Negative - 160(16) ++++ mg/dL [facility] Leukocytes, UA Negative Negative - 500+++ Katie/mcL [facility] Nitrite, UA Negative Negative - Positive [facility] pH, UA 6 5 - 9 [facility] Protein, UA Positive Negative - 1999(20) ++++ mg/dL [facility] Comment on above: 100 Spec Grav, UA 1.03 1 - 1.03 [facility] Urobilinogen, UA 0.2 0.2 - 12 mg/dL [facility] US OB FOLLOW UP TRANSABDOMIN AL APPROACHon 03-24-2025 US OB FOLLOW UP TRANSABDOMINAL APPROACH EXAM: US OB FOLLOW UP TRANSABDOMINAL APPROACH [...] II, MD, PHD at 25-Mar-2025 11:49:54 AM [facility] Normal Not Available Comment on above: Order Comment: US OB SCAN FOR GROWTH Estimated Date of Delivery: 05/15/25 Gestational Age as of 03/08/2025: 30w2d Urinalysis macro (dipstick) panel (U)on 03-24-2025 Bilirubin, UA Negative Negative - 4(70) +++ mg/dL [facility] Blood, UA Positive Negative - 50 Carlos/mcL [facility] Comment on above: moderate Clarity, UA Clear [facility] Color, UA Yellow [facility] Glucose, UA Negative Negative - 1999(110) ++++ mg/dL [facility] Interpretation and review of laboratory results Abnormal [facility] Ketones, UA Negative Negative - 160(16) ++++ mg/dL [facility] Leukocytes, UA Negative Negative - 500+++ Katie/mcL [facility] Nitrite, UA Negative Negative - Positive [facility] pH, UA 6 5 - 9 [facility] Protein, UA Positive Negative - 2000(20) ++++ mg/dL [facility] Comment on above: 30 Spec Grav, UA 1.025 1 - 1.03 [facility] Urobilinogen, UA 1.0 0.2 - 12 mg/dL [facility] Urinalysis macro (dipstick) panel (U)on 03-08-2025 Bilirubin, UA Negative Negative - 4(70) +++ mg/dL [facility] Blood, UA Positive Negative - 50 Carlos/mcL [facility] Clarity, UA Clear [facility] Color, UA Yellow [facility] Glucose, UA Negative Negative - 2000(110) ++++ mg/dL [facility] Interpretation and review of laboratory results Abnormal [facility] Ketones, UA Negative Negative - 160(16) ++++ mg/dL [facility] Leukocytes, UA Negative Negative - 500+++ Katie/mcL [facility] Nitrite, UA Negative Negative - Positive [facility] pH, UA 6.5 5 - 9 [facility] Protein, UA Negative Negative - 1999(20) ++++ mg/dL [facility] Spec Grav, UA 1.02 1 - 1.03 [facility] Urobilinogen, UA 1.0 0.2 - 12 mg/dL [facility] GLUCOSE TOLERANCE 3 HOURon 0 02-28-2025 GLUCOSE TOLERANCE 3 HOUR High mg/dL [facility] Comment on above: GLU FAST 102H (<95) Col: 02/28/25 0937 GLU 1HR 158 (<180) Col: 02/28/25 1040 GLU 2HR 138 (<155) Col: 02/28/25 1142 GLU 3HR 112 (<140) Col: 02/28/25 1240 Interpretation and review of laboratory results Abnormal [facility] Urinalysis macro (dipstick) panel (U)on 02-22-2025 Bilirubin, UA Negative Negative - 4(70) +++ mg/dL [facility] Blood, UA Negative Negative - 50 Carlos/mcL [facility] Clarity, UA Clear [facility] Color, UA Yellow [facility] Glucose, UA Negative Negative - 2000(110) ++++ mg/dL [facility] Interpretation and review of laboratory results Abnormal [facility] Ketones, UA Negative Negative - 160(16) ++++ mg/dL [facility] Leukocytes, UA Negative Negative - 500+++ Katie/mcL [facility] Nitrite, UA Negative Negative - Positive [facility] pH, UA 5.5 5 - 9 [facility] Protein, UA Positive Negative - 1999(20) ++++ mg/dL [facility] Comment on above: 30mg/dL Spec Grav, UA 1.03 1 - 1.03 [facility] Urobilinogen, UA 0.2 0.2 - 12 mg/dL [facility] ALL CBC WITH AUTO DIFFon BASOPHILS ABSOLUTE AUTO 0.1 [facility] Basophils/100 WBC (Bld) 0.5 % 0.2 - 2.0 % [facility] Eosinophils/100 WBC (Bld) 1.6 % 0.9 - 7.0 % [facility] Erythrocyte distribution width (RBC) [Ratio] 13.8 % 11.0 - 15.0 % [facility] Hematocrit (Bld) [Volume fraction] 35.5 % Low 36.0 - 48.0 % [facility] Hemoglobin (Bld) [Mass/Vol] 11.6 g/dL Low 12.0 - 16.0 g/dL [facility] IMMATURE GRANULOCYTES ABS AUTO 0.05 High [facility] Immature granulocytes/100 WBC (Bld) 0.5 % 0.0 - 0.5 % [facility] Interpretation and review of laboratory results Abnormal [facility] LYMPHOCYTES ABSOLUTE AUTO 1.6 [facility] Lymphocytes/100 WBC (Bld) 16.1 % Low 20.5 - 60.0 % [facility] MCH (RBC) [Entitic mass] 28.4 pg 26.7 - 34.0 pg [facility] MCHC (RBC) [Mass/Vol] 32.7 g/dL 29.9 - 35.2 g/dL [facility] MCV (RBC) [Entitic vol] 87 fL 81.0 - 99.0 fL [facility] MONOCYTES ABSOLUTE AUTO 0.4 [facility] Monocytes/100 WBC (Bld) 4 % 1.7 - 12.0 % [facility] NEUTROPHILS ABSOLUTE AUTO 7.8 High [facility] Neutrophils/100 WBC (Bld) 77.3 % High 43.0 - 75.0 % [facility] Platelet mean volume (Bld) [Entitic vol] 9.7 fL 9.5 - 13.[address] [facility] EO # 0.2 [facility] PLT 287 [facility] RBC 4.[address] [facility] WBC 10.1 [facility] Urinalysis macro (dipstick) panel (U)on 01-25-2025 Bilirubin, UA Negative Negative - 4(70) +++ mg/dL [facility] Blood, UA Negative Negative - 50 Carlos/mcL [facility] Clarity, UA Clear [facility] Color, UA Yellow [facility] Glucose, UA Negative Negative - 2000(110) ++++ mg/dL [facility] Interpretation and review of laboratory results Normal [facility] Ketones, UA Negative Negative - 160(16) ++++ mg/dL [facility] Leukocytes, UA Negative Negative - 500+++ Katie/mcL [facility] Nitrite, UA Negative Negative - Positive [facility] pH, UA 5.5 5 - 9 [facility] Protein, UA Negative Negative - 2000(20) ++++ mg/dL [facility] Spec Grav, UA 1.025 1 - 1.03 [facility] Urobilinogen, UA 0.2 0.2 - 12 mg/dL [facility] No Panel InformationOrdered By: Radiologist Radiology on 12-29-2024 [facility] Work Phone: No Panel Informationon 12-29 Radiology Study observation (narrative) [facility] RECURRENT VAGINITIS (HTRX)on 12-29-2024 ATOPOBIUM VAGINAE 0 [facility] ATOPOBIUM VAGINAE Not detected [facility] BVAB 2,3 (BACTERIAL VAGINOSIS ASSOCIATED BACTERIA 2, 3); MOBILUNCUS SPP 24.786 Abnormal [facility] BVAB 2,3 (BACTERIAL VAGINOSIS ASSOCIATED BACTERIA 2, 3); MOBILUNCUS SPP Detected Abnormal [facility] COURTNEY ALBICANS, PARAPSILOSIS, TROPICALIS 0 [facility] COURTNEY ALBICANS, PARAPSILOSIS, TROPICALIS Not detected [facility] COURTNEY GLABRATA 0 [facility] COURTNEY GLABRATA Not detected [facility] COURTNEY KRUSEI 0 [facility] COURTNEY KRUSEI Not detected [facility] CHLAMYDIA TRACHOMATIS 0 [facility] CHLAMYDIA TRACHOMATIS Not detected [facility] GARDNERELLA VAGINALIS 0 [facility] GARDNERELLA VAGINALIS Not detected N [facility] Interpretation and review of laboratory results Abnormal [facility] MEGASPHAERA (TYPES 1, 2) 0 [facility] MEGASPHAERA (TYPES 1, 2) Not detected [facility] MYCOPLASMA GENITALIUM 0 [facility] MYCOPLASMA GENITALIUM Not detected [facility] NEISSERIA GONORRHOEAE 0 [facility] NEISSERIA GONORRHOEAE Not detected [facility] TRICHOMONAS VAGINALIS 0 [facility] TRICHOMONAS VAGINALIS Not detected N [facility] US OB ANATOMYon 12-29-[address] [address] Ultrasound Report Signed Patient: FLORA BUNCH MR#: [id number] : 1990 Acct:[id number] Age/Sex: 34 / F ADM Date: 12/29/24 Loc: US Attending Dr: Cristina Oneill Ordering Physician: Cristina Oneill Date of Service: 12/29/24 Procedure(s): US OB anatomy Accession Number(s): [id number] cc: Cristina Oneill; Physician,Non-Staff Ramana The [address] [address] Patient Name: FLORA BUNCH MRN: [facility]:[id number] date: 1990 Sex: F Assigned Patient Location: US Current Patient Location: US Accession/Order Number: [id number] Exam Date: 12/29/2024 22:39 Report Date: 12/29/2024 22:46 At the request of: CRISTINA ONEILL Procedure: US OB anatomy Growth ultrasound. Cervical length ultrasound. Reason for exam: Anatomy screening. COMPARISON: None. TECHNIQUE: Transabdominal and transvaginal imaging of the gravid uterus was obtained. FINDINGS: Single live uterine is noted measuring 20 weeks 0 days by anatomic measurements, appropriate growth per dating. heart rate 1 52 bpm. Placenta is anterior in location without evidence of placenta previa. Cervical length measures 4.2 cm without evidence of funneling. Amniotic fluid is subjectively normal. Anatomic survey demonstrates no focal abnormality involving the cranial structures. Nasal bone is present. No gross spinal abnormality is noted. Three-vessel cord is noted without abnormality. Four-chamber heart is noted. Outflow tracts appear grossly unremarkable. Kidneys are grossly unremarkable. 4 extremities are noted. US/US OB anatomy IMPRESSION: Normal anatomic survey. Single live intrauterine 20 weeks 0 days by anatomic measurements. Normal cervical length without evidence of funneling. Impression dictated by: Fadi De Luna Jr., D.O.12/29/2024 10:46 PM Dictation Location: [place] [address] Electronically authenticated by: [id number] Y Date: 12/29/2024 22:46 Dictated By: Fadi De Luna M.D. Signed By: 12/29/249 DD/ 45 TD/TT: Youth Development Professional: [facility] Radiology, Radiologist, - 12/29/[address] [address] Ultrasound Report Signed Patient: FLORA BUNCH MR#: [id number] : 1990 Acct:[id number] Age/Sex: 34 / F ADM Date: 12/29/24 Loc: US Attending Dr: Cristina Oneill Ordering Physician: Cristina Oneill Date of Service: 12/29/24 Procedure(s): US OB anatomy Accession Number(s): [id number] cc: Cristina Oneill; Physician,Non-Staff M.DMeño [address] [address] Patient Name: FLORA BUNCH MRN: [id number] date: 1990 Sex: F Assigned Patient Location: US Current Patient Location: US Accession/Order Number: [id number] Exam Date: 12/29/2024 22:39 Report Date: 12/29/2024 22:46 At the request of: CRISTINA ONEILL Procedure: US OB anatomy Growth ultrasound. Cervical length ultrasound. Reason for exam: Anatomy screening. COMPARISON: None. TECHNIQUE: Transabdominal and transvaginal imaging of the gravid uterus was obtained. FINDINGS: Single live uterine is noted measuring 20 weeks 0 days by anatomic measurements, appropriate growth per dating. heart rate 1 52 bpm. Placenta is anterior in location without evidence of placenta previa. Cervical length measures 4.2 cm without evidence of funneling. Amniotic fluid is subjectively normal. Anatomic survey demonstrates no focal abnormality involving the cranial structures. Nasal bone is present. No gross spinal abnormality is noted. Three-vessel cord is noted without abnormality. Four-chamber heart is noted. Outflow tracts appear grossly unremarkable. Kidneys are grossly unremarkable. 4 extremities are noted. US/US OB anatomy IMPRESSION: Normal anatomic survey. Single live intrauterine 20 weeks 0 days by anatomic measurements. Normal cervical length without evidence of funneling. Impression dictated by: Fadi De Luna Jr., D.O.12/29/2024 10:46 PM Dictation Location: [place] [address] Electronically authenticated by: [id number] Y Date: 12/29/2024 22:46 Dictated By: Fadi De Luna M.D. Signed By: 12/29/249 DD/ 45 TD/TT: Youth Development Professional: LAURYN [facility] OB CERVICAL LENGTHon [address] [address] Ultrasound Report Signed Patient: FLORA BUNCH MR#: [id number] : 1990 Acct:[id number] Age/Sex: 34 / F ADM Date: 12/29/24 Loc: US Attending Dr: Cristina Oneill Ordering Physician: Cristina Oneill Date of Service: 12/29/24 Procedure(s): US OB cervical length Accession Number(s): [id number] cc: Cristina Oneill; Physician,Non-Staff M.DMeño [address] [address] Patient Name: FLORA BUNCH MRN: [id number] date: 1990 Sex: F Assigned Patient Location: US Current Patient Location: US Accession/Order Number: [id number] Exam Date: 12/29/2024 22:39 Report Date: 12/29/2024 22:46 At the request of: CRISTINA ONEILL Procedure: US OB anatomy Growth ultrasound. Cervical length ultrasound. Reason for exam: Anatomy screening. COMPARISON: None. TECHNIQUE: Transabdominal and transvaginal imaging of the gravid uterus was obtained. FINDINGS: Single live uterine is noted measuring 20 weeks 0 days by anatomic measurements, appropriate growth per dating. heart rate 1 52 bpm. Placenta is anterior in location without evidence of placenta previa. Cervical length measures 4.2 cm without evidence of funneling. Amniotic fluid is subjectively normal. Anatomic survey demonstrates no focal abnormality involving the cranial structures. Nasal bone is present. No gross spinal abnormality is noted. Three-vessel cord is noted without abnormality. Four-chamber heart is noted. Outflow tracts appear grossly unremarkable. Kidneys are grossly unremarkable. 4 extremities are noted. US/US OB cervical length IMPRESSION: Normal anatomic survey. Single live intrauterine 20 weeks 0 days by anatomic measurements. Normal cervical length without evidence of funneling. Impression dictated by: Fadi De Luna Jr., D.O.12/29/2024 10:46 PM Dictation Location: [facility] Electronically authenticated by: [id number] Y Date: 12/29/2024 22:46 Dictated By: Fadi De Luna M.D. Signed By: 12/29/242248 DD/ 45 TD/TT: Youth Development Professional: [facility] Radiology, Radiologist, MD - 12/29/[address] [address] Ultrasound Report Signed Patient: FLORA BUNCH MR#: [id number] : 1990 Acct:[id number] Age/Sex: 34 / F ADM Date: 12/29/24 Loc: US Attending Dr: Cristina Oneill Ordering Physician: Cristina Oneill Date of Service: 12/29/24 Procedure(s): US OB cervical length Accession Number(s): [id number] cc: Cristina Oneill; Physician,Non-Staff Ramana The [address] [address] Patient Name: FLORA BUNCH MRN: [facility]:[id number] date: 1990 Sex: F Assigned Patient Location: US Current Patient Location: US Accession/Order Number: [id number] Exam Date: 12/29/2024 22:39 Report Date: 12/29/2024 22:46 At the request of: CRISTINA ONEILL Procedure: US OB anatomy Growth ultrasound. Cervical length ultrasound. Reason for exam: Anatomy screening. COMPARISON: None. TECHNIQUE: Transabdominal and transvaginal imaging of the gravid uterus was obtained. FINDINGS: Single live uterine is noted measuring 20 weeks 0 days by anatomic measurements, appropriate growth per dating. heart rate 1 52 bpm. Placenta is anterior in location without evidence of placenta previa. Cervical length measures 4.2 cm without evidence of funneling. Amniotic fluid is subjectively normal. Anatomic survey demonstrates no focal abnormality involving the cranial structures. Nasal bone is present. No gross spinal abnormality is noted. Three-vessel cord is noted without abnormality. Four-chamber heart is noted. Outflow tracts appear grossly unremarkable. Kidneys are grossly unremarkable. 4 extremities are noted. US/US OB cervical length IMPRESSION: Normal anatomic survey. Single live intrauterine 20 weeks 0 days by anatomic measurements. Normal cervical length without evidence of funneling. Impression dictated by: Fadi De Luna Jr., D.O.12/29/2024 10:46 PM Dictation Location: [place] [address] Electronically authenticated by: [id number] Y Date: 12/29/2024 22:46 Dictated By: Fadi De Luna M.D. Signed By: 12/29/242248 DD/ 45 TD/TT: Youth Development Professional: [facility] Urinalysis macro (dipstick) panel (U)on 12-28-2024 Bilirubin, UA Negative Negative - 4(70) +++ mg/dL [facility] Blood, UA Negative Negative - 50 Carlos/mcL [facility] Clarity, UA Clear [facility] Color, UA Yellow [facility] Glucose, UA Negative Negative - 2000(110) ++++ mg/dL [facility] Interpretation and review of laboratory results Normal [facility] Ketones, UA Negative Negative - 160(16) ++++ mg/dL [facility] Leukocytes, UA Negative Negative - 500+++ Katie/mcL [facility] Nitrite, UA Negative Negative - Positive [facility] pH, UA 6 5 - 9 [facility] Protein, UA Negative Negative - 1999(20) ++++ mg/dL [facility] Spec Grav, UA 1.025 1 - 1.03 [facility] Urobilinogen, UA 0.2 0.2 - 12 mg/dL [facility] GLUCOSE 1 HOURon 12-04-2024 Glucose [Mass/Vol] 124 mg/dL NINF - 13 0 mg/dL [facility] Urinalysis macro (dipstick) panel (U)on 11-25-2024 Bilirubin, UA Negative Negative - 4(70) +++ mg/dL [facility] Blood, UA Positive Negative - 50 Carlos/mcL [facility] Comment on above: trace-intact Clarity, UA Clear [facility] Color, UA Yellow [facility] Glucose, UA Negative Negative - 2000(110) ++++ mg/dL [facility] Interpretation and review of laboratory results Abnormal [facility] Ketones, UA Negative Negative - 160(16) ++++ mg/dL [facility] Leukocytes, UA Positive Negative - 500+++ Katie/mcL [facility] Comment on above: small Nitrite, UA Negative Negative - Positive [facility] pH, UA 5.5 5 - 9 [facility] Protein, UA Negative Negative - 1999(20) ++++ mg/dL [facility] Spec Grav, UA 1.03 1 - 1.03 [facility] Urobilinogen, UA 0.2 0.2 - 12 mg/dL [facility] HCG ( test) Ql (U)o n 10-26-2024 Interpretation and review of laboratory results Abnormal [facility] Preg Test, Ur Positive Negative [facility] US OB TRANSVAGINALon 024 US OB TRANSVAGINAL [...] x 6.4 cm (10 weeks, 1 day). Retreat rump length is 3.9 to 4.0 cm [...] UA Negative Negative - 4(70) +++ mg/dL [facility] Blood, UA Negative Negative - 50 Carlos/mcL [facility] Clarity, UA Clear [facility] Color, UA Yellow [facility] Glucose, UA Negative Negative - 1999(110) ++++ mg/dL [facility] Interpretation and review of laboratory results Normal [facility] Ketones, UA Negative Negative - 160(16) ++++ mg/dL [facility] Leukocytes, UA Negative Negative - 500+++ Katie/mcL [facility] Nitrite, UA Negative Negative - Positive [facility] pH, UA 6 5 - 9 [facility] Protein, UA Negative Negative - 1999(20) ++++ mg/dL [facility] Spec Grav, UA 1.025 1 - 1.03 [facility] Urobilinogen, UA 0.2 0.2 - 12 mg/dL [facility] IGP,APTIMA HPV,AGE GDLNon AGE GDLN ACOG TESTING Note . [facility] Comment on above: TESTS RESULT FLAG UN ITS REF RANGE LAB Clinician Provided Cytology Information Source.............Cervix;Endocervix No. of containers..01 ThinPrep Vial Age Algo ACOG Zita... 30-65 01 FLAG LEGEND: L-Low Normal,H-High Normal,LL-Alert Low,HH-Alert High <-Panic Low,>-Panic High,A-Abnormal,AA-Critical Abnormal Performed at: 01 =[facility] [place] [address] Cheri Randhawa MD, HPV APTIMA Negative Negative [facility] Comment on above: This nucleic acid am plification test detects fourteen high- risk HPV types (16,18,31,33,35,39,45,51,52,56,58,59,66,68) without differentiation. Performed at: = - [address], [place] [id number] Utilization Review Coordinator: Cheri Randhawa MD, Phone: [phone] Performed at: [address], [place] [id number] Utilization Review Coordinator: Cheri Randhawa MD, Phone: [phone] IGP, APTIMA HPV, RFX 16/18,45 Note . [facility] Comment on above: TESTS RESULT FLAG UN ITS REF RANGE LAB DIAGNOSIS: 02 NEGATIVE FOR INTRAEPITHELIAL LESION OR MALIGNANCY. THIS SPECIMEN WAS RESCREENED PART OF OUR SLACKLINE OPERATOR PROGRAM. Specimen adequacy: 02 Satisfactory for evaluation. No endocervical component is identified. Performed by: 02 Clay Humphrey, [employer]que[employer] Applier (ASCP) QC reviewed by: 02 Delmy Wheat, [employer] Applier (ASCP) . 02 Note: Note 02 The [...] Low,>-Panic High,A-Abnormal,AA-Critical Abnormal Performed at: 02 [facility] [place] [address] Cheri Randhawa MD, BRUSH-SPATULA CERVIX ENDOCERVIX [facility] CBC AUTO DIFFon 08-28-2022 BASO # 0.0 103/ul Normal 0.0-0.1 [facility] Comment on above: Performed By: #### G LU1HR #### [facility] [address] [place] [address] Dr. Isabel Cornelius Basophils/100 WBC (Bld) 0.3 % Normal 0.2-2.0 [facility] Comment on above: Performed By: #### G LU1HR #### [facility] [address] [place] [address] Dr. Isabel Cornelius EO # 0.0 103/ul Normal 0.0-0.7 [facility] Comment on above: Performed By: #### G LU1HR #### [facility] [address] [place] [address] Dr. Isabel Cornelius Eosinophils/100 WBC (Bld) 0.2 % Critically low 0.9-7.0 [facility] Comment on above: Performed By: #### G LU1HR #### [facility] [address] [place] [address] Dr. Isabel Cornelius Erythrocyte distribution width (RBC) [Ratio] 14.6 % Normal 11.0-15.0 [facility] Comment on above: Performed By: #### G LU1HR #### [facility] [address] [place] [address] Dr. Isabel Cornelius Hematocrit (Bld) [Volume fraction] 25.3 % Critically low 36.0-48.0 [facility] Comment on above: Performed By: #### G LU1HR #### [facility] [address] [place] [address] Dr. Isabel Cornelius Hemoglobin (Bld) [Mass/Vol] 8.1 g/dL Critically low 12.0-16.0 [facility] Comment on above: Performed By: #### G LU1HR #### [facility] [address] [address] [address] Isabel Cornelius IG # 0.06 10e3/ul Critically high 0.00-0.[address] [facility] Comment on above: Performed By: #### G LU1HR #### [facility] [address] [address] [address] Isabel Cornelius IG % 0.6 % Critically high 0.0-0.5 [facility] Comment on above: Performed By: #### G LU1HR #### [facility] [address] [place] [address] Dr. Isabel Cornelius LYMPH # 1.6 103/ul Normal 1.2-3.8 [facility] Comment on above: Performed By: #### G LU1HR #### [facility] [address] [place] [address] Dr. Isabel Cornelius Lymphocytes/100 WBC (Bld) 16.5 % Critically low 20.5-60.0 [facility] Comment on above: Performed By: #### G LU1HR #### [facility] [address] [place] [address] Dr. Isabel Cornelius MANUAL DIFF REQ NO Normal [facility] Comment on above: Performed By: #### G LU1HR #### [facility] [address] [address] [address] Isabel Cornelius MCH (RBC) [Entitic mass] 26.3 pg Critically low 26.7-34.0 [facility] Comment on above: Performed By: #### G LU1HR #### [facility] [address] [address] [address] Isabel Cornelius MCHC (RBC) [Mass/Vol] 32.0 g/dL Normal 29.9-35.2 [facility] Comment on above: Performed By: #### G LU1HR #### [facility] [address] [place] [address] Dr. Isabel Cornelius MCV (RBC) [Entitic vol] 82.1 fL Normal 81.0-99.0 [facility] Comment on above: Performed By: #### G LU1HR #### [facility] [address] [place] [address] Dr. Isabel Cornelius MONO # 0.6 103/ul Normal 0.3-0.8 [facility] Comment on above: Performed By: #### G LU1HR #### [facility] [address] [place] [address] Dr. Isabel Cornelius Monocytes/100 WBC (Bld) 6.4 % Normal 1.7-12.0 [facility] Comment on above: Performed By: #### G LU1HR #### [facility] [address] [place] [address] Dr. Isabel Cornelius NEUT # 7.3 103/ul Critically high 1.4-6.5 [facility] Comment on above: Performed By: #### G LU1HR #### [facility] [address] [place] [address] Dr. Isabel Cornelius Neutrophils/100 WBC (Bld) 76.0 % Critically high 43.0-75.0 [facility] Comment on above: Performed By: #### G LU1HR #### [facility] [address] [place] [address] Dr. Isabel Cornelius Platelet mean volume (Bld) [Entitic vol] 9.8 fL Normal 9.5-13.5 [facility] Comment on above: Performed By: #### G LU1HR #### [facility] [address] [place] [address] Dr. Isabel Cornelius PLT 253 103/ul Normal 150-450 [facility] Comment on above: Performed By: #### G LU1HR #### [facility] [address] [place] [address] Dr. Isabel Cornelius RBC 3.08 106/ul Critically low 4.20-5.40 [facility] Comment on above: Performed By: #### G LU1HR #### [facility] [address] [place] [address] Dr. Isabel Cornelius WBC 9.6 103/ul Normal 4.0-11.0 [facility] Comment on above: Performed By: #### G LU1HR #### [facility] [address] [place] [address] Dr. Isabel Cornelius CBC AUTO DIFFon 08-27-2022 BASO # 0.0 103/ul Normal 0.0-0.1 [facility] Comment on above: Performed By: #### C BC #### [facility] [address] [place] [address] Dr. Isabel Cornelius Basophils/100 WBC (Bld) 0.4 % Normal 0.2-2.0 [facility] Comment on above: Performed By: #### C BC #### [facility] [address] [place] [address] Dr. Isabel Cornelius EO # 0.1 103/ul Normal 0.0-0.7 [facility] Comment on above: Performed By: #### C BC #### [facility] [address] [place] [address] Dr. Isabel Cornelius Eosinophils/100 WBC (Bld) 0.8 % Critically low 0.9-7.0 [facility] Comment on above: Performed By: #### C BC #### [facility] [address] [place] [address] Dr. Isabel Cornelius Erythrocyte distribution width (RBC) [Ratio] 14.3 % Normal 11.0-15.0 [facility] Comment on above: Performed By: #### C BC #### [facility] [address] [place] [address] Dr. Isabel Cornelius Hematocrit (Bld) [Volume fraction] 32.6 % Critically low 36.0-48.0 [facility] Comment on above: Performed By: #### C BC #### [facility] [address] [place] [address] Dr. Isabel Cornelius Hemoglobin (Bld) [Mass/Vol] 10.5 g/dL Critically low 12.0-16.0 [facility] Comment on above: Performed By: #### C BC #### [facility] [address] [address] [address] Isabel Cornelius IG # 0.07 10e3/ul Critically high 0.00-0.[address] [facility] Comment on above: Performed By: #### C BC #### [facility] [address] [place] [address] Dr. Isabel Cornelius IG % 0.7 % Critically high 0.0-0.5 [facility] Comment on above: Performed By: #### C BC #### [facility] [address] [place] [address] Dr. Isabel Cornelius LYMPH # 1.6 103/ul Normal 1.2-3.8 [facility] Comment on above: Performed By: #### C BC #### [facility] [address] [place] [address] Dr. Isabel Cornelius Lymphocytes/100 WBC (Bld) 15.7 % Critically low 20.5-60.0 [facility] Comment on above: Performed By: #### C BC #### [facility] [address] [place] [address] Dr. Isabel Cornelius MANUAL DIFF REQ NO Normal [facility] Comment on above: Performed By: #### C BC #### [facility] [address] [place] [address] Dr. Isabel Cornelius MCH (RBC) [Entitic mass] 26.0 pg Critically low 26.7-34.0 [facility] Comment on above: Performed By: #### C BC #### [facility] [address] [place] [address] Dr. Isabel Cornelius MCHC (RBC) [Mass/Vol] 32.2 g/dL Normal 29.9-35.2 [facility] Comment on above: Performed By: #### C BC #### [facility] [address] [place] [address] Dr. Isabel Cornelius MCV (RBC) [Entitic vol] 80.7 fL Critically low 81.0-99.0 [facility] Comment on above: Performed By: #### C BC #### [facility] [address] [address] [address] Isabel Cornelius MONO # 0.7 103/ul Normal 0.3-0.8 [facility] Comment on above: Performed By: #### C BC #### [facility] [address] [id number] [address] Isabel Cornelius Monocytes/100 WBC (Bld) 6.6 % Normal 1.7-12.0 [facility] Comment on above: Performed By: #### C BC #### [facility] [address] [place] [address] Dr. Isabel Cornelius NEUT # 7.5 103/ul Critically high 1.4-6.5 [facility] Comment on above: Performed By: #### C BC #### [facility] [address] [place] [address] Dr. Isabel Cornelius Neutrophils/100 WBC (Bld) 75.8 % Critically high 43.0-75.0 [facility] Comment on above: Performed By: #### C BC #### [facility] [address] [place] [address] Dr. Isabel Cornelius Platelet mean volume (Bld) [Entitic vol] 10.3 fL Normal 9.5-13.5 [facility] Comment on above: Performed By: #### C BC #### [facility] [address] [place] [address] Dr. Isabel Cornelius PLT 327 103/ul Normal 150-450 [facility] Comment on above: Performed By: #### C BC #### [facility] [address] [place] [address] Dr. Isabel Cornelius RBC 4.04 106/ul Critically low 4.20-5.40 [facility] Comment on above: Performed By: #### C BC #### [facility] [address] [place] [address] Dr. Isabel Cornelius WBC 9.9 103/ul Normal 4.0-11.0 [facility] Comment on above: Performed By: #### C BC #### [facility] [address] [address] [address] Isabel Cornelius DRUG SCREEN RAPID (URINE)on 08-27-2022 AMP Negative Normal NEGATIVE [facility] Comment on above: Performed By: #### A 1C #### [facility] [address] [place] [address] Dr. Isabel Cornelius BAR Negative Normal NEGATIVE [facility] Comment on above: Performed By: #### A 1C #### [facility] [address] [place] [address] Dr. Isabel Cornelius BUP Negative Normal NEGATIVE [facility] Comment on above: Performed By: #### A 1C #### [facility] [address] [place] [address] Dr. Isabel Cornelius BZO Negative Normal NEGATIVE [facility] Comment on above: Performed By: #### A 1C #### [facility] [address] [place] [address] Dr. Isabel Cornelius DORENE Negative Normal NEGATIVE [facility] Comment on above: Performed By: #### A 1C #### [facility] [address] [place] [address] Dr. Isabel Cornelius CUT-OFFS SEE BELOW Normal [facility] Comment on above: Result Comment: [...] ng/mL Performed By: #### A 1C #### [facility] [address] [place] [address] Dr. Isabel Cornelius DRUG CUT HEADER DRUG CLASS TEST SYST EM CUT-OFF CONCENTRATIONS ARE FOLLOWS: Normal [facility] Comment on above: Performed By: #### A 1C #### [facility] [address] [place] [address] Dr. Isabel Cornelius mAMP Negative Normal NEGATIVE [facility] Comment on above: Performed By: #### A 1C #### [facility] [address] [place] [address] Dr. Isabel Cornelius MTD Negative Normal NEGATIVE [facility] Comment on above: Performed By: #### A 1C #### [facility] [address] [place] [address] Dr. Isabel Cornelius OPI Negative Normal NEGATIVE [facility] Comment on above: Performed By: #### A 1C #### [facility] [address] [place] [address] Dr. Isabel Cornelius OXY Negative Normal NEGATIVE [facility] Comment on above: Performed By: #### A 1C #### [facility] [address] [place] [address] Dr. Isabel Cornelius PCP Negative Normal NEGATIVE [facility] Comment on above: Performed By: #### A 1C #### [facility] [address] [place] [address] Dr. Isabel Cornelius PPX Negative Normal NEGATIVE [facility] Comment on above: Performed By: #### A 1C #### [facility] [address] [place] [address] Dr. Isabel Cornelius TCA Negative Normal NEGATIVE [facility] Comment on above: Performed By: #### A 1C #### [facility] [address] [place] [address] Dr. Isabel Cornelius THC Negative Normal NEGATIVE [facility] Comment on above: Performed By: #### A 1C #### [facility] [address] [place] [address] Dr. Isabel Cornelius TYPE AND SCREENon 08-27-2022 TYPE AND SCREEN Negative Normal [facility] Comment on above: Performed By: #### T NS #### [facility] [address] [place] [address] Dr. Isabel Cornelius UA (CLEAN/CATCH) COFFEE SHOP MANAGER/MICRO I F IND.on 08-27-2022 Bilirubin Ql (U) Negative Normal NEGATIVE [facility] Comment on above: Performed By: #### U ACSIND #### [facility] [address] [place] [address] Dr. Isabel Cornelius Clarity (U) CLEAR Normal CLEAR [facility] Comment on above: Performed By: #### U ACSIND #### [facility] [address] [address] [address] Isabel Cornelius Color (U) YELLOW Normal YELLOW [facility] Comment on above: Performed By: #### U ACSIND #### [facility] [address] [address] [address] Isabel Cornelius Glucose Ql (U) Negative Normal NEGATIVE [facility] Comment on above: Performed By: #### U ACSIND #### [facility] [address] [place] [address] Dr. Isabel Cornelius Hemoglobin Ql (U) Negative Normal NEGATIVE [facility] Comment on above: Performed By: #### U ACSIND #### [facility] [address] [place] [address] Dr. Isabel Cornelius Ketones Ql (U) Negative Normal NEGATIVE [facility] Comment on above: Performed By: #### U ACSIND #### [facility] [address] [place] [address] Dr. Isabel Corneilus LEUKOCYTES Negative Normal NEGATIVE [facility] Comment on above: Performed By: #### U ACSIND #### [facility] [address] [place] [address] Dr. Isabel Cornelius Nitrite Ql (U) Negative Normal NEGATIVE [facility] Comment on above: Performed By: #### U ACSIND #### [facility] [address] [place] [address] Dr. Isabel Cornelius pH (U) 6.0 [pH] Normal 5-9 [facility] Comment on above: Performed By: #### U ACSIND #### [facility] [address] [place] [address] Dr. Isabel Cornelius SPEC GRAVITY >=1.030 Abnormal 1.005-<=1.02 5 [facility] Comment on above: Performed By: #### U ACSIND #### [facility] [address] [place] [address] Dr. Isabel Cornelius UA PROTEIN TRACE Normal NEGATIVE/ TRACE [facility] Comment on above: Performed By: #### U ACSIND #### [facility] [address] [place] [address] Dr. Isabel Cornelius UR MICRO IND NOT INDICATED Normal [facility] Comment on above: Performed By: #### U ACSIND #### [facility] [address] [place] [address] Dr. Isabel Cornelius Urobilinogen Qn (U) 0.2 {Radha'U}/dL Normal 0.2 - 1. 0 [facility] Comment on above: Performed By: #### U ACSIND #### [facility] [address] [place] [address] Dr. Isabel Cornelius Covid-19 PCR (CVDTB)on 07-28 SARS-CoV-2 (COVID-19) RNA KINSEY+probe Ql (Unsp spec) Not detected Normal NOT DETECTED [facility] Comment on above: Result Comment: This test is not yet approved or cleared by the [place] FDA. When there are no FDA-approved or cleared tests available, and other criteria are met, FDA can make tests available under an emergency access mechanism called an Emergency Use Authorization (EUA). The EUA for this test is supported by the [place] of Health and Human Service's (HHS's) declaration [...] SARS-CoV-2. Performed By: #### C VDTBH #### [facility] [address] [place] [address] Dr. Isabel Cornelius US PREG GROWTHon 08-14-2022 [...] ERMA GARCIA Date: 2022-08-14 19:49 Normal [facility] GROUP B STREP CULTUREon 07-27 S. agalactiae Ag Ql (Unsp spec) Culture Observations: NEGATIVE FOR GROUP B STREPTOCOCCUS. Normal [facility] Comment on above: Performed By: #### G BSCX #### [facility] [address] [place] [address] Dr. Isabel Cornelius GTT 3 HR PREGon 06-22-2022 Glucose [Mass/Vol] 95 mg/dL Normal 74-106 [facility] Comment on above: Performed By: #### G LU1HR #### [facility] [address] [place] [address] Dr. Isabel Cornelius Glucose [Mass/Vol] 183 mg/dL Normal [facility] Comment on above: Performed By: #### G LU1HR #### [facility] [address] [place] [address] Dr. Isabel Cornelius Glucose [Mass/Vol] 124 mg/dL Normal [facility] Comment on above: Performed By: #### G LU1HR #### [facility] [address] [place] [address] Dr. Isabel Cornelius Glucose [Mass/Vol] 141 mg/dL Normal [facility] Comment on above: Performed By: #### G LU1HR #### [facility] [address] [place] [address] Dr. Isabel Cornelius GLUCOSE - 1HRon 06-08-2022 Glucose [Mass/Vol] 144 mg/dL Critically high 74-106 [facility] Comment on above: Performed By: #### G LU1HR #### [facility] [address] [place] [address] Dr. Isabel Cornelius HEMOGRAM AND PLATELon 2021 Hematocrit (Bld) [Volume fraction] 35.3 % Critically low 36.0-48.0 [facility] Comment on above: Performed By: #### G LU1HR #### [facility] [address] [place] [address] Dr. Isabel Cornelius Hemoglobin (Bld) [Mass/Vol] 11.0 g/dL Critically low 12.0-16.0 [facility] Comment on above: Performed By: #### G LU1HR #### [facility] [address] [place] [address] Dr. Isabel Cornelius MCH (RBC) [Entitic mass] 27.0 pg Normal 26.7-34.0 [facility] Comment on above: Performed By: #### G LU1HR #### [facility] [address] [place] [address] Dr. Isabel Cornelius MCHC (RBC) [Mass/Vol] 31.2 g/dL Normal 29.9-35.2 [facility] Comment on above: Performed By: #### G LU1HR #### [facility] [address] [place] [address] Dr. Isabel Cornelius MCV (RBC) [Entitic vol] 86.7 fL Normal 81.0-99.0 [facility] Comment on above: Performed By: #### G LU1HR #### [facility] [address] [place] [address] Dr. Isabel Cornelius PLT 297 103/ul Normal 150-450 [facility] Comment on above: Performed By: #### G LU1HR #### [facility] [address] [address] [address] Isabel Cornelius RBC 4.07 106/ul Critically low 4.20-5.40 [facility] Comment on above: Performed By: #### G LU1HR #### [facility] [address] [address] [address] Isabel Cornelius WBC 10.2 103/ul Normal 4.0-11.0 [facility] Comment on above: Performed By: #### G LU1HR #### [facility] [address] [address] [address] Isabel Cronelius CULTURE URINEon 05-24-2022 CULTURE URINE Isolate 1 Escherichia coli >100,000 cfu/mL of ORGANISM 1 Escherichia coli ANTIBIOTIC M.I.C RX STATUS Ampicillin >=32 R F Ampicillin/Sulbactam 16 I F Piperacillin/Tazobacta m <=4 S F Cefazolin <=4 S F Ceftazidime <=1 S F Ceftriaxone <=1 S F Ertapenem <=0.5 S F Imipenem <=0.25 S F Amikacin <=2 S F Gentamicin <=1 S F Tobramycin <=1 S F Ciprofloxacin <=0.25 S F Levofloxacin <=0.12 S F Nitrofurantoin <=16 S F Trimethoprim/Sulfameth oxazole <=20 S F Normal [facility] Comment on above: Performed By: #### U RCX #### [facility] [address] [place] [address] Dr. Isabel Cornelius UA RANDOM W/MICROSCOPICon BACTERIA LARGE Abnormal NONE SEEN [facility] Comment on above: Performed By: #### A 1C #### [facility] [address] [place] [address] Dr. Isabel Cornelius Bilirubin Ql (U) Negative Normal NEGATIVE [facility] Comment on above: Performed By: #### A 1C #### [facility] [address] [place] [address] Dr. Isabel Cornelius CAST NONE SEEN Normal NONE SEEN [facility] Comment on above: Performed By: #### A 1C #### [facility] [address] [place] [address] Dr. Isabel Cornelius Clarity (U) CLEAR Normal CLEAR [facility] Comment on above: Performed By: #### A 1C #### [facility] [address] [place] [address] Dr. Isabel Cornelius Color (U) LT. YELLOW Normal YELLOW [facility] Comment on above: Performed By: #### A 1C #### [facility] [address] [place] [address] Dr. Isabel Cornelius Crystals LM Nom (Urine sed) NONE SEEN Normal NONE SEEN [facility] Comment on above: Performed By: #### A 1C #### [facility] [address] [place] [address] Dr. Isabel Cornelius Epithelial cells LM Ql (Urine sed) FEW Abnormal NONE SEEN /RARE [facility] Comment on above: Performed By: #### A 1C #### [facility] [address] [place] [address] Dr. Isabel Cornelius Glucose Ql (U) Negative Normal NEGATIVE [facility] Comment on above: Performed By: #### A 1C #### [facility] [address] [place] [address] Dr. Isabel Cornelius Hemoglobin Ql (U) TRACE-INTACT Abnormal NEGATIVE [facility] Comment on above: Performed By: #### A 1C #### [facility] [address] [place] [address] Dr. Isabel Cornelius Ketones Ql (U) Negative Normal NEGATIVE [facility] Comment on above: Performed By: #### A 1C #### [facility] [address] [place] [address] Dr. Isabel Cornelius LEUKOCYTES SMALL Abnormal NEGATIVE [facility] Comment on above: Performed By: #### A 1C #### [facility] [address] [place] [address] Dr. Isabel Cornelius MUCOUS TRACE Abnormal NONE SEEN [facility] Comment on above: Performed By: #### A 1C #### [facility] [address] [place] [address] Dr. Isabel Cornelius Nitrite Ql (U) Positive Abnormal NEGATIVE [facility] Comment on above: Performed By: #### A 1C #### [facility] [address] [address] [address] Isabel Cornelius pH (U) 6.5 [pH] Normal 5-9 [facility] Comment on above: Performed By: #### A 1C #### [facility] [address] [place] [address] Dr. Isabel Cornelius RBC 2-5 Abnormal 0-2 [facility] Comment on above: Performed By: #### A 1C #### [facility] [address] [place] [address] Dr. Isabel Cornelius SPEC GRAVITY 1.015 Normal 1.005-<=1.02 5 [facility] Comment on above: Performed By: #### A 1C #### [facility] [address] [place] [address] Dr. Isabel Cornelius UA PROTEIN Negative Normal NEGATIVE/ TRACE [facility] Comment on above: Performed By: #### A 1C #### [facility] [address] [place] [address] Dr. Isabel Cornelius Urobilinogen Qn (U) 0.2 {Radha'U}/dL Normal 0.2 - 1. 0 [facility] Comment on above: Performed By: #### A 1C #### [facility] [address] [place] [address] Dr. Isabel Cornelius WBC 10-20 Abnormal NONE SEEN [facility] Comment on above: Performed By: #### A 1C #### [facility] [address] [place] [address] Dr. Isabel Cornelius US PREG INCOMPLETE ANATOMYon 05-15-2022 PREG INCOMPLETE ANATOMY EXAMINATION: US PREG INCOMPLETE [...] ERMA GARCIA Date: 2022-05-14 22:11 Normal [facility] AFP MATERNAL FOR SPINA BIFID Aon 04-25-2022 AFP MoM 1.28 Normal [facility] Comment on above: Performed By: #### G LU1HR #### [facility] [address] [address] [address] Isabel Cornelius AFP Value 43.3 ng/mL Normal [facility] Comment on above: Performed By: #### G LU1HR #### [facility] [address] [address] [address] Isabel Cornelius AFP, Serum for Spina Bifida Report Normal [facility] Comment on above: Performed By: #### G LU1HR #### [facility] [address] [address] [address] Isabel Cornelius Comment Comment Normal [facility] Comment on above: Result Comment: Ela Deras, Ph.D., [facility] Director . References: Available Upon Request. . Multiples Of Median Cutoffs For AFP Elevations Reyes 2.5 Black 2.8 IDD 2.0 Twins 4.5 Abbreviation Definitions IDD - Insulin Dep Diabetes OSBR - Open Spina Bifida Risk . For further inquiries contact [employer] [facility] at [phone]. Performed By: #### G LU1HR #### [facility] [address] [address] [address] Isabel Gregory Age Collection Date 18.4 weeks Normal [facility] Comment on above: Performed By: #### G LU1HR #### [facility] [address] [address] [address] Isabel Cornelius Gestat, Age Based on DREW [facility] Comment on above: Result Comment: 05/2022 Recalculations are not recommended when gestational dating by LMP and ultrasound are within 10 days. Performed By: #### G LU1HR #### [facility] [address] [address] [address] Isabel Cornelius Insulin Dep Diabetes No Normal [facility] Comment on above: Performed By: #### G LU1HR #### [facility] [address] [place] [address] Dr. Isabel Cornelius Interpretation Comment Normal [facility] Comment on above: Result Comment: Inte rpretation: [...] Customer Services to discuss available options. The [employer] recommends amniocentesis be offered to women age 35 and older. Performed By: #### G LU1HR #### [facility] [address] [place] [address] Dr. Isabel Cornelius [age] Normal [facility] Comment on above: Performed By: #### G LU1HR #### [facility] [address] [place] [address] Dr. Isabel Cornelius Multiple Gestation No Normal [facility] Comment on above: Performed By: #### G LU1HR #### [facility] [address] [place] [address] Dr. Isabel Cornelius OSBR Risk 1 IN 5096 Normal [facility] Comment on above: Performed By: #### G LU1HR #### [facility] [address] [place] [address] Dr. Isabel Cornelius PDF . Normal [facility] Comment on above: Performed By: #### G LU1HR #### [facility] [address] [place] [address] Dr. Isabel Cornelius Race Normal [facility] Comment on above: Performed By: #### G LU1HR #### [facility] [address] [place] [address] Dr. Isabel Cornelius Test Results: Negative Normal [facility] Comment on above: Performed By: #### G LU1HR #### [facility] [address] [place] [address] Dr. Isabel Cornelius US PREG ANATOMY SINGLEon US PREG ANATOMY SINGLE EXAMINATION: US P REG ANATOMY SINGLE HISTORY: anatomy study COMPARISON: No [...] VERA Date: 2022-04-16 16:21 Normal [facility] PAP ACOG PANEL 2: 21 to 29on 04-03-2022 . . Normal [facility] Comment on above: Performed By: #### G LU1HR #### [facility] [address] [place] [address] Dr. Isabel Cornelius Age Gdln ACOG Testing 23- Normal [facility] Comment on above: Performed By: #### G LU1HR #### [facility] [address] [address] [address] Isabel Cornelius DIAGNOSIS: Comment Normal [facility] Comment on above: Result Comment: NEGA TIVE FOR INTRAEPITHELIAL LESION OR MALIGNANCY. THIS SPECIMEN WAS RESCREENED PART OF OUR [employer] OPERATOR PROGRAM. Performed By: #### G LU1HR #### [facility] [address] [place] [address] Dr. Isabel Cornelius Methodology: Comment Normal [facility] Comment on above: Result Comment: This liquid based ThinPrep(R) pap test was screened with the use of an image guided system. Performed By: #### G LU1HR #### [facility] [address] [place] [address] Dr. Isabel Cornelius Note: Comment Normal [facility] Comment on above: Result Comment: The Pap smear is a screening test designed to aid in the detection of premalignant and malignant conditions of the uterine cervix. It is not a diagnostic procedure and should not be used as the sole means of detecting cervical cancer. Both false-positive and false-negative reports do occur. . Performed By: #### G LU1HR #### [facility] [address] [place] [address] Dr. Isabel Cornelius Performed by: Comment Normal [facility] Comment on above: Result Comment: Zheng Lacey, [employer] (ASCP) Performed By: #### G LU1HR #### [facility] [address] [place] [address] Dr. Isabel Cornelius QC reviewed by: Comment Normal [facility] Comment on above: Result Comment: Dai Wooten, Supervisory [place] [employer] (ASCP) Performed By: #### G LU1HR #### [facility] [address] [place] [address] Dr. Isabel Cornelius Reflex Criteria: Comment Normal [facility] Comment on above: Result Comment: The HPV DNA reflex criteria were not met with this specimen result therefore, no HPV testing was performed. . Performed By: #### G LU1HR #### [facility] [address] [place] [address] Dr. Isabel Cornelius Specimen adequacy: Comment Normal [facility] Comment on above: Result Comment: Sati sfactory for evaluation. Endocervical and/or squamous metaplastic cells (endocervical component) are present. Performed By: #### G LU1HR #### [facility] [address] [place] [address] Dr. Isabel Cornelius CHLAMYDIA/GONOCOCCUS KINSEY (SW AB/URINE/PAPon 03-31-2022 Chlamydia trachomatis, KINSEY Negative Normal Negative [facility] Comment on above: Performed By: #### A 1C #### [facility] [address] [place] [address] Dr. Isabel Cornelius Neisseria gonorrhoeae, KINSEY Negative Normal Negative [facility] Comment on above: Performed By: #### A 1C #### [facility] [address] [place] [address] Dr. Isabel Cornelius CULTURE URINEon 03-15-2022 CULTURE URINE Isolate 1 Escherichia coli >100,000 cfu/mL of ORGANISM 1 Escherichia coli ANTIBIOTIC M.I.C RX STATUS Ampicillin >=32 R F Ampicillin/Sulbactam 16 I F Piperacillin/Tazobacta m <=4 S F Cefazolin <=4 S F Ceftazidime <=1 S F Ceftriaxone <=1 S F Ertapenem <=0.5 S F Imipenem <=0.25 S F Amikacin <=2 S F Gentamicin <=1 S F Tobramycin <=1 S F Ciprofloxacin <=0.25 S F Levofloxacin <=0.12 S F Nitrofurantoin <=16 S F Trimethoprim/Sulfameth oxazole <=20 S F Normal [facility] Comment on above: Performed By: #### U RCX #### [facility] [address] [place] [address] Dr. Isabel Cornelius CULTURE URINEon 02-28-2022 CULTURE URINE Isolate 1 Escherichia coli >100,000 cfu/ml of ORGANISM 1 Escherichia coli ANTIBIOTIC M.I.C RX STATUS Ampicillin >=32 R F Ampicillin/Sulbactam >=32 R F Piperacillin/Tazobacta m 8 S F Cefazolin 8 S F Ceftazidime <=1 S F Ceftriaxone <=1 S F Ertapenem <=0.5 S F Imipenem <=0.25 S F Amikacin <=2 S F Gentamicin <=1 S F Tobramycin <=1 S F Ciprofloxacin <=0.25 S F Levofloxacin <=0.12 S F Nitrofurantoin <=16 S F Trimethoprim/Sulfameth oxazole <=20 S F Normal [facility] Comment on above: Performed By: #### A 1C #### [facility] [address] [address] [address] Isabel Cornelius HEP B SURFACE ANTIGEN SCREEN on 02-27-2022 HBsAg Screen Negative Normal Negative [facility] Comment on above: Performed By: #### G LU1HR #### [facility] [address] [address] [address] Isabel Cornelius HEPATITIS C VIRUS AB W/ REFL EX QUANTon 02-27-2022 HCV AB 0.1 s/co ratio Normal 0.0-0.9 [facility] Comment on above: Performed By: #### G LU1HR #### [facility] [address] [place] [address] Dr. Isabel Cornelius Interpretation: Comment Normal [facility] Comment on above: Result Comment: Nega tive Not infected with HCV, unless recent infection is suspected or other evidence exists to indicate HCV infection. Performed By: #### G LU1HR #### [facility] [address] [address] [address] Isabel Cornelius HIV 1 AND 2 WITH REFLEXon HIV Screen 4th Generation wRfx Non-Reactive Normal Non Reactive [facility] Comment on above: Result Comment: HIV Negative HIV-1/HIV-2 antibodies and HIV-1 p24 antigen were NOT detected. There is no laboratory evidence of HIV infection. Performed By: #### G LU1HR #### [facility] [address] [place] [address] Dr. Isabel Cornelius RPR QUANTon 02-27-2022 Rapid Plasma Reagin, Quant Non-Reactive Normal NonRea<1:1 [facility] Comment on above: Result Comment: Plea se Note: This test does not meet current guidelines for screening and diagnosis of syphilis. This test is intended for following treatment response in patients being treated for syphilis infection. To screen for syphilis infection, a reflex cascade that includes both RPR and a treponema-specific assay should be utilized, such as Treponema pallidum (Syphilis) Screening [place] (435765) or Rapid Plasma Reagin (RPR) Test With Reflex to Quantitative RPR and Confirmatory Treponema pallidum Antibodies (093886). Performed By: #### A 1C #### [facility] [address] [place] [address] Dr. Isabel Cornelius RUBELLA AB IGGon 02-27-2022 Rubella Antibodies, IgG 14.20 index Normal Immune >0.99 [facility] Comment on above: Result Comment: Non- immune <0.90 Equivocal 0.90 - 0.99 Immune >0.99 Performed By: #### G LU1HR #### [facility] [address] [place] [address] Dr. Isabel Cornelius CBC AUTO DIFFon 02-26-2022 BASO # 0.1 103/ul Normal 0.0-0.1 [facility] Comment on above: Performed By: #### C BC #### [facility] [address] [place] [address] Dr. Isabel Cornelius Basophils/100 WBC (Bld) 0.5 % Normal 0.2-2.0 [facility] Comment on above: Performed By: #### C BC #### [facility] [address] [place] [address] Dr. Isabel Cornelius EO # 0.1 103/ul Normal 0.0-0.7 [facility] Comment on above: Performed By: #### C BC #### [facility] [address] [place] [address] Dr. Isabel Cornelius Eosinophils/100 WBC (Bld) 0.8 % Critically low 0.9-7.0 [facility] Comment on above: Performed By: #### C BC #### [facility] [address] [place] [address] Dr. Isabel Cornelius Erythrocyte distribution width (RBC) [Ratio] 14.2 % Normal 11.0-15.0 [facility] Comment on above: Performed By: #### C BC #### [facility] [address] [place] [address] Dr. Isabel Cornelius Hematocrit (Bld) [Volume fraction] 41.7 % Normal 36.0-48.0 [facility] Comment on above: Performed By: #### C BC #### [facility] [address] [place] [address] Dr. Isabel Cornelius Hemoglobin (Bld) [Mass/Vol] 13.5 g/dL Normal 12.0-16.0 [facility] Comment on above: Performed By: #### C BC #### [facility] [address] [place] [address] Dr. Isabel Cornelius IG # 0.09 10e3/ul Critically high 0.00-0.[address] [facility] Comment on above: Performed By: #### C BC #### [facility] [address] [place] [address] Dr. Isabel Cornelius IG % 0.7 % Critically high 0.0-0.5 [facility] Comment on above: Performed By: #### C BC #### [facility] [address] [place] [address] Dr. Isabel Cornelius LYMPH # 2.0 103/ul Normal 1.2-3.8 [facility] Comment on above: Performed By: #### C BC #### [facility] [address] [place] [address] Dr. Isabel Cornelius Lymphocytes/100 WBC (Bld) 14.8 % Critically low 20.5-60.0 [facility] Comment on above: Performed By: #### C BC #### [facility] [address] [place] [address] Dr. Isabel Cornelius MANUAL DIFF REQ NO Normal [facility] Comment on above: Performed By: #### C BC #### [facility] [address] [place] [address] Dr. Isabel Cornelius MCH (RBC) [Entitic mass] 27.0 pg Normal 26.7-34.0 [facility] Comment on above: Performed By: #### C BC #### [facility] [address] [place] [address] Dr. Isabel Cornelius MCHC (RBC) [Mass/Vol] 32.4 g/dL Normal 29.9-35.2 [facility] Comment on above: Performed By: #### C BC #### [facility] [address] [place] [address] Dr. Isabel Cornelius MCV (RBC) [Entitic vol] 83.4 fL Normal 81.0-99.0 [facility] Comment on above: Performed By: #### C BC #### [facility] [address] [place] [address] Dr. Isabel Cornelius MONO # 0.6 103/ul Normal 0.3-0.8 [facility] Comment on above: Performed By: #### C BC #### [facility] [address] [place] [address] Dr. Isabel Cornelius Monocytes/100 WBC (Bld) 4.6 % Normal 1.7-12.0 [facility] Comment on above: Performed By: #### C BC #### [facility] [address] [place] [address] Dr. Isabel Cornelius NEUT # 10.4 103/ul Critically high 1.4-6.5 [facility] Comment on above: Performed By: #### C BC #### [facility] [address] [place] [address] Dr. Isabel Cornelius Neutrophils/100 WBC (Bld) 78.6 % Critically high 43.0-75.0 [facility] Comment on above: Performed By: #### C BC #### [facility] [address] [place] [address] Dr. Isabel Cornelius Platelet mean volume (Bld) [Entitic vol] 9.7 fL Normal 9.5-13.5 [facility] Comment on above: Performed By: #### C BC #### [facility] [address] [place] [address] Dr. Isabel Cornelius PLT 395 103/ul Normal 150-450 [facility] Comment on above: Performed By: #### C BC #### [facility] [address] [place] [address] Dr. Isabel Cornelius RBC 5.00 106/ul Normal 4.20-5.40 [facility] Comment on above: Performed By: #### C BC #### [facility] [address] [address] [address] Isabel Cornelius WBC 13.2 103/ul Critically high 4.0-11.0 [facility] Comment on above: Performed By: #### C BC #### [facility] [address] [place] [address] Dr. Isabel Cornelius GLYCOHEMOGLOBIN A1Con 2021 ADA RECOMMENDATION SEE BELOW Normal [facility] Comment on above: Result Comment: ADA RECOMMENDED LIMIT 4.0 - 6.0 ADA THERAPEUTIC TARGET < 7.0 ACTION SUGGESTED > 7.0 Performed By: #### A 1C #### [facility] [address] [place] [address] Dr. Isabel Cornelius Glucose [Mass/Vol] 105 mg/dL Normal [facility] Comment on above: Performed By: #### A 1C #### [facility] [address] [place] [address] Dr. Isabel Cornelius HbA1c (Bld) [Mass fraction] 5.3 % Normal 4.5-6.2 [facility] Comment on above: Performed By: #### A 1C #### [facility] [address] [place] [address] Dr. Isabel Cornelius DYAN BOX TEST PT SEND OUTo n 02-26-2022 SENT TO REF LAB 02/26/2022 Normal [facility] Comment on above: Performed By: #### G LU1HR #### [facility] [address] [place] [address] Dr. Isabel Cornelius TYPE AND SCREENon 02-26-2022 TYPE AND SCREEN Negative Normal [facility] Comment on above: Performed By: #### A 1C #### [facility] [address] [place] [address] Dr. Isabel Cornelius US PREG TVon 02-25-2022 [...] by: ERMA GARCIA Date: 2022-02-25 11:58 Normal [facility] CBC with Diffon 01-05-2019 Abs. Basophil 0.04 k/uL Normal 0.00-0.20 [facility] Comment on above: Performed By: #### C DP #### [place] [address] Utilization Review Coordinator: Og Rothman MD Abs.Imm.Granulocyte 0.07 k/uL Normal 0.00-0.30 [facility] Comment on above: Performed By: #### C DP #### [place] [address] Utilization Review Coordinator: Og Rothman MD Abs.Neutrophil (Seg) 7.45 k/uL Normal 1.50-8.10 [facility] Comment on above: Performed By: #### C DP #### [place] [address] Utilization Review Coordinator: Og Rothman MD Basophils/100 WBC (Bld) 0 % Normal 0-2 [facility] Comment on above: Performed By: #### C DP #### [place] [address] Utilization Review Coordinator: Og Rothman MD Eosinophils #/vol (Bld) 0.14 10*3/uL Normal 0.00-0.44 [facility] Comment on above: Performed By: #### C DP #### [place] [address] Utilization Review Coordinator: Og Rothman MD Eosinophils/100 WBC (Bld) 1 % Normal 1-4 [facility] Comment on above: Performed By: #### C DP #### [address] [address] Utilization Review Coordinator: Og Rothman MD Erythrocyte distribution width Ratio (RBC) 15.1 % High 11.8-14.4 [facility] Comment on above: Performed By: #### C DP #### [address] [address] Utilization Review Coordinator: Og Rothman MD Hematocrit Volume Fraction (Bld) 29.9 % Low 36.3-47.1 [facility] Comment on above: Performed By: #### C DP #### [address] [address] Utilization Review Coordinator: Og Rothman MD Hemoglobin mass conc (Bld) 9.3 g/dL Low 11.9-15.1 [facility] Comment on above: Performed By: #### C DP #### [address] [address] Utilization Review Coordinator: Og Rothman MD Immature granulocytes #/vol (Bld) 1 % High 0 [facility] Comment on above: Performed By: #### C DP #### [address] [address] Utilization Review Coordinator: Og Rothman MD Lymphocytes #/vol (Bld) 1.37 10*3/uL Normal 1.10-3.70 [facility] Comment on above: Performed By: #### C DP #### [address] [address] Utilization Review Coordinator: Og Rothman MD Lymphocytes/100 WBC (Bld) 14 % Low 24-43 [facility] Comment on above: Performed By: #### C DP #### [address] [address] Utilization Review Coordinator: Og Rothman MD MCH Entitic mass (RBC) 27.8 pg Normal 25.2-33.5 [facility] Comment on above: Performed By: #### C DP #### [address] [address] Utilization Review Coordinator: Og Rothman MD MCHC mass conc (RBC) 31.1 g/dL Normal 28.4-34.8 [facility] Comment on above: Performed By: #### C DP #### [address] [address] Utilization Review Coordinator: Og Rothman MD MCV Entitic volume (RBC) 89.3 fL Normal 82.6-102.9 [facility] Comment on above: Performed By: #### C DP #### [address] [address] Utilization Review Coordinator: Og Rothman MD Monocytes #/vol (Bld) 0.91 10*3/uL Normal 0.10-1.20 [facility] Comment on above: Performed By: #### C DP #### [address] [address] Utilization Review Coordinator: Og Rothman MD Monocytes/100 WBC (Bld) 9 % Normal 3-12 [facility] Comment on above: Performed By: #### C DP #### [address] [address] Utilization Review Coordinator: Og Rothman MD Neutrophil (Seg) 75 % High 36-65 [facility] Comment on above: Performed By: #### C DP #### [address] [address] Utilization Review Coordinator: Og Rothman MD NRBC Automated 0.0 per 100 WBC Normal 0.0 [facility] Comment on above: Performed By: #### C DP #### [address] [address] Utilization Review Coordinator: Og Rothman MD Platelet mean volume Entitic volume (Bld) 11.0 fL Normal 8.1-13.5 [facility] Comment on above: Performed By: #### C DP #### [address] [address] Utilization Review Coordinator: Og Rothman MD Platelets #/vol (Bld) 218 10*3/uL Normal 138-453 Me [facility] Comment on above: Performed By: #### C DP #### [address] [address] Utilization Review Coordinator: Og Rothman MD RBC #/vol (Bld) 3.35 10*6/uL Low 3.95-5.11 [facility] Comment on above: Performed By: #### C DP #### [address] [address] Utilization Review Coordinator: Og Rothman MD RBC morphology finding Nom (Bld) ANISOCYTOSIS PRESENT Normal [facility] Comment on above: Performed By: #### C DP #### [address] [address] Utilization Review Coordinator: Og Rothman MD WBC #/vol (Bld) 10.0 10*3/uL Normal 3.5-11.3 [facility] Comment on above: Performed By: #### C DP #### [address] [address] Utilization Review Coordinator: Og Rothman MD Auto Diff Performed NOT REPORTED Normal [facility] Comment on above: Performed By: #### C DP #### [address] [address] Utilization Review Coordinator: Og Rothman MD Platelets #/vol (Bld) NOT REPORTED Normal [facility] Comment on above: Performed By: #### C DP #### [employer] [address] [place] [address] [phone] Utilization Review Coordinator: Og Rothman MD WBC Morphology NOT REPORTED Normal [facility] Comment on above: Performed By: #### C DP #### [employer] [address] [place] [address] [phone] Utilization Review Coordinator: Og Rothman MD Surgical Pathologyon 019 Surgical Pathology (NOTE) [id number] [facility] [address] [place] [id number] SURGICAL PATHOLOGY CONSULTATION Patient Name: FLORA RICHARDSON [facility] Rec: [id number] Path Number: [id number] Collected: 01/04/2019 Received: 01/05/2019 Reported: 01/06/2019 17:00 [...] 1: PLACENTA, CORD AND MEMBRANES Gross Description ANAND GAINES Placenta with attached membranes and umbilical cord. [...] villous capillaries: Rare Other: Few microcalcifications Normal [facility] Comment on above: Performed By: #### P PPVS #### [place] [address] Utilization Review Coordinator: Og Rothman MD CBC with Diffon 01-03-2019 Abs. Basophil 0.04 k/uL Normal 0.00-0.20 [facility] Comment on above: Performed By: #### C DP, TREP #### [place] [address] Utilization Review Coordinator: Og Rothman MD Abs.Imm.Granulocyte 0.11 k/uL Normal 0.00-0.30 [facility] Comment on above: Performed By: #### C DP, TREP #### [place] [address] Utilization Review Coordinator: Og Rothman MD Abs.Neutrophil (Seg) 8.13 k/uL High 1.50-8.10 [facility] Comment on above: Performed By: #### C DP, TREP #### [place] [address] Utilization Review Coordinator: Og Rothman MD Basophils/100 WBC (Bld) 0 % Normal 0-2 [facility] Comment on above: Performed By: #### C DP, TREP #### [place] [address] Utilization Review Coordinator: Og Rothman MD Eosinophils #/vol (Bld) 0.13 10*3/uL Normal 0.00-0.44 [facility] Comment on above: Performed By: #### C DP, TREP #### [address] [address] Utilization Review Coordinator: Og Rothman MD Eosinophils/100 WBC (Bld) 1 % Normal 1-4 [facility] Comment on above: Performed By: #### C DP, TREP #### [place] [address] Utilization Review Coordinator: Og Rothman MD Erythrocyte distribution width Ratio (RBC) 15.0 % High 11.8-14.4 [facility] Comment on above: Performed By: #### C DP, TREP #### [place] [address] Utilization Review Coordinator: Og Rothman MD Hematocrit Volume Fraction (Bld) 36.5 % Normal 36.3-47.1 [facility] Comment on above: Performed By: #### C DP, TREP #### [place] [address] Utilization Review Coordinator: Og Rothman MD Hemoglobin mass conc (Bld) 11.6 g/dL Low 11.9-15.1 [facility] Comment on above: Performed By: #### C DP, TREP #### [address] [address] Utilization Review Coordinator: Og Rothman MD Immature granulocytes #/vol (Bld) 1 % High 0 [facility] Comment on above: Performed By: #### C DP, TREP #### [address] [address] Utilization Review Coordinator: Og Rothman MD Lymphocytes #/vol (Bld) 1.40 10*3/uL Normal 1.10-3.70 [facility] Comment on above: Performed By: #### C DP, TREP #### [address] [address] Utilization Review Coordinator: Og Rothman MD Lymphocytes/100 WBC (Bld) 13 % Low 24-43 [facility] Comment on above: Performed By: #### C DP, TREP #### [address] [address] Utilization Review Coordinator: Og Rothman MD MCH Entitic mass (RBC) 27.5 pg Normal 25.2-33.5 [facility] Comment on above: Performed By: #### C DP, TREP #### [address] [address] Utilization Review Coordinator: Og Rothman MD MCHC mass conc (RBC) 31.8 g/dL Normal 28.4-34.8 [facility] Comment on above: Performed By: #### C DP, TREP #### [address] [address] Utilization Review Coordinator: Og Rothman MD MCV Entitic volume (RBC) 86.5 fL Normal 82.6-102.9 [facility] Comment on above: Performed By: #### C DP, TREP #### [address] [address] Utilization Review Coordinator: Og Rothman MD Monocytes #/vol (Bld) 0.80 10*3/uL Normal 0.10-1.20 [facility] Comment on above: Performed By: #### C DP, TREP #### [address] [address] Utilization Review Coordinator: Og Rothman MD Monocytes/100 WBC (Bld) 8 % Normal 3-12 [facility] Comment on above: Performed By: #### C DP, TREP #### [address] [address] Utilization Review Coordinator: Og Rothman MD Neutrophil (Seg) 77 % High 36-65 [facility] Comment on above: Performed By: #### C DP, TREP #### [address] [address] Utilization Review Coordinator: Og Rothman MD NRBC Automated 0.0 per 100 WBC Normal 0.0 [facility] Comment on above: Performed By: #### C DP, TREP #### [address] [address] Utilization Review Coordinator: Og Rothman MD Platelet mean volume Entitic volume (Bld) 10.5 fL Normal 8.1-13.5 [facility] Comment on above: Performed By: #### C DP, TREP #### [address] [address] Utilization Review Coordinator: Og Rothman MD Platelets #/vol (Bld) 301 10*3/uL Normal 138-453 Me [facility] Comment on above: Performed By: #### C DP, TREP #### [address] [address] Utilization Review Coordinator: Og Rothman MD RBC #/vol (Bld) 4.22 10*6/uL Normal 3.95-5.11 [facility] Comment on above: Performed By: #### C DP, TREP #### [address] [address] Utilization Review Coordinator: Og Rothman MD RBC morphology finding Nom (Bld) ANISOCYTOSIS PRESENT Normal [facility] Comment on above: Performed By: #### C DP, TREP #### [address] [address] Utilization Review Coordinator: Og Rothman MD WBC #/vol (Bld) 10.6 10*3/uL Normal 3.5-11.3 [facility] Comment on above: Performed By: #### C DP, TREP #### [address] [address] Utilization Review Coordinator: Og Rothman MD Auto Diff Performed NOT REPORTED Normal [facility] Comment on above: Performed By: #### C DP, TREP #### [address] [address] Utilization Review Coordinator: Og Rothman MD Platelets #/vol (Bld) NOT REPORTED Normal [facility] Comment on above: Performed By: #### C DP, TREP #### [address] [address] Utilization Review Coordinator: Og Rothman MD WBC Morphology NOT REPORTED Normal [facility] Comment on above: Performed By: #### C DP, TREP #### [address] [address] Utilization Review Coordinator: Og Rothman MD Drug Scr, Abuse, Uron 2018 Amphetamine(s),Ur Negative Normal NEG [facility] Comment on above: Result Comment: (Positive cutoff 1000 ng/mL) Performed By: #### D AU #### [address] [address] Utilization Review Coordinator: Og Rothman MD Barbiturate(s),Ur Negative Normal NEG [facility] Comment on above: Result Comment: (Positive cutoff 200 ng/mL) Performed By: #### D AU #### [address] [address] Utilization Review Coordinator: Og Rothman MD Base excess Calculated molar conc (Bld) Negative Normal NEG [facility] Comment on above: Result Comment: (Positive cutoff 300 ng/mL) Performed By: #### D AU #### [address] [id number] Utilization Review Coordinator: Og Rothman MD Benzodiazepine(s) Negative Normal NEG [facility] Comment on above: Result Comment: (Positive cutoff 200 ng/mL) Performed By: #### D AU #### [facility] [address] [place] [phone] Utilization Review Coordinator: Og Rothman MD Cannabinoid(s),Ur Negative Normal NEG [facility] Comment on above: Result Comment: (Positive cutoff 50 ng/mL) Performed By: #### D AU #### [address] [address] Utilization Review Coordinator: Og Rothman MD Interpretive Info Assay provides medic al screening only. The absence of expected drug(s) and/or Normal [facility] Comment on above: Result Comment: meta bolite(s) may indicate diluted or adulterated urine, limitations of testing or timing of collection. Testing for legal purposes should be confirmed by another method. To request confirmation of test result, please call the lab within 7 days of sample submission. Performed By: #### D AU #### [facility] [email or web address] [address] [place] [phone] Utilization Review Coordinator: Og Rothman MD Methadone Ql (U) Negative Normal NEG [facility] Comment on above: Result Comment: (Positive cutoff 300 ng/mL) Performed By: #### D AU #### [facility] [address] [place] [id number] Utilization Review Coordinator: Og Rothman MD Opiate(s), Ur Negative Normal NEG [facility] Comment on above: Result Comment: (Positive cutoff 300 ng/mL) Performed By: #### D AU #### [facility] [address] [place] [phone] Utilization Review Coordinator: Og Rothman MD Oxycodone, Urine Negative Normal NEG [facility] Comment on above: Result Comment: (Positive cutoff 100 ng/mL) Performed By: #### D AU #### [employer] [facility] [address] [place] [address] Utilization Review Coordinator: Og Rothman MD Phencyclidine, Ur Negative Normal NEG [facility] Comment on above: Result Comment: (Positive cutoff 25 ng/mL) Performed By: #### D AU #### [address] [address] Utilization Review Coordinator: Og Rothman MD Buprenorphrine, Ur NOT REPORTED Normal NEG [facility] Comment on above: Performed By: #### D AU #### [address] [address] Utilization Review Coordinator: Og Rothman MD MDMA, Urine NOT REPORTED Normal NEG [facility] Comment on above: Performed By: #### D AU #### [address] [address] Utilization Review Coordinator: Og Rothman MD Methamphetamine, Ur NOT REPORTED Normal NEG [facility] Comment on above: Performed By: #### D AU #### [address] [address] Utilization Review Coordinator: Og Rothman MD Protein mass conc (U) NOT REPORTED Normal NEG [facility] Comment on above: Performed By: #### D AU #### [address] [address] Utilization Review Coordinator: Og Rothman MD Tricyclic antidepressants Screen Ql (U) NOT REPORTED Normal NEG [facility] Comment on above: Performed By: #### D AU #### [address] [address] Utilization Review Coordinator: Og Rothman MD T.pallidum Ab Screenon 01-03 T.pallidum Ab Screen NONREACTIVE Normal [facility] Comment on above: Result Comment: T. pallidum antibodies are not detected. There is no serological evidence of infection with T. pallidum (early primary syphilis cannot be excluded). Retest in 2-4 weeks if syphilis is clinically suspect. Performed By: #### C DP, TREP #### [employer] [address] [place], [place] [phone] Utilization Review Coordinator: Og Rothman MD Type + Screenon 01-03-2019 Type + Screen Sample Expiration 01/06/2019 Arm Band Number [id number] ABO/Rh(D) A POSITIVE Antibody Screen NEGATIVE Normal [facility] Comment on above: Performed By: #### T YS #### [employer] [address] [place], [place] [phone] Utilization Review Coordinator: Og Rothman MD Vital Signs Date Time Vital Sign Value Performing Clinician Facility 05-03-2025 11:15-0400 Body mass index (BMI) [Ratio] 50.86 kg/m2 Tyler Viji DO Work Phone: [facility] 05-03-2025 11:15-0400 Body weight 130.24 kg Tyler Viji DO Work Phone: [facility] 05-03-2025 11:15-0400 Diastolic blood pressure 70 mm[Hg] Tyler Viji DO Work Phone: [facility] 05-03-2025 11:15-0400 Systolic blood pressure 116 mm[Hg] Tyler Viji DO Work Phone: [facility] 04-26-2025 11:42-0400 Body mass index (BMI) [Ratio] 50.93 kg/m2 Cristina ALVARENGA Work Phone: [facility] 04-26-2025 11:42-0400 Body weight 130.41 kg Cristina ALVARENGA Work Phone: [facility] 04-26-2025 11:42-0400 Diastolic blood pressure 72 mm[Hg] Cristina ALVARENGA Work Phone: [facility] 04-26-2025 11:42-0400 Systolic blood pressure 118 mm[Hg] Cristina ALVARENGA Work Phone: [facility] 04-21-2025 11:01-0400 Body mass index (BMI) [Ratio] 50.91 kg/m2 Cristina Bethesda PA Work Phone: [facility] 04-21-2025 11:01-0400 Body weight 130.36 kg Cristina Bethesda PA Work Phone: [facility] 04-21-2025 11:01-0400 Diastolic blood pressure 70 mm[Hg] Cristina Bethesda PA Work Phone: [facility] 04-21-2025 11:01-0400 Systolic blood pressure 120 mm[Hg] Cristina Nino PA Work Phone: [facility] 04-07-2025 11:42-0400 Body mass index (BMI) [Ratio] 50.31 kg/m2 Tyler Viji DO Work Phone: [facility] 04-07-2025 11:42-0400 Body weight 128.82 kg Tyler Viji DO Work Phone: [facility] 04-07-2025 11:42-0400 Diastolic blood pressure 72 mm[Hg] Tyler Viji DO Work Phone: [facility] 04-07-2025 11:42-0400 Systolic blood pressure 122 mm[Hg] Tyler Viji DO Work Phone: [facility] 03-24-2025 08:32-0400 Body mass index (BMI) [Ratio] 50.31 kg/m2 Cristina Bethesda PA Work Phone: [facility] 03-24-2025 08:32-0400 Body weight 128.82 kg Cristina Bethesda PA Work Phone: [facility] 03-24-2025 08:32-0400 Diastolic blood pressure 70 mm[Hg] Cristina Bethesda PA Work Phone: [facility] 03-24-2025 08:32-0400 Systolic blood pressure 118 mm[Hg] Cristina Bethesda PA Work Phone: [facility] 03-08-2025 11:27-0400 Body mass index (BMI) [Ratio] 49.56 kg/m2 Tyler Viji DO Work Phone: [facility] 03-08-2025 11:27-0400 Body weight 126.92 kg Tyler Viji DO Work Phone: [facility] 03-08-2025 11:27-0400 Diastolic blood pressure 70 mm[Hg] Tyler Viji DO Work Phone: [facility] 03-08-2025 11:27-0400 Systolic blood pressure 116 mm[Hg] Tyler Viji DO Work Phone: [facility] 02-22-2025 10:55-0400 Body mass index (BMI) [Ratio] 49.29 kg/m2 Tyler Viji DO Work Phone: [facility] 02-22-2025 10:55-0400 Body weight 126.21 kg Tyler Viji DO Work Phone: [facility] 02-22-2025 10:55-0400 Diastolic blood pressure 74 mm[Hg] Tyler Viji DO Work Phone: [facility] 02-22-2025 10:55-0400 Systolic blood pressure 116 mm[Hg] Tyler Viji DO Work Phone: [facility] 01-25-2025 11:09-0400 Body mass index (BMI) [Ratio] 48.86 kg/m2 Tyler Viji DO Work Phone: [facility] 01-25-2025 11:09-0400 Body weight 125.1 kg Tyler Viji DO Work Phone: [facility] 01-25-2025 11:09-0400 Diastolic blood pressure 74 mm[Hg] Tyler Viji DO Work Phone: [facility] 01-25-2025 11:09-0400 Systolic blood pressure 120 mm[Hg] Tyler Viji DO Work Phone: [facility] 11-25-2024 10:30-0500 Body mass index (BMI) [Ratio] 46.73 kg/m2 Tyler Viji DO Work Phone: [facility] 11-25-2024 10:30-0500 Body weight 119.66 kg Tyler Viji DO Work Phone: [facility] 11-25-2024 10:30-0500 Diastolic blood pressure 80 mm[Hg] Tyler Viji DO Work Phone: [facility] 11-25-2024 10:30-0500 Systolic blood pressure 120 mm[Hg] Tyler Viji DO Work Phone: [facility] 10-26-2024 09:37-0500 Body mass index (BMI) [Ratio] 46.41 kg/m2 Nom Nurse [facility] 10-26-2024 09:37-0500 Body weight 118.84 kg [facility] Nurse [facility] 10-26-2024 09:37-0500 Diastolic blood pressure 74 mm[Hg] [facility] Nurse [facility] 10-26-2024 09:37-0500 Systolic blood pressure 122 mm[Hg] [facility] Nurse [facility] 09-01-2024 10:07-0500 Body height 160 cm Cristina Nino PA Work Phone: [facility] 09-01-2024 10:07-0500 Body mass index (BMI) [Ratio] 46.08 kg/m2 Cristina Bethesda PA Work Phone: [facility] 09-01-2024 10:07-0500 Body weight 117.99 kg Cristina Nino PA Work Phone: [facility] 09-01-2024 10:07-0500 Diastolic blood pressure 70 mm[Hg] Cristina Nino PA Work Phone: [facility] 09-01-2024 10:07-0500 Systolic blood pressure 120 mm[Hg] Cristina Nino PA Work Phone: [facility] 04-25-2022 18:08-0400 Body weight 125.[address] EVAN CASTRO [facility] Comment on above: Performed By: #### [email or web address] #### [facility] [address] [place] [address] Dr. Isabel Cornelius Encounters Encounter Date Encounter Type Care Provider Facility Start: 05-03-2025 End: 05-03-2025 Bamboo flowsheet Tyler Viji DO Work Phone: [facility] Start: 05-03-2025 End: 05-03-2025 Bamboo flowsheet Tyler Viji DO Work Phone: [facility] Start: 05-03-2025 End: 05-03-2025 flow sheet Tyler Viji DO Work Phone: [facility] Comment on above: Third trimester preg rosanna ([facility]); 38 weeks gestation of ([facility]) Start: 05-03-2025 End: 05-03-2025 ambulatory TYLER VIJI Not Available Start: 04-26-2025 End: 04-26-2025 Bamboo flowsheet Cristina ALVARENGA Work Phone: [facility] Start: 04-26-2025 End: 04-26-2025 Bamboo flowsheet Cristina ALVARENGA Work Phone: [facility] Start: 04-26-2025 End: 04-26-2025 flow sheet Cristina ALVARENGA Work Phone: [facility] Comment on above: Third trimester preg rosanna ([facility]); 37 weeks gestation of ([facility]) Start: 04-26-2025 End: 04-26-2025 ambulatory CRISTINA ONEILL Not Available Start: 04-21-2025 End: 04-21-2025 Bamboo flowsheet Cristina ALVARENGA Work Phone: [facility] Start: 04-21-2025 End: 04-21-2025 Bamboo flowsheet Cristina ALVARENGA Work Phone: [facility] Start: 04-21-2025 End: 04-21-2025 flow sheet Cristina ALVARENGA Work Phone: [facility] Comment on above: 36 weeks gestation o f ([facility]); Third trimester ([facility]); Hematuria, unspecified type; SGA (small for gestational age) ([facility]); History of gestational diabetes; History of miscarriage; HSV (herpes simplex virus) infection Start: 04-21-2025 End: 04-21-2025 ambulatory CRISTINA ONEILL Not Available Start: 04-07-2025 End: 04-07-2025 Bamboo flowsheet Tyler Viji DO Work Phone: [facility] Start: 04-07-2025 End: 04-07-2025 Bamboo flowsheet Tyler Viji DO Work Phone: [facility] Start: 04-07-2025 End: 04-07-2025 flow sheet Tyler Viji DO Work Phone: [facility] Comment on above: Third trimester preg rosanna ([facility]); 34 weeks gestation of ([facility]) Start: 04-07-2025 End: 04-07-2025 ambulatory TYLER VIJI Not Available Start: 03-24-2025 End: 03-24-2025 flow sheet Cristina Oneill PA Work Phone: [facility] Comment on above: 32 weeks gestation o f ; Third trimester Start: 03-24-2025 End: 03-24-2025 ambulatory CRISTINA ONEILL Not Available Start: 03-08-2025 End: 03-08-2025 Bamboo flowsheet Tyler Viji DO Work Phone: [facility] Start: 03-08-2025 End: 03-08-2025 Bamboo flowsheet Tyler Viji DO Work Phone: [facility] Start: 03-08-2025 End: 03-08-2025 flow sheet Tyler Viji DO Work Phone: [facility] Comment on above: Third trimester preg rosanna; 29 weeks gestation of ; Hematuria, unspecified type; size inconsistent with dates Start: 03-08-2025 End: 03-08-2025 ambulatory TYLER VIJI Not Available Start: 02-28-2025 End: 02-28-2025 Clinisync Result Encounter Tyler Viji DO Work Phone: [facility] Unsolicited Start: 02-28-2025 End: 02-28-2025 Clinisync Result Encounter Tyler Viji DO Work Phone: [facility]solicited Start: 02-22-2025 End: 02-22-2025 Bamboo flowsheet Tyler Viji DO Work Phone: [facility] Start: 02-22-2025 End: 02-22-2025 Bamboo flowsheet Tyler Viji DO Work Phone: [facility] Start: 02-22-2025 End: 02-22-2025 ambulatory TYLER VIJI Not Available Start: 02-22-2025 End: 02-22-2025 flow sheet Tyler Viji DO Work Phone: [facility] Comment on above: Third trimester preg rosanna; 28 weeks gestation of ; Request for sterilization Start: 02-15-2025 End: 02-15-2025 Clinisync Result Encounter Tyler Viji DO Work Phone: [facility] Unsolicited Start: 02-15-2025 End: 02-15-2025 Clinisync Result Encounter Tyler Viji DO Work Phone: [facility] Unsolicited Start: 01-25-2025 End: 01-25-2025 Bamboo flowsheet Tyler Viji DO Work Phone: [facility] Start: 01-25-2025 End: 01-25-2025 Bamboo flowsheet Tyler Viji DO Work Phone: [facility] Start: 01-25-2025 End: 01-25-2025 flow sheet Tyler Viji DO Work Phone: [facility] Comment on above: 24 weeks gestation o f ; Second trimester ; Diabetes mellitus screening Start: 01-25-2025 End: 01-25-2025 ambulatory TYLER VIJI Not Available Start: 12-29-2024 End: 12-29-2024 Clinisync Result Encounter Cristina ALVARENGA Work Phone: [facility] Unsolicited Start: 12-29-2024 End: 12-29-2024 Clinisync Result Encounter Cristina ALVARENGA Work Phone: [facility] Unsolicited Start: 12-28-2024 End: 12-28-2024 Bamboo flowsheet Cristina ALVARENGA Work Phone: [facility] Start: 12-28-2024 End: 12-29-2024 Bamboo flowsheet Cristina Oneill PA Work Phone: [facility] Start: 12-28-2024 End: 12-29-2024 External Result Encounter Cristina ALVARENGA Work Phone: [facility] Unsolicited Start: 12-28-2024 End: 12-28-2024 ambulatory CRISTINA ONEILL Not Available Start: 12-28-2024 End: 12-28-2024 flow sheet Cristina Nino PA Work Phone: [facility] Comment on [...] 09-13-2024 Bamboo flowsheet Cristina ALVARENGA Work Phone: [facility] Start: 09-01-2024 End: 09-13-2024 Clinisync Result Encounter Cristina ALVARENGA Work Phone: [facility] External Department Unsolicited Start: 09-01-2024 End: 09-01-2024 Patient encounter procedure Cristina ALVARENGA Work Phone: [facility] Work Phone: Start: 09-01-2024 End: 09-01-2024 [...] and management of inpatient ANDREW Gus BADILLO [facility] Procedures Date Procedure Procedure Detail Performing Clinician Start: 05-03-2025 Urnls dip stick/tabl et rgnt non-auto w/o micrscp Tyler Viji DO Work Phone: Start: 04-26-2025 Urnls dip stick/tabl et rgnt non-auto w/o micrscp Cristina ALVARENGA Work Phone: Start: 04-21-2025 Urnls dip stick/tabl et rgnt non-auto w/o micrscp Cristina ALVARENGA Work Phone: Start: 04-07-2025 Urnls dip stick/tabl et rgnt non-auto w/o micrscp Tyler Viji DO Work Phone: Start: 03-24-2025 Urnls dip stick/tabl et rgnt non-auto w/o micrscp Cristina ALVARENGA Work Phone: Start: 03-08-2025 Urnls dip stick/tabl et rgnt non-auto w/o micrscp Tyler Viji DO Work Phone: Start: 02-28-2025 GLUCOSE TOLERANCE 3 HOUR Tyler Viji DO Work Phone: Start: 02-22-2025 Urnls dip stick/tabl et rgnt non-auto w/o micrscp Tyler Viji DO Work Phone: Start: 02-15-2025 ALL CBC WITH AUTO DIFF Tyler Viji DO Work Phone: Start: 01-25-2025 Urnls dip stick/tabl et rgnt non-auto w/o micrscp Tyler Viji DO Work Phone: Start: 12-29-2024 US OB ANATOMY Cristina ALVARENGA Work Phone: Start: 12-29-2024 US OB CERVICAL LENGTH A saleem ALVARENGA Work Phone: Start: 12-28-2024 RECURRENT VAGINITIS (HTRX) Cristina ALVARENGA [...] 01-05-2019 INITIATE OXYGEN THER APY PROTOCOL ANDREW JUSTINO Start: 01-05-2019 Blood count complete auto&auto difrntl [...] ANDREW AL ANNA Start: 01-04-2019 WOUND CARE ANDREWARCELIA BURROUGHS EN Start: 01-04-2019 AMBULATE PATIENT ANDREW BADILLO Start: 01-04-2019 TRANSFER PATIENT ANDREW BADILLO Start: 01-04-2019 VITAL SIGNS ANDREW MANJEET EN Start: 01-04-2019 Level iv surg pathol [...] BADILLO Start: 01-03-2019 PATIENT STATUS (DIRECT) ANDREW JUSTINO Plan of Treatment Date Care Activity Detail Author Start: 09-01-2029 Screening for malign ant neoplasm of cervix [facility] Start: 06-27-2025 Influenza vaccination [facility] Start: 04-26-2025 End: 04-26-2025 Patient encounter procedure [facility] Comment on above: Arrived Start: 04-21-2025 End: 04-21-2026 CULTURE, GROUP B STREP WITH SUSCEPTIBLITY CULTURE, GROUP B STREP WITH SUSCEPTIBLITY Lab Routine Third trimester ([facility]) Expected: 04/21/2025, Expires: 04/21/2026 [facility] Work Phone: Comment on above: Expected: 04/21/2025 , Expires: 04/21/2026 Start: 04-21-2025 End: 04-21-2025 Patient encounter procedure 04/21/2025 10:50 AM EDT Routine [facility] [address] [place] [id number] Cristina Oneill PA [address] [place] [address] [facility] Start: 04-07-2025 End: 04-07-2025 Patient encounter procedure [facility] Comment on above: Arrived Start: 03-24-2025 End: 03-24-2025 Professional / ancillary services management 03/24/2025 8:00 AM EDT Ancillary Procedure [facility] [address] [place] [id number] [facility] Start: 03-08-2025 End: 07-09-2025 US for US OB follow up transabdominal approach Imaging Routine size inconsistent with dates Expected: 03/08/2025, Expires: 07/09/2025 [facility] Comment on above: Expected: 03/08/2025 , Expires: 07/09/2025 Start: 03-08-2025 End: 03-08-2025 Patient encounter procedure [facility] Comment on above: Arrived Start: 02-22-2025 End: 02-22-2025 Patient encounter procedure 02/22/2025 10:40 AM EDT Routine [facility] [address] [place] [phone] Tyler Hallman DO [address] [place] [address] [facility] Start: 01-25-2025 End: 01-25-2026 CBC panel - Blood by Automated count CBC Lab Routine Diabetes mellitus screening Expected: 01/25/2025 (Approximate), Expires: 01/25/2026 [facility] Work Phone: Comment on above: Expected: 01/25/2025 (Approximate), Expires: 01/25/2026 Start: 01-25-2025 End: 01-25-2026 Measurement of glucose 1 hour after glucose challenge for glucose tolerance test Glucose tolerance, 1 hour Lab Routine Diabetes mellitus screening Expected: 01/25/2025 (Approximate), Expires: 01/25/2026 [facility] Comment on above: Expected: 01/25/2025 (Approximate), Expires: 01/25/2026 Start: 01-25-2025 End: 01-25-2025 Patient encounter procedure [facility] Comment on above: Arrived Start: 12-28-2024 End: 12-28-2025 US for US OB 14+ weeks anatomy scan Imaging Routine Screening, , for anatomic survey Expected: 12/28/2024 (Approximate), Expires: 12/28/2025 [facility] Comment on above: Expected: 12/28/2024 (Approximate), Expires: 12/28/2025 Start: 12-28-2024 End: 12-28-2024 Patient encounter procedure 12/28/2024 10:30 AM EST Routine [facility] [address] [facility] [facility] [address] Cristina Oneill PA [address] [place] [address] [facility] Start: 11-25-2024 End: 11-25-2024 Patient encounter procedure [facility] Comment on above: Arrived Start: 10-26-2024 End: 10-26-2025 ABO/Rh ABO/Rh Lab Routine Missed menses , unspecified gestational age Expected: 10/26/2024 (Approximate), Expires: 10/26/2025 [facility] Comment on above: Expected: 10/26/2024 (Approximate), Expires: 10/26/2025 Start: 10-26-2024 End: 10-26-2025 Blood type and Indirect antibody screen panel - Blood Type and screen Lab Routine Missed menses , unspecified gestational age Expected: 10/26/2024 (Approximate), Expires: 10/26/2025 [facility] Work Phone: Comment on above: Expected: 10/26/2024 (Approximate), Expires: 10/26/2025 Start: 10-26-2024 End: 10-26-2025 Drugs of abuse panel - Urine by Screen method Rapid drug screen, urine Lab Routine , unspecified gestational age Encounter for supervision of normal first in first trimester Expected: 10/26/2024 (Approximate), Expires: 10/26/2025 [facility] Comment on above: Expected: 10/26/2024 (Approximate), Expires: 10/26/2025 Start: 09-01-2024 End: 09-01-2024 Patient encounter procedure 09/01/2024 10:00 AM EST Office Visit [facility] [address] [facility] [place] [address] Cristina Oneill PA [address] [facility] [place], [place] [id number] Arrived [facility] Comment on above: Arrived Start: 06-27-2024 Influenza vaccination Influenza Vacc ine (#1) [facility] Start: 2022 Screening for malign ant neoplasm of cervix [facility] Start: 2013 Screening for malign ant neoplasm of cervix Pap Smear [facility] Bacteria identified in Urine by Culture Urine culture Microbiology Routine Missed menses Ordered: 10/26/2024 [facility] Comment on above: Ordered: 10/26/2024 Bacteria identified in Urine by Culture Urine culture Microbiology Routine Hematuria, unspecified type Ordered: 03/08/2025 [facility] Work Phone: Comment on above: Ordered: 03/08/2025 CBC W Auto Different ial panel - Blood CBC and differential Lab Routine Missed menses , unspecified gestational age Ordered: 10/26/2024 [facility] Comment on above: Ordered: 10/26/2024 CHLAMYDIA TRACHOMATI S (GENITO/STI) CHLAMYDIA TRACHOMATIS (GENITO/STI) Lab Routine Second trimester Ordered: 12/28/2024 [facility] Comment on above: Ordered: 12/28/2024 Cytology Cervical or vaginal smear or scraping study Pap Smear Pathology and Cytology Routine Well woman exam with routine gynecological exam Ordered: 09/01/2024 [facility] Work Phone: Comment on above: Ordered: 09/01/2024 Hemoglobin A1c/Hemoglobin.total in Blood Hemoglobin A1c Lab Routine Missed menses , unspecified gestational age Ordered: 10/26/2024 [facility] Comment on above: Ordered: 10/26/2024 Hepatitis B virus surface Ag [Presence] in Serum or Plasma by Immunoassay Hepatitis B surface antigen Lab Routine Missed menses , unspecified gestational age Ordered: 10/26/2024 [facility] Comment on above: Ordered: 10/26/2024 Hepatitis C virus Ab [Presence] in Serum or Plasma by Immunoassay Hepatitis C antibody Lab Routine Missed menses , unspecified gestational age Ordered: 10/26/2024 [facility] Comment on above: Ordered: 10/26/2024 HIV-1/HIV-2 antigen/antibody combination immunoassay HIV-1 and HIV-2 antibodies Lab Routine Missed menses , unspecified gestational age Ordered: 10/26/2024 [facility] Comment on above: Ordered: 10/26/2024 Human papilloma viru s DNA [Presence] in Unspecified specimen by Probe with amplification HPV DNA probe, amplified Microbiology Routine Well woman exam with routine gynecological exam Ordered: 09/01/2024 [facility] Comment on above: Ordered: 09/01/2024 Measurement of gluco se 1 hour after glucose challenge for glucose tolerance test GTT, 1 hour Lab Routine Urinary tract infection without hematuria, site unspecified History of gestational diabetes Ordered: 11/25/2024 [facility] Work Phone: Comment on above: Ordered: 11/25/2024 Neisseria gonorrhoea e DNA [Presence] in Unspecified specimen by KINSEY with probe detection Neisseria gonorrhea DNA probe, direct Lab Routine Second trimester Ordered: 12/28/2024 [facility] Comment on above: Ordered: 12/28/2024 Reagin Ab [Presence] in Serum by RPR RPR Lab Routine Missed menses , unspecified gestational age Ordered: 10/26/2024 [facility] Comment on above: Ordered: 10/26/2024 Rubella antibody, IgG Rubella an tibody, IgG Lab Routine Missed menses , unspecified gestational age Ordered: 10/26/2024 [facility] Comment on above: Ordered: 10/26/2024 SURESWAB(R) ADVANCED VAGINITIS PLUS, TMA SURESWAB(R) ADVANCED VAGINITIS PLUS, TMA Pathology and Cytology Routine Second trimester Ordered: 12/28/2024 [facility] Work Phone: Comment on above: Ordered: 12/28/2024 Immunizations Immunization Date Immunization Notes Care Provider Caroline ventura 08-30-2022 influenza virus vacc ine, unspecified formulation Cristina ALVARENGA Work Phone: [facility] Payers Date Payer Category Payer [facility] [id number] 2023 Unknown [id number] 2018 Medicaid [id number] 1992 Unknown [id number] 2..840.1.338223.3.579. 2.175 1992 Unknown [id number] 12.12.840.1.132485.3.579. 2.593 1992 Unknown [id number] 2..840.1.075382.3.579. 2.593 1992 Unknown [id number] 2.16.840.1.401225.3.579. 2.593 1992 Unknown [id number] 2.16.840.1.649333.3.579. 2.593 1992 Unknown [id number] 2.16.840.1.804034.3.579. 2.593 1992 Unknown [id number] 2.16.840.1.138224.3.579. 2.593 1992 Unknown [id number] 2.16.840.1.411359.3.579. 2.593 1992 Unknown [id number] 2.16.840.1.687537.3.579. 2.593 1992 Unknown [id number] 2.16.840.1.120931.3.579. 2.59 1992 Unknown [id number] 2.16.840.1.025840.3.579. 2.593 1992 Unknown [id number] 2.16.840.1.301295.3.579. 2.59 1992 Unknown [id number] 2.16.840.1.688284.3.579. 2.593 1992 Unknown [id number] 2.16.840.1.768994.3.579. 2.593 1992 Unknown [id number] 2.16.840.1.690340.3.579. 2.593 1992 Unknown [id number] 2.16.840.1.404162.3.579. 2.593 1992 Unknown [id number] 2.16.840.1.010787.3.579. 2.593 1992 Unknown [id number] 2.16.840.1.690436.3.579. 2.593 1992 Unknown [id number] 2.16.840.1.280197.3.579. 2.1258 1992 Unknown [id number] 2.16.840.1.459614.3.579. 2.1258 1992 Unknown [id number] 2.16.840.1.698579.3.579. 2.1258 1992 Unknown [id number] 2.16.840.1.976532.3.579. 2.1258 1992 Unknown [id number] 2.16.840.1.246058.3.579. 2.1258 1992 Unknown [id number] 2.16.840.1.435169.3.579. 2.1258 1992 Unknown [id number] 2.16.840.1.783351.3.579. 2.1258 1992 Unknown [id number] 2.16840.1.373754.3.579. 2.1258 1992 Unknown [id number] 2.16840.1.443542.3.579. 2.1258 1992 Unknown [id number] 2.16840.1.748752.3.579. 2.1258 1992 Unknown [id number] 2.16840.1.086852.3.579. 2.1258 1992 Unknown [id number] 2.16840.1.101096.3.579. 2.1258 1992 Unknown [id number] 2.16840.1.882383.3.579. 2.1258 1992 Unknown [id number] 2.16840.1.194676.3.579. 2.9 1959 Unknown [id number] Unknown Unknown [id number] 2.16840.1.087534.3.579. 2.593 Social History Date Type Detail Facility Start: 03-31-2023 Tobacco smoking stat [facility] Never smoked tobacco [facility] Start: 03-31-2023 End: 04-21-2025 Alcoholic beverage intake Lifetime non-drinker (finding) [facility] Start: 03-31-2023 End: 09-01-2024 History of Social function [facility] Start: 03-31-2023 End: 09-01-2024 Tobacco use panel [facility] Start: 1990 Sex assigned at Not on file [facility] Start: 08-22-2024 [facility] Clinical Notes 09-01-2024 to 05-03-2025 LYLE Jones - 05/03/2025 11:00 AM LYLE Abarca - 04/26/2025 11:10 AM LYLE Abarca - 04/21/2025 10:50 AM EDTMdenilson Garcia MA - 04/07/2025 11:30 AM LYLE Abarca - 03/24/2025 8:50 AM EDT Note Date & Type Note Facility 05-03-2025 History of Presen t illness Narrative Reason for Appointment: Patient ID: Flora Bunhc is a 34 y.o. female who presents for Routine Visit Patient presents today for Return OB appointment. MEDICATIONS Current Outpatient Medications Medication Instructions MV-Min-Fe Fum-FA-DHA ( 1 PO) 1 each, Daily Vit w/Is-Bdngdiyau-KE (PNV-Select) 27-0.6-0.4 MG tablet Every 24 hours [...] Appearance: Normal appearance. She is normal weight. HENT: Head: Normocephalic. Cardiovascular: Rate and Rhythm: Normal rate. Pulses: Normal pulses. Pulmonary: Effort: Pulmonary effort is normal. Breath sounds: Normal breath sounds. Abdominal: Palpations: Abdomen is soft. Musculoskeletal: General: Normal range of motion. Neurological: General: No focal deficit present. Mental Status: She is alert and oriented to person, place, and time. Psychiatric: Mood and Affect: Mood normal. Behavior: Behavior normal. Thought Content: Thought content normal. Judgment: Judgment normal. Vitals and nursing note reviewed. Vitals: Estimated body mass index is 50.86 kg/m as calculated from the following: Height as of 24: 5' 3 . Weight as of this encounter: 287 lb 1.9 oz. BP: 116/70 Patient's last menstrual period was 08/08/2024. ASSESSMENT & PLAN ICD-10-CM 1. Third trimester ([facility]) Z34.93 POCT urinalysis dipstick manually resulted 2. 38 weeks gestation of ([facility]) Z3A.38 POCT urinalysis dipstick manually resulted Return OB: Patient presents today for a routine obstetrics appointment. Patient is currently 38w2d . Patient states she is doing well but has complaints of being tired due to current . Patient has verbalizes frequent movement. labor precautions was discussed/given and patient was instructed to perform kick counts three times a day. Orders Placed This Encounter Procedures POCT urinalysis dipstick manually resulted Follow Up: Patient is to return to office in 1 week for routine OB appointment. Documented by LYLE Jones on behalf of: Tyler Hallman DO documented in this encounter [facility] 04-26-2025 History of Presen t illness Narrative Reason for Appointment: Patient ID: Flora Bunch is a 34 y.o. female who presents for Routine Visit Patient presents today for Return OB appointment. MEDICATIONS Current Outpatient Medications Medication Instructions MV-Min-Fe Fum-FA-DHA ( 1 PO) 1 each, Daily Vit w/Ff-Unhyretwe-CE (PNV-Select) 27-0.6-0.4 MG tablet Every 24 hours [...] Appearance: Normal appearance. She is normal weight. HENT: Head: Normocephalic. Cardiovascular: Rate and Rhythm: Normal rate. Pulses: Normal pulses. Pulmonary: Effort: Pulmonary effort is normal. Breath sounds: Normal breath sounds. Abdominal: Palpations: Abdomen is soft. Musculoskeletal: General: Normal range of motion. Neurological: General: No focal deficit present. Mental Status: She is alert and oriented to person, place, and time. Psychiatric: Mood and Affect: Mood normal. Behavior: Behavior normal. Thought Content: Thought content normal. Judgment: Judgment normal. Vitals and nursing note reviewed. Vitals: Estimated body mass index is 50.93 kg/m as calculated from the following: Height as of 09/01/24: 5' 3 . Weight as of this encounter: 287 lb 8 oz. BP: 118/72 Patient's last menstrual period was 08/08/2024. ASSESSMENT & PLAN ICD-10-CM 1. Third trimester ([facility]) Z34.93 POCT urinalysis dipstick manually resulted 2. 37 weeks gestation of ([facility]) Z3A.37 Return OB: Patient presents today for a routine obstetrics appointment. Patient is currently 37w2d . Patient states she is doing well but has complaints of being tired due to current . Patient has verbalizes frequent movement. labor precautions was discussed/given and patient was instructed to perform kick counts three times a day. Orders Placed This Encounter Procedures POCT urinalysis dipstick manually resulted Follow Up: Patient is to return to office in 1 week for routine OB appointment. Documented by LYLE Jones on behalf of: LYLE Jones documented in this encounter [facility] 04-21-2025 History of Presen t illness Narrative Reason for Appointment: Patient ID: Flora Bunch is a 34 y.o. female who presents for Routine Visit Patient presents today for Return OB appointment. MEDICATIONS Current Outpatient Medications Medication Instructions MV-Min-Fe Fum-FA-DHA ( 1 PO) 1 each, Daily Vit w/Me-Tdriupmtb-GV (PNV-Select) 27-0.6-0.4 MG tablet Every 24 hours [...] nursing note reviewed. Exam conducted with a milk bottler present. Vitals: Estimated body mass index is 50.91 kg/m as calculated from the following: Height as of 24: 5' 3 . Weight as of this encounter: 287 lb 6.4 oz. BP: 120/70 Patient's last menstrual period was 08/08/2024. ASSESSMENT & PLAN ICD-10-CM 1. 36 weeks gestation of ([facility]) Z3A.36 POCT urinalysis dipstick manually resulted 2. Third trimester ([facility]) Z34.93 POCT urinalysis dipstick manually resulted CULTURE, GROUP B STREP WITH SUSCEPTIBLITY CULTURE, GROUP B STREP WITH SUSCEPTIBLITY 3. Hematuria, unspecified type R31.9 4. SGA (small for gestational age) ([facility]) P05.10 5. History of gestational diabetes Z86.32 [...] of: LYLE Jones documented in this encounter [facility] 04-07-2025 History of Presen t illness Narrative Reason for Appointment: Patient ID: Flora Bunch is a 34 y.o. female who presents for Routine Visit Patient presents today for Return OB appointment. MEDICATIONS Current Outpatient Medications Medication Instructions MV-Min-Fe Fum-FA-DHA ( 1 PO) 1 each, Daily Vit w/Ly-Brgbriaym-MR (PNV-Select) 27-0.6-0.4 MG tablet Every 24 hours [...] nursing note reviewed. Exam conducted with a milk bottler present. Vitals: Estimated body mass index is 50.31 kg/m as calculated from the following: Height as of 24: 5' 3 . Weight as of this encounter: 284 lb. BP: 122/72 Patient's last menstrual period was 08/08/2024. ASSESSMENT & PLAN ICD-10-CM 1. Third trimester ([facility]) Z34.93 POCT urinalysis dipstick manually resulted 2. 34 weeks gestation of ([facility]) Z3A.34 Return OB: Patient presents today for [...] by Suzy Garcia MA on behalf of: Tyler Hallman DO documented in this encounter [facility] 03-24-2025 History of Presen t illness Narrative Reason for Appointment: Patient ID: Flora Bunch is a 34 y.o. female who presents for Routine Visit Patient presents today for Return OB appointment. MEDICATIONS Current Outpatient Medications Medication Instructions MV-Min-Fe Fum-FA-DHA ( 1 PO) 1 each, Daily Vit w/Ag-Zfatkawiw-FP (PNV-Select) 27-0.6-0.4 MG tablet Every 24 hours [...] Appearance: Normal appearance. She is normal weight. HENT: Head: Normocephalic. Cardiovascular: Rate and Rhythm: Normal rate. Pulses: Normal pulses. Pulmonary: Effort: Pulmonary effort is normal. Breath sounds: Normal breath sounds. Abdominal: Palpations: Abdomen is soft. Musculoskeletal: General: Normal range of motion. Neurological: General: No focal deficit present. Mental Status: She is alert and oriented to person, place, and time. Psychiatric: Mood and Affect: Mood normal. Behavior: Behavior normal. Thought Content: Thought content normal. Judgment: Judgment normal. Vitals and nursing note reviewed. Vitals: Estimated body mass index is 50.31 kg/m as calculated from the following: Height as of 24: 5' 3 . Weight as of this encounter: 284 lb. BP: 118/70 Patient's last menstrual period was 08/08/2024. ASSESSMENT & PLAN ICD-10-CM 1. 32 weeks gestation of Z3A.32 POCT urinalysis dipstick manually resulted valACYclovir (Valtrex) 500 MG tablet 2. Third trimester Z34.93 POCT urinalysis dipstick manually resulted valACYclovir (Valtrex) 500 MG tablet Return OB: Patient presents today for a routine obstetrics appointment. Patient is currently 32w4d . Patient states she is doing well but has complaints of being tired due to current . Patient has verbalizes frequent movement. labor precautions was discussed/given and patient was instructed to perform kick counts three times a day. Valtrex order sent to start now through delivery Orders Placed This Encounter Procedures POCT urinalysis dipstick manually resulted Follow Up: Patient is to return to office in 2 week for routine OB appointment. Documented by LYLE Jones on behalf of: LYLE Jones documented in this encounter [facility] 03-08-2025 History of Presen t illness Narrative Reason for Appointment: Patient ID: Flora Bunch is a 34 y.o. female who presents for Routine Visit Patient presents today for Return OB appointment. MEDICATIONS Current Outpatient Medications Medication Instructions MV-Min-Fe Fum-FA-DHA ( 1 PO) 1 each, Daily Vit w/Ne-Kjlkkeddi-WB (PNV-Select) 27-0.6-0.4 MG tablet Every 24 hours [...] nursing note reviewed. Exam conducted with a milk bottler present. Vitals: Estimated body mass index is 49.56 kg/m as calculated from the following: Height as of 24: 5' 3 . Weight as of this encounter: 279 lb 12.8 oz. BP: 116/70 Patient's last menstrual period was 08/08/2024. ASSESSMENT & PLAN ICD-10-CM 1. Third trimester Z34.93 POCT urinalysis dipstick manually resulted 2. 29 weeks gestation of Z3A.29 POCT urinalysis dipstick manually resulted 3. Hematuria, unspecified type R31.9 Urine culture 4. size inconsistent with dates O26.849 US OB follow up transabdominal approach Return OB: Patient presents today for a routine obstetrics appointment. Patient is currently 30w2d . Patient states she is doing well but has complaints of being tired due to current . Patient has verbalizes frequent movement. labor precautions was discussed/given and patient was instructed to perform kick counts three times a day. Orders Placed This Encounter Procedures Urine culture US OB follow up transabdominal approach POCT urinalysis dipstick manually resulted Follow Up: Patient is to return to office in 2 week for routine OB appointment. Documented by Henna Henry LPN on behalf of: Tyler Hallman DO documented in this encounter [facility] 02-22-2025 History of Presen t illness Narrative Reason for Appointment: Patient ID: Flora Bunch is a 34 y.o. female who presents for Weight Management Patient presents today for Return OB appointment. MEDICATIONS Current Outpatient Medications Medication Instructions MV-Min-Fe Fum-FA-DHA ( 1 PO) 1 each, Daily Vit w/Gq-Tzuqhycqk-AH (PNV-Select) 27-0.6-0.4 MG tablet Every 24 hours [...] nursing note reviewed. Exam conducted with a milk bottler present. Vitals: Estimated body mass index is 49.29 kg/m as calculated from the following: Height as of 09/01/24: 5' 3 . Weight as of this encounter: 278 lb 4 oz. BP: 116/74 Patient's last menstrual period was 08/08/2024. ASSESSMENT & PLAN ICD-10-CM 1. Third trimester Z34.93 POCT urinalysis dipstick manually resulted 2. 28 weeks gestation of Z3A.28 3. Request for sterilization Z30.2 Return OB: Patient presents today for a routine obstetrics appointment. Patient is currently 28w2d . Patient states she is doing well but has complaints of being tired due to current . Patient has verbalizes frequent movement. labor precautions was discussed/given and patient was instructed to perform kick counts three times a day. Given three hour order today. Orders Placed This Encounter Procedures POCT urinalysis dipstick manually resulted Follow Up: Patient is to return to office in 2 week for routine OB appointment. Documented by Henna Henry LPN on behalf of: Tyler Hallman DO documented in this encounter [facility] 01-25-2025 History of Presen t illness Narrative Reason for Appointment: Patient ID: Flora Bunch is a 34 y.o. female who presents for No chief complaint on file. Patient presents today for Return OB appointment. MEDICATIONS Current Outpatient Medications Medication Instructions MV-Min-Fe Fum-FA-DHA ( 1 PO) 1 each, Daily Vit w/Sy-Owqkyglhq-OI (PNV-Select) 27-0.6-0.4 MG tablet Every 24 hours [...] Appearance: Normal appearance. She is normal weight. HENT: Head: Normocephalic. Cardiovascular: Rate and Rhythm: Normal rate. Pulses: Normal pulses. Pulmonary: Effort: Pulmonary effort is normal. Breath sounds: Normal breath sounds. Abdominal: Palpations: Abdomen is soft. Musculoskeletal: General: Normal range of motion. Neurological: General: No focal deficit present. Mental Status: She is alert and oriented to person, place, and time. Psychiatric: Mood and Affect: Mood normal. Behavior: Behavior normal. Thought Content: Thought content normal. Judgment: Judgment normal. Vitals and nursing note reviewed. Vitals: Estimated body mass index is 48.86 kg/m as calculated from the following: Height as of 24: 5' 3 . Weight as of this encounter: 275 lb 12.8 oz. BP: 120/74 Patient's last menstrual period was 08/08/2024. ASSESSMENT & PLAN ICD-10-CM 1. 24 weeks gestation of Z3A.24 POCT urinalysis dipstick manually resulted 2. Second trimester Z34.92 POCT urinalysis dipstick manually resulted 3. Diabetes mellitus screening Z13.1 CBC Glucose tolerance, 1 hour CBC Glucose tolerance, 1 hour Return OB: Patient presents today for a routine obstetrics appointment. Patient is currently 24w2d . Patient states she is doing well but has complaints of being tired due to current . Patient has verbalizes frequent movement. Orders Placed This Encounter Procedures CBC Glucose tolerance, 1 hour POCT urinalysis dipstick manually resulted Follow Up: Patient is to return to office in4 week for routine OB appointment. Documented by LYLE Jones documented in this encounter [facility] 12-28-2024 History of Presen t illness Narrative [...] ( 1 PO) 1 each, Daily Vit w/Pz-Nlpaxwffg-IT (PNV-Select) 27-0.6-0.4 MG tablet Every 24 hours [...] nursing note reviewed. Exam conducted with a milk bottler present. Vitals: Estimated body mass index is [...] of: LYLE Jones documented in this encounter [facility] 11-25-2024 History of Presen t illness Narrative [...] nursing note reviewed. Exam conducted with a milk bottler present. Vitals: Estimated body mass index is [...] or undercooked meat, and stay away from [facility]. Patient has been consulted regarding any [...] Tyler Hallman DO documented in this encounter [facility] 10-26-2024 History of Presen t illness Narrative [...] or undercooked meat, and stay away from formerly [facility]. Patient has also been advised to [...] Suzy Garcia MA documented in this encounter [facility] 09-01-2024 History of Presen t illness Narrative [...] nursing note reviewed. Exam conducted with a milk bottler present. Vitals: Estimated body mass index is [...] of: LYLE Jones documented in this encounter [facility] Healthcare Evaluation note Diagnosis Well woman exam with routine gynecological exam Routine gynecological examination [facility] Diagnosis Missed menses 11 weeks gestation of , unspecified gestational age Encounter for supervision of normal first in first trimester [facility] Diagnosis 15 weeks gestation of Second trimester state, incidental Urinary tract infection without hematuria, site unspecified History of gestational diabetes Personal history of other genital system and obstetric disorders [facility] Diagnosis Second trimester state, incidental 20 weeks gestation of Screening, , for anatomic survey Encounter for anatomic survey [facility] Diagnosis 24 weeks gestation of Second trimester state, incidental Diabetes mellitus screening Screening for diabetes mellitus documented [facility]* Diagnosis Third trimester state, incidental 28 weeks gestation of Request for sterilization [facility] Diagnosis Third trimester state, incidental 29 weeks gestation of Hematuria, unspecified type size inconsistent with dates [facility]* Diagnosis 32 weeks gestation of Third trimester state, incidental [facility]* Diagnosis Third trimester (HHS-HCC) state, incidental 34 weeks gestation of (HHS-HCC) [facility] Diagnosis 36 weeks gestation of (HHS-HCC) Third trimester (HHS-HCC) state, incidental Hematuria, unspecified type SGA (small for gestational age) (HHS-HCC) Mhxil-lkg-fqsiq without mention of malnutrition, unspecified (weight) History of gestational diabetes Personal history of other genital system and obstetric disorders History of miscarriage Personal history of other genital system and obstetric disorders HSV (herpes simplex virus) infection Herpes simplex without mention of complication [facility] Diagnosis Third trimester (HHS-HCC) state, incidental 37 weeks gestation of (HHS-HCC) [facility] Diagnosis Third trimester (HHS-HCC) state, incidental 38 weeks gestation of (HHS-HCC) documented in this encounter [facility] Summary Purpose Family History No Family History Records FoundNo Family History Records FoundNo Family History Records Found Advance Directives No Advanced Directives Records FoundNo Advanced Directives Records FoundNo Advanced Directives Records Found Additional Source Comments INFORMATION SOURCE (unrecogn ized section and content) DATE CREATED AUTHOR 01/12/2019 [facility] DATE CREATED AUTHOR AUTHOR'S ORGANIZ ATION 09/16/2022 [facility] DATE CREATED AUTHOR AUTHOR'S ORGANIZ ATION 05/07/2025 [facility] EPIC Reason for Visit (unrecogniz ed section and content) Reason Comments Well Women Visit Reason Comments Amenorrhea Reason Comments Routine Visit Reason Comments Weight Management FOR RECORDS PERTAINING TO PATIENTS WHO ARE [...] BE BASED ON THE PRIMARY CLINICAL RECORDS. [employer] provides no warranty or guarantee of the accuracy or completeness of information in this document.
[2025-05-09] MEDS: 0.9 % SODIUM CHLORIDE 1,000 ML 1000 ML IV ×2 (05:50→06:45)
[2025-05-09 06:39] LABS: Hematocrit 35.3 % (36.0-48.0); Hemoglobin 11.7 g/dL (12.0-16.0); Immature Granulocytes Abs Auto 0.10 10^3/uL (0.00-0.03); Immature Granulocytes Pct Auto 0.9 % (0.0-0.5); Lymphocytes Absolute Auto 1.9 10^3/uL (1.2-3.8); Mean Corpuscular HGB Conc 33.1 g/dL (29.9-35.2); Mean Corpuscular Hemoglobin 27.9 pg (26.7-34.0); Mean Corpuscular Volume 84.0 fL (81.0-99.0); Platelet Count 339 10^3/uL (150-450); Red Blood Count 4.20 10^6/uL (4.20-5.40); White Blood Count 10.6 10^3/uL (4.0-11.0)
[2025-05-09 06:41] LABS: Glucose Urine UA NEGATIVE (NEGATIVE)
[2025-05-09 06:58] LABS: Cast Seen? NONE SEEN #/LPF (NONE SEEN); Crystals Seen? None Seen #/HPF (None Seen); Urine Culture Indicated YES-LC
[2025-05-09] MEDS: FAMOTIDINE/PF 20 MG/2 ML VIAL IV (07:15)
[2025-05-09] MEDS: CITRIC ACID/SODIUM CITRATE 30 ML SOLUTION ORACIT SHOHL'S SOLN PO (07:15)
[2025-05-09] MEDS: METOCLOPRAMIDE HCL 10 MG/2 ML VIAL IVP (07:15)
[2025-05-09] MEDS: CEFAZOLIN SODIUM/DEXTROSE,ISO 2 GM/50 ML PIGGYBACK IV ×2 (07:15→13:36)
[2025-05-09 07:34] LABS: Cannabinoid Screen Urine NEGATIVE (NEGATIVE); Methamphetamines Screen Urine NEGATIVE (NEGATIVE); Tricyclic Antidepressant Urine NEGATIVE (NEGATIVE)
--- NOTE | 2025-05-09 07:34 | PM.OBHP ---
OB - H&P: HPI History of Present Illness Chief complaint: SCHEDULED : 4 Para: 2 Gestational age based on last menstrual period: 39wks Narrative: 34 @ 39wks presents for section with bilateral salpingectomy, previous c/s times 2, ho gdm previous History of Present Dating criteria: LMP confirmed by 1st trimester US care: good care Ultrasounds: normal 1st trimester US and normal mid trimester US Medical complications OB: none Labs Blood type: A (+) positive Rubella: immune RPR/VDLR: nonreactive GBS status: negative HBsAG: negative Review of Systems ROS Status of ROS: 10 or more systems reviewed and unremarkable except as noted in history and below [facility] Medical History (Updated 05/09/25 @ 07:38 by Parker Hallman DO) H/O cold sores ?Z86.19 - Personal history of other infectious and parasitic diseases (ICD-10) History of gestational diabetes ?Z86.32 - Personal history of gestational diabetes (ICD-10) Surgical History (Updated 05/09/25 @ 07:38 by Parker Hallman DO) H/O wisdom tooth extraction ?K08.409 - Partial loss of teeth, unspecified cause, unspecified class (ICD-10) History of delivery ?Z98.891 - History of uterine scar from previous surgery (ICD-10) History of dilation and curettage ?Z98.890 - Other specified postprocedural states (ICD-10) Family History Father Family history of diabetes mellitus Social History Within the past year, how often did you have a drink containing alcohol: never Within the past year, how often did you have six or more drinks on one occasion: never Score interpretation: A score less than 3 is consistent with normal alcohol consumption. Smoking status: Never smoker Non-prescribed substance use: denies use Highest level of school completed/degree received: high school graduate Are you now , , , , never or living with a partner: In a typical week, how many times do you talk on the telephone with family, friends, or neighbors: 3 or more times per week How often do you get together with friends or relatives: 3 or more times per week How often do you attend christian or mu-ism services: never Little interest or pleasure in doing things: not at all Feeling down, depressed, or hopeless: not at all Do you think of yourself as: straight/heterosexual Gender Identity: female Meds Home Medications and Allergies Home Medications ?Medication ?Instructions ?Recorded ?Confirmed ?Type valacyclovir 500 mg tablet 500 mg PO DAILY 04/18/25 05/09/25 History Allergies Allergy/AdvReac Type Severity Reaction Status Date / Time No Known Drug Allergies Allergy Verified 04/18/25 11:14 Exam Constitutional Vital Signs, click to edit/add: Last Vital Signs Pulse 88 05/09/25 05:49 Resp 17 05/09/25 07:01 BP 110/66 05/09/25 05:49 O2 Del Method Room Air 05/09/25 07:01 Documenting provider has reviewed patient's vital signs: yes Common normals: no apparent distress Respiratory Common normals: normal respiratory effort and clear to auscultation bilaterally Cardio Common normals: regular rate and regular rhythm GI Common normals: Normal to inspection, nondistended, normoactive bowel sounds present Extremity Common normals: no clubbing, cyanosis or edema and no calf tenderness Results Labs Labs: Short CBC 05/09/25 Range/Units 05:50 WBC 10.6 (4.0-11.0) 10^3/uL Hgb 11.7 L (12.0-16.0) g/dL Hct 35.3 L (36.0-48.0) % Plt Count 339 (150-450) 10^3/uL Urine 05/09/25 Range/Units 05:35 Urine Color Lt. yellow (YELLOW) Urine Clarity Clear (CLEAR) Urine pH 6.0 (5.0-9.0) Ur Specific [place] 1.025 (1.005-1.025) Urine Protein Trace (NEG/TRACE) mg/dL Urine Glucose (UA) Negative (NEGATIVE) mg/dL OB - A/P Assessment and Plan (1) Intrauterine : (2) Previous delivery affecting : Assessment and Plan: will perform c/s with bilateral salpingectomy, routine labs, iv, iv abx, consent obtained
--- NOTE | 2025-05-09 08:54 | P.ON_ITS ---
Brief Operative Note Date of procedure: 05/09/25 Pre-op diagnosis general: iup at 39wks, ho gdm previous , previous c/s, desires permanent sterilization Post-op diagnosis: same as pre-op Procedure: NAME OF PROCEDURE: [ section with bilateral salpingectomy ] PROCEDURE: Patient was taken back to the Operating Room where she was given a spinal anesthesia with Duramorph without difficulty. She was prepped and draped in the normal sterile fashion. A Pfannenstiel skin incision was then made 2?cm above the symphysis pubis and carried down to underlying rectus fascia using a Bovie. The fascia was incised in the midline and extended laterally using Mueller scissors. Two Chelsey clamps were placed on the superior aspect of the fascia and dissected off the underlying rectus muscles. The same was performed on the inferior aspect as well. The muscles were then in the midline. Peritoneum was identified and entered bluntly. The peritoneum was then extended superiorly and inferiorly with good visualization of the bladder. The bladder blade was inserted. Vesicouterine peritoneum was identified, tented up, and entered with Metzenbaum scissors. A bladder flap was then created digitally. The bladder blade was reinserted. A low transverse incision was made on the patient's uterus and extended laterally digitally. The infant was then delivered atraumatically after the bladder blade was removed in the cephalic position. The cord was clamped and cut. Cord blood was obtained. The was handed off to awaiting team. The patient's placenta was spontaneously delivered. The uterus was then exteriorized. The uterus was cleared of all clots and debris. The bladder blade was reinserted. The patient's uterine incision was closed using #0 Vicryl in a running lock fashion. Excellent hemostasis was assured.? The rt tube was identified and grasped with babock, the ligasure was used to transect and ligate the tube in its entirity, this was done on the contralateral side as well. The uterus was then returned to the patient's abdomen. The patient's abdomen was copiously irrigated using warm saline. Peritoneal gutters were cleared of all clots and debris. Again excellent hemostasis was assured. The patient's fascia was closed using #0 Vicryl in a running fashion. The patient's skin was closed using 4-0 Vicryl subcuticularly. The patient tolerated the procedure well. Sponge, lap, and needle counts were correct x2. The patient was taken to the Recovery Room in stable condition. Anesthesia: spinal Surgeon: Parker Hallmna Regulatory Internship: Tata Arroyo Estimated blood loss (mL): 575 Pathology: other (placenta) Condition: stable Disposition: PACU Urinary Catheter Management Urinary Catheter Management Urethral: Cath placed during this visit: no
--- NOTE | 2025-05-09 08:56 | P.OBPRC_ITS ---
Procedure Pre-op/Post-op diagnoses: Pre-Op/Post-Op Diagnoses Operation Date: 05/09/25 07:30 <No data on this case meets the specified criteria> Procedure: Procedures Operation Date: 05/09/25 07:30 Actual Procedure Side Surgeon p Repeat with Bilateral Salpingectomy Bilateral Parker Hallman DO Business Risk Consultant: Tata Arroyo Estimated blood loss (mL): 575 Disposition: floor Anesthesia type: Spinal
[2025-05-09] MEDS: OXYTOCIN/0.9 % SODIUM CHLORIDE 20 UNITS/1,000 ML PLAST..BAG 125 UNIT IV (09:36)
[2025-05-09] MEDS: KETOROLAC TROMETHAMINE 30 MG/ML VIAL IVP ×2 (14:22→19:32)
[2025-05-09] MEDS: SIMETHICONE 80 MG TAB.CHEW PO (19:31)
[2025-05-09] MEDS: ENOXAPARIN SODIUM 40 MG/0.4 ML SYRINGE SUBQ (21:45)
[2025-05-09] MEDS: OXYCODONE HCL/ACETAMINOPHEN 5MG/325MG 2 TAB PO (23:14)
[2025-05-10] VITALS (7 sets, daily range): BP systolic 80–91; BP diastolic 48–58; PULSE 72; TEMP 36.6–36.8; O2SAT 98–100
[2025-05-10] MEDS: OXYCODONE HCL/ACETAMINOPHEN 5MG/325MG 2 TAB PO (05:56)
[2025-05-10 06:25] LABS: Hematocrit 25.8 % (36.0-48.0); Hemoglobin 8.4 g/dL (12.0-16.0); Immature Granulocytes Abs Auto 0.08 10^3/uL (0.00-0.03); Immature Granulocytes Pct Auto 0.7 % (0.0-0.5); Lymphocytes Absolute Auto 1.8 10^3/uL (1.2-3.8); Mean Corpuscular HGB Conc 32.6 g/dL (29.9-35.2); Mean Corpuscular Hemoglobin 28.4 pg (26.7-34.0); Mean Corpuscular Volume 87.2 fL (81.0-99.0); Platelet Count 291 10^3/uL (150-450); Red Blood Count 2.96 10^6/uL (4.20-5.40); White Blood Count 12.0 10^3/uL (4.0-11.0)
--- NOTE | 2025-05-10 07:37 | P.OBPN_ITS ---
OB - PN: Subj Subjective Patient comments: no complaints and pain well controlled [place] status: doing well Exam Constitutional Vital Signs, click to edit/add: Last Vital Signs Temp 98.3 F 05/10/25 04:13 Pulse 75 05/09/25 09:20 Resp 16 05/09/25 12:07 BP 91/53 05/10/25 04:13 Pulse Ox 98 05/10/25 04:13 O2 Del Method Room Air 05/09/25 20:00 Documenting provider has reviewed patient's vital signs: yes Common normals: no apparent distress Respiratory Common normals: normal respiratory effort and clear to auscultation bilaterally Cardio Common normals: regular rate and regular rhythm GI Common normals: Normal to inspection, nondistended, normoactive bowel sounds present Extremity Common normals: no clubbing, cyanosis or edema and no calf tenderness Results Labs Labs: Short CBC 05/10/25 Range/Units 06:06 WBC 12.0 H (4.0-11.0) 10^3/uL Hgb 8.4 L (12.0-16.0) g/dL Hct 25.8 L (36.0-48.0) % Plt Count 291 (150-450) 10^3/uL Urinary Catheter Management Urinary Catheter Management Urethral: Cath placed during this visit: yes Urethral indwelling: No Insertion date: 05/09/25 Insertion time: 08:00 OB - PN: A/P Assessment and Plan (1) Intrauterine : (2) Previous delivery affecting : Plan - day: 1 Plan: routine postop care Time Spent with Patient Time: Total time spent is greater than 50% in coordination of care (as documented) at patient's floor/unit and/or counseling patient: Total time spent with greater than 50% in coordination of care (as documented) at patient's floor/unit and/or counseling patient: less than 15 minutes
--- NOTE | 2025-05-10 08:32 | PC.NURSE ---
Pt sleeping, resp easy, light snoring noted. Responds to verbal stimuli, awakens easily. VSS and assessment WNL. Lungs clear, bowel sounds active x4 quads. Denies passing gas. SCD in place bilaterally. pulses palpable and present. Abd dressing dry and intact. Fundus firm at umbilicus. Pt wants to cuddle baby prior to having 24 hour testing.
[2025-05-10] MEDS: DOCUSATE SODIUM 100 MG CAPSULE PO ×2 (08:44→22:25)
[2025-05-10] MEDS: KETOROLAC TROMETHAMINE 30 MG/ML VIAL IVP ×2 (08:45→22:25)
--- NOTE | 2025-05-10 12:48 | PC.NURSE ---
Infant returned to parents, ID bands verified. Mother went to sleep, did not shower. Encouraged to be up and moving to aid in recovery after surgery. Mom sits at edge of bed and states okay, I'll do it curled up on couch. in open crib, quiet and alert.
[2025-05-10] MEDS: OXYCODONE HCL/ACETAMINOPHEN 5MG/325MG 1 TAB PO (13:58)
[2025-05-10] MEDS: ENOXAPARIN SODIUM 40 MG/0.4 ML SYRINGE SUBQ (22:25)
[2025-05-11 00:38] VITALS: BP 87/58; TEMP 36.8; O2SAT 97
--- NOTE | 2025-05-11 08:15 | PM.OBPN ---
OB - PN: Subj Subjective Patient comments: no complaints [place] status: doing well [place] feeding status: exclusively bottle feeding Exam Constitutional Vital Signs, click to edit/add: Last Vital Signs Temp 98.2 F 05/11/25 00:38 Pulse 72 05/10/25 08:21 Resp 16 05/10/25 08:21 BP 87/58 L 05/11/25 00:38 Pulse Ox 97 05/11/25 00:38 O2 Del Method Room Air 05/11/25 00:38 Documenting provider has reviewed patient's vital signs: yes Common normals: no apparent distress and oriented x3 Exam limitations: altered mental status General appearance: cooperative Orientation/consciousness: Yes awake, Yes oriented to person, Yes oriented to place and Yes oriented to time HENMT Common normals: normocephalic Eye Common normals: EOMs intact bilaterally General eye: normal appearance of both eyes Neck & C-Spine Common normals: full ROM and no lymphadenopathy Lymph Lymphatic: no lymphadenopathy noted Chest Common normals: inspection of chest normal Respiratory Common normals: normal respiratory effort Effort & inspection: able to speak in complete sentences Auscultation: clear to auscultation bilaterally Cardio Common normals: regular rate and regular rhythm Rate: regular rate Rhythm: regular rhythm GI Common normals: Normal to inspection, nondistended, normoactive bowel sounds present Inspection: normal to inspection Palpation: soft Percussion: normal to percussion Common normals: no CVA tenderness Back & Pelvis Common normals: no CVA tenderness Thoracic spine/upper back: normal to inspection Extremity Common normals: normal to inspection Neuro Common normals: oriented x3 Sensorium/orientation: awake, alert, oriented to person, oriented to place and oriented to time Psych Common normals: mental status grossly normal, thought process normal, cooperative, affect normal, speech normal, activity/motor behavior normal, denies hallucinations, denies homicidal ideation and denies suicidal ideation Appearance: grossly normal Attitude: calm Speech: normal speech Thought process: normal thought process Thought content: normal thought content Urinary Catheter Management Urinary Catheter Management Urethral: Cath placed during this visit: yes Urethral indwelling: No Insertion date: 05/09/25 Insertion time: 08:00 OB - PN: A/P Assessment and Plan (1) Intrauterine : (2) Previous delivery affecting : Plan - day: 2 Plan: discharge home Time Spent with Patient Time: Total time spent is greater than 50% in coordination of care (as documented) at patient's floor/unit and/or counseling patient: Total time spent with greater than 50% in coordination of care (as documented) at patient's floor/unit and/or counseling patient: less than 15 minutes
[2025-05-11 08:52] VITALS: BP 116/65; O2SAT 100
[2025-05-11] MEDS: IBUPROFEN 400 MG TABLET 800 MG PO (08:53)
[2025-05-11] MEDS: DOCUSATE SODIUM 100 MG CAPSULE PO (08:54)
[2025-05-11] MEDS: OXYCODONE HCL/ACETAMINOPHEN 5MG/325MG 2 TAB PO (11:27)
== END 2025-05-11 12:15 | disposition home or self-care (01) | DRG 785 ==
PROVIDERS: Admitting Provider Obstetrics & Gynecology; Visit Provider Obstetrics & Gynecology
PROC: 10D00Z1 Extraction of Products of Conception, Low, Open Approach (ICD-10-PCS; CPT 59514; principal; 2025-05-09 07:30)
DX: O34.211 Maternal care for low transverse scar from previous cesarean delivery (principal); Z3A.39 39 weeks gestation of pregnancy; Z37.0 Single live birth; Z30.2 Encounter for sterilization
CPT/HCPCS: 36415; 51702; 80307; 81001; 85025; 86850; 86900; 86901; 87086; 88302; 94667; 94668; J0131; J0690; J1100; J1171; J1650; J1885; J2250; J2274; J2371; J2405; J2590; J2704; J2765; J3010; J3490